=== PATIENT | male | born 1955 | race American Indian/Alaskan Native ===

== ENCOUNTER 2018-12-13 17:48 | Inpatient (IN) | payer MEDICARE, OTHER ==
[2018-12-13 17:48] VITALS: BMI 19.5
--- NOTE | 2018-12-13 19:46 | C.PDOC ---
History Of Present Illness 63 year old male referred by Dr. Rasmussen for new onset two foot ulcers on the right foot and ankle. Symptoms began 2 weeks worsening now with black right toe. Denies trauma. Patient states he has historically high blood sugar but compliant with medications. Denies fever or chills. Time Seen by Provider: 12/13/18 19:32 Chief Complaint (Nursing): Abnormal Skin Integrity History Per: Patient History/Exam Limitations: no limitations Onset/Duration Of Symptoms: Days (3 weeks) Current Symptoms Are (Timing): Worse Recent travel outside of the [place]: No Past Medical History Reviewed: Historical Data, Nursing Documentation, Vital Signs Vital Signs: Last Vital Signs Temp 97.9 F 12/13/18 18:02 Pulse 100 H 12/13/18 18:02 Resp 18 12/13/18 18:02 BP 168/90 H 12/13/18 18:02 Pulse Ox 99 12/13/18 18:02 - Medical History PMH: Anemia, Diabetes, Gastritis, HTN, Hypercholesterolemia, Peripheral Edema (not at present), End Stage Renal Disease (on peritoneal diaysis), Chronic Kidney Disease Surgical History: Endoscopy (11/10/16) - [facility] Procedures DX ULTRASOUND-DIGESTIVE (11/21/14) EXCIS LESION OF MUSCLE (05/07/15) OTHER LOCAL DESTRUC SKIN (05/07/15) PERCUTAN NEEDLE BX OF LIVER (11/21/14) Family History: States: Unknown Family Hx - Social History Hx Alcohol Use: No Hx Substance Use: No - Immunization History Hx Influenza Vaccination: Yes Review Of Systems Except As Marked, All Systems Reviewed And Found Negative. Constitutional: Negative for: Fever, Chills Cardiovascular: Negative for: Chest Pain, Palpitations Respiratory: Negative for: Cough, Shortness of Breath Gastrointestinal: Negative for: Nausea, Vomiting Skin: Positive for: Other (Ulcers, black right toe) Neurological: Negative for: Weakness, Numbness Physical Exam - Physical Exam Appears: Non-toxic Skin: Warm Head: Atraumatic, Normacephalic Eye(s): bilateral: Normal Inspection Oral Mucosa: Moist Neck: Normal, Supple Chest: Symmetrical, No Tenderness Cardiovascular: Rhythm Regular Respiratory: Normal Breath Sounds, No Rales, No Rhonchi, No Wheezing Gastrointestinal/Abdominal: Soft, No Tenderness Extremity: Other (Dry gangrene to right 1st toe and right lateral malleolus, pt is s/p outpt vascular study per report patient with right leg occlusion but no palor or cyanosis.) Neurological/Psych: Oriented x3, Normal Speech ED Course And Treatment - Laboratory Results Result Diagrams: 12/13/18 19:59 12/13/18 21:59 ECG: Interpreted By Me ECG Rhythm: Sinus Rhythm ECG Interpretation: Normal Rate From EC O2 Sat by Pulse Oximetry: 99 Pulse Ox Interpretation: Normal - Radiology CXR: Interpreted by Me CXR Interpretation: Yes: No Acute Disease - Other Rad R FOOT X-Ray: Interpreted by Me (NEG) R ANKLE X-Ray: Interpreted by Me (NEG) - Physician Consult Information Time Consulting Physician Contacted: 22:28 Physician Contacted: Levi Matthews Outcome Of Conversation: c/f pmd Medical Decision Making Medical Decision Making: Plan: * EKG * Blood work * CXR * Right ankle/foot x-ray 1956: Discussed with podiatry resident. Disposition Counseled Patient/Family Regarding: Studies Performed, Diagnosis - Disposition Disposition: HOSPITALIZED Disposition Time: 22:28 Condition: STABLE Forms: [facility] (Hebrew) - POA Present On Arrival: None - Clinical Impression Clinical Impression: Gangrene, ESRD (end stage renal disease) - Scribe Statement The provider has reviewed the documentation as recorded by the Scribjonathan Gutierres All medical record entries made by the Scribe were at my direction and personally dictated by me. I have reviewed the chart and agree that the record accurately reflects my personal performance of the history, physical exam, medical decision making, and the department course for this patient. I have also personally directed, reviewed, and agree with the discharge instructions and disposition.
[2018-12-13 20:03] LABS: BASO # 0.1 K/uL (0.0-0.2); BASO % 0.9 % (0.0-2.0); EOS # 0.3 K/uL (0.0-0.7); EOS % 4.4 % (0.0-4.0); HEMOGLOBIN 10.6 g/dL (12.0-18.0); LYMPH # 0.6 K/uL (1.0-4.3); LYMPH % 9.5 % (20.0-40.0); MEAN CORPUSCULAR HEMOGLOBIN 25.4 pg (27.0-31.0); MEAN CORPUSCULAR HGB CONC 31.7 g/dL (33.0-37.0); MEAN PLATELET VOLUME 7.9 fL (7.2-11.7); MONO # 0.9 K/uL (0.0-0.8); MONO % 14.3 % (0.0-10.0); NEUT # 4.5 K/uL (1.8-7.0); NEUT % 70.9 % (50.0-75.0); NRBC % 0.1 % (0.0-2.0); PLATELET COUNT 298 K/uL (130-400); RBC 4.17 Mil/uL (4.40-5.90); RED CELL DISTRIBUTION WIDTH 16.5 % (11.5-14.5); WHITE BLOOD COUNT 6.3 K/uL (4.8-10.8)
[2018-12-13 20:08] LABS: MEAN CELL VOLUME 80.1 fL (80.0-94.0)
[2018-12-13 20:35] LABS: BASOPHIL 2 % (0-2); EOSINOPHIL 5 % (0-4); TOTAL CELLS COUNTED 100
[2018-12-13 20:36] LABS: ANISOCYTOSIS SLIGHT; HYPOCHROMIC SLIGHT; LYMPHOCYTE 10 % (20-40); MONOCYTE 13 % (0-10); NEUTROPHIL 70 % (50-75); PLATELET ESTIMATE NORMAL (NORMAL); POIKILOCYTOSIS SLIGHT
[2018-12-13 20:37] LABS: TARGET CELLS SLIGHT
[2018-12-13 22:24] LABS: ALB/GLOB RATIO 1.1 (1.0-2.1); ALBUMIN 3.2 g/dL (3.5-5.0); CALCIUM 8.3 mg/dl (8.6-10.4)
--- NOTE | 2018-12-14 01:11 | CP.PCM.HP ---
<GeechilogarlandZiaLevi P - Last Filed: 12/14/18 08:46> Meds Allergies/Adverse Reactions: Allergies Allergy/AdvReac Type Severity Reaction Status Date / Time No Known Allergies Allergy Verified 11/10/16 13:22 Results - Vital Signs Recent Vital Signs: Last Vital Signs Temp 98.4 F 12/14/18 07:33 Pulse 66 12/14/18 07:33 Resp 20 12/14/18 07:33 BP 173/85 H 12/14/18 07:33 Pulse Ox 99 12/14/18 07:33 - Labs Result Diagrams: 12/14/18 08:32 12/13/18 21:59 Labs: Laboratory Results - last 24 hr 12/13/18 12/13/18 12/14/18 19:59 21:59 02:20 WBC 6.3 RBC 4.17 L Hgb 10.6 L Hct 33.4 L MCV 80.1 D MCH 25.4 L MCHC 31.7 L RDW 16.5 H Plt Count 298 MPV 7.9 Neut % (Auto) 70.9 Lymph % (Auto) 9.[address] [place] % (Auto) 14.3 H Eos % (Auto) 4.4 H Baso % (Auto) 0.9 Neut # (Auto) 4.5 Lymph # (Auto) 0.[address] [place] # (Auto) 0.9 H Eos # (Auto) 0.3 Baso # (Auto) 0.1 Neutrophils % (Manual) 70 Lymphocytes % (Manual) 10 L Monocytes % (Manual) 13 H Eosinophils % (Manual) 5 H Basophils % (Manual) 2 Platelet Estimate Normal Hypochromasia (manual) Slight Poikilocytosis (manual Slight Anisocytosis (manual) Slight Target Cells Slight PT INR APTT Sodium 131 L Potassium 3.7 Chloride 95 L Carbon Dioxide 29 Anion Gap 11 BUN 46 H Creatinine 9.1 H* Est GFR ( Amer) 7 Est GFR (Non-Af Amer) 6 POC Glucose (mg/dL) 471 H* Random Glucose 260 H Calcium 8.3 L Total Bilirubin 0.5 AST 21 ALT 20 L D Alkaline Phosphatase 105 Total Protein 6.1 L Albumin 3.2 L Globulin 2.9 Albumin/Globulin Ratio 1.1 12/14/18 12/14/18 12/14/18 07:15 08:32 08:32 WBC 6.0 RBC 3.82 L Hgb 10.2 L Hct 30.8 L MCV 80.6 MCH 26.7 L MCHC 33.1 RDW 16.5 H Plt Count 289 MPV 7.8 Neut % (Auto) 68.9 Lymph % (Auto) 11.[address] [place] % (Auto) 12.9 H Eos % (Auto) 5.6 H Baso % (Auto) 0.9 Neut # (Auto) 4.1 Lymph # (Auto) 0.[address] [place] # (Auto) 0.8 Eos # (Auto) 0.3 Baso # (Auto) 0.1 Neutrophils % (Manual) Lymphocytes % (Manual) Monocytes % (Manual) Eosinophils % (Manual) Basophils % (Manual) Platelet Estimate Hypochromasia (manual) Poikilocytosis (manual Anisocytosis (manual) Target Cells PT 10.4 INR 1.0 APTT 32 Sodium Potassium Chloride Carbon Dioxide Anion Gap BUN Creatinine Est GFR ( Amer) Est GFR (Non-Af Amer) POC Glucose (mg/dL) 414 H* Random Glucose Calcium Total Bilirubin AST ALT Alkaline Phosphatase Total Protein Albumin Globulin Albumin/Globulin Ratio Attending/Attestation - Attestation I have personally seen and examined this patient.: Yes I have fully participated in the care of the patient.: Yes I have reviewed all pertinent clinical information: Yes Notes (Text): 12/14/18 08:46 b/l but right worse then 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 Plan Will need to prepared and started on HD, then pvd studes with CTA/angio, then determine extent of amputation and would care mean while adjusting insulin requirement as will change as the PD fluid contains glucose, reduced levimer form 30 to 20 and sliding scale coverage Vascular surg, podiatry, nephrology, wound care consults Echo, work up for wound as per podiatry, since clinically not infected will hold off on abx Gi dvt prophylaxis See plan for details 12/14/18 08:51 <Vidhya Cleary P - Last Filed: 12/14/18 14:37> History of Present Illness - History of Present Illness History of Present Illness: H&P for Dr. Matthews. CC: Worsening R foot wounds HPI: 63 year old male PMHx DM, ESRD on peritoneal dialysis and HTN presents to ED for wounds to R foot. Patient states he noticed a small wound to his R ankle area and discoloration of his R first toe 3 weeks ago, which have been pro gressively worsening. Patient reports burning pain to wounds since yesterday. Patient denies fever, chills, drainage, trauma nausea, vomiting, inability to bear weight. Patient undergoes peritoneal dialysis 4x per day, states he left the house with the dialysis solution in his abdomen and has not been able to remove it since he did not bring his supplies with him. PMHx: DM, ESRD on peritoneal dialysis and HTN PSHx: L AV graft, Peritoneal dialysis catheter Meds: See med list Allergies: NKDA FamHx: Mother-DM, Father-lung cancer SocHx: Former smoker 20 years ago, 3 cig/day, quit alcohol 20 years ago, no recent illicit drug use PMD: Reisner Review of Systems: -Gen: No fever, No chills, No headache, No lethargy, No weakness. -HEENT: No dizziness, No change in vision, No change in hearing, No sore throat, No dysphagia, No nasal congestion, No mucous. -Cardio: No chest pain, No palpitations, No lower extremity edema, No orthopnea. -Resp: No cough, No dyspnea, No hemoptysis, No wheezing, No pain on inspiration. -GI: No abdominal pain, No nausea/vomiting, No diarrhea/constipation, No hematochezia, No hematemesis. -: No dysuria, No urinary freq, No incontinence, No hematuria, No change in urinary stream. -MSK: +RLE pain -Skin: +RLE Wounds. -Neuro: No confusion, + numbness R first toe, No tingling, No focal weakness, No radicular pain, No syncope. Present on Admission - Present on Admission Any Indicators Present on Admission: Yes History of Uncontrolled Diabetes: Yes Past Patient History - Past Medical History & Family History Past Medical History?: Yes - Past Social History Smoking Status: Former Smoker - CARDIAC Hx Hypercholesterolemia: Yes Hx Hypertension: Yes Hx Peripheral Edema: Yes (not at present) - PULMONARY Hx Respiratory Disorders: No - NEUROLOGICAL Hx Neurological Disorder: No - HEENT Hx HEENT Problems: Yes - RENAL Hx Chronic Kidney Disease: Yes - ENDOCRINE/METABOLIC Hx Endocrine Disorders: Yes Hx Diabetes Mellitus Type 2: Yes - HEMATOLOGICAL/ONCOLOGICAL Hx Anemia: Yes - INTEGUMENTARY Hx Dermatological Problems: No - MUSCULOSKELETAL/RHEUMATOLOGICAL Hx Musculoskeletal Disorders: No - GASTROINTESTINAL Hx Gastritis: Yes - GENITOURINARY/GYNECOLOGICAL Hx Genitourinary Disorders: No - PSYCHIATRIC Hx Substance Use: No - SURGICAL HISTORY Other/Comment: FISTULA LEFT ARM, AUG 2018 - ANESTHESIA Hx Anesthesia: Yes Hx Anesthesia Reactions: No Hx Malignant Hyperthermia: No Physical Exam - Constitutional Appears: Non-toxic, No Acute Distress - Head Exam Head Exam: ATRAUMATIC, NORMOCEPHALIC - Eye Exam Eye Exam: EOMI, Normal appearance, PERRL - ENT Exam ENT Exam: Mucous Membranes Moist - Neck Exam Neck exam: Positive for: Full Rom, Normal Inspection Additional comments: Well healed L neck scar - Respiratory Exam Respiratory Exam: Clear to Auscultation Bilateral, NORMAL BREATHING PATTERN. absent: Rales, Rhonchi, Wheezes - Cardiovascular Exam Cardiovascular Exam: REGULAR RHYTHM, +S1, +S2, Systolic Murmur (3/6 heard best over) - GI/Abdominal Exam GI & Abdominal Exam: Normal Bowel Sounds, Soft. absent: Guarding, Rebound, Tenderness Additional comments: Peritoneal dialysis catheter L abdomen - Extremities Exam Extremities exam: Positive for: full ROM. Negative for: calf tenderness, normal capillary refill (L toes capillary refil normal. R toes capillary refill diminished.), tenderness Additional comments: DP pulses are weak bilaterally. R first toe is necrotic, no purulent drainage, no warmth or erythema, +loss of sensation. 4cm wound with overlying scab to lateral malleolus, no active drainage, warmth or erythema. - Neurological Exam Neurological exam: Alert, CN II-XII Intact, Oriented x3 - Psychiatric Exam Psychiatric exam: Normal Affect, Normal Mood - Skin Additional comments: other than described in extremity exam, normal Results - Vital Signs Recent Vital Signs: Last Vital Signs Temp 98.0 F 12/13/18 22:48 Pulse 97 H 12/13/18 22:48 Resp 16 12/13/18 22:48 BP 162/88 H 12/13/18 22:48 Pulse Ox 99 12/13/18 22:48 - Labs Result Diagrams: 12/14/18 08:32 12/14/18 08:32 Labs: Laboratory Results - last 24 hr 12/13/18 12/13/18 19:59 21:59 WBC 6.3 RBC 4.17 L Hgb 10.6 L Hct 33.4 L MCV 80.1 D MCH 25.4 L MCHC 31.7 L RDW 16.5 H Plt Count 298 MPV 7.9 Neut % (Auto) 70.9 Lymph % (Auto) 9.[address] [place] % (Auto) 14.3 H Eos % (Auto) 4.4 H Baso % (Auto) 0.9 Neut # (Auto) 4.5 Lymph # (Auto) 0.[address] [place] # (Auto) 0.9 H Eos # (Auto) 0.3 Baso # (Auto) 0.1 Neutrophils % (Manual) 70 Lymphocytes % (Manual) 10 L Monocytes % (Manual) 13 H Eosinophils % (Manual) 5 H Basophils % (Manual) 2 Platelet Estimate Normal Hypochromasia (manual) Slight Poikilocytosis (manual Slight Anisocytosis (manual) Slight Target Cells Slight Sodium 131 L Potassium 3.7 Chloride 95 L Carbon Dioxide 29 Anion Gap 11 BUN 46 H Creatinine 9.1 H* Est GFR ( Amer) 7 Est GFR (Non-Af Amer) 6 Random Glucose 260 H Calcium 8.3 L Total Bilirubin 0.5 AST 21 ALT 20 L D Alkaline Phosphatase 105 Total Protein 6.1 L Albumin 3.2 L Globulin 2.9 Albumin/Globulin Ratio 1.1 Assessment & Plan - Assessment and Plan (Free Text) Plan: R lateral ankle and R first toe wounds Arterial doppler study [facility] [place] 12/07/18: R popliteal artery 75-99% stenosis. R Posterior tibial artery is occluded. L posterior tibial and anterior tibial with 50-75% stenosis. Diffuse disease to peroneal artery. R MARIVEL: 1.12, L MARIVEL: 0.91 R Foot and ankle Xrays: No evidence of osteomyelitis (see full report) Vascular Surgery- unavailable at this time -should patient need vascular intervention he will require transfer to another facility Podiatry Consulted- f/u recs Tylenol 650 Q6H PRN pain Hx of HTN Losartan 50mg PO daily Metoprolol Tartrate 50mg PO BID Hx of DM Levemir 30 u HS Regular insulin SS Aspirin 81mg PO daily Crestor 20mg PO HS Accuchecks ACHS Hx ESRD on Peritoneal dialysis Nephro consulted, Dr. Vail Patient may need to start hemodialysis Nephro Barbara 1 tab PO daily Calcitriol 0.5mct PO daily f/u echo PPx Heparin 5000u SC Q8H Discussed with Dr. Cassie Cleary, PGY-1
[2018-12-14] MEDS ORDERED: Glucagon Recombinant 1 mg Inj IM PRN (01:18)
[2018-12-14] MEDS ORDERED: Dextrose 50% SYRINGE Inj (50 ml) IV PRN (01:18)
[2018-12-14] MEDS: Insulin Detemir 100 units/ml Vial (Levemir) SC SCH ×2 (02:16→21:45)
--- NOTE | 2018-12-14 07:40 | CP.PCM.CON ---
Past Patient History - Past Medical History & Family History Past Medical History?: Yes - Past Social History Smoking Status: Former Smoker - CARDIAC Hx Hypercholesterolemia: Yes Hx Hypertension: Yes Hx Peripheral Edema: Yes (not at present) - PULMONARY Hx Respiratory Disorders: No - NEUROLOGICAL Hx Neurological Disorder: No - HEENT Hx HEENT Problems: Yes - RENAL Hx Chronic Kidney Disease: Yes - ENDOCRINE/METABOLIC Hx Endocrine Disorders: Yes Hx Diabetes Mellitus Type 2: Yes - HEMATOLOGICAL/ONCOLOGICAL Hx Anemia: Yes - INTEGUMENTARY Hx Dermatological Problems: No - MUSCULOSKELETAL/RHEUMATOLOGICAL Hx Musculoskeletal Disorders: No - GASTROINTESTINAL Hx Gastritis: Yes - GENITOURINARY/GYNECOLOGICAL Hx Genitourinary Disorders: No - PSYCHIATRIC Hx Substance Use: No - SURGICAL HISTORY Other/Comment: FISTULA LEFT ARM, AUG 2018 - ANESTHESIA Hx Anesthesia: Yes Hx Anesthesia Reactions: No Hx Malignant Hyperthermia: No Meds Allergies/Adverse Reactions: Allergies Allergy/AdvReac Type Severity Reaction Status Date / Time No Known Allergies Allergy Verified 11/10/16 13:22 - Medications Medications: Current Medications Acetaminophen (Tylenol 325mg Tab) 650 mg PO Q6 PRN PRN Reason: Pain, moderate (4-7) Aspirin (Aspirin Chewable) 81 mg PO DAILY [facility] Calcitriol (Rocaltrol) 0.5 mcg PO DAILY [facility] Dextrose (Dextrose 50% Inj) 0 ml IV STAT PRN; Protocol PRN Reason: Hypoglycemia Protocol Dextrose (Glutose 15) 0 gm PO ONCE PRN; Protocol PRN Reason: Hypoglycemia Protocol Glucagon (Glucagen Diagnostic Kit) 0 mg IM STAT PRN; Protocol PRN Reason: Hypoglycemia Protocol Heparin Sodium (Porcine) (Heparin) 5,000 units SC Q8 [facility] Last Admin: 12/14/18 05:21 Dose: 5,000 units Dextrose (Dextrose 5% In Water 1000 Ml) 1,000 mls @ 0 mls/hr IV .Q0M PRN; Protocol PRN Reason: Hypoglycemia Protocol Insulin Detemir (Levemir) 30 unit SC HS [facility] Last Admin: 12/14/18 02:16 Dose: 30 units Insulin Human Regular (Novolin R) 0 unit SC ACHS [facility]; Protocol Losartan Potassium (Cozaar) 50 mg PO DAILY [facility] Metoprolol Tartrate (Lopressor) 50 mg PO BID [facility] Rosuvastatin Calcium (Crestor) 20 mg PO HS [facility] Vitamin B Complex/Vit C/Folic Acid (Nephro-Barbara) 1 tab PO 0800 PEE Results - Vital Signs Recent Vital Signs: Last Vital Signs Temp 98.4 F 12/14/18 07:33 Pulse 66 12/14/18 07:33 Resp 20 12/14/18 07:33 BP 173/85 H 12/14/18 07:33 Pulse Ox 99 12/14/18 07:33 - Labs Result Diagrams: 12/13/18 19:59 12/13/18 21:59 Labs: Laboratory Results - last 24 hr 12/13/18 12/13/18 12/14/18 19:59 21:59 02:20 WBC 6.3 RBC 4.17 L Hgb 10.6 L Hct 33.4 L MCV 80.1 D MCH 25.4 L MCHC 31.7 L RDW 16.5 H Plt Count 298 MPV 7.9 Neut % (Auto) 70.9 Lymph % (Auto) 9.5 L Cotton % (Auto) 14.3 H Eos % (Auto) 4.4 H Baso % (Auto) 0.9 Neut # (Auto) 4.5 Lymph # (Auto) 0.6 L Cotton # (Auto) 0.9 H Eos # (Auto) 0.3 Baso # (Auto) 0.1 Neutrophils % (Manual) 70 Lymphocytes % (Manual) 10 L Monocytes % (Manual) 13 H Eosinophils % (Manual) 5 H Basophils % (Manual) 2 Platelet Estimate Normal Hypochromasia (manual) Slight Poikilocytosis (manual Slight Anisocytosis (manual) Slight Target Cells Slight Sodium 131 L Potassium 3.7 Chloride 95 L Carbon Dioxide 29 Anion Gap 11 BUN 46 H Creatinine 9.1 H* Est GFR ( Amer) 7 Est GFR (Non-Af Amer) 6 POC Glucose (mg/dL) 471 H* Random Glucose 260 H Calcium 8.3 L Total Bilirubin 0.5 AST 21 ALT 20 L D Alkaline Phosphatase 105 Total Protein 6.1 L Albumin 3.2 L Globulin 2.9 Albumin/Globulin Ratio 1.1 12/14/18 07:15 WBC RBC Hgb Hct MCV MCH MCHC RDW Plt Count MPV Neut % (Auto) Lymph % (Auto) Cotton % (Auto) Eos % (Auto) Baso % (Auto) Neut # (Auto) Lymph # (Auto) Cotton # (Auto) Eos # (Auto) Baso # (Auto) Neutrophils % (Manual) Lymphocytes % (Manual) Monocytes % (Manual) Eosinophils % (Manual) Basophils % (Manual) Platelet Estimate Hypochromasia (manual) Poikilocytosis (manual Anisocytosis (manual) Target Cells Sodium Potassium Chloride Carbon Dioxide Anion Gap BUN Creatinine Est GFR ( Amer) Est GFR (Non-Af Amer) POC Glucose (mg/dL) 414 H* Random Glucose Calcium Total Bilirubin AST ALT Alkaline Phosphatase Total Protein Albumin Globulin Albumin/Globulin Ratio
[2018-12-14] MEDS: Multivitamin Vitamin B Complex (Nephro-Vite) Tab PO SCH (08:15)
[2018-12-14] MEDS: (Novolin R) Insulin Human Regular 100 units/ml vial SC SCH ×4 (08:15→21:45)
[2018-12-14 08:39] LABS: BASO # 0.1 K/uL (0.0-0.2); BASO % 0.9 % (0.0-2.0); EOS # 0.3 K/uL (0.0-0.7); EOS % 5.6 % (0.0-4.0); HEMOGLOBIN 10.2 g/dL (12.0-18.0); LYMPH # 0.7 K/uL (1.0-4.3); LYMPH % 11.7 % (20.0-40.0); MEAN CELL VOLUME 80.6 fL (80.0-94.0); MEAN CORPUSCULAR HEMOGLOBIN 26.7 pg (27.0-31.0); MEAN CORPUSCULAR HGB CONC 33.1 g/dL (33.0-37.0); MEAN PLATELET VOLUME 7.8 fL (7.2-11.7); MONO # 0.8 K/uL (0.0-0.8); MONO % 12.9 % (0.0-10.0); NEUT # 4.1 K/uL (1.8-7.0); NEUT % 68.9 % (50.0-75.0); NRBC % 0.1 % (0.0-2.0); RBC 3.82 Mil/uL (4.40-5.90); RED CELL DISTRIBUTION WIDTH 16.5 % (11.5-14.5)
[2018-12-14 08:45] LABS: PROTHROMBIN TIME 10.4 SECONDS (9.7-12.2)
--- NOTE | 2018-12-14 08:55 | RAD ---
Date of service: 12/13/2018 PROCEDURE: Right Ankle Radiographs. HISTORY: DFU COMPARISON: None available. TECHNIQUE: 3 views obtained. FINDINGS: BONES: No fracture lytic lesion or gross periosteal reaction noted. JOINTS: Mild midfoot osteoarthritis. Ankle mortise maintained. Talar dome intact SOFT TISSUES: Atherosclerotic vascular calcifications present. No gas-forming cellulitis seen. OTHER FINDINGS: None. IMPRESSION: No periosteal reaction to suggest osteomyelitis noted. No gross osseous destruction appreciated . Other findings as above.
--- NOTE | 2018-12-14 08:58 | RAD ---
Date of service: cordeliazz 12/13/2018 PROCEDURE: Right Foot Radiographs. HISTORY: DFU COMPARISON: None. TECHNIQUE: 3 views obtained. FINDINGS: BONES: No fracture or lytic lesion. JOINTS: Mild arthrosis midfoot. Trace 1st metatarsal-phalangeal joint arthrosis SOFT TISSUES: Atherosclerotic vascular calcifications present. No gas-forming cellulitis seen. OTHER FINDINGS: None. IMPRESSION: No periosteal reaction to suggest osteomyelitis noted. No gross osseous destruction appreciated . Other findings as above.
[2018-12-14 09:15] LABS: ALB/GLOB RATIO 1.1 (1.0-2.1); ALBUMIN 3.3 g/dL (3.5-5.0); CALCIUM 9.4 mg/dl (8.6-10.4)
--- NOTE | 2018-12-14 09:34 | RAD ---
Date of service: 12/13/2018 HISTORY: Medical clearance COMPARISON: None available. TECHNIQUE: 1 view obtained. FINDINGS: LUNGS: No gross focal infiltrate or effusion. Right paratracheal opacity likely represents prominent vasculature. Patchy increased markings at the left lung base may represent prominent epicardial fat pad. Clinical correlation. Small nodular density at the lateral aspect of the left mid lung zone likely represents vessel on end. PLEURA: No significant pleural effusion identified, no pneumothorax apparent. CARDIOVASCULAR: No aortic atherosclerotic calcification present. Mild cardiomegaly. No pulmonary vascular congestion. OSSEOUS STRUCTURES: No significant abnormalities. VISUALIZED UPPER ABDOMEN: Normal. OTHER FINDINGS: None. IMPRESSION: No active disease.
--- NOTE | 2018-12-14 11:14 | CP.PCM.CON ---
History of Present Illness - History of Present Illness History of Present Illness: Podiatry Consult Note for Dr. Rasmussen 63M with PMH DM, ESRD on peritoneal dialysis and HTN seen and evaluated at bedside for right foot pain. Patient states that pain has been worsening over the last several weeks and is worst a the tip of his right big toe and at his right ankle. He states that he tries to keep both sites covered at home but has recently noticed a small hole forming at the tip of his big toe. 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 Ruffin. He denies any drainage, pus, malodor, or redness coming from the site. He is AAO x 3 and NAD at time of visit. Denies any further pedal complaints at this time. Denies any recent N/V/F/C/CP/SOB/D Review of Systems - Review of Systems All systems: reviewed and no additional remarkable complaints except Review of Systems: as per HPI Past Patient History - Past Medical History & Family History Past Medical History?: Yes - Past Social History Smoking Status: Former Smoker - CARDIAC Hx Hypercholesterolemia: Yes Hx Hypertension: Yes Hx Peripheral Edema: Yes (not at present) - PULMONARY Hx Respiratory Disorders: No - NEUROLOGICAL Hx Neurological Disorder: No - HEENT Hx HEENT Problems: Yes - RENAL Hx Chronic Kidney Disease: Yes - ENDOCRINE/METABOLIC Hx Endocrine Disorders: Yes Hx Diabetes Mellitus Type 2: Yes - HEMATOLOGICAL/ONCOLOGICAL Hx Anemia: Yes - INTEGUMENTARY Hx Dermatological Problems: No - MUSCULOSKELETAL/RHEUMATOLOGICAL Hx Musculoskeletal Disorders: No - GASTROINTESTINAL Hx Gastritis: Yes - GENITOURINARY/GYNECOLOGICAL Hx Genitourinary Disorders: No - PSYCHIATRIC Hx Substance Use: No - SURGICAL HISTORY Other/Comment: FISTULA LEFT ARM, AUG 2018 - ANESTHESIA Hx Anesthesia: Yes Hx Anesthesia Reactions: No Hx Malignant Hyperthermia: No Meds Allergies/Adverse Reactions: Allergies Allergy/AdvReac Type Severity Reaction Status Date / Time No Known Allergies Allergy Verified 11/10/16 13:22 - Medications Medications: Current Medications Acetaminophen (Tylenol 325mg Tab) 650 mg PO Q6 PRN PRN Reason: Pain, moderate (4-7) Aspirin (Aspirin Chewable) 81 mg PO DAILY [facility] Last Admin: 12/14/18 10:12 Dose: 81 mg Calcitriol (Rocaltrol) 0.5 mcg PO DAILY [facility] Last Admin: 04/02/19 10:12 Dose: 0.5 mcg Dextrose (Dextrose 50% Inj) 0 ml IV STAT PRN; Protocol PRN Reason: Hypoglycemia Protocol Dextrose (Glutose 15) 0 gm PO ONCE PRN; Protocol PRN Reason: Hypoglycemia Protocol Glucagon (Glucagen Diagnostic Kit) 0 mg IM STAT PRN; Protocol PRN Reason: Hypoglycemia Protocol Heparin Sodium (Porcine) (Heparin) 5,000 units SC Q8 [facility] Last Admin: 12/14/18 05:21 Dose: 5,000 units Dextrose (Dextrose 5% In Water 1000 Ml) 1,000 mls @ 0 mls/hr IV .Q0M PRN; Protocol PRN Reason: Hypoglycemia Protocol Insulin Detemir (Levemir) 30 unit SC HS [facility] Last Admin: 12/14/18 02:16 Dose: 30 units Insulin Human Regular (Novolin R) 0 unit SC ACHS [facility]; Protocol Last Admin: 12/14/18 08:15 Dose: 10 units Losartan Potassium (Cozaar) 50 mg PO DAILY [facility] Last Admin: 12/14/18 10:12 Dose: 50 mg Metoprolol Tartrate (Lopressor) 50 mg PO BID [facility] Last Admin: 12/14/18 10:13 Dose: 50 mg Rosuvastatin Calcium (Crestor) 20 mg PO [facility] Vitamin B Complex/Vit C/Folic Acid (Nephro-Barbara) 1 tab PO 0800 [facility] Last Admin: 12/14/18 08:15 Dose: 1 tab Physical Exam - Constitutional Appears: Well, Non-toxic, No Acute Distress - Extremities Exam Additional comments: LE focused exam: Vasc: DP/PT pulses non-palpable b/l. Skin temperature warm to warm from proximal to distal WNL. CFT > 3 seconds to all digits b/l. No edema noted b/l Neuro: Epicritic and protective sensation grossly diminished b/l Derm: Callosity noted to distal aspect of right hallux with ulceration measuring approximately 0.1 cm x 0.1 cm x 0.1 cm noted in center of callosity. No tracking, tunneling, undermining, probe to bone, drainage, malodor or other clinical signs of infection noted. Hypertrophic patch of skin measuring roughly 4 cm x 3 cm noted to anterolateral ankle of right foot. No evidence of erythema or cellulitic changes. No breaks in the skin appreciated MSK: Pain on palpation of hypertrophic skin at anterior ankle. No pain on palpation of distal hallucal ulceration. No evidence of gross deformities appreciated - Neurological Exam Neurological exam: Alert, Oriented x3 - Psychiatric Exam Psychiatric exam: Normal Affect, Normal Mood Results - Vital Signs Recent Vital Signs: Last Vital Signs Temp 98.4 F 12/14/18 07:33 Pulse 66 12/14/18 07:33 Resp 20 12/14/18 07:33 BP 173/85 H 12/14/18 07:33 Pulse Ox 99 12/14/18 07:33 - Labs Result Diagrams: 12/14/18 08:32 12/14/18 08:32 Labs: Laboratory Results - last 24 hr 12/13/18 12/13/18 12/14/18 19:59 21:59 02:20 WBC 6.3 RBC 4.17 L Hgb 10.6 L Hct 33.4 L MCV 80.1 D MCH 25.4 L MCHC 31.7 L RDW 16.5 H Plt Count 298 MPV 7.9 Neut % (Auto) 70.9 Lymph % (Auto) 9.5 L Mchenry % (Auto) 14.3 H Eos % (Auto) 4.4 H Baso % (Auto) 0.9 Neut # (Auto) 4.5 Lymph # (Auto) 0.6 L Mchenry # (Auto) 0.9 H Eos # (Auto) 0.3 Baso # (Auto) 0.1 Neutrophils % (Manual) 70 Lymphocytes % (Manual) 10 L Monocytes % (Manual) 13 H Eosinophils % (Manual) 5 H Basophils % (Manual) 2 Platelet Estimate Normal Hypochromasia (manual) Slight Poikilocytosis (manual Slight Anisocytosis (manual) Slight Target Cells Slight PT INR APTT Sodium 131 L Potassium 3.7 Chloride 95 L Carbon Dioxide 29 Anion Gap 11 BUN 46 H Creatinine 9.1 H* Est GFR ( Amer) 7 Est GFR (Non-Af Amer) 6 POC Glucose (mg/dL) 471 H* Random Glucose 260 H Calcium 8.3 L Total Bilirubin 0.5 AST 21 ALT 20 L D Alkaline Phosphatase 105 Total Protein 6.1 L Albumin 3.2 L Globulin 2.9 Albumin/Globulin Ratio 1.1 12/14/18 12/14/18 12/14/18 07:15 08:32 08:32 WBC 6.0 RBC 3.82 L Hgb 10.2 L Hct 30.8 L MCV 80.6 MCH 26.7 L MCHC 33.1 RDW 16.5 H Plt Count 289 MPV 7.8 Neut % (Auto) 68.9 Lymph % (Auto) 11.7 L Mchenry % (Auto) 12.9 H Eos % (Auto) 5.6 H Baso % (Auto) 0.9 Neut # (Auto) 4.1 Lymph # (Auto) 0.7 L Mchenry # (Auto) 0.8 Eos # (Auto) 0.3 Baso # (Auto) 0.1 Neutrophils % (Manual) Lymphocytes % (Manual) Monocytes % (Manual) Eosinophils % (Manual) Basophils % (Manual) Platelet Estimate Hypochromasia (manual) Poikilocytosis (manual Anisocytosis (manual) Target Cells PT 10.4 INR 1.0 APTT 32 Sodium Potassium Chloride Carbon Dioxide Anion Gap BUN Creatinine Est GFR ( Amer) Est GFR (Non-Af Amer) POC Glucose (mg/dL) 414 H* Random Glucose Calcium Total Bilirubin AST ALT Alkaline Phosphatase Total Protein Albumin Globulin Albumin/Globulin Ratio 12/14/18 08:32 WBC RBC Hgb Hct MCV MCH MCHC RDW Plt Count MPV Neut % (Auto) Lymph % (Auto) Mchenry % (Auto) Eos % (Auto) Baso % (Auto) Neut # (Auto) Lymph # (Auto) Mchenry # (Auto) Eos # (Auto) Baso # (Auto) Neutrophils % (Manual) Lymphocytes % (Manual) Monocytes % (Manual) Eosinophils % (Manual) Basophils % (Manual) Platelet Estimate Hypochromasia (manual) Poikilocytosis (manual Anisocytosis (manual) Target Cells PT INR APTT Sodium 133 Potassium 4.3 Chloride 95 L Carbon Dioxide 28 Anion Gap 14 BUN 53 H Creatinine 9.7 H* Est GFR ( Amer) 7 Est GFR (Non-Af Amer) 5 POC Glucose (mg/dL) Random Glucose 360 H D Calcium 9.4 Total Bilirubin 0.5 AST 28 ALT 19 L Alkaline Phosphatase 116 Total Protein 6.3 Albumin 3.3 L Globulin 3.0 Albumin/Globulin Ratio 1.1 Assessment & Plan - Assessment and Plan (Free Text) Assessment: 63M seen for distal right hallux ulceration and painful hypertrophic skin on anterior right ankle Plan: Patient seen and evaluated Plan discussed with Dr. Rasmussen Afebrile, absent leukocytosis Foot xray: No evidence of osteomyelitis F/u vascular recommendations No plan for surgical intervention at this time Wound dressed with betadine, DSD Podiatry will continue to follow while patient in house - Date & Time Date: 12/14/18 Time: 11:41
--- NOTE | 2018-12-14 12:54 | CP.PCM.PN ---
<Brent Delvalle - Last Filed: 12/14/18 16:48> Subjective - Date & Time of Evaluation Date of Evaluation: 12/14/18 Time of Evaluation: 07:45 - Subjective Subjective: Medicine progress note for Dr. Neville Fraser Pt seen and examined at bedside. Pt is resting comfortably and has no complaints at this time. Pt denies fever, chills, chest pain, sob, abdominal pain, n/v/d, headache, dizziness, visual changes, numbness or tingling. Objective - Vital Signs/Intake and Output Vital Signs (last 24 hours): Temp Pulse Resp BP Pulse Ox 98.4 F 66 20 173/85 H 99 12/14/18 07:33 12/14/18 07:33 12/14/18 07:33 12/14/18 07:33 12/14/18 07:33 Intake and Output: 12/14/18 12/14/18 06:59 18:59 Intake Total 240 Balance 240 - Medications Medications: Current Medications Acetaminophen (Tylenol 325mg Tab) 650 mg PO Q6 PRN PRN Reason: Pain, moderate (4-7) Aspirin (Aspirin Chewable) 81 mg PO DAILY [facility] Last Admin: 12/14/18 10:12 Dose: 81 mg Calcitriol (Rocaltrol) 0.5 mcg PO DAILY [facility] Last Admin: 12/14/18 10:12 Dose: 0.5 mcg Dextrose (Dextrose 50% Inj) 0 ml IV STAT PRN; Protocol PRN Reason: Hypoglycemia Protocol Dextrose (Glutose 15) 0 gm PO ONCE PRN; Protocol PRN Reason: Hypoglycemia Protocol Glucagon (Glucagen Diagnostic Kit) 0 mg IM STAT PRN; Protocol PRN Reason: Hypoglycemia Protocol Heparin Sodium (Porcine) (Heparin) 5,000 units SC Q8 [facility] Last Admin: 12/14/18 05:21 Dose: 5,000 units Dextrose (Dextrose 5% In Water 1000 Ml) 1,000 mls @ 0 mls/hr IV .Q0M PRN; Protocol PRN Reason: Hypoglycemia Protocol Insulin Detemir (Levemir) 30 unit SC HS [facility] Last Admin: 12/14/18 02:16 Dose: 30 units Insulin Human Regular (Novolin R) 0 unit SC ACHS [facility]; Protocol Last Admin: 12/14/18 11:34 Dose: 6 units Losartan Potassium (Cozaar) 100 mg PO DAILY [facility] Metoprolol Tartrate (Lopressor) 50 mg PO BID [facility] Last Admin: 12/14/18 10:13 Dose: 50 mg Rosuvastatin Calcium (Crestor) 20 mg PO HS [facility] Vitamin B Complex/Vit C/Folic Acid (Nephro-Barbara) 1 tab PO 0800 [facility] Last Admin: 12/14/18 08:15 Dose: 1 tab - Labs Labs: 12/14/18 08:32 12/14/18 08:32 PT 10.4 SECONDS (9.7-12.2) 12/14/18 08:32 INR 1.0 12/14/18 08:32 APTT 32 SECONDS (21-34) 12/14/18 08:32 Assessment and Plan - Assessment and Plan (Free Text) Assessment: This is a 63 year old male with PMhx of IDDM2, ESRD on peritoneal dialysis, HTN who presents to the ED for pain to the wounds to his right foot, ankle area and right first toe. Plan: R lateral ankle and R first toe wounds Hx PVD Arterial doppler study [facility] 12/07/18: R popliteal artery 75-99% stenosis. R Posterior tibial artery is occluded. L posterior tibial and anterior tibial with 50-75% stenosis. Diffuse disease to peroneal artery. R MARIVEL: 1.12, L MARIVEL: 0.91 Right Foot x-ray shows no periosteal reaction to suggest osetomyelitis. No gross osseous destruction appreciated. Right ankle x-ray shows no periosteal reaction to suggest osetomyelitis. No gross osseous destruction appreciated. CXR shows no active disease. Vascular Surgery, Dr. Rosales, consulted. * Abdominal CTA with iliofemoral run off Podiatry, Dr. Rasmussen, consulted * No plan for surgical intervention at this time * Wound dressed with betadine, DSD Tylenol 650 Q6H PRN pain ASA 81 mg PO daily, Crestor 20 mg PO QHS Will start low dose Gabapentin 100 mg PO TID due to burning pain in diabetes Hx of HTN HCTZ 25 mg PO daily Losartan 50mg PO daily Metoprolol Tartrate 50mg PO BID TG/CHL/LDL/HDL is 117/166/95/42 F/u echocardiogram Hx ESRD on Peritoneal dialysis Nephrology, Dr. Vail, consulted. Creatinine stable, but elevated at 9.7. NO hyperkalemia, but with hyperphosphatemia at 4.9. Pt to have peritoneal dialysis today, as he refuses hemodialysis at this time Nephro Barbara 1 tab PO daily Calcitriol 0.5mct PO daily Phoslo 667 mg PO BIDCC with food started today Hx of IDDM HgbA1c is 8.4 Levemir 30 u HS Regular insulin SS Aspirin 81mg PO daily Crestor 20mg PO HS Accuchecks ACHS PPx Heparin 5000u SC q8 No indication for GI ppx at this time HHD, CCD Dispo: Midline to be placed due to poor IV access. CTA with iliofemoral runoff to evaluate vasculature, continue wound care as per podiatry, continue PD as per Nephrology, f/u ESR, no other imaging at this time. <Hipolito Fraser - Last Filed: 12/17/18 18:52> Objective - Vital Signs/Intake and Output Vital Signs (last 24 hours): Temp Pulse Resp BP Pulse Ox 97.5 F L 86 20 152/78 H 97 12/17/18 16:00 12/17/18 16:00 12/17/18 16:00 12/17/18 16:00 12/17/18 16:00 Intake and Output: 12/17/18 12/17/18 06:59 18:59 Intake Total 800 Balance 800 - Medications Medications: Current Medications Acetaminophen (Tylenol 325mg Tab) 650 mg PO Q6 PRN PRN Reason: Pain, moderate (4-7) Last Admin: 12/17/18 14:03 Dose: 650 mg Amlodipine Besylate (Norvasc) 10 mg PO Q24H [facility] Last Admin: 12/16/18 21:40 Dose: 10 mg Aspirin (Aspirin Chewable) 81 mg PO DAILY [facility] Last Admin: 12/17/18 10:00 Dose: Not Given Calcitriol (Rocaltrol) 0.5 mcg PO DAILY [facility] Last Admin: 12/17/18 10:00 Dose: Not Given Calcium Acetate (Phoslo) 667 mg PO BIDCC [facility] Last Admin: 12/17/18 17:30 Dose: 667 mg Dextrose (Dextrose 50% Inj) 0 ml IV STAT PRN; Protocol PRN Reason: Hypoglycemia Protocol Last Admin: 12/16/18 06:35 Dose: 50 ml Dextrose (Glutose 15) 0 gm PO ONCE PRN; Protocol PRN Reason: Hypoglycemia Protocol Diltiazem HCl (Cardizem Cd) 120 mg PO DAILY [facility] Docusate Sodium (Colace) 100 mg PO BID [facility] Last Admin: 12/17/18 17:41 Dose: 100 mg Furosemide (Lasix) 80 mg PO DAILY [facility] Last Admin: 12/17/18 10:00 Dose: Not Given Gabapentin (Neurontin) 100 mg PO TID [facility] Last Admin: 12/17/18 17:30 Dose: 100 mg Glucagon (Glucagen Diagnostic Kit) 0 mg IM STAT PRN; Protocol PRN Reason: Hypoglycemia Protocol Heparin Sodium (Porcine) (Heparin) 5,000 units SC Q8 [facility] Last Admin: 12/16/18 21:40 Dose: 5,000 units Hydralazine HCl (Apresoline) 25 mg PO Q4 PRN PRN Reason: Other Last Admin: 12/15/18 18:40 Dose: 25 mg Dextrose (Dextrose 5% In Water 1000 Ml) 1,000 mls @ 0 mls/hr IV .Q0M PRN; Protocol PRN Reason: Hypoglycemia Protocol Piperacillin Sod/Tazobactam Sod (Zosyn 2.25 Gm Iv Premix) 2.25 gm in 50 mls @ 100 mls/hr IVPB Q12H [facility]; Protocol Last Admin: 12/17/18 16:00 Dose: 100 mls/hr Vancomycin HCl 1 gm/ Sodium (Chloride) 250 mls @ 166.7 mls/hr IVPB Q4D [facility]; Protocol Last Admin: 12/15/18 18:18 Dose: 166.7 mls/hr Insulin Detemir (Levemir) 22 unit SC ACB [facility] Insulin Detemir (Levemir) 22 unit SC HS [facility] Insulin Human Regular (Novolin R) 5 unit SC AC [facility] Last Admin: 12/17/18 17:29 Dose: 5 unit Lactobacillus Acidophilus (Lactobacillus) 1 cap PO BID [facility] Last Admin: 12/17/18 17:30 Dose: 1 cap Losartan Potassium (Cozaar) 100 mg PO Q24H [facility] Last Admin: 12/17/18 14:00 Dose: Not Given Metoprolol Tartrate (Lopressor) 100 mg PO BID [facility] Last Admin: 12/17/18 17:30 Dose: 100 mg Oxycodone/Acetaminophen (Percocet 5/325 Mg Tab) 1 tab PO Q12H PRN PRN Reason: Pain, severe (8-10) Stop: 12/20/18 14:42 Last Admin: 12/17/18 14:57 Dose: 1 tab Rosuvastatin Calcium (Crestor) 10 mg PO HS [facility] Vitamin B Complex/Vit C/Folic Acid (Nephro-Barbara) 1 tab PO 0800 [facility] Last Admin: 12/17/18 08:00 Dose: Not Given - Labs Labs: 12/17/18 09:08 12/17/18 09:08 PT 10.4 SECONDS (9.7-12.2) 12/14/18 08:32 INR 1.0 12/14/18 08:32 APTT 32 SECONDS (21-34) 12/14/18 08:32 Attending/Attestation - Attestation I have personally seen and examined this patient.: Yes I have fully participated in the care of the patient.: Yes I have reviewed all pertinent clinical information, including history, physical exam and plan: Yes Notes (Text): 12/17/18 18:52 This is a late entry. Care of this patient was gone over in detail with resident Dr. Delvalle. Hipolito Fraser D.O.
--- NOTE | 2018-12-14 13:36 | CP.PCM.CON ---
<Lucian Yang - Last Filed: 12/14/18 15:56> History of Present Illness - History of Present Illness History of Present Illness: Lucian Yang, PGY-1, Cardiology Consult Note for Dr. Rosales 63 year old male with past medical history of hypertension, DM II, hyperlipidemia, PVD, ESRD on peritoneal dialysis presents with ulcer on sole of right foot and new worsening darkened right hallux. Patient reports that ulcers started 2-3 months ago and he has been seeing Dr. Ruffin for the ulcers. In addition, ulcer location has severe burning pain. Patient's darkened right hallux was noticed 3 weeks ago. Patient denies trauma to the area. Patient reports numbness in the right hallux but reports intact sensation in the rest of the toes and right lower extremity. Patient denies any other symptoms at this time including chest pain, shortness of breath, nausea, diaphoresis, left arm pain, jaw pain. PMH: as mentioned above FMHx: mother at 69 from DM, father at 60 from lung cancer SHx: smoked 3-4 cigarettes a day for 30 years and stopped 20 years ago, stopped drinking alcohol 20 years ago, stopped heroin and cocaine use 20 years ago Allergies: NKDA Review of Systems - Review of Systems Review of Systems: except as mentioned in HPI Past Patient History - Past Medical History & Family History Past Medical History?: Yes - Past Social History Smoking Status: Former Smoker - CARDIAC Hx Hypercholesterolemia: Yes Hx Hypertension: Yes Hx Peripheral Edema: Yes (not at present) - PULMONARY Hx Respiratory Disorders: No - NEUROLOGICAL Hx Neurological Disorder: No - HEENT Hx HEENT Problems: Yes - RENAL Hx Chronic Kidney Disease: Yes - ENDOCRINE/METABOLIC Hx Endocrine Disorders: Yes Hx Diabetes Mellitus Type 2: Yes - HEMATOLOGICAL/ONCOLOGICAL Hx Anemia: Yes - INTEGUMENTARY Hx Dermatological Problems: No - MUSCULOSKELETAL/RHEUMATOLOGICAL Hx Musculoskeletal Disorders: No - GASTROINTESTINAL Hx Gastritis: Yes - GENITOURINARY/GYNECOLOGICAL Hx Genitourinary Disorders: No - PSYCHIATRIC Hx Substance Use: No - SURGICAL HISTORY Other/Comment: FISTULA LEFT ARM, AUG 2018 - ANESTHESIA Hx Anesthesia: Yes Hx Anesthesia Reactions: No Hx Malignant Hyperthermia: No Meds Allergies/Adverse Reactions: Allergies Allergy/AdvReac Type Severity Reaction Status Date / Time No Known Allergies Allergy Verified 11/10/16 13:22 - Medications Medications: Current Medications Acetaminophen (Tylenol 325mg Tab) 650 mg PO Q6 PRN PRN Reason: Pain, moderate (4-7) Aspirin (Aspirin Chewable) 81 mg PO DAILY [facility] Last Admin: 12/14/18 10:12 Dose: 81 mg Calcitriol (Rocaltrol) 0.5 mcg PO DAILY [facility] Last Admin: 12/14/18 10:12 Dose: 0.5 mcg Dextrose (Dextrose 50% Inj) 0 ml IV STAT PRN; Protocol PRN Reason: Hypoglycemia Protocol Dextrose (Glutose 15) 0 gm PO ONCE PRN; Protocol PRN Reason: Hypoglycemia Protocol Glucagon (Glucagen Diagnostic Kit) 0 mg IM STAT PRN; Protocol PRN Reason: Hypoglycemia Protocol Heparin Sodium (Porcine) (Heparin) 5,000 units SC Q8 [facility] Last Admin: 12/14/18 05:21 Dose: 5,000 units Dextrose (Dextrose 5% In Water 1000 Ml) 1,000 mls @ 0 mls/hr IV .Q0M PRN; Protocol PRN Reason: Hypoglycemia Protocol Insulin Detemir (Levemir) 30 unit SC [facility] Last Admin: 12/14/18 02:16 Dose: 30 units Insulin Human Regular (Novolin R) 0 unit SC ACHS [facility]; Protocol Last Admin: 12/14/18 11:34 Dose: 6 units Losartan Potassium (Cozaar) 100 mg PO DAILY [facility] Metoprolol Tartrate (Lopressor) 50 mg PO BID [facility] Last Admin: 12/14/18 10:13 Dose: 50 mg Rosuvastatin Calcium (Crestor) 20 mg PO [facility] Vitamin B Complex/Vit C/Folic Acid (Nephro-Barbara) 1 tab PO 0800 [facility] Last Admin: 12/14/18 08:15 Dose: 1 tab Physical Exam - Constitutional Appears: Well, Non-toxic, No Acute Distress - Head Exam Head Exam: ATRAUMATIC, NORMAL INSPECTION, NORMOCEPHALIC - Eye Exam Eye Exam: EOMI, PERRL - ENT Exam ENT Exam: Mucous Membranes Moist - Respiratory Exam Respiratory Exam: Clear to Auscultation Bilateral, NORMAL BREATHING PATTERN - Cardiovascular Exam Cardiovascular Exam: REGULAR RHYTHM, RRR, +S1, +S2 - GI/Abdominal Exam GI & Abdominal Exam: Normal Bowel Sounds, Soft. absent: Tenderness - Extremities Exam Extremities exam: Positive for: full ROM (t), pedal edema (trace), tenderness (right lower extremity at ulcer site on sole) Additional comments: darkened right first hallux - Neurological Exam Neurological exam: Alert, CN II-XII Intact, Motor Sensory Deficit (sensory deficit of right hallux), Oriented x3 - Skin Skin Exam: Dry, Intact Additional comments: darkened skin of right hallux Results - Vital Signs Recent Vital Signs: Last Vital Signs Temp 98.4 F 12/14/18 07:33 Pulse 66 12/14/18 07:33 Resp 20 12/14/18 07:33 BP 173/85 H 12/14/18 07:33 Pulse Ox 99 12/14/18 07:33 - Labs Result Diagrams: 12/14/18 08:32 12/14/18 08:32 Labs: Laboratory Results - last 24 hr 12/13/18 12/13/18 12/14/18 19:59 21:59 02:20 WBC 6.3 RBC 4.17 L Hgb 10.6 L Hct 33.4 L MCV 80.1 D MCH 25.4 L MCHC 31.7 L RDW 16.5 H Plt Count 298 MPV 7.9 Neut % (Auto) 70.9 Lymph % (Auto) 9.5 L [place] % (Auto) 14.3 H Eos % (Auto) 4.4 H Baso % (Auto) 0.9 Neut # (Auto) 4.5 Lymph # (Auto) 0.6 L [place] # (Auto) 0.9 H Eos # (Auto) 0.3 Baso # (Auto) 0.1 Neutrophils % (Manual) 70 Lymphocytes % (Manual) 10 L Monocytes % (Manual) 13 H Eosinophils % (Manual) 5 H Basophils % (Manual) 2 Platelet Estimate Normal Hypochromasia (manual) Slight Poikilocytosis (manual Slight Anisocytosis (manual) Slight Target Cells Slight PT INR APTT Sodium 131 L Potassium 3.7 Chloride 95 L Carbon Dioxide 29 Anion Gap 11 BUN 46 H Creatinine 9.1 H* Est GFR ( Amer) 7 Est GFR (Non-Af Amer) 6 POC Glucose (mg/dL) 471 H* Random Glucose 260 H Calcium 8.3 L Total Bilirubin 0.5 AST 21 ALT 20 L D Alkaline Phosphatase 105 Total Protein 6.1 L Albumin 3.2 L Globulin 2.9 Albumin/Globulin Ratio 1.1 12/14/18 12/14/18 12/14/18 07:15 08:32 08:32 WBC 6.0 RBC 3.82 L Hgb 10.2 L Hct 30.8 L MCV 80.6 MCH 26.7 L MCHC 33.1 RDW 16.5 H Plt Count 289 MPV 7.8 Neut % (Auto) 68.9 Lymph % (Auto) 11.7 L [place] % (Auto) 12.9 H Eos % (Auto) 5.6 H Baso % (Auto) 0.9 Neut # (Auto) 4.1 Lymph # (Auto) 0.7 L [place] # (Auto) 0.8 Eos # (Auto) 0.3 Baso # (Auto) 0.1 Neutrophils % (Manual) Lymphocytes % (Manual) Monocytes % (Manual) Eosinophils % (Manual) Basophils % (Manual) Platelet Estimate Hypochromasia (manual) Poikilocytosis (manual Anisocytosis (manual) Target Cells PT 10.4 INR 1.0 APTT 32 Sodium Potassium Chloride Carbon Dioxide Anion Gap BUN Creatinine Est GFR ( Amer) Est GFR (Non-Af Amer) POC Glucose (mg/dL) 414 H* Random Glucose Calcium Total Bilirubin AST ALT Alkaline Phosphatase Total Protein Albumin Globulin Albumin/Globulin Ratio 12/14/18 12/14/18 08:32 11:14 WBC RBC Hgb Hct MCV MCH MCHC RDW Plt Count MPV Neut % (Auto) Lymph % (Auto) [place] % (Auto) Eos % (Auto) Baso % (Auto) Neut # (Auto) Lymph # (Auto) [place] # (Auto) Eos # (Auto) Baso # (Auto) Neutrophils % (Manual) Lymphocytes % (Manual) Monocytes % (Manual) Eosinophils % (Manual) Basophils % (Manual) Platelet Estimate Hypochromasia (manual) Poikilocytosis (manual Anisocytosis (manual) Target Cells PT INR APTT Sodium 133 Potassium 4.3 Chloride 95 L Carbon Dioxide 28 Anion Gap 14 BUN 53 H Creatinine 9.7 H* Est GFR ( Amer) 7 Est GFR (Non-Af Amer) 5 POC Glucose (mg/dL) 315 H Random Glucose 360 H D Calcium 9.4 Total Bilirubin 0.5 AST 28 ALT 19 L Alkaline Phosphatase 116 Total Protein 6.3 Albumin 3.3 L Globulin 3.0 Albumin/Globulin Ratio 1.1 Assessment & Plan (1) Gangrene Assessment and Plan: Will obtain CTA with runoff of bilateral extremities to evaluate for severity of PVD Continue aspirin 81 mg daily, rosuvastatin 20 mg daily No plans for surgery as per podiatry. Status: Acute (2) Diabetes mellitus Assessment and Plan: Will obtain HgbA1c Continue levemir, sliding scale insulin Status: Acute (3) ESRD (end stage renal disease) Assessment and Plan: Continue with peritoneal dialysis. Continue with calcitriol Status: Acute (4) Hypertension Assessment and Plan: Systolic blood pressure elevated in 160s to 170s Continue with losartan, lopressor Started HCTZ Status: Acute (5) CAD (coronary artery disease) Assessment and Plan: Lipid panel ordered Continue aspirin, rosuvastatin, cozaar, lopressor Status: Acute - Date & Time Date: 12/14/18 Time: 13:42 <Tyson Rosales - Last Filed: 12/22/18 21:18> Meds - Medications Medications: Current Medications Acetaminophen (Tylenol 325mg Tab) 650 mg PO Q6 PRN PRN Reason: Pain, Mild (1-3) Aspirin (Aspirin Chewable) 81 mg PO DAILY [facility] Last Admin: 12/22/18 11:00 Dose: 81 mg Calcitriol (Rocaltrol) 0.5 mcg PO DAILY [facility] Last Admin: 12/22/18 11:00 Dose: 0.5 mcg Calcium Acetate (Phoslo) 667 mg PO BIDCC [facility] Last Admin: 12/22/18 17:47 Dose: 667 mg Dextrose (Dextrose 50% Inj) 0 ml IV STAT PRN; Protocol PRN Reason: Hypoglycemia Protocol Last Admin: 12/16/18 06:35 Dose: 50 ml Dextrose (Glutose 15) 0 gm PO ONCE PRN; Protocol PRN Reason: Hypoglycemia Protocol Diltiazem HCl (Cardizem Cd) 120 mg PO Q24H [facility] Last Admin: 12/21/18 22:47 Dose: 120 mg Docusate Sodium (Colace) 100 mg PO BID [facility] Last Admin: 12/22/18 17:48 Dose: 100 mg Epoetin Sanchez (Procrit) 8,000 unit SC MWF [facility] Gabapentin (Neurontin) 100 mg PO TID [facility] Last Admin: 12/22/18 17:47 Dose: 100 mg Glucagon (Glucagen Diagnostic Kit) 0 mg IM STAT PRN; Protocol PRN Reason: Hypoglycemia Protocol Heparin Sodium (Porcine) (Heparin) 5,000 units SC Q8 [facility] Last Admin: 12/22/18 06:48 Dose: 5,000 units Hydralazine HCl (Apresoline) 25 mg PO Q4 PRN PRN Reason: Other Last Admin: 12/18/18 09:51 Dose: 25 mg Dextrose (Dextrose 5% In Water 1000 Ml) 1,000 mls @ 0 mls/hr IV .Q0M PRN; Protocol PRN Reason: Hypoglycemia Protocol Piperacillin Sod/Tazobactam Sod (Zosyn 2.25 Gm Iv Premix) 2.25 gm in 50 mls @ 100 mls/hr IVPB Q12H [facility]; Protocol Last Admin: 12/22/18 17:30 Dose: 100 mls/hr Vancomycin HCl 1 gm/ Sodium (Chloride) 250 mls @ 166.7 mls/hr IVPB Q4D [facility]; Protocol Last Admin: 12/19/18 17:00 Dose: 166.7 mls/hr Insulin Detemir (Levemir) 22 unit SC [facility] Last Admin: 12/21/18 22:48 Dose: 22 units Insulin Detemir (Levemir) 22 unit SC ACB [facility] Insulin Human Regular (Novolin R) 5 unit SC AC [facility] Last Admin: 12/22/18 17:23 Dose: Not Given Lactobacillus Acidophilus (Lactobacillus) 1 cap PO BID [facility] Last Admin: 12/22/18 17:48 Dose: 1 cap Losartan Potassium (Cozaar) 25 mg PO QPM [facility] Last Admin: 12/22/18 17:54 Dose: Not Given Metoprolol Tartrate (Lopressor) 100 mg PO BID [facility] Last Admin: 12/21/18 10:21 Dose: 100 mg Minoxidil (Minoxidil) 2.5 mg PO QPM [facility] Last Admin: 12/22/18 17:55 Dose: Not Given Oxycodone/Acetaminophen (Percocet 5/325 Mg Tab) 1 tab PO Q4H PRN PRN Reason: Pain, moderate (4-7) Stop: 12/25/18 14:47 Oxycodone/Acetaminophen (Percocet 5/325 Mg Tab) 2 tab PO Q4H PRN PRN Reason: Pain, severe (8-10) Stop: 12/25/18 15:50 Rosuvastatin Calcium (Crestor) 10 mg PO [facility] Last Admin: 12/21/18 22:47 Dose: 10 mg Vitamin B Complex/Vit C/Folic Acid (Nephro-Barbara) 1 tab PO 0800 [facility] Last Admin: 12/22/18 08:30 Dose: Not Given Results - Vital Signs Recent Vital Signs: Last Vital Signs Temp 97.6 F 12/22/18 19:23 Pulse 98 H 12/22/18 19:23 Resp 20 12/22/18 19:23 BP 111/61 12/22/18 19:23 Pulse Ox 100 12/22/18 19:01 - Labs Result Diagrams: 12/22/18 07:25 12/22/18 07:25 Labs: Laboratory Results - last 24 hr 12/21/18 12/22/18 12/22/18 21:35 07:25 07:25 WBC 6.3 RBC 3.42 L Hgb 9.0 L Hct 27.4 L MCV 80.0 MCH 26.4 L MCHC 33.1 RDW 15.6 H Plt Count 320 MPV 7.8 Neut % (Auto) 69.4 Lymph % (Auto) 10.5 L [place] % (Auto) 14.4 H Eos % (Auto) 4.7 H Baso % (Auto) 1.0 Neut # (Auto) 4.3 Lymph # (Auto) 0.7 L [place] # (Auto) 0.9 H Eos # (Auto) 0.3 Baso # (Auto) 0.1 Sodium 131 L Potassium 4.2 Chloride 93 L Carbon Dioxide 29 Anion Gap 14 BUN 53 H Creatinine 11.3 H* Est GFR ( Amer) 6 Est GFR (Non-Af Amer) 5 POC Glucose (mg/dL) 404 H* Random Glucose 298 H D Calcium 9.4 Phosphorus 5.1 H Magnesium 2.2 Total Bilirubin 0.3 AST 22 ALT 12 L Alkaline Phosphatase 82 Total Protein 5.9 L Albumin 3.1 L Globulin 2.8 Albumin/Globulin Ratio 1.1 12/22/18 12/22/18 08:25 12:02 WBC RBC Hgb Hct MCV MCH MCHC RDW Plt Count MPV Neut % (Auto) Lymph % (Auto) [place] % (Auto) Eos % (Auto) Baso % (Auto) Neut # (Auto) Lymph # (Auto) [place] # (Auto) Eos # (Auto) Baso # (Auto) Sodium Potassium Chloride Carbon Dioxide Anion Gap BUN Creatinine Est GFR ( Amer) Est GFR (Non-Af Amer) POC Glucose (mg/dL) 249 H 194 H Random Glucose Calcium Phosphorus Magnesium Total Bilirubin AST ALT Alkaline Phosphatase Total Protein Albumin Globulin Albumin/Globulin Ratio Assessment & Plan (1) Preop cardiovascular exam Status: Acute (2) PVD (peripheral vascular disease) Status: Acute (3) CAD (coronary artery disease) Status: Acute (4) Diabetes mellitus Status: Acute (5) ESRD (end stage renal disease) Status: Acute (6) Gangrene Status: Acute (7) Peritoneal dialysis catheter in place Status: Acute (8) Hypertension Status: Acute Attending/Attestation - Attestation I have personally seen and examined this patient.: Yes I have fully participated in the care of the patient.: Yes I have reviewed all pertinent clinical information: Yes Notes (Text): 12/22/18 21:17 cta of LE gdmt for pvd
--- NOTE | 2018-12-14 14:59 | CP.PCM.CON ---
History of Present Illness - History of Present Illness History of Present Illness: Nephrology Consultation Note: Assessment: Stable Rt foot found/ulcer with ? PVD Diabetic chronic Kidney Disease (E11.22) Hypertensive Chronic Kidney Disease (I12.0) End stage renal disease (N18.6) dependence on dialysis (Z99.2) as PD Anemia (D64.9), Hyperphosphatemia (E83.39), Secondary Hyperparathyroidism (E2 1.1), HTN (I12.0) Plan: Will plan for PD as ordered. Continue with Nephrovite 1 tab/day. PD d/w staff therapist as well. PRBC as needed for anemia. Not on JESSIE with dialysis as last Hb >10 Continue with phos binders, last phos level: check Continue with calcitriol. BP control with meds as ordered. Patient on RAAS rachna as losartan 50 mg/d, will increase to 100 mg/d. Glycemic control, Dialysis consistent diet Further work up/management as per primary team Dose meds/antibiotics (if needed) for ESRD status. Avoid fleets enema/magnesium based laxatives. podiatry and interventional cardiology following Thanks for allowing me to participate in care of your patient. Will follow shanice connolly with you. Please call if any Qs Dr Brad Lucero Office: [phone] Chief Complaint; Rt foot wound HPI: Pt is a 63 M with hx of ESRD on PD since 2014, chronic anemia, hyperphosphatemia, secondary hyperparathyroidism, Diabetes Mellitus, hyper tension presented with complaints of rt foot wound Renal consult requested for ESRD management. PD: manual exchanges 1.5% alternating with 2.5% (2000 mL) with 4 hr dwell time, net UF 0-300 mL with each exchange. he is looking forward to switch to HD in near future ROS: Cardiovascular: No chest pain. Pulmonary: No shortness of breath Gastrointestinal: denies abdominal pain No nausea. No vomiting. Genitourinary: No pain while urinating. Denies blood in urine. makes urine 1-2 times per day and not as much as used to in past All other negative except as mentioned in HPI Physical Examination: General Appearance: Comfortable, in no acute respiratory distress, co-operative . Vitals reviewed and noted as below Head; Atraumatic, normocephalic ENT: no ulcers no thrush. Tongue is midline. Oropharynx: no rash or ulcers. EYES: Pupils are equal, round and reactive to light accommodation. Eye muscles and extraocular movement intact. Sclera is anicteric. Neck; supple no lymphadenopathy, no thyromegaly or bruit Lungs: Normal respiratory rate/effort. Breath sounds bilateral reduced at bases Heart: Normal rate. s1s2 normal. No rub or gallop. Extremities: no edema. No varicose veins. Rt foot in dressing Neurological: Patient is alert, awake and oriented to person, place and time. No focal deficit. Strength bilateral appropriate and equal Skin: Warm and dry. Normal turgor. No rash. Palpitation: Normal elasticity for age Abdomen: Abdomen is soft. Bowel sounds +. There is no abdominal tenderness, no guarding/rigidity or organomegaly Psych: normal insight and normal affect/mood MSK: no joint tenderness or swelling. Digits and nails normal, no deformity : kidney or bladder not palpable Access: PD catheter. left AV access matured. Labs/imaging reviewed. Past medical history, past surgical history, family history, social history, allergy reviewed and noted as below Family Hx: no hx of CKD. Non contributory Past Patient History - Past Medical History & Family History Past Medical History?: Yes - Past Social History Smoking Status: Former Smoker - CARDIAC Hx Hypercholesterolemia: Yes Hx Hypertension: Yes Hx Peripheral Edema: Yes (not at present) - PULMONARY Hx Respiratory Disorders: No - NEUROLOGICAL Hx Neurological Disorder: No - HEENT Hx HEENT Problems: Yes - RENAL Hx Chronic Kidney Disease: Yes - ENDOCRINE/METABOLIC Hx Endocrine Disorders: Yes Hx Diabetes Mellitus Type 2: Yes - HEMATOLOGICAL/ONCOLOGICAL Hx Anemia: Yes - INTEGUMENTARY Hx Dermatological Problems: No - MUSCULOSKELETAL/RHEUMATOLOGICAL Hx Musculoskeletal Disorders: No - GASTROINTESTINAL Hx Gastritis: Yes - GENITOURINARY/GYNECOLOGICAL Hx Genitourinary Disorders: No - PSYCHIATRIC Hx Substance Use: No - SURGICAL HISTORY Other/Comment: FISTULA LEFT ARM, AUG 2018 - ANESTHESIA Hx Anesthesia: Yes Hx Anesthesia Reactions: No Hx Malignant Hyperthermia: No Meds Allergies/Adverse Reactions: Allergies Allergy/AdvReac Type Severity Reaction Status Date / Time No Known Allergies Allergy Verified 11/10/16 13:22 - Medications Medications: Current Medications Acetaminophen (Tylenol 325mg Tab) 650 mg PO Q6 PRN PRN Reason: Pain, moderate (4-7) Aspirin (Aspirin Chewable) 81 mg PO DAILY [facility] Last Admin: 12/14/18 10:12 Dose: 81 mg Calcitriol (Rocaltrol) 0.5 mcg PO DAILY [facility] Last Admin: 12/14/18 10:12 Dose: 0.5 mcg Dextrose (Dextrose 50% Inj) 0 ml IV STAT PRN; Protocol PRN Reason: Hypoglycemia Protocol Dextrose (Glutose 15) 0 gm PO ONCE PRN; Protocol PRN Reason: Hypoglycemia Protocol Glucagon (Glucagen Diagnostic Kit) 0 mg IM STAT PRN; Protocol PRN Reason: Hypoglycemia Protocol Heparin Sodium (Porcine) (Heparin) 5,000 units SC Q8 [facility] Last Admin: 12/14/18 14:30 Dose: 5,000 units Hydrochlorothiazide (Hydrodiuril) 25 mg PO DAILY [facility] Last Admin: 12/14/18 14:30 Dose: 25 mg Dextrose (Dextrose 5% In Water 1000 Ml) 1,000 mls @ 0 mls/hr IV .Q0M PRN; Protocol PRN Reason: Hypoglycemia Protocol Insulin Detemir (Levemir) 30 unit SC HS [facility] Last Admin: 12/14/18 02:16 Dose: 30 units Insulin Human Regular (Novolin R) 0 unit SC ACHS [facility]; Protocol Last Admin: 12/14/18 11:34 Dose: 6 units Losartan Potassium (Cozaar) 100 mg PO DAILY [facility] Metoprolol Tartrate (Lopressor) 50 mg PO BID [facility] Last Admin: 12/14/18 10:13 Dose: 50 mg Rosuvastatin Calcium (Crestor) 20 mg PO [facility] Vitamin B Complex/Vit C/Folic Acid (Nephro-Barbara) 1 tab PO 0800 [facility] Last Admin: 12/14/18 08:15 Dose: 1 tab Results - Vital Signs Recent Vital Signs: Last Vital Signs Temp 98.4 F 12/14/18 07:33 Pulse 66 12/14/18 07:33 Resp 20 12/14/18 07:33 BP 173/85 H 12/14/18 07:33 Pulse Ox 99 12/14/18 07:33 - Labs Result Diagrams: 12/14/18 08:32 12/14/18 08:32 Labs: Laboratory Results - last 24 hr 12/13/18 12/13/18 12/14/18 19:59 21:59 02:20 WBC 6.3 RBC 4.17 L Hgb 10.6 L Hct 33.4 L MCV 80.1 D MCH 25.4 L MCHC 31.7 L RDW 16.5 H Plt Count 298 MPV 7.9 Neut % (Auto) 70.9 Lymph % (Auto) 9.5 L [place] % (Auto) 14.3 H Eos % (Auto) 4.4 H Baso % (Auto) 0.9 Neut # (Auto) 4.5 Lymph # (Auto) 0.6 L [place] # (Auto) 0.9 H Eos # (Auto) 0.3 Baso # (Auto) 0.1 Neutrophils % (Manual) 70 Lymphocytes % (Manual) 10 L Monocytes % (Manual) 13 H Eosinophils % (Manual) 5 H Basophils % (Manual) 2 Platelet Estimate Normal Hypochromasia (manual) Slight Poikilocytosis (manual Slight Anisocytosis (manual) Slight Target Cells Slight PT INR APTT Sodium 131 L Potassium 3.7 Chloride 95 L Carbon Dioxide 29 Anion Gap 11 BUN 46 H Creatinine 9.1 H* Est GFR ( Amer) 7 Est GFR (Non-Af Amer) 6 POC Glucose (mg/dL) 471 H* Random Glucose 260 H Calcium 8.3 L Total Bilirubin 0.5 AST 21 ALT 20 L D Alkaline Phosphatase 105 Total Protein 6.1 L Albumin 3.2 L Globulin 2.9 Albumin/Globulin Ratio 1.1 12/14/18 12/14/18 12/14/18 07:15 08:32 08:32 WBC 6.0 RBC 3.82 L Hgb 10.2 L Hct 30.8 L MCV 80.6 MCH 26.7 L MCHC 33.1 RDW 16.5 H Plt Count 289 MPV 7.8 Neut % (Auto) 68.9 Lymph % (Auto) 11.7 L [place] % (Auto) 12.9 H Eos % (Auto) 5.6 H Baso % (Auto) 0.9 Neut # (Auto) 4.1 Lymph # (Auto) 0.7 L [place] # (Auto) 0.8 Eos # (Auto) 0.3 Baso # (Auto) 0.1 Neutrophils % (Manual) Lymphocytes % (Manual) Monocytes % (Manual) Eosinophils % (Manual) Basophils % (Manual) Platelet Estimate Hypochromasia (manual) Poikilocytosis (manual Anisocytosis (manual) Target Cells PT 10.4 INR 1.0 APTT 32 Sodium Potassium Chloride Carbon Dioxide Anion Gap BUN Creatinine Est GFR ( Amer) Est GFR (Non-Af Amer) POC Glucose (mg/dL) 414 H* Random Glucose Calcium Total Bilirubin AST ALT Alkaline Phosphatase Total Protein Albumin Globulin Albumin/Globulin Ratio 12/14/18 12/14/18 08:32 11:14 WBC RBC Hgb Hct MCV MCH MCHC RDW Plt Count MPV Neut % (Auto) Lymph % (Auto) [place] % (Auto) Eos % (Auto) Baso % (Auto) Neut # (Auto) Lymph # (Auto) [place] # (Auto) Eos # (Auto) Baso # (Auto) Neutrophils % (Manual) Lymphocytes % (Manual) Monocytes % (Manual) Eosinophils % (Manual) Basophils % (Manual) Platelet Estimate Hypochromasia (manual) Poikilocytosis (manual Anisocytosis (manual) Target Cells PT INR APTT Sodium 133 Potassium 4.3 Chloride 95 L Carbon Dioxide 28 Anion Gap 14 BUN 53 H Creatinine 9.7 H* Est GFR ( Amer) 7 Est GFR (Non-Af Amer) 5 POC Glucose (mg/dL) 315 H Random Glucose 360 H D Calcium 9.4 Total Bilirubin 0.5 AST 28 ALT 19 L Alkaline Phosphatase 116 Total Protein 6.3 Albumin 3.3 L Globulin 3.0 Albumin/Globulin Ratio 1.1
[2018-12-14] MEDS ORDERED: Iodixanol 320 mg/ml 150 ml Bottle IV ONE (17:15)
--- NOTE | 2018-12-14 18:42 | CARD ---
APPROVED REPORT Date of service: 12/14/2018 EXAM: Two-dimensional and M-mode echocardiogram with Doppler and color Doppler. RISK FACTORS Hypertension Diabetes 2D DIMENSIONS IVSd1.0 (0.7-1.1cm)LVDd4.5 (3.9-5.9cm) PWd1.2 (0.7-1.1cm)LA Nochji92 (18-58mL) LVDs2.2 (2.5-4.0cm)FS (%) 51.2 % LVEF (%)70.0 (>50%)LVEF (Betancur's)71.17 % M-Mode DIMENSIONS Left Atrium (MM)3.85 (2.5-4.0cm)IVSd0.90 (0.7-1.1cm) Aortic Root3.81 (2.2-3.7cm)LVDd5.32 (4.0-5.6cm) Aortic Cusp Exc.2.63 (1.5-2.0cm)PWd1.12 (0.7-1.1cm) FS (%) 54 %LVDs2.47 (2.0-3.8cm) LVEF (%)70 (>50%) Mitral Valve MV E Ycwxducm03.7cm/sMV A Ccmjsilg67.5cm/sE/A ratio0.7 TDI Lateral E' Peak V6.29cm/sMedial E' Peak V4.42cm/sE/Lateral E'10.1 E/Medial E'14.4 Tricuspid Valve TR Peak Pyvpdnap205ym/sTR Peak Gr.[id number] LEFT VENTRICLE The left ventricle is normal size. There is mild concentric left ventricular hypertrophy. The left ventricular function is normal. The left ventricular ejection fraction is within the normal range. 71% No regional wall motion abnormalities noted. Transmitral Doppler flow pattern is Grade I-abnormal relaxation pattern. No left ventricle thrombus noted on this study. There is no ventricular septal defect visualized. There is no left ventricular aneurysm. There is no mass noted in the left ventricle. RIGHT VENTRICLE The right ventricle is normal size. There is normal right ventricular wall thickness. The right ventricular systolic function is normal. ATRIA The left atrium size is normal. The right atrium size is normal. The interatrial septum is intact with no evidence for an atrial septal defect. AORTIC VALVE The aortic valve is normal in structure and function. No aortic regurgitation is present. There is no aortic valvular stenosis. There is no aortic valvular vegetation. MITRAL VALVE The mitral valve is normal in structure and function. There is no evidence of mitral valve prolapse. There is no mitral valve stenosis. There is no mitral valve regurgitation noted. TRICUSPID VALVE The tricuspid valve is normal in structure and function. There is no tricuspid valve regurgitation noted. There is no tricuspid valve prolapse or vegetation. There is no tricuspid valve stenosis. PULMONIC VALVE The pulmonary valve is normal in structure and function. There is no pulmonic valvular regurgitation. There is no pulmonic valvular stenosis. GREAT VESSELS The aortic root is normal in size. The ascending aorta is normal in size. The pulmonary artery is normal. The IVC is normal in size and collapses >50% with inspiration. PERICARDIAL EFFUSION The pericardium appears normal. There is no pleural effusion. <Conclusion> The left ventricular function is normal. No regional wall motion abnormalities noted. There is mild concentric left ventricular hypertrophy. Transmitral Doppler flow pattern is Grade I-abnormal relaxation pattern. Normal Doppler.
[2018-12-15 06:36] LABS: BASO % 0.8 % (0.0-2.0); EOS # 0.4 K/uL (0.0-0.7); EOS % 6.2 % (0.0-4.0); HEMOGLOBIN 10.2 g/dL (12.0-18.0); LYMPH # 0.7 K/uL (1.0-4.3); MEAN CELL VOLUME 80.9 fL (80.0-94.0); MEAN CORPUSCULAR HEMOGLOBIN 25.9 pg (27.0-31.0); MEAN PLATELET VOLUME 7.7 fL (7.2-11.7); MONO # 0.8 K/uL (0.0-0.8); MONO % 12.7 % (0.0-10.0); NEUT # 4.2 K/uL (1.8-7.0); NEUT % 69.3 % (50.0-75.0); RBC 3.93 Mil/uL (4.40-5.90); RED CELL DISTRIBUTION WIDTH 16.3 % (11.5-14.5)
[2018-12-15 08:09] LABS: ALB/GLOB RATIO 1.2 (1.0-2.1); ALBUMIN 3.7 g/dL (3.5-5.0); CALCIUM 9.8 mg/dl (8.6-10.4)
[2018-12-15] MEDS: (Novolin R) Insulin Human Regular 100 units/ml vial SC SCH ×3 (08:12→17:10)
[2018-12-15] MEDS: Multivitamin Vitamin B Complex (Nephro-Vite) Tab PO SCH (08:13)
--- NOTE | 2018-12-15 10:13 | CT ---
Date of service: 12/14/2018 PROCEDURE: CT Angiography Abdomen, Pelvis and Lower Extremity with Contrast HISTORY: evaluate for peripheral vascular disease COMPARISON: None available. TECHNIQUE: Technique: CT angiography of the abdomen, pelvis and bilateral lower extremities performed in the arterial phase of enhancement. Coronal and sagittal reformats, and well as rotating MIP images of the vessels generated at the workstation. Intravenous contrast dose: 150 cubic centimeters Visipaque 320 Radiation dose: Total exam DLP = 1152.02 mGy-cm. This CT exam was performed using one or more of the following dose reduction techniques: Automated exposure control, adjustment of the mA and/or kV according to patient size, and/or use of iterative reconstruction technique. FINDINGS: CT ANGIOGRAPHY: ABDOMINAL AORTA:: Abdominal aorta is unremarkable. MAJOR AORTIC BRANCHES: Celiac [place]: Unremarkable. Superior mesenteric artery: Unremarkable. Inferior mesenteric artery: Unremarkable. Renal arteries: Unremarkable. PELVIC ARTERIES: Right Common Iliac: Mild plaque otherwise unremarkable. Right External Iliac: Unremarkable. Right Internal Iliac: Unremarkable. Left Common Iliac: Unremarkable. Left External Iliac: Unremarkable. Left Internal Iliac: Unremarkable. RIGHT LOWER EXTREMITY ARTERIES: Right Common Femoral: Mild plaque. No stenosis. Right Superficial Femoral: Plaque, no stenosis. Right Profunda Femoris: Unremarkable. Right Popliteal:Unremarkable. Right Anterior Tibial: Moderate plaque throughout the anterior tibial artery. Short segment severe stenosis or occlusion of the mid and distal anterior tibial artery. Right Tibioperoneal Trunk: Unremarkable. Right Posterior Tibial: Unremarkable. Right Peroneal: Occlusion of the proximal peroneal artery. Mild stenosis in the distal peroneal artery. Right dorsalis pedis : Unremarkable. LEFT LOWER EXTREMITY ARTERIES: Left Common Femoral: Unremarkable. Left Superficial Femoral: Stenosis of the proximal SFA.. Left Profunda Femoris: Unremarkable. Left Popliteal: Unremarkable. Left Anterior Tibial: Short segment areas of stenosis or occlusion of the mid and distal anterior tibial artery. Left Tibioperoneal Trunk: Unremarkable. Left Posterior Tibial: Unremarkable. Left Peroneal: Multiple areas moderate to severe stenosis of the mid and distal peroneal artery. Left Dorsalis pedis: Unremarkable. NON-ANGIOGRAPHIC ASPECT OF THE EXAM: LOWER THORAX: Visualized portion of the lower thorax is unremarkable. LIVER: Included in the study and is unremarkable. GALLBLADDER AND BILE DUCTS: Unremarkable. PANCREAS: Unremarkable. No gross lesion or ductal dilatation. SPLEEN: Unremarkable. ADRENALS: Unremarkable. No mass. KIDNEYS AND URETERS: Unremarkable. No hydronephrosis. No solid mass. STOMACH AND BOWEL: Unremarkable. No obstruction. No gross mural thickening. APPENDIX: Normal appendix. PERITONEUM: Unremarkable. No free fluid. No free air. LYMPH NODES: Unremarkable. No enlarged lymph nodes. BLADDER: Unremarkable. REPRODUCTIVE: Unremarkable. BONES: No acute fracture. OTHER FINDINGS: None. IMPRESSION: CT ANGIOGRAM ABDOMEN/PELVIS: 1. Essentially unremarkable CT angiogram of the abdomen pelvis. RIGHT LOWER EXTREMITY CT ANGIOGRAM: 1. The common femoral artery, profunda femoral artery, superficial femoral artery and popliteal artery normal. 2. Runoff shows a patent posterior tibial artery. The anterior tibial artery has short segment areas of mild to severe stenosis of the mid and distal segments. Peroneal artery has an occlusion in the proximal segment and areas of moderate stenosis in distal segment. LEFT LOWER EXTREMITY CT ANGIOGRAM: 1. The common femoral artery, profunda femoral artery, superficial femoral artery and popliteal artery normal. 2. Runoff shows a patent posterior tibial artery. The anterior tibial artery has short segment areas of severe stenosis of the mid and distal segments. Peroneal artery has an multiple areas of moderate stenosis in the mid and distal segments.
--- NOTE | 2018-12-15 10:41 | CP.PCM.PN ---
<Lucian Yang - Last Filed: 12/15/18 14:31> Subjective - Date & Time of Evaluation Date of Evaluation: 12/15/18 Time of Evaluation: 10:35 - Subjective Subjective: Lucian Yang, PGY-1, Cardiology Progress Note for Dr. Rosales Patient seen and evaluated at bedside. Patient had no acute overnight events. Patient reports improvement in pain from ulcer and numbness of right first hallux Objective - Vital Signs/Intake and Output Vital Signs (last 24 hours): Temp Pulse Resp BP Pulse Ox 98.7 F 87 20 180/90 H 100 12/15/18 08:16 12/15/18 08:16 12/15/18 08:16 12/15/18 08:16 12/15/18 08:16 Intake and Output: 12/15/18 12/15/18 06:59 18:59 Intake Total 250 Balance 250 - Medications Medications: Current Medications Acetaminophen (Tylenol 325mg Tab) 650 mg PO Q6 PRN PRN Reason: Pain, moderate (4-7) Aspirin (Aspirin Chewable) 81 mg PO DAILY [facility] Last Admin: 12/15/18 09:13 Dose: 81 mg Calcitriol (Rocaltrol) 0.5 mcg PO DAILY [facility] Last Admin: 12/15/18 09:16 Dose: 0.5 mcg Calcium Acetate (Phoslo) 667 mg PO BIDCC [facility] Last Admin: 12/15/18 08:13 Dose: 667 mg Dextrose (Dextrose 50% Inj) 0 ml IV STAT PRN; Protocol PRN Reason: Hypoglycemia Protocol Dextrose (Glutose 15) 0 gm PO ONCE PRN; Protocol PRN Reason: Hypoglycemia Protocol Gabapentin (Neurontin) 100 mg PO TID [facility] Last Admin: 12/15/18 09:13 Dose: 100 mg Glucagon (Glucagen Diagnostic Kit) 0 mg IM STAT PRN; Protocol PRN Reason: Hypoglycemia Protocol Heparin Sodium (Porcine) (Heparin) 5,000 units SC Q8 [facility] Last Admin: 12/15/18 05:19 Dose: 5,000 units Hydralazine HCl (Apresoline) 25 mg PO Q4 PRN PRN Reason: Other Hydrochlorothiazide (Hydrodiuril) 25 mg PO DAILY [facility] Last Admin: 12/15/18 09:13 Dose: 25 mg Dextrose (Dextrose 5% In Water 1000 Ml) 1,000 mls @ 0 mls/hr IV .Q0M PRN; Protocol PRN Reason: Hypoglycemia Protocol Insulin Detemir (Levemir) 30 unit SC HS [facility] Last Admin: 12/14/18 21:45 Dose: 30 units Insulin Human Regular (Novolin R) 0 unit SC ACHS [facility]; Protocol Last Admin: 12/15/18 08:12 Dose: 3 units Losartan Potassium (Cozaar) 100 mg PO DAILY [facility] Last Admin: 12/15/18 09:13 Dose: 100 mg Metoprolol Tartrate (Lopressor) 100 mg PO BID [facility] Rosuvastatin Calcium (Crestor) 20 mg PO HS [facility] Last Admin: 12/14/18 21:43 Dose: 20 mg Vitamin B Complex/Vit C/Folic Acid (Nephro-Barbara) 1 tab PO 0800 [facility] Last Admin: 12/15/18 08:13 Dose: 1 tab - Labs Labs: 12/15/18 06:27 12/15/18 06:57 PT 10.4 SECONDS (9.7-12.2) 12/14/18 08:32 INR 1.0 12/14/18 08:32 APTT 32 SECONDS (21-34) 12/14/18 08:32 - Constitutional Appears: Well, Non-toxic, No Acute Distress - Head Exam Head Exam: ATRAUMATIC, NORMAL INSPECTION, NORMOCEPHALIC - Eye Exam Eye Exam: EOMI, PERRL - ENT Exam ENT Exam: Mucous Membranes Moist - Respiratory Exam Respiratory Exam: Clear to Auscultation Bilateral, NORMAL BREATHING PATTERN - Cardiovascular Exam Cardiovascular Exam: REGULAR RHYTHM, RRR, +S1, +S2 - GI/Abdominal Exam GI & Abdominal Exam: Normal Bowel Sounds, Soft. absent: Tenderness - Extremities Exam Extremities exam: Positive for: full ROM (t), pedal edema (trace), tenderness (right lower extremity at ulcer site on sole) Additional comments: darkened right first hallux - Neurological Exam Neurological exam: Alert, CN II-XII Intact, Motor Sensory Deficit (sensory deficit of right hallux), Oriented x3 - Skin Skin Exam: Dry, Intact Additional comments: darkened skin of right hallux Assessment and Plan (1) Gangrene Assessment & Plan: CTA of bilateral lower extremities: Right lower extremity: AT has short segment areas of mild to severe stenosis of mid and distal segments. Peroneal artery has occlusion in the proximal segment and areas of moderate stenosis in distal segment. Left lower extremity: AT has short segment areas of severe stenosis of mid and distal segments. Peroneal artery has multiple areas of moderate stenosis in the mid and distal segments. Patient will be scheduled for peripheral angiogram on Thursday. Continue aspirin 81 mg daily, rosuvastatin 20 mg daily No plans for surgery as per podiatry. Status: Acute (2) Diabetes mellitus Assessment & Plan: HgbA1c: 8.4 Continue levemir, sliding scale insulin Status: Acute (3) ESRD (end stage renal disease) Assessment & Plan: Continue with peritoneal dialysis. Continue with calcitriol Status: Acute (4) Hypertension Assessment & Plan: Systolic blood pressure elevated in 180s Continue with losartan, lopressor, HCTZ Started norvasc Status: Acute (5) CAD (coronary artery disease) Assessment & Plan: Lipid panel unremarkable Continue aspirin, rosuvastatin, cozaar, lopressor Status: Acute <Tyson Rosales - Last Filed: 12/22/18 21:19> Objective - Vital Signs/Intake and Output Vital Signs (last 24 hours): Temp Pulse Resp BP Pulse Ox 97.6 F 98 H 20 111/61 100 12/22/18 19:23 12/22/18 19:23 12/22/18 19:23 12/22/18 19:23 12/22/18 19:01 Intake and Output: 12/22/18 12/23/18 18:59 06:59 Intake Total 460 Balance 460 - Medications Medications: Current Medications Acetaminophen (Tylenol 325mg Tab) 650 mg PO Q6 PRN PRN Reason: Pain, Mild (1-3) Aspirin (Aspirin Chewable) 81 mg PO DAILY [facility] Last Admin: 12/22/18 11:00 Dose: 81 mg Calcitriol (Rocaltrol) 0.5 mcg PO DAILY [facility] Last Admin: 12/22/18 11:00 Dose: 0.5 mcg [facility] Last Admin: 12/22/18 17:47 Dose: 667 mg Dextrose (Dextrose 50% Inj) 0 ml IV STAT PRN; Protocol PRN Reason: Hypoglycemia Protocol Last Admin: 12/16/18 06:35 Dose: 50 ml Dextrose (Glutose 15) 0 gm PO ONCE PRN; Protocol PRN Reason: Hypoglycemia Protocol Diltiazem HCl (Cardizem Cd) 120 mg PO Q24H [facility] Last Admin: 12/21/18 22:47 Dose: 120 mg Docusate Sodium (Colace) 100 mg PO BID [facility] Last Admin: 12/22/18 17:48 Dose: 100 mg Epoetin Sanchez (Procrit) 8,000 unit SC MWF [facility] Gabapentin (Neurontin) 100 mg PO TID [facility] Last Admin: 12/22/18 17:47 Dose: 100 mg Glucagon (Glucagen Diagnostic Kit) 0 mg IM STAT PRN; Protocol PRN Reason: Hypoglycemia Protocol Heparin Sodium (Porcine) (Heparin) 5,000 units SC Q8 [facility] Last Admin: 12/22/18 06:48 Dose: 5,000 units Hydralazine HCl (Apresoline) 25 mg PO Q4 PRN PRN Reason: Other Last Admin: 12/18/18 09:51 Dose: 25 mg Dextrose (Dextrose 5% In Water 1000 Ml) 1,000 mls @ 0 mls/hr IV .Q0M PRN; Protocol PRN Reason: Hypoglycemia Protocol Piperacillin Sod/Tazobactam Sod (Zosyn 2.25 Gm Iv Premix) 2.25 gm in 50 mls @ 100 mls/hr IVPB Q12H [facility]; Protocol Last Admin: 12/22/18 17:30 Dose: 100 mls/hr Vancomycin HCl 1 gm/ Sodium (Chloride) 250 mls @ 166.7 mls/hr IVPB Q4D [facility]; Protocol Last Admin: 12/19/18 17:00 Dose: 166.7 mls/hr Insulin Detemir (Levemir) 22 unit SC HS [facility] Last Admin: 12/21/18 22:48 Dose: 22 units Insulin Detemir (Levemir) 22 unit SC ACB [facility] Insulin Human Regular (Novolin R) 5 unit SC AC [facility] Last Admin: 12/22/18 17:23 Dose: Not Given Lactobacillus Acidophilus (Lactobacillus) 1 cap PO BID [facility] Last Admin: 12/22/18 17:48 Dose: 1 cap Losartan Potassium (Cozaar) 25 mg PO QPM [facility] Last Admin: 12/22/18 17:54 Dose: Not Given Metoprolol Tartrate (Lopressor) 100 mg PO BID [facility] Last Admin: 12/21/18 10:21 Dose: 100 mg Minoxidil (Minoxidil) 2.5 mg PO QPM [facility] Last Admin: 12/22/18 17:55 Dose: Not Given Oxycodone/Acetaminophen (Percocet 5/325 Mg Tab) 1 tab PO Q4H PRN PRN Reason: Pain, moderate (4-7) Stop: 12/25/18 14:47 Oxycodone/Acetaminophen (Percocet 5/325 Mg Tab) 2 tab PO Q4H PRN PRN Reason: Pain, severe (8-10) Stop: 12/25/18 15:50 Rosuvastatin Calcium (Crestor) 10 mg PO HS [facility] Last Admin: 12/21/18 22:47 Dose: 10 mg Vitamin B Complex/Vit C/Folic Acid (Nephro-Barbara) 1 tab PO 0800 [facility] Last Admin: 12/22/18 08:30 Dose: Not Given - Labs Labs: 12/22/18 07:25 12/22/18 07:25 PT 11.0 SECONDS (9.7-12.2) 12/21/18 14:13 INR 1.0 12/21/18 14:13 APTT 34 SECONDS (21-34) 12/21/18 14:13 Assessment and Plan (1) Preop cardiovascular exam Status: Acute (2) PVD (peripheral vascular disease) Status: Acute (3) CAD (coronary artery disease) Status: Acute (4) Diabetes mellitus Status: Acute (5) ESRD (end stage renal disease) Status: Acute (6) Gangrene Status: Acute (7) Peritoneal dialysis catheter in place Status: Acute (8) Hypertension Status: Acute Attending/Attestation - Attestation I have personally seen and examined this patient.: Yes I have fully participated in the care of the patient.: Yes I have reviewed all pertinent clinical information, including history, physical exam and plan: Yes
--- NOTE | 2018-12-15 11:36 | CP.PCM.PN ---
<Brent Delvalle - Last Filed: 12/15/18 14:25> Subjective - Date & Time of Evaluation Date of Evaluation: 12/15/18 Time of Evaluation: 11:31 - Subjective Subjective: Medicine progress note for Dr. Neville Fraser Pt seen and examined at bedside. Pt is resting comfortably. He complains of mild pain to the right foot. Pt denies fever, chills, chest pain, sob, abdominal pain, n/v/d, headache, dizziness, visual changes, numbness or tingling. I explained pt's condition, prognosis and assisted effects of medical problems. Pt understands. Right upper arm midline IV placement was well tolerated last night. Objective - Vital Signs/Intake and Output Vital Signs (last 24 hours): Temp Pulse Resp BP Pulse Ox 98.7 F 87 20 180/90 H 100 12/15/18 08:16 12/15/18 08:16 12/15/18 08:16 12/15/18 08:16 12/15/18 08:16 Intake and Output: 12/15/18 12/15/18 06:59 18:59 Intake Total 250 Balance 250 - Medications Medications: Current Medications Acetaminophen (Tylenol 325mg Tab) 650 mg PO Q6 PRN PRN Reason: Pain, moderate (4-7) Amlodipine Besylate (Norvasc) 10 mg PO DAILY [facility] Aspirin (Aspirin Chewable) 81 mg PO DAILY [facility] Last Admin: 12/15/18 09:13 Dose: 81 mg Calcitriol (Rocaltrol) 0.5 mcg PO DAILY [facility] Last Admin: 12/15/18 09:16 Dose: 0.5 mcg Calcium Acetate (Phoslo) 667 mg PO BIDCC [facility] Last Admin: 12/15/18 08:13 Dose: 667 mg Dextrose (Dextrose 50% Inj) 0 ml IV STAT PRN; Protocol PRN Reason: Hypoglycemia Protocol Dextrose (Glutose 15) 0 gm PO ONCE PRN; Protocol PRN Reason: Hypoglycemia Protocol Gabapentin (Neurontin) 100 mg PO TID [facility] Last Admin: 12/15/18 09:13 Dose: 100 mg Glucagon (Glucagen Diagnostic Kit) 0 mg IM STAT PRN; Protocol PRN Reason: Hypoglycemia Protocol Heparin Sodium (Porcine) (Heparin) 5,000 units SC Q8 [facility] Last Admin: 12/15/18 05:19 Dose: 5,000 units Hydralazine HCl (Apresoline) 25 mg PO Q4 PRN PRN Reason: Other Hydrochlorothiazide (Hydrodiuril) 25 mg PO DAILY [facility] Last Admin: 12/15/18 09:13 Dose: 25 mg Dextrose (Dextrose 5% In Water 1000 Ml) 1,000 mls @ 0 mls/hr IV .Q0M PRN; Protocol PRN Reason: Hypoglycemia Protocol Insulin Detemir (Levemir) 30 unit SC [facility] Last Admin: 12/14/18 21:45 Dose: 30 units Insulin Human Regular (Novolin R) 0 unit SC [facility]; Protocol Last Admin: 12/15/18 08:12 Dose: 3 units Losartan Potassium (Cozaar) 100 mg PO DAILY [facility] Last Admin: 12/15/18 09:13 Dose: 100 mg Metoprolol Tartrate (Lopressor) 100 mg PO BID [facility] Last Admin: 12/15/18 10:50 Dose: Not Given Rosuvastatin Calcium (Crestor) 20 mg PO [facility] Last Admin: 12/14/18 21:43 Dose: 20 mg Vitamin B Complex/Vit C/Folic Acid (Nephro-Barbara) 1 tab PO 0800 [facility] Last Admin: 12/15/18 08:13 Dose: 1 tab - Labs Labs: 12/15/18 06:27 12/15/18 06:57 PT 10.4 SECONDS (9.7-12.2) 12/14/18 08:32 INR 1.0 12/14/18 08:32 APTT 32 SECONDS (21-34) 12/14/18 08:32 - Additional Findings Additional findings: - Constitutional Appears: Non-toxic, No Acute Distress - Head Exam Head Exam: ATRAUMATIC, NORMOCEPHALIC - Eye Exam Eye Exam: EOMI, Normal appearance, PERRL - ENT Exam ENT Exam: Mucous Membranes Moist - Neck Exam Neck exam: Positive for: Full Rom, Normal Inspection - Respiratory Exam Respiratory Exam: Clear to Auscultation Bilateral, NORMAL BREATHING PATTERN. absent: Rales, Rhonchi, Wheezes - Cardiovascular Exam Cardiovascular Exam: REGULAR RHYTHM, +S1, +S2 Absent: tachycardia - GI/Abdominal Exam GI & Abdominal Exam: Normal Bowel Sounds, Soft. absent: Guarding, Rebound, Tenderness Additional comments: Peritoneal dialysis catheter L abdomen; no signs of infection - Extremities Exam Extremities exam: (+) right upper extremity midline with no signs of infection or tenderness. Positive for: full ROM, Left upper forearm AV fistula with palpable thrill, no signs of infection. (+) Abnormal capillary refill. Additional comments: Pulses nonpalpable, but lower extremities are warm, without swelling, >3s capillary refill (+) 4cm circular unstageable ulcer to lateral malleolus with mild surrounding tenderness to palpation; no active drainage, warmth or erythema. NO swelling. (+) Callous to the distal aspect of right hallux with small ulceration; minimal tenderness, no drainage, no erythema or swelling appreciated. (+) no hair to bilateral lower extremities; skin is shiny as well - Neurological Exam Neurological exam: Alert, Oriented x3 - Psychiatric Exam Psychiatric exam: Normal Affect, Normal Mood - Skin Skin exam: Warm, dry. Assessment and Plan - Assessment and Plan (Free Text) Assessment: This is a 63 year old male with PMhx of IDDM2, ESRD on peritoneal dialysis, HTN, PVD who presents to the ED for pain to the wounds to his right foot, ankle area and right first toe. Plan: R lateral ankle and R first toe wounds, burning pain Hx PVD Arterial doppler study [facility] 12/07/18: R popliteal artery 75-99% stenosis. R Posterior tibial artery is occluded. L posterior tibial and anterior tibial with 50-75% stenosis. Diffuse disease to peroneal artery. R MARIVEL: 1.12, L MARIVEL: 0.91 Right Foot x-ray shows no periosteal reaction to suggest osetomyelitis. No gross osseous destruction appreciated. Right ankle x-ray shows no periosteal reaction to suggest osetomyelitis. No gross osseous destruction appreciated. CXR shows no active disease. Vascular Surgery, Dr. Rosales, consulted. * CTA of bilateral lower extremities: Right lower extremity: AT has short segment areas of mild to severe stenosis of mid and distal segments. Peroneal artery has occlusion in the proximal segment and areas of moderate stenosis in distal segment. * Left lower extremity: AT has short segment areas of severe stenosis of mid and distal segments. Peroneal artery has multiple areas of moderate stenosis in the mid and distal segments. * possible peripheral Angiogram 12/17/18 Podiatry, Dr. Rasmussen, consulted * No plan for surgical intervention at this time * Wound dressed with betadine, DSD Tylenol 650 Q6H PRN pain ASA 81 mg PO daily, Crestor 20 mg PO QHS ESR elevated at 60 F/u MRI of right lower extremity without contrast HTN HCTZ 25 mg PO daily at 10 am Losartan 50mg PO daily increased to 100 mg PO daily as per nephrology; at 2 pm Metoprolol Tartrate 50mg PO BID increased to 100 mg PO BID as per nephrology; 10 am and 6 pm Hydralazine 25 mg PO Q4H PRN SBP>170, DBP>110 Amlodipine 10 mg PO daily at 10 pm starting tomorrow TG/CHL/LDL/HDL is 117/166/95/42 Echocardiogram shows LVEF approximately 70%, Mild concentric LVH. Grade I abnormal relaxation pattern. Hx ESRD on Peritoneal dialysis Self dialyzes 4 times per day Nephrology, Dr. Vail, consulted. Creatinine stable, but elevated at 10.1. NO hyperkalemia, but with hyperphosphatemia at 4.7. Pt to continue with peritoneal dialysis as pervious managed as outpatient Nephro Barbara 1 tab PO daily Calcitriol 0.5mct PO daily Continue Phoslo 667 mg PO BIDCC with food Hx of IDDM2 Hx diabetic neuropathy HgbA1c is 8.4 Sugars remain elevated despite home regimen Levemir 30 u HS increased to 44 u QHS tonight Regular insulin SS discontinued. Started on Insulin aspart 5 u SC before meals Aspirin 81mg PO daily Crestor 20mg PO HS Gabapentin 100 mg PO TID for neuropathy Pt is on ARB as above Accuchecks ACHS PPx Heparin 5000u SC q8 No indication for GI ppx at this time HHD, CCD Dispo: F/u MRI without contrast of right lower extremity as ESR was high at 60. Possible peripheral angiogram on Thursday. Continue peritoneal dialysis. Control BP through newly adjusted medications as above. <Hipolito Fraser - Last Filed: 12/17/18 18:52> Objective - Vital Signs/Intake and Output Vital Signs (last 24 hours): Temp Pulse Resp BP Pulse Ox 97.5 F L 86 20 152/78 H 97 12/17/18 16:00 12/17/18 16:00 12/17/18 16:00 12/17/18 16:00 12/17/18 16:00 Intake and Output: 12/17/18 12/17/18 06:59 18:59 Intake Total 800 Balance 800 - Medications Medications: Current Medications Acetaminophen (Tylenol 325mg Tab) 650 mg PO Q6 PRN PRN Reason: Pain, moderate (4-7) Last Admin: 12/17/18 14:03 Dose: 650 mg Amlodipine Besylate (Norvasc) 10 mg PO Q24H [facility] Last Admin: 12/16/18 21:40 Dose: 10 mg Aspirin (Aspirin Chewable) 81 mg PO DAILY [facility] Last Admin: 12/17/18 10:00 Dose: Not Given Calcitriol (Rocaltrol) 0.5 mcg PO DAILY [facility] Last Admin: 12/17/18 10:00 Dose: Not Given Calcium Acetate (Phoslo) 667 mg PO BIDCC [facility] Last Admin: 12/17/18 17:30 Dose: 667 mg Dextrose (Dextrose 50% Inj) 0 ml IV STAT PRN; Protocol PRN Reason: Hypoglycemia Protocol Last Admin: 12/16/18 06:35 Dose: 50 ml Dextrose (Glutose 15) 0 gm PO ONCE PRN; Protocol PRN Reason: Hypoglycemia Protocol Diltiazem HCl (Cardizem Cd) 120 mg PO DAILY [facility] Docusate Sodium (Colace) 100 mg PO BID [facility] Last Admin: 12/17/18 17:41 Dose: 100 mg Furosemide (Lasix) 80 mg PO DAILY [facility] Last Admin: 12/17/18 10:00 Dose: Not Given Gabapentin (Neurontin) 100 mg PO TID [facility] Last Admin: 12/17/18 17:30 Dose: 100 mg Glucagon (Glucagen Diagnostic Kit) 0 mg IM STAT PRN; Protocol PRN Reason: Hypoglycemia Protocol Heparin Sodium (Porcine) (Heparin) 5,000 units SC Q8 [facility] Last Admin: 12/16/18 21:40 Dose: 5,000 units Hydralazine HCl (Apresoline) 25 mg PO Q4 PRN PRN Reason: Other Last Admin: 12/15/18 18:40 Dose: 25 mg Dextrose (Dextrose 5% In Water 1000 Ml) 1,000 mls @ 0 mls/hr IV .Q0M PRN; Protocol PRN Reason: Hypoglycemia Protocol Piperacillin Sod/Tazobactam Sod (Zosyn 2.25 Gm Iv Premix) 2.25 gm in 50 mls @ 100 mls/hr IVPB Q12H [facility]; Protocol Last Admin: 12/17/18 16:00 Dose: 100 mls/hr Vancomycin HCl 1 gm/ Sodium (Chloride) 250 mls @ 166.7 mls/hr IVPB Q4D [facility]; Protocol Last Admin: 12/15/18 18:18 Dose: 166.7 mls/hr Insulin Detemir (Levemir) 22 unit SC [facility] Insulin Detemir (Levemir) 22 unit SC HS [facility] Insulin Human Regular (Novolin R) 5 unit SC AC [facility] Last Admin: 12/17/18 17:29 Dose: 5 unit Lactobacillus Acidophilus (Lactobacillus) 1 cap PO BID [facility] Last Admin: 12/17/18 17:30 Dose: 1 cap Losartan Potassium (Cozaar) 100 mg PO Q24H [facility] Last Admin: 12/17/18 14:00 Dose: Not Given Metoprolol Tartrate (Lopressor) 100 mg PO BID [facility] Last Admin: 12/17/18 17:30 Dose: 100 mg Oxycodone/Acetaminophen (Percocet 5/325 Mg Tab) 1 tab PO Q12H PRN PRN Reason: Pain, severe (8-10) Stop: 12/20/18 14:42 Last Admin: 12/17/18 14:57 Dose: 1 tab Rosuvastatin Calcium (Crestor) 10 mg PO HS [facility] Vitamin B Complex/Vit C/Folic Acid (Nephro-Barbara) 1 tab PO 0800 [facility] Last Admin: 12/17/18 08:00 Dose: Not Given - Labs Labs: 12/17/18 09:08 12/17/18 09:08 PT 10.4 SECONDS (9.7-12.2) 12/14/18 08:32 INR 1.0 12/14/18 08:32 APTT 32 SECONDS (21-34) 12/14/18 08:32 Attending/Attestation - Attestation I have personally seen and examined this patient.: Yes I have fully participated in the care of the patient.: Yes I have reviewed all pertinent clinical information, including history, physical exam and plan: Yes Notes (Text): 12/17/18 18:52 This is a late entry. Care of this patient was gone over in detail with resident Dr. Delvalle. Hipolito Fraser D.O.
--- NOTE | 2018-12-15 15:05 | CP.PCM.PN ---
Subjective - Date & Time of Evaluation Date of Evaluation: 12/15/18 Time of Evaluation: 15:04 - Subjective Subjective: Nephrology Consultation Note: Assessment: Stable Rt foot found/ulcer with ? PVD Diabetic chronic Kidney Disease (E11.22) Hypertensive Chronic Kidney Disease (I12.0) End stage renal disease (N18.6) dependence on dialysis (Z99.2) as PD Anemia (D64.9), Hyperphosphatemia (E83.39), Secondary Hyperparathyroidism (E21 .1), HTN (I12.0) uncontrolled severe HTNwith urgency Plan: Will plan for PD as ordered. Continue with Nephrovite 1 tab/day. 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 PRBC as needed for anemia. Not on JESSIE with dialysis as last Hb >10 Continue with phos binders, last phos level: 4.7 Continue with calcitriol. BP control with meds as ordered. Patient on RAAS rachna as losartan 100 mg/d, will increase metoprolol. add lasix 80 mg/d. can d/c hctz as ineffective in esrd. Glycemic control, Dialysis consistent diet Further work up/management as per primary team Dose meds/antibiotics (if needed) for ESRD status. Avoid fleets enema/magnesium based laxatives. podiatry and interventional cardiology following Thanks for allowing me to participate in care of your patient. Will follow patient with you. Please call if any Qs Dr Brad Lucero Office: [phone] Chief Complaint; Rt foot wound HPI: Pt is a 63 M with hx of ESRD on PD since 2014, chronic anemia, hyperphosphatemia, secondary hyperparathyroidism, Diabetes Mellitus, hypertension presented with complaints of rt foot wound Renal consult requested for ESRD management. PD: manual exchanges 1.5% alternating with 2.5% (2000 mL) with 4 hr dwell time, net UF 0-300 mL with each exchange. he is looking forward to switch to HD in near future ROS: Cardiovascular: No chest pain. Pulmonary: No shortness of breath Gastrointestinal: denies abdominal pain No nausea. No vomiting. Genitourinary: No pain while urinating. Denies blood in urine. makes urine 1-2 times per day and not as much as used to in past All other negative except as mentioned in HPI Physical Examination: General Appearance: Comfortable, in no acute respiratory distress, co-operative . Vitals reviewed and noted as below Head; Atraumatic, normocephalic ENT: no ulcers no thrush. Tongue is midline. Oropharynx: no rash or ulcers. EYES: Pupils are equal, round and reactive to light accommodation. Eye muscles and extraocular movement intact. Sclera is anicteric. Neck; supple no lymphadenopathy, no thyromegaly or bruit Lungs: Normal respiratory rate/effort. Breath sounds bilateral reduced at bases Heart: Normal rate. s1s2 normal. No rub or gallop. Extremities: no edema. No varicose veins. Rt foot in dressing Neurological: Patient is alert, awake and oriented to person, place and time. No focal deficit. Strength bilateral appropriate and equal Skin: Warm and dry. Normal turgor. No rash. Palpitation: Normal elasticity for age Abdomen: Abdomen is soft. Bowel sounds +. There is no abdominal tenderness, no guarding/rigidity or organomegaly Psych: normal insight and normal affect/mood MSK: no joint tenderness or swelling. Digits and nails normal, no deformity : kidney or bladder not palpable Access: PD catheter. left AV access matured. Labs/imaging reviewed. Past medical history, past surgical history, family history, social history, allergy reviewed and noted as below Family Hx: no hx of CKD. Non contributory Objective - Vital Signs/Intake and Output Vital Signs (last 24 hours): Temp Pulse Resp BP Pulse Ox 98.7 F 82 17 212/107 H 99 12/15/18 08:16 12/15/18 14:42 12/15/18 14:42 12/15/18 14:42 12/15/18 14:42 Intake and Output: 12/15/18 12/15/18 06:59 18:59 Intake Total 250 Balance 250 - Medications Medications: Current Medications Acetaminophen (Tylenol 325mg Tab) 650 mg PO Q6 PRN PRN Reason: Pain, moderate (4-7) Amlodipine Besylate (Norvasc) 10 mg PO Q24H [facility] Aspirin (Aspirin Chewable) 81 mg PO DAILY [facility] Last Admin: 12/15/18 09:13 Dose: 81 mg Calcitriol (Rocaltrol) 0.5 mcg PO DAILY [facility] Last Admin: 12/15/18 09:16 Dose: 0.5 mcg [facility] ([facility]lo) [facility] Last Admin: 12/15/18 08:13 Dose: 667 mg Dextrose (Dextrose 50% Inj) 0 ml IV STAT PRN; Protocol PRN Reason: Hypoglycemia Protocol Dextrose (Glutose 15) 0 gm PO ONCE PRN; Protocol PRN Reason: Hypoglycemia Protocol Gabapentin (Neurontin) 100 mg PO TID [facility] Last Admin: 12/15/18 14:50 Dose: 100 mg Glucagon (Glucagen Diagnostic Kit) 0 mg IM STAT PRN; Protocol PRN Reason: Hypoglycemia Protocol Heparin Sodium (Porcine) (Heparin) 5,000 units SC Q8 [facility] Last Admin: 12/15/18 14:51 Dose: 5,000 units Hydralazine HCl (Apresoline) 25 mg PO Q4 PRN PRN Reason: Other Last Admin: 12/15/18 12:05 Dose: 25 mg Hydrochlorothiazide (Hydrodiuril) 25 mg PO Q24H [facility] Dextrose (Dextrose 5% In Water 1000 Ml) 1,000 mls @ 0 mls/hr IV .Q0M PRN; Protocol PRN Reason: Hypoglycemia Protocol Insulin Detemir (Levemir) 44 unit SC HS [facility] Insulin Human Regular (Novolin R) 5 unit SC AC [facility] Losartan Potassium (Cozaar) 100 mg PO Q24H [facility] Metoprolol Tartrate (Lopressor) 100 mg PO BID [facility] Rosuvastatin Calcium (Crestor) 20 mg PO HS [facility] Last Admin: 12/14/18 21:43 Dose: 20 mg Vitamin B Complex/Vit C/Folic Acid (Nephro-Barbara) 1 tab PO 0800 [facility] Last Admin: 12/15/18 08:13 Dose: 1 tab - Labs Labs: 12/15/18 06:27 12/15/18 06:57 PT 10.4 SECONDS (9.7-12.2) 12/14/18 08:32 INR 1.0 12/14/18 08:32 APTT 32 SECONDS (21-34) 12/14/18 08:32
--- NOTE | 2018-12-15 15:58 | MRI ---
Date of service: 12/15/2018 PROCEDURE: MRI Right Ankle HISTORY: Pain. COMPARISON: Right ankle radiographs 12/13/2018. TECHNIQUE: Multiecho multiplanar sequences were performed through the right ankle without the use of intravenous contrast. FINDINGS: No marrow signal changes appreciated that would suggest osteomyelitis throughout the visualize ankle, midfoot and hindfoot bony anatomy. ANTERIOR EXTENSOR TENDONS: Normal. MEDIAL FLEXOR TENDONS: Normal. PERONEAL TENDONS: Normal. ANTERIOR INFERIOR TIBIOFIBULAR (SYNDESMOSIS): Normal. POSTERIOR INFERIOR TIBIOFIBULAR (SYNDESMOSIS): Normal. ANTERIOR TALOFIBULAR LIGAMENT: Normal. POSTERIOR TALOFIBULAR LIGAMENT: Normal. PLANTAR FASCIA: Normal. SINUS TARSI: Normal. ACHILLES TENDON: Normal. DELTOID LIGAMENT COMPLEX - DEEP: Normal. CALCANEOFIBULAR LIGAMENT: Normal. SPRING (PLANTAR CALCANEO-NAVICULAR) LIGAMENT: Normal. BONES: Normal marrow signal. CARTILAGE: Preserved. JOINT FLUID: Normal. MUSCLES: Normal. OTHER FINDINGS: Mild edema is appreciated in lateral dorsal foot and ankle subcutaneous fat suggestive of cellulitis, same side as the patient's ulcers. No definitive abscess. IMPRESSION: No MR evidence to suggest osteomyelitis at the midfoot and hindfoot bony anatomy with lateral foot cellulitis identified on a [id number]-[id number] basis without abscess.
--- NOTE | 2018-12-15 16:03 | MRI ---
Date of service: 12/15/2018 PROCEDURE: MRI RIGHT FOREFOOT HISTORY: without contrast COMPARISON: right foot radiographs 12/13/2018. TECHNIQUE: Multiplanar multisequential MR imaging of the right forefoot has been obtained without intravenous gadolinium as requested. FINDINGS: Marked edema is seen throughout the entire distal phalanx right great toe compatible with osteomyelitis though other causes of prominent edema are possible including contusion. Clinically correlate further. No local abscess appreciable. No fracture appreciated throughout the forefoot bony infrastructure. Mild edema is appreciated in the very foot to distal midfoot plantar soft tissues without abscess. Digitorum tendons appear intact in both extensor and flexor compartments as well as the hallucis tendons. IMPRESSION: Marked edema is seen throughout the distal phalanx great toe suggestive of possible osteomyelitis or prominent contusion. No fracture identified. Clinically correlate further.
--- NOTE | 2018-12-15 16:12 | CT ---
Date of service: 12/15/2018 PROCEDURE: CT HEAD WITHOUT CONTRAST. HISTORY: elevated BP, lethargy COMPARISON: None available. TECHNIQUE: Axial computed tomography images were obtained through the head/brain without intravenous contrast. Radiation dose: Total exam DLP = 1134.08 mGy-cm. This CT exam was performed using one or more of the following dose reduction techniques: Automated exposure control, adjustment of the mA and/or kV according to patient size, and/or use of iterative reconstruction technique. FINDINGS: HEMORRHAGE: No intracranial hemorrhage. BRAIN: Good corticomedullary differentiation is seen. Proportional, diffuse expansion of the ventriculosulcal and cisternal spaces is appreciated with white matter lucency compatible with diffuse cerebral atrophy and chronic microangiopathy. No suspicious extra-axial fluid collection is identified and the midline brain anatomy appears grossly nonfocal as imaged. There is no mass effect throughout. Note, the arteries in venous system appear dense in this patient which would be classic for thrombosis typically. However it likely median compatible with consciousness or worse. Clinically correlate for potential renal dysfunction as this may be a function of persistent residual widening the contrast material from prior CT with contrast 12/14/2018. Consider follow-up CT angiogram of the brain with contrast, brain MRI and intracranial MR angiogram. MR venography may also be considered. VENTRICLES: Unremarkable. No hydrocephalus. CALVARIUM: Unremarkable. PARANASAL SINUSES: Unremarkable as visualized. No significant inflammatory changes. MASTOID AIR CELLS: Unremarkable as visualized. No inflammatory changes. OTHER FINDINGS: None. IMPRESSION: Age-related neuro degenerative changes are appreciated in the brain and appear age-appropriate without definite acute intracranial findings. However, density in the arterial and venous system of the brain is appreciated and further evaluation by CT angiography (if there is no contraindication to patient receiving iodinated contrast material intravenously), brain MRI, MR brain angiogram and MR venography for follow-up. Findings reviewed and discussed with Dr. Delvalle with written down read back verification 12/15/2018 4:04 p.m..
--- NOTE | 2018-12-15 17:20 | CP.PCM.CON ---
History of Present Illness - History of Present Illness History of Present Illness: 63M with PMH DM, ESRD on peritoneal dialysis and HTN referred for ID eval of OM right great toe 63 year old male PMHx DM, ESRD on peritoneal dialysis and HTN presents to ED for wounds to R foot. Patient states he noticed a small wound to his R ankle area and discoloration of his R first toe 3 weeks ago, which have been progressively worsening. Patient reports burning pain to wounds since yesterday. Patient denies fever, chills, drainage, trauma nausea, vomiting, inability to bear weight. Patient undergoes peritoneal dialysis 4x per day, PMHx: DM, ESRD on peritoneal dialysis and HTN PSHx: L AV graft, Peritoneal dialysis catheter Meds: See med list Allergies: NKDA FamHx: Mother-DM, Father-lung cancer SocHx: Former smoker 20 years ago, 3 cig/day, quit alcohol 20 years ago, no recent illicit drug use PMD: Reisner Review of Systems - Review of Systems All systems: reviewed and no additional remarkable complaints except - Constitutional Constitutional: Lethargy - EENT Eyes: absent: As Per HPI, Blind Spots, Blurred Vision, Change in Vision, Decreased Night Vision, Diplopia, Discharge, Dry Eye, Exophthalmos, Floaters, Irritation, Itchy Eyes, Loss of Peripheral Vision, Pain, Photophobia, Requires Corrective Lenses, Sees Flashes, Spots in Vision, Tunnel Vision, Other Visual Disturbances, Loss of Vision, Other Ears: absent: As Per HPI, Decreased Hearing, Ear Discharge, Ear Pain, Tinnitus, Abnormal Hearing, Disequilibrium, Dizziness, Other Nose/Mouth/Throat: absent: As Per HPI, Epistaxis, Nasal Congestion, Nasal Discharge, Nasal Obstruction, Nasal Trauma, Nose Pain, Post Nasal Drip, Sinus Pain, Sinus Pressure, Bleeding Gums, Change in Voice, Dental Pain, Dry Mouth, Dysphagia, Halitosis, Hoarsness, Lip Swelling, Mouth Lesions, Mouth Pain, Odynophagia, Sore Throat, Throat Swelling, Tongue Swelling, Facial Pain, Neck Pain, Neck Mass, Other - Cardiovascular Cardiovascular: As Per HPI - Respiratory Respiratory: absent: As Per HPI, Cough, Dyspnea, Hemoptysis, Dyspnea on Exertion, Wheezing, Snoring, Stridor, Pain on Inspiration, Chest Congestion, Excessive Mucous Production, Change in Mucous Color, Pain with Coughing, Other - Gastrointestinal Gastrointestinal: absent: As Per HPI, Abdominal Pain, Belching, Bloating, Change in Bowel Habits, Change in Stool Character, Coffee Ground Emesis, Constipation, Cramping, Diarrhea, Dyspepsia, Dysphagia, Early Satiety, Excessive Flatus, Fecal Incontinence, Heartburn, Hematemesis, Hematochezia, Loose Stools, Melena, Nausea, Odynophagia, Temesmus, Vomiting, Other - Genitourinary Genitourinary: absent: As Per HPI, Change in Urinary Stream, Difficulty Urinating, Dysuria, Flank Pain, Hematuria, Pyuria, Nocturia, Urinary Incontinence, Urinary Frequency, Urinary Hesitance, Urinary Urgency, Voiding Freq/Small Amts, Freq UTI, Hx Renal/Bladder Calculi, Hx /Renal Surgery, Bladder Distension, Other - Musculoskeletal Musculoskeletal: As Per HPI - Integumentary Integumentary: As Per HPI, Dry Skin, Skin Pain, Wounds - Neurological Neurological: As Per HPI - Psychiatric Psychiatric: absent: As Per HPI, Abnormal Sleep Pattern, Anhedonia, Anxiety, Auditory Hallucinations, Behavioral Changes, Change in Appetite, Change in Libido, Confusion, Depression, Difficulty Concentrating, Hallucinations, Homicidal Ideation, Hopelessness, Irritability, Memory Loss, Mood Swings, Panic Attacks, Paranoia, Suicidal Ideation, Visual Hallucinations, Tactile Hallucinations, Other - Endocrine Endocrine: absent: As Per HPI, Change in Body Appearance, Change in Libido, Cold Intolorance, Deepening of Voice, Excessive Sweating, Fatigue, Flushing, Heat Intolorance, Increase in Ring/Shoe/Hat Size, Palpitations, Polydipsia, Polyphagia, Polyuria, Other - Hematologic/Lymphatic Hematologic: absent: As Per HPI, Easy Bleeding, Easy Bruising, Lymphadenopathy, Other Past Patient History - Past Medical History & Family History Past Medical History?: Yes - Past Social History Smoking Status: Former Smoker - CARDIAC Hx Hypercholesterolemia: Yes Hx Hypertension: Yes - PULMONARY Hx Respiratory Disorders: No - NEUROLOGICAL Hx Neurological Disorder: No - HEENT Hx HEENT Problems: Yes - RENAL Type of Dialysis Access: tenckoff - ENDOCRINE/METABOLIC Hx Diabetes Mellitus Type 2: Yes - HEMATOLOGICAL/ONCOLOGICAL Hx Anemia: Yes - INTEGUMENTARY Hx Dermatological Problems: No - MUSCULOSKELETAL/RHEUMATOLOGICAL Hx Musculoskeletal Disorders: No - GASTROINTESTINAL Hx Gastritis: Yes - GENITOURINARY/GYNECOLOGICAL Hx Genitourinary Disorders: No - PSYCHIATRIC Hx Substance Use: No - SURGICAL HISTORY Other/Comment: FISTULA LEFT ARM, AUG 2018 - ANESTHESIA Hx Anesthesia: Yes Hx Anesthesia Reactions: No Hx Malignant Hyperthermia: No Meds Allergies/Adverse Reactions: Allergies Allergy/AdvReac Type Severity Reaction Status Date / Time No Known Allergies Allergy Verified 11/10/16 13:22 - Medications Medications: Current Medications Acetaminophen (Tylenol 325mg Tab) 650 mg PO Q6 PRN PRN Reason: Pain, moderate (4-7) Amlodipine Besylate (Norvasc) 10 mg PO Q24H [facility] Aspirin (Aspirin Chewable) 81 mg PO DAILY [facility] Last Admin: 12/15/18 09:13 Dose: 81 mg Calcitriol (Rocaltrol) 0.5 mcg PO DAILY [facility] Last Admin: 12/15/18 09:16 Dose: 0.5 mcg Calcium Acetate (Phoslo) 667 mg PO BIDCC [facility] Last Admin: 12/15/18 08:13 Dose: 667 mg Dextrose (Dextrose 50% Inj) 0 ml IV STAT PRN; Protocol PRN Reason: Hypoglycemia Protocol Dextrose (Glutose 15) 0 gm PO ONCE PRN; Protocol PRN Reason: Hypoglycemia Protocol Furosemide (Lasix) 80 mg PO DAILY [facility] Last Admin: 12/15/18 16:55 Dose: 80 mg Gabapentin (Neurontin) 100 mg PO TID [facility] Last Admin: 12/15/18 14:50 Dose: 100 mg Glucagon (Glucagen Diagnostic Kit) 0 mg IM STAT PRN; Protocol PRN Reason: Hypoglycemia Protocol Heparin Sodium (Porcine) (Heparin) 5,000 units SC Q8 [facility] Last Admin: 12/15/18 14:51 Dose: 5,000 units Hydralazine HCl (Apresoline) 25 mg PO Q4 PRN PRN Reason: Other Last Admin: 12/15/18 12:05 Dose: 25 mg Dextrose (Dextrose 5% In Water 1000 Ml) 1,000 mls @ 0 mls/hr IV .Q0M PRN; Protocol PRN Reason: Hypoglycemia Protocol Piperacillin Sod/Tazobactam Sod (Zosyn 2.25 Gm Iv Premix) 2.25 gm in 50 mls @ 100 mls/hr IVPB Q12H [facility]; Protocol Vancomycin HCl 1 gm/ Sodium (Chloride) 250 mls @ 166.7 mls/hr IVPB Q4D [facility]; Protocol Insulin Detemir (Levemir) 44 unit SC HS [facility] Insulin Human Regular (Novolin R) 5 unit SC AC [facility] Losartan Potassium (Cozaar) 100 mg PO Q24H [facility] Metoprolol Tartrate (Lopressor) 100 mg PO BID [facility] Last Admin: 12/15/18 16:09 Dose: Not Given Rosuvastatin Calcium (Crestor) 20 mg PO HS [facility] Last Admin: 12/14/18 21:43 Dose: 20 mg Vitamin B Complex/Vit C/Folic Acid (Nephro-Barbara) 1 tab PO 0800 [facility] Last Admin: 12/15/18 08:13 Dose: 1 tab Physical Exam - Constitutional Appears: Well, No Acute Distress, Chronically Ill - Head Exam Head Exam: ATRAUMATIC, NORMOCEPHALIC - Eye Exam Eye Exam: EOMI, Normal appearance, PERRL Pupil Exam: NORMAL ACCOMODATION, PERRL - ENT Exam ENT Exam: Mucous Membranes Dry, Normal Oropharynx - Neck Exam Neck exam: Negative for: Lymphadenopathy - Respiratory Exam Respiratory Exam: Decreased Breath Sounds, Prolonged Expiratory Phase, Rhonchi - Cardiovascular Exam Cardiovascular Exam: REGULAR RHYTHM, +S1, +S2 - GI/Abdominal Exam GI & Abdominal Exam: Diminished Bowel Sounds, Distended, Soft - Rectal Exam Rectal Exam: Deferred - Exam Exam: NORMAL INSPECTION - Extremities Exam Extremities exam: Positive for: pedal edema. Negative for: calf tenderness, tenderness, pedal pulses present Additional comments: Vasc: DP/PT pulses non-palpable b/l. Neuro: Epicritic and protective sensation grossly diminished b/l Derm: Callosity noted to distal aspect of right hallux with ulceration measuring approximately 0.1 cm x 0.1 cm x 0.1 cm noted in center of callosity. No tracking, tunneling, undermining, probe to bone, drainage, malodor or other clinical signs of infection noted. Hypertrophic patch of skin measuring roughly 4 cm x 3 cm noted to anterolateral ankle of right foot. No evidence of erythema or cellulitic changes. No breaks in the skin appreciated - Back Exam Back exam: absent: CVA tenderness (L), CVA tenderness (R) - Neurological Exam Neurological exam: Alert, CN II-XII Intact, Oriented x3, Reflexes Normal - Psychiatric Exam Psychiatric exam: Depressed - Skin Skin Exam: Dry Results - Vital Signs Recent Vital Signs: Last Vital Signs Temp 98.7 F 04/03/19 08:16 Pulse 82 12/15/18 14:42 Resp 17 12/15/18 14:42 BP 180/96 H 12/15/18 16:55 Pulse Ox 99 12/15/18 14:42 - Labs Result Diagrams: 12/15/18 06:27 12/15/18 06:57 Labs: Laboratory Results - last 24 hr 12/14/18 12/14/18 12/14/18 18:43 19:14 21:06 WBC RBC Hgb Hct MCV MCH MCHC RDW Plt Count MPV Neut % (Auto) Lymph % (Auto) [place] % (Auto) Eos % (Auto) Baso % (Auto) Neut # (Auto) Lymph # (Auto) [place] # (Auto) Eos # (Auto) Baso # (Auto) ESR Sodium Potassium Chloride Carbon Dioxide Anion Gap BUN Creatinine Est GFR ( Amer) Est GFR (Non-Af Amer) POC Glucose (mg/dL) 70 129 H 223 H Random Glucose Calcium Phosphorus Magnesium Total Bilirubin AST ALT Alkaline Phosphatase Total Protein Albumin Globulin Albumin/Globulin Ratio 12/15/18 12/15/18 12/15/18 02:36 06:27 06:57 WBC 6.0 RBC 3.93 L Hgb 10.2 L Hct 31.8 L MCV 80.9 MCH 25.9 L MCHC 32.0 L RDW 16.3 H Plt Count 284 MPV 7.7 Neut % (Auto) 69.3 Lymph % (Auto) 11.0 L [place] % (Auto) 12.7 H Eos % (Auto) 6.2 H Baso % (Auto) 0.8 Neut # (Auto) 4.2 Lymph # (Auto) 0.7 L [place] # (Auto) 0.8 Eos # (Auto) 0.4 Baso # (Auto) 0.0 ESR 60 H Sodium 133 Potassium 3.7 Chloride 96 L Carbon Dioxide 28 Anion Gap 13 BUN 47 H Creatinine 10.1 H* Est GFR ( Amer) 6 Est GFR (Non-Af Amer) 5 POC Glucose (mg/dL) 261 H Random Glucose 184 H D Calcium 9.8 Phosphorus 4.7 H Magnesium 2.2 Total Bilirubin 0.6 AST 40 ALT 12 L D Alkaline Phosphatase 141 H D Total Protein 6.8 Albumin 3.7 Globulin 3.1 Albumin/Globulin Ratio 1.2 12/15/18 12/15/18 12/15/18 07:13 11:14 16:19 WBC RBC Hgb Hct MCV MCH MCHC RDW Plt Count MPV Neut % (Auto) Lymph % (Auto) [place] % (Auto) Eos % (Auto) Baso % (Auto) Neut # (Auto) Lymph # (Auto) [place] # (Auto) Eos # (Auto) Baso # (Auto) ESR Sodium Potassium Chloride Carbon Dioxide Anion Gap BUN Creatinine Est GFR ( Amer) Est GFR (Non-Af Amer) POC Glucose (mg/dL) 229 H 327 H 413 H* Random Glucose Calcium Phosphorus Magnesium Total Bilirubin AST ALT Alkaline Phosphatase Total Protein Albumin Globulin Albumin/Globulin Ratio Assessment & Plan (1) Peritoneal dialysis catheter in place Status: Acute (2) CAD (coronary artery disease) Status: Acute (3) Diabetes mellitus Status: Acute (4) ESRD (end stage renal disease) Status: Acute (5) Gangrene Status: Acute (6) Hypertension Status: Acute - Assessment and Plan (Free Text) Assessment: empiric broad spectrum IV antibiiotics started for possible OM right foot vascular / cardiac and neuro evaluations are on goind cultures are pending'prognosos for limb salvage guarded
--- NOTE | 2018-12-15 17:50 | MRI ---
Date of service: 12/15/2018 PROCEDURE: MRI BRAIN WITHOUT CONTRAST HISTORY: head ct inconclusive, pt lethargyic, hypertnesive COMPARISON: None available. TECHNIQUE: Multiplanar, multisequence MR images of the brain were obtained without intravenous contrast enhancement. FINDINGS: Motion artifacts degrade the quality of this examination no particularly FLAIR and T2 weighted sequences. HEMORRHAGE: None DWI: No evidence of an acute or early subacute infarction. BRAIN PARENCHYMA: Diffuse cerebral atrophy is appreciated as well as chronic microangiopathy once again. There is no mass effect appreciated or suspicious extra-axial collection. Posterior fossa contents are unremarkable swells midline brain anatomy. VENTRICLES: Unremarkable. No hydrocephalus. CRANIUM: Unremarkable. ORBITS: Grossly unremarkable. PARANASAL SINUSES/MASTOIDS: Clear VASCULAR SYSTEM: Flow voids identified at the cavernous internal carotid artery segments well as the basilar artery and occlusion is unlikely. Hyperdense appearance on CT may be a function of residual contrast material within the patient's vascular system or normal variation. No suspicious signal changes are appreciated at the major venous sinuses either with venous sinus thrombosis on likely. OTHER FINDINGS: None. IMPRESSION: Artifact but nonacute brain MRI as imaged. Vascular changes seen in the CT of the head 12/15/2018 may reflect normal variation or less likely, residual iodinated contrast material within patient's vascular system. Age-appropriate age related neuro degenerative changes are identified. Consider follow-up CT angiogram with contrast if there is no contraindication as well as brain MRA and MR venogram.
--- NOTE | 2018-12-15 17:53 | CP.PCM.PN ---
Subjective - Date & Time of Evaluation Date of Evaluation: 12/15/18 Time of Evaluation: 17:50 - Subjective Subjective: Podiatry Progress Note for Dr. Rasmussen 63M seen at bedside with Dr. Rasmussen for distal right hallux ulceration and painful hypertrophic skin on anterior right ankle. Patient is AAO x 3 in bed and is accompanied by his . Patient is seen to be resting at time of visit. Per , there are no new pedal complaints at this time and pain is well controlled Objective - Vital Signs/Intake and Output Vital Signs (last 24 hours): Temp Pulse Resp BP Pulse Ox 98.7 F 82 17 180/96 H 99 12/15/18 08:16 12/15/18 14:42 12/15/18 14:42 12/15/18 16:55 12/15/18 14:42 Intake and Output: 12/15/18 12/15/18 06:59 18:59 Intake Total 250 Balance 250 - Medications Medications: Current Medications Acetaminophen (Tylenol 325mg Tab) 650 mg PO Q6 PRN PRN Reason: Pain, moderate (4-7) Amlodipine Besylate (Norvasc) 10 mg PO Q24H [facility] Aspirin (Aspirin Chewable) 81 mg PO DAILY [facility] Last Admin: 12/15/18 09:13 Dose: 81 mg Calcitriol (Rocaltrol) 0.5 mcg PO DAILY [facility] Last Admin: 12/15/18 09:16 Dose: 0.5 mcg Calcium Acetate (Phoslo) 667 mg PO BIDCC [facility] Last Admin: 12/15/18 17:24 Dose: 667 mg Dextrose (Dextrose 50% Inj) 0 ml IV STAT PRN; Protocol PRN Reason: Hypoglycemia Protocol Dextrose (Glutose 15) 0 gm PO ONCE PRN; Protocol PRN Reason: Hypoglycemia Protocol Furosemide (Lasix) 80 mg PO DAILY [facility] Last Admin: 12/15/18 16:55 Dose: 80 mg Gabapentin (Neurontin) 100 mg PO TID [facility] Last Admin: 12/15/18 17:21 Dose: 100 mg Glucagon (Glucagen Diagnostic Kit) 0 mg IM STAT PRN; Protocol PRN Reason: Hypoglycemia Protocol Heparin Sodium (Porcine) (Heparin) 5,000 units SC Q8 [facility] Last Admin: 12/15/18 14:51 Dose: 5,000 units Hydralazine HCl (Apresoline) 25 mg PO Q4 PRN PRN Reason: Other Last Admin: 12/15/18 12:05 Dose: 25 mg Dextrose (Dextrose 5% In Water 1000 Ml) 1,000 mls @ 0 mls/hr IV .Q0M PRN; Protocol PRN Reason: Hypoglycemia Protocol Piperacillin Sod/Tazobactam Sod (Zosyn 2.25 Gm Iv Premix) 2.25 gm in 50 mls @ 100 mls/hr IVPB Q12H [facility]; Protocol Vancomycin HCl 1 gm/ Sodium (Chloride) 250 mls @ 166.7 mls/hr IVPB Q4D [facility]; Protocol Insulin Detemir (Levemir) 44 unit SC HS [facility] Insulin Human Regular (Novolin R) 5 unit SC AC [facility] Last Admin: 12/15/18 17:10 Dose: 5 unit Losartan Potassium (Cozaar) 100 mg PO Q24H [facility] Metoprolol Tartrate (Lopressor) 100 mg PO BID [facility] Last Admin: 12/15/18 17:20 Dose: 100 mg Rosuvastatin Calcium (Crestor) 20 mg PO HS [facility] Last Admin: 12/14/18 21:43 Dose: 20 mg Vitamin B Complex/Vit C/Folic Acid (Nephro-Barbara) 1 tab PO 0800 [facility] Last Admin: 12/15/18 08:13 Dose: 1 tab - Labs Labs: 12/15/18 06:27 12/15/18 06:57 PT 10.4 SECONDS (9.7-12.2) 12/14/18 08:32 INR 1.0 12/14/18 08:32 APTT 32 SECONDS (21-34) 12/14/18 08:32 - Constitutional Appears: Well, Non-toxic, No Acute Distress - Extremities Exam Additional comments: LE focused exam: Vasc: DP/PT pulses non-palpable b/l. Skin temperature warm to warm from proximal to distal WNL. CFT > 3 seconds to all digits b/l. No edema noted b/l Neuro: Epicritic and protective sensation grossly diminished b/l Derm: Callosity noted to distal aspect of right hallux with ulceration measuring approximately 0.1 cm x 0.1 cm x 0.1 cm noted in center of callosity. No tracking, tunneling, undermining, probe to bone, drainage, malodor or other cli nical signs of infection noted. Hypertrophic patch of skin measuring roughly 4 cm x 3 cm noted to anterolateral ankle of right foot. No evidence of erythema or cellulitic changes. No breaks in the skin appreciated MSK: Pain on palpation of hypertrophic skin at anterior ankle. No pain on palpation of distal hallucal ulceration. No evidence of gross deformities appreciated - Neurological Exam Neurological Exam: Alert, Awake, Oriented x3 - Psychiatric Exam Psychiatric exam: Normal Affect, Normal Mood Assessment and Plan - Assessment and Plan (Free Text) Assessment: 63M seen at bedside with Dr. Rasmussen for distal right hallux ulceration and painful hypertrophic skin on anterior right ankle. Plan: Patient seen and evaluated with Dr. Rasmussen Afebrile, absent leukocytosis Continue abx per ID ESR 60 Foot xray: No evidence of osteomyelitis R foot MRI: Marked edema is seen throughout the distal phalanx great toe suggestive of possible osteomyelitis or prominent contusion. No fracture identified Probable surgical intervention planned pending vascular intervention/recommendations Wound dressed with ABD, DSD Podiatry will continue to follow while patient in house
[2018-12-15] MEDS: Piperacill/Tazo 2.25gm in Dex 2.25 GM/50 ML BAG IVPB SCH (18:17)
[2018-12-15] MEDS ORDERED: Insulin Detemir 100 units/ml Vial (Levemir) SC SCH (22:00)
[2018-12-15] MEDS ORDERED: (Novolin R) Insulin Human Regular 100 units/ml vial SC ONE ×2 (22:45→23:32)
[2018-12-16] MEDS: Piperacill/Tazo 2.25gm in Dex 2.25 GM/50 ML BAG IVPB SCH ×2 (04:38→16:33)
--- NOTE | 2018-12-16 06:48 | CARD ---
APPROVED REPORT Date of service: 12/13/2018 EKG Measurement Heart [id number] <Conclusion> Normal sinus rhythm Possible Left atrial enlargement Anteroseptal infarct, age undetermined Abnormal ECG
--- NOTE | 2018-12-16 07:24 | CP.PCM.PN ---
<Brent Delvalle - Last Filed: 12/16/18 15:27> Subjective - Date & Time of Evaluation Date of Evaluation: 12/16/18 Time of Evaluation: 07:24 - Subjective Subjective: Medicine progress note for Dr. Neville Fraser Pt seen and examined at bedside. Pt is resting comfortably. He has no acute complaints, but states that he did not sleep well last night either and has some tiredness because of this. Pt denies fever, chills, chest pain, sob, abdominal pain, n/v/d, headache, dizziness, visual changes, numbness or tingling. Pt with FSBS of 490 overnight, given 4 units of regular insulin SC. Repeat FSBS was 40s, treated with juice and 1 amp of D50. Repeat sugar is 218. Objective - Vital Signs/Intake and Output Vital Signs (last 24 hours): Temp Pulse Resp BP Pulse Ox 97.9 F 82 17 119/55 L 98 12/16/18 05:49 12/16/18 05:49 12/16/18 05:49 12/16/18 05:49 12/16/18 04:30 Intake and Output: 12/16/18 12/16/18 06:59 18:59 Intake Total 290 Balance 290 - Medications Medications: Current Medications Acetaminophen (Tylenol 325mg Tab) 650 mg PO Q6 PRN PRN Reason: Pain, moderate (4-7) Amlodipine Besylate (Norvasc) 10 mg PO Q24H [facility] Aspirin (Aspirin Chewable) 81 mg PO DAILY [facility] Last Admin: 12/15/18 09:13 Dose: 81 mg Calcitriol (Rocaltrol) 0.5 mcg PO DAILY [facility] Last Admin: 12/15/18 09:16 Dose: 0.5 mcg Calcium Acetate (Phoslo) 667 mg PO BIDCC [facility] Last Admin: 12/15/18 17:24 Dose: 667 mg Dextrose (Dextrose 50% Inj) 0 ml IV STAT PRN; Protocol PRN Reason: Hypoglycemia Protocol Last Admin: 12/16/18 06:35 Dose: 50 ml Dextrose (Glutose 15) 0 gm PO ONCE PRN; Protocol PRN Reason: Hypoglycemia Protocol Furosemide (Lasix) 80 mg PO DAILY [facility] Last Admin: 12/15/18 16:55 Dose: 80 mg Gabapentin (Neurontin) 100 mg PO TID PEE Last Admin: 12/15/18 17:21 Dose: 100 mg Glucagon (Glucagen Diagnostic Kit) 0 mg IM STAT PRN; Protocol PRN Reason: Hypoglycemia Protocol Heparin Sodium (Porcine) (Heparin) 5,000 units SC Q8 [facility] Last Admin: 12/16/18 05:09 Dose: 5,000 units Hydralazine HCl (Apresoline) 25 mg PO Q4 PRN PRN Reason: Other Last Admin: 12/15/18 18:40 Dose: 25 mg Dextrose (Dextrose 5% In Water 1000 Ml) 1,000 mls @ 0 mls/hr IV .Q0M PRN; P rotocol PRN Reason: Hypoglycemia Protocol Piperacillin Sod/Tazobactam Sod (Zosyn 2.25 Gm Iv Premix) 2.25 gm in 50 mls @ 100 mls/hr IVPB Q12H [facility]; Protocol Last Admin: 12/16/18 04:38 Dose: 100 mls/hr Vancomycin HCl 1 gm/ Sodium (Chloride) 250 mls @ 166.7 mls/hr IVPB Q4D [facility]; Protocol Last Admin: 12/15/18 18:18 Dose: 166.7 mls/hr Insulin Detemir (Levemir) 44 unit SC HS [facility] Last Admin: 12/15/18 22:34 Dose: 44 u Insulin Human Regular (Novolin R) 5 unit SC AC [facility] Last Admin: 12/15/18 17:10 Dose: 5 unit Losartan Potassium (Cozaar) 100 mg PO Q24H [facility] Metoprolol Tartrate (Lopressor) 100 mg PO BID [facility] Last Admin: 12/15/18 17:20 Dose: 100 mg Rosuvastatin Calcium (Crestor) 20 mg PO HS [facility] Last Admin: 12/15/18 22:33 Dose: 20 mg Vitamin B Complex/Vit C/Folic Acid (Nephro-Barbara) 1 tab PO 0800 [facility] Last Admin: 12/15/18 08:13 Dose: 1 tab - Labs Labs: 12/15/18 06:27 12/15/18 06:57 PT 10.4 SECONDS (9.7-12.2) 12/14/18 08:32 INR 1.0 12/14/18 08:32 APTT 32 SECONDS (21-34) 12/14/18 08:32 - Additional Findings Additional findings: - Constitutional Appears: Non-toxic, No Acute Distress - Head Exam Head Exam: ATRAUMATIC, NORMOCEPHALIC - Eye Exam Eye Exam: EOMI, Normal appearance, PERRL - ENT Exam ENT Exam: Mucous Membranes Moist - Neck Exam Neck exam: Positive for: Full Rom, Normal Inspection - Respiratory Exam Respiratory Exam: Clear to Auscultation Bilateral, NORMAL BREATHING PATTERN. absent: Rales, Rhonchi, Wheezes - Cardiovascular Exam Cardiovascular Exam: REGULAR RHYTHM, +S1, +S2 Absent: tachycardia - GI/Abdominal Exam GI & Abdominal Exam: Normal Bowel Sounds, Soft. absent: Guarding, Rebound, Tenderness Additional comments: Peritoneal dialysis catheter L abdomen; no signs of infection - Extremities Exam Extremities exam: (+) right upper extremity midline with no signs of infection or tenderness. Positive for: full ROM, Left upper forearm AV fistula with palpable thrill, no signs of infection. (+) Abnormal capillary refill. Additional comments: Pulses nonpalpable, but lower extremities are warm, without swelling, >3s capillary refill (+) 4cm circular unstageable ulcer to lateral malleolus with mild surrounding tenderness to palpation; no active drainage, warmth or erythema. NO swelling. (+) Callous to the distal aspect of right hallux with small ulceration; minimal tenderness, no drainage, no erythema or swelling appreciated. (+) no hair to bilateral lower extremities; skin is shiny as well - Neurological Exam Neurological exam: Alert, Oriented x3 CNs2-12 grossly intact. 5/5 strength in right upper and lower extremities. 4/5 strength in upper and lower extremities. AAOx3. No pronator drift, normal babinski. Following commands appropriately. - Psychiatric Exam Psychiatric exam: Normal Affect, Normal Mood - Skin Skin exam: Warm, dry. Assessment and Plan - Assessment and Plan (Free Text) Assessment: This is a 63 year old male with PMhx of IDDM2, ESRD on peritoneal dialysis, HTN, PVD who presents to the ED for pain to the wounds to his right foot, ankle area and right first toe. Found to to have ESR elevated, right hallux osteomyelitis on MRI started on IV abx (PD dosed). Plan: R lateral ankle and R first toe wounds, burning pain Osteomyelitis, Cellulitis Hx PVD [place] [facility] [place] R popliteal artery 75-99% stenosis. R Pos terior tibial artery is occluded. L posterior tibial and anterior tibial with 50-75% stenosis. Diffuse disease to peroneal artery. R MARIVEL: 1.12, L MARIVEL: 0.91 Right Foot x-ray shows no periosteal reaction to suggest osetomyelitis. No gross osseous destruction appreciated. Right ankle x-ray shows no periosteal reaction to suggest osetomyelitis. No gross osseous destruction appreciated. CXR shows no active disease. Vascular Surgery, Dr. Rosales, consulted. * CTA of bilateral lower extremities: Right lower extremity: AT has short segment areas of mild to severe stenosis of mid and distal segments. Peroneal artery has occlusion in the proximal segment and areas of moderate stenosis in distal segment. * Left lower extremity: AT has short segment areas of severe stenosis of mid and distal segments. Peroneal artery has multiple areas of moderate stenosis in the mid and distal segments. * possible peripheral Angiogram 12/17/18 Podiatry, Dr. Rasmussen, consulted * Probable surgical intervention planned pending vascular intervention/recommendations * Wound dressed with betadine, DSD Tylenol 650 Q6H PRN pain ASA 81 mg PO daily, Crestor 20 mg PO QHS ESR elevated at 60 Lower extremity MRI without contrast right fore foot: marked edema is seen throughout the distal phalanx great toe suggestive of possible osteomyelitis or prominent contusion. No fracture identified. Lower extremity MRI without contrast right hind foot and midfoot: no MR evidence to suggest osteomyelitis at the midfoot and hindfoot bony anatomy with lateral foot cellulitis identified on a mild-moderate basis without abscess. Broad spectrum antibiotics, doses for peritoneal dialysis confirmed with pharmacy: Zosyn 2.25 gm IVPB Q12h (12/15), Vancomycin 1g IVPB every 4 days (12/15). Dr. Pimentel, infectious disease consulted. BCx2 negative for growth x 48 hours Lethargy Possibly due to antihypertensive medications, no neuro deficits at this time Noted by RN after returning from MRI 12/15 12/[address] shows Age elated neuro degenerative changes are appreciated in the brain and appear age-appropriate without definite acute intracranial findings. However, density in the arterial and venous system of the brain is appreciated and further evaluation by CT angiography (if no contraindication), brain MRI, MR brain angiogram and MR venography for follow up. 12/15 Brain MRI without contrast shows artifact but nonacute brain MRI. Vascular changes seen in the CT of head may reflect normal variation or less likely, residual iodinated contrast material within patient's vascular system. Continue to monitor Poorly controlled HTN Telemetry floor Lasix 80 mg PO once daily at 10 am Losartan 100 mg PO daily at 2 pm Metoprolol Tartrate 100 mg PO BID at 10 am and 6 pm Hydralazine 25 mg PO Q4H PRN SBP>170, DBP>110 Amlodipine 10 mg PO daily at 10 pm TG/CHL/LDL/HDL is 117/166/95/42 Echocardiogram shows LVEF approximately 70%, Mild concentric LVH. Grade I abnormal relaxation pattern. Hx ESRD on Peritoneal dialysis Self dialyzes 4 times per day Nephrology, Dr. Vail, consulted. Creatinine stable, but elevated at 10.1. Phosphorous is downtrending Pt to continue with peritoneal dialysis as pervious managed as outpatient Nephro Barbara 1 tab PO daily Calcitriol 0.5mct PO daily Continue Phoslo 667 mg PO BIDCC with food Continue to monitor and replete electrolytes as needed Hx of IDDM2 Hx diabetic neuropathy HgbA1c is 8.4 Sugars remain elevated despite home regimen Levemir 44 u QHS, will be halfed tonight due to angiogram tomorrow Insulin aspart 5 u SC before meals Aspirin 81mg PO daily on hold tomorrow morning due to angiogram tomorrow morning Crestor 20mg PO HS Gabapentin 100 mg PO TID for neuropathy Pt is on ARB as above Accuchecks ACHS PPx Heparin 5000u SC q8 No indication for GI ppx at this time HHD, CCD Lactobacillus 1 tab PO BID Dispo: Continue IV abx. Continue PD. Treat HTN with new regimen. Pt to undergo peripheral angiogram tomorrow 4/[address] Rosales. NPO past midnight except m edications. <Hipolito Fraser - Last Filed: 12/17/18 18:52> Objective - Vital Signs/Intake and Output Vital Signs (last 24 hours): Temp Pulse Resp BP Pulse Ox 97.5 F L 86 20 152/78 H 97 12/17/18 16:00 12/17/18 16:00 12/17/18 16:00 12/17/18 16:00 12/17/18 16:00 Intake and Output: 12/17/18 12/17/18 06:59 18:59 Intake Total 800 Balance 800 - Medications Medications: Current Medications Acetaminophen (Tylenol 325mg Tab) 650 mg PO Q6 PRN PRN Reason: Pain, moderate (4-7) Last Admin: 12/17/18 14:03 Dose: 650 mg Amlodipine Besylate (Norvasc) 10 mg PO Q24H [facility] Last Admin: 12/16/18 21:40 Dose: 10 mg Aspirin (Aspirin Chewable) 81 mg PO DAILY [facility] Last Admin: 12/17/18 10:00 Dose: Not Given Calcitriol (Rocaltrol) 0.5 mcg PO DAILY [facility] Last Admin: 12/17/18 10:00 Dose: Not Given Calcium Acetate (Phoslo) 667 mg PO BIDCC [facility] Last Admin: 12/17/18 17:30 Dose: 667 mg Dextrose (Dextrose 50% Inj) 0 ml IV STAT PRN; Protocol PRN Reason: Hypoglycemia Protocol Last Admin: 12/16/18 06:35 Dose: 50 ml Dextrose (Glutose 15) 0 gm PO ONCE PRN; Protocol PRN Reason: Hypoglycemia Protocol Diltiazem HCl (Cardizem Cd) 120 mg PO DAILY [facility] Docusate Sodium (Colace) 100 mg PO BID [facility] Last Admin: 12/17/18 17:41 Dose: 100 mg Furosemide (Lasix) 80 mg PO DAILY [facility] Last Admin: 12/17/18 10:00 Dose: Not Given Gabapentin (Neurontin) 100 mg PO TID [facility] Last Admin: 12/17/18 17:30 Dose: 100 mg Glucagon (Glucagen Diagnostic Kit) 0 mg IM STAT PRN; Protocol PRN Reason: Hypoglycemia Protocol Heparin Sodium (Porcine) (Heparin) 5,000 units SC Q8 [facility] Last Admin: 12/16/18 21:40 Dose: 5,000 units Hydralazine HCl (Apresoline) 25 mg PO Q4 PRN PRN Reason: Other Last Admin: 12/15/18 18:40 Dose: 25 mg Dextrose (Dextrose 5% In Water 1000 Ml) 1,000 mls @ 0 mls/hr IV .Q0M PRN; Protocol PRN Reason: Hypoglycemia Protocol Piperacillin Sod/Tazobactam Sod (Zosyn 2.25 Gm Iv Premix) 2.25 gm in 50 mls @ 100 mls/hr IVPB Q12H [facility]; Protocol Last Admin: 12/17/18 16:00 Dose: 100 mls/hr Vancomycin HCl 1 gm/ Sodium (Chloride) 250 mls @ 166.7 mls/hr IVPB Q4D [facility]; Protocol Last Admin: 12/15/18 18:18 Dose: 166.7 mls/hr Insulin Detemir (Levemir) 22 unit SC ACB PEE Insulin Detemir (Levemir) 22 unit SC HS [facility]EE Insulin Human Regular (Novolin R) 5 unit SC AC [facility] Last Admin: 12/17/18 17:29 Dose: 5 unit Lactobacillus Acidophilus (Lactobacillus) 1 cap PO BID [facility] Last Admin: 12/17/18 17:30 Dose: 1 cap Losartan Potassium (Cozaar) 100 mg PO Q24H [facility] Last Admin: 12/17/18 14:00 Dose: Not Given Metoprolol Tartrate (Lopressor) 100 mg PO BID [facility] Last Admin: 12/17/18 17:30 Dose: 100 mg Oxycodone/Acetaminophen (Percocet 5/325 Mg Tab) 1 tab PO Q12H PRN PRN Reason: Pain, severe (8-10) Stop: 12/20/18 14:42 Last Admin: 12/17/18 14:57 Dose: 1 tab Rosuvastatin Calcium (Crestor) 10 mg PO HS [facility] Vitamin B Complex/Vit C/Folic Acid (Nephro-Barbara) 1 tab PO 0800 [facility] Last Admin: 12/17/18 08:00 Dose: Not Given - Labs Labs: 12/17/18 09:08 12/17/18 09:08 PT 10.4 SECONDS (9.7-12.2) 12/14/18 08:32 INR 1.0 12/14/18 08:32 APTT 32 SECONDS (21-34) 12/14/18 08:32 Attending/Attestation - Attestation I have personally seen and examined this patient.: Yes I have fully participated in the care of the patient.: Yes I have reviewed all pertinent clinical information, including history, physical exam and plan: Yes Notes (Text): 12/17/18 18:51 This is a late entry. Care of this patient was gone over in detail with resident Dr. Delvalle. Hipolito Fraser D.O.
[2018-12-16 07:54] LABS: BASO % 0.8 % (0.0-2.0); EOS # 0.3 K/uL (0.0-0.7); LYMPH # 0.4 K/uL (1.0-4.3); LYMPH % 6.9 % (20.0-40.0); MEAN CORPUSCULAR HEMOGLOBIN 25.9 pg (27.0-31.0); MEAN CORPUSCULAR HGB CONC 32.3 g/dL (33.0-37.0); MEAN PLATELET VOLUME 7.7 fL (7.2-11.7); MONO # 0.6 K/uL (0.0-0.8); MONO % 11.2 % (0.0-10.0); NEUT # 4.4 K/uL (1.8-7.0); NEUT % 76.1 % (50.0-75.0); NRBC % 0.1 % (0.0-2.0); PLATELET COUNT 282 K/uL (130-400); RBC 3.88 Mil/uL (4.40-5.90); RED CELL DISTRIBUTION WIDTH 16.4 % (11.5-14.5); WHITE BLOOD COUNT 5.8 K/uL (4.8-10.8)
[2018-12-16] MEDS: Multivitamin Vitamin B Complex (Nephro-Vite) Tab PO SCH (08:20)
[2018-12-16] MEDS: (Novolin R) Insulin Human Regular 100 units/ml vial SC SCH ×3 (08:24→17:25)
[2018-12-16 08:29] LABS: ALB/GLOB RATIO 1.1 (1.0-2.1); ALBUMIN 3.1 g/dL (3.5-5.0); CALCIUM 9.3 mg/dl (8.6-10.4)
[2018-12-16 09:20] LABS: BANDS 1 % (0-2); EOSINOPHIL 4 % (0-4); LYMPHOCYTE 5 % (20-40); MONOCYTE 11 % (0-10); NEUTROPHIL 79 % (50-75); TOTAL CELLS COUNTED 100
[2018-12-16 09:21] LABS: ANISOCYTOSIS SLIGHT; PLATELET ESTIMATE NORMAL (NORMAL)
[2018-12-16 09:22] LABS: HYPOCHROMIC SLIGHT
[2018-12-16 09:23] LABS: POLYCHROMIC SLIGHT
--- NOTE | 2018-12-16 10:03 | CP.PCM.PN ---
<Lucian Yang - Last Filed: 12/16/18 10:02> Subjective - Date & Time of Evaluation Date of Evaluation: 12/16/18 Time of Evaluation: 10:02 - Subjective Subjective: Lucian Yang, PGY-1, Cardiology Progress Note for Dr. Rosales Patient seen and evaluated at bedside. Patient had no acute overnight events. Patient reports improvement in pain from ulcer and numbness of right first hallux Objective - Vital Signs/Intake and Output Vital Signs (last 24 hours): Temp Pulse Resp BP Pulse Ox 97.7 F 83 18 168/82 H 99 12/16/18 08:01 12/16/18 09:17 12/16/18 09:17 12/16/18 09:17 12/16/18 09:17 Intake and Output: 12/16/18 12/16/18 06:59 18:59 Intake Total 290 Balance 290 - Medications Medications: Current Medications Acetaminophen (Tylenol 325mg Tab) 650 mg PO Q6 PRN PRN Reason: Pain, moderate (4-7) Amlodipine Besylate (Norvasc) 10 mg PO Q24H [facility] Aspirin (Aspirin Chewable) 81 mg PO DAILY [facility] Last Admin: 12/16/18 09:15 Dose: 81 mg Calcitriol (Rocaltrol) 0.5 mcg PO DAILY [facility] Last Admin: 12/16/18 09:10 Dose: 0.5 mcg Calcium Acetate (Phoslo) 667 mg PO BIDCC [facility] Last Admin: 12/16/18 08:20 Dose: 667 mg Dextrose (Dextrose 50% Inj) 0 ml IV STAT PRN; Protocol PRN Reason: Hypoglycemia Protocol Last Admin: 12/16/18 06:35 Dose: 50 ml Dextrose (Glutose 15) 0 gm PO ONCE PRN; Protocol PRN Reason: Hypoglycemia Protocol Furosemide (Lasix) 80 mg PO DAILY [facility] Last Admin: 12/16/18 09:11 Dose: 80 mg Gabapentin (Neurontin) 100 mg PO TID [facility] Last Admin: 12/16/18 09:11 Dose: 100 mg Glucagon (Glucagen Diagnostic Kit) 0 mg IM STAT PRN; Protocol PRN Reason: Hypoglycemia Protocol Heparin Sodium (Porcine) (Heparin) 5,000 units SC Q8 [facility] Last Admin: 12/16/18 05:09 Dose: 5,000 units Hydralazine HCl (Apresoline) 25 mg PO Q4 PRN PRN Reason: Other Last Admin: 12/15/18 18:40 Dose: 25 mg Dextrose (Dextrose 5% In Water 1000 Ml) 1,000 mls @ 0 mls/hr IV .Q0M PRN; Protocol PRN Reason: Hypoglycemia Protocol Piperacillin Sod/Tazobactam Sod (Zosyn 2.25 Gm Iv Premix) 2.25 gm in 50 mls @ 100 mls/hr IVPB Q12H [facility]; Protocol Last Admin: 12/16/18 04:38 Dose: 100 mls/hr Vancomycin HCl 1 gm/ Sodium (Chloride) 250 mls @ 166.7 mls/hr IVPB Q4D [facility]; Protocol Last Admin: 12/15/18 18:18 Dose: 166.7 mls/hr Insulin Detemir (Levemir) 44 unit SC [facility] Last Admin: 12/15/18 22:34 Dose: 44 u Insulin Human Regular (Novolin R) 5 unit SC [facility] Last Admin: 12/16/18 08:24 Dose: Not Given Losartan Potassium (Cozaar) 100 mg PO Q24H [facility] Metoprolol Tartrate (Lopressor) 100 mg PO BID [facility] Last Admin: 12/16/18 09:10 Dose: 100 mg Rosuvastatin Calcium (Crestor) 20 mg PO [facility] Last Admin: 12/15/18 22:33 Dose: 20 mg Vitamin B Complex/Vit C/Folic Acid (Nephro-Barbara) 1 tab PO 0800 [facility] Last Admin: 12/16/18 08:20 Dose: 1 tab - Labs Labs: 12/16/18 07:40 12/16/18 07:40 PT 10.4 SECONDS (9.7-12.2) 12/14/18 08:32 INR 1.0 12/14/18 08:32 APTT 32 SECONDS (21-34) 12/14/18 08:32 - Constitutional Appears: Well, Non-toxic, No Acute Distress - Head Exam Head Exam: ATRAUMATIC, NORMAL INSPECTION, NORMOCEPHALIC - Eye Exam Eye Exam: EOMI, PERRL - ENT Exam ENT Exam: Mucous Membranes Moist - Respiratory Exam Respiratory Exam: Clear to Auscultation Bilateral, NORMAL BREATHING PATTERN - Cardiovascular Exam Cardiovascular Exam: REGULAR RHYTHM, RRR, +S1, +S2 - GI/Abdominal Exam GI & Abdominal Exam: Normal Bowel Sounds, Soft. absent: Tenderness - Extremities Exam Extremities exam: Positive for: full ROM (t), pedal edema (trace), tenderness (right lower extremity at ulcer site on sole) Additional comments: darkened right first hallux - Neurological Exam Neurological exam: Alert, CN II-XII Intact, Motor Sensory Deficit (sensory deficit of right hallux), Oriented x3 - Skin Skin Exam: Dry, Intact Additional comments: darkened skin of right hallux Assessment and Plan (1) Gangrene Assessment & Plan: CTA of bilateral lower extremities: Right lower extremity: AT has short segment areas of mild to severe stenosis of mid and distal segments. Peroneal artery has occlusion in the proximal segment and areas of moderate stenosis in distal segment. Left lower extremity: AT has short segment areas of severe stenosis of mid and distal segments. Peroneal artery has multiple areas of moderate stenosis in the mid and distal segments. Patient will be scheduled for peripheral angiogram on Thursday. Continue aspirin 81 mg daily, rosuvastatin 20 mg daily No plans for surgery as per podiatry. Status: Acute (2) Diabetes mellitus Assessment & Plan: HgbA1c: 8.4 Continue levemir, sliding scale insulin Status: Acute (3) ESRD (end stage renal disease) Assessment & Plan: Continue with peritoneal dialysis. Continue with calcitriol Status: Acute (4) Hypertension Assessment & Plan: Systolic blood pressure elevated in 180s Continue with losartan, lopressor, HCTZ Status: Acute (5) CAD (coronary artery disease) Assessment & Plan: Lipid panel unremarkable Continue aspirin, rosuvastatin, cozaar, lopressor Status: Acute <Tyson Rosales - Last Filed: 12/22/18 21:20> Objective - Vital Signs/Intake and Output Vital Signs (last 24 hours): Temp Pulse Resp BP Pulse Ox 97.6 F 98 H 20 111/61 100 12/22/18 19:23 12/22/18 19:23 12/22/18 19:23 12/22/18 19:23 12/22/18 19:01 Intake and Output: 12/22/18 12/23/18 18:59 06:59 Intake Total 460 Balance 460 - Medications Medications: Current Medications Acetaminophen (Tylenol 325mg Tab) 650 mg PO Q6 PRN PRN Reason: Pain, Mild (1-3) Aspirin (Aspirin Chewable) 81 mg PO DAILY [facility] Last Admin: 12/22/18 11:00 Dose: 81 mg Calcitriol (Rocaltrol) 0.5 mcg PO DAILY [facility] Last Admin: 12/22/18 11:00 Dose: 0.5 mcg Calcium Acetate (Phoslo) 667 mg PO BIDCC [facility] Last Admin: 12/22/18 17:47 Dose: 667 mg Dextrose (Dextrose 50% Inj) 0 ml IV STAT PRN; Protocol PRN Reason: Hypoglycemia Protocol Last Admin: 12/16/18 06:35 Dose: 50 ml Dextrose (Glutose 15) 0 gm PO ONCE PRN; Protocol PRN Reason: Hypoglycemia Protocol Diltiazem HCl (Cardizem Cd) 120 mg PO Q24H [facility] Last Admin: 12/21/18 22:47 Dose: 120 mg Docusate Sodium (Colace) 100 mg PO BID [facility] Last Admin: 12/22/18 17:48 Dose: 100 mg Epoetin Sanchez (Procrit) 8,000 unit SC MWF [facility] Gabapentin (Neurontin) 100 mg PO TID [facility] Last Admin: 12/22/18 17:47 Dose: 100 mg Glucagon (Glucagen Diagnostic Kit) 0 mg IM STAT PRN; Protocol PRN Reason: Hypoglycemia Protocol Heparin Sodium (Porcine) (Heparin) 5,000 units SC Q8 [facility] Last Admin: 12/22/18 06:48 Dose: 5,000 units Hydralazine HCl (Apresoline) 25 mg PO Q4 PRN PRN Reason: Other Last Admin: 12/18/18 09:51 Dose: 25 mg Dextrose (Dextrose 5% In Water 1000 Ml) 1,000 mls @ 0 mls/hr IV .Q0M PRN; Protocol PRN Reason: Hypoglycemia Protocol Piperacillin Sod/Tazobactam Sod (Zosyn 2.25 Gm Iv Premix) 2.25 gm in 50 mls @ 100 mls/hr IVPB Q12H [facility]; Protocol Last Admin: 12/22/18 17:30 Dose: 100 mls/hr Vancomycin HCl 1 gm/ Sodium (Chloride) 250 mls @ 166.7 mls/hr IVPB Q4D [facility]; Protocol Last Admin: 12/19/18 17:00 Dose: 166.7 mls/hr Insulin Detemir (Levemir) 22 unit SC [facility] Last Admin: 12/21/18 22:48 Dose: 22 units Insulin Detemir (Levemir) 22 unit SC ACB [facility] Insulin Human Regular (Novolin R) 5 unit SC AC [facility] Last Admin: 12/22/18 17:23 Dose: Not Given Lactobacillus Acidophilus (Lactobacillus) 1 cap PO BID [facility] Last Admin: 12/22/18 17:48 Dose: 1 cap Losartan Potassium (Cozaar) 25 mg PO QPM [facility] Last Admin: 12/22/18 17:54 Dose: Not Given Metoprolol Tartrate (Lopressor) 100 mg PO BID [facility] Last Admin: 12/21/18 10:21 Dose: 100 mg Minoxidil (Minoxidil) 2.5 mg PO QPM [facility] Last Admin: 12/22/18 17:55 Dose: Not Given Oxycodone/Acetaminophen (Percocet 5/325 Mg Tab) 1 tab PO Q4H PRN PRN Reason: Pain, moderate (4-7) Stop: 12/25/18 14:47 Oxycodone/Acetaminophen (Percocet 5/325 Mg Tab) 2 tab PO Q4H PRN PRN Reason: Pain, severe (8-10) Stop: 12/25/18 15:50 Rosuvastatin Calcium (Crestor) 10 mg PO HS [facility] Last Admin: 12/21/18 22:47 Dose: 10 mg Vitamin B Complex/Vit C/Folic Acid (Nephro-Barbara) 1 tab PO 0800 [facility] Last Admin: 12/22/18 08:30 Dose: Not Given - Labs Labs: 12/22/18 07:25 12/22/18 07:25 PT 11.0 SECONDS (9.7-12.2) 12/21/18 14:13 INR 1.0 12/21/18 14:13 APTT 34 SECONDS (21-34) 12/21/18 14:13 Assessment and Plan (1) Preop cardiovascular exam Status: Acute (2) PVD (peripheral vascular disease) Status: Acute (3) CAD (coronary artery disease) Status: Acute (4) Diabetes mellitus Status: Acute (5) ESRD (end stage renal disease) Status: Acute (6) Gangrene Status: Acute (7) Peritoneal dialysis catheter in place Status: Acute (8) Hypertension Status: Acute Attending/Attestation - Attestation I have personally seen and examined this patient.: Yes I have fully participated in the care of the patient.: Yes I have reviewed all pertinent clinical information, including history, physical exam and plan: Yes
[2018-12-16] MEDS ORDERED: Potassium Chloride 20 mEq ER Tab PO ONE (11:37)
--- NOTE | 2018-12-16 13:28 | CP.PCM.PN ---
<Romeo Ramsey - Last Filed: 12/16/18 13:24> Subjective - Date & Time of Evaluation Date of Evaluation: 12/16/18 Time of Evaluation: 13:25 - Subjective Subjective: Podiatry Progress Note for Dr. Rasmussen 63M seen at bedside for distal right hallux ulceration and painful hypertrophic skin on anterior right ankle. Patient is seen sleeping in bed at time of visit but is easily arousable. Patient is seen to be resting at time of visit. States that there are no new pedal complaints at this time and pain is well controlled Objective - Vital Signs/Intake and Output Vital Signs (last 24 hours): Temp Pulse Resp BP Pulse Ox 97.2 F L 80 18 174/84 H 99 12/16/18 11:07 12/16/18 11:07 12/16/18 11:07 12/16/18 11:07 12/16/18 11:07 Intake and Output: 12/16/18 12/16/18 06:59 18:59 Intake Total 290 Balance 290 - Medications Medications: Current Medications Acetaminophen (Tylenol 325mg Tab) 650 mg PO Q6 PRN PRN Reason: Pain, moderate (4-7) Amlodipine Besylate (Norvasc) 10 mg PO Q24H [facility] Aspirin (Aspirin Chewable) 81 mg PO DAILY [facility] Last Admin: 12/16/18 09:15 Dose: 81 mg Calcitriol (Rocaltrol) 0.5 mcg PO DAILY [facility] Last Admin: 12/16/18 09:10 Dose: 0.5 mcg Calcium Acetate (Phoslo) 667 mg PO BIDCC [facility] Last Admin: 12/16/18 08:20 Dose: 667 mg Dextrose (Dextrose 50% Inj) 0 ml IV STAT PRN; Protocol PRN Reason: Hypoglycemia Protocol Last Admin: 12/16/18 06:35 Dose: 50 ml Dextrose (Glutose 15) 0 gm PO ONCE PRN; Protocol PRN Reason: Hypoglycemia Protocol Furosemide (Lasix) 80 mg PO DAILY [facility] Last Admin: 12/16/18 09:11 Dose: 80 mg Gabapentin (Neurontin) 100 mg PO TID [facility] Last Admin: 12/16/18 13:10 Dose: 100 mg Glucagon (Glucagen Diagnostic Kit) 0 mg IM STAT PRN; Protocol PRN Reason: Hypoglycemia Protocol Heparin Sodium (Porcine) (Heparin) 5,000 units SC Q8 [facility] Last Admin: 12/16/18 05:09 Dose: 5,000 units Hydralazine HCl (Apresoline) 25 mg PO Q4 PRN PRN Reason: Other Last Admin: 12/15/18 18:40 Dose: 25 mg Dextrose (Dextrose 5% In Water 1000 Ml) 1,000 mls @ 0 mls/hr IV .Q0M PRN; Protocol PRN Reason: Hypoglycemia Protocol Piperacillin Sod/Tazobactam Sod (Zosyn 2.25 Gm Iv Premix) 2.25 gm in 50 mls @ 100 mls/hr IVPB Q12H [facility]; Protocol Last Admin: 12/16/18 04:38 Dose: 100 mls/hr Vancomycin HCl 1 gm/ Sodium (Chloride) 250 mls @ 166.7 mls/hr IVPB Q4D [facility]; Protocol Last Admin: 12/15/18 18:18 Dose: 166.7 mls/hr Potassium Chloride (Potassium Chloride 20 Meq/100 Ml) 20 meq in 100 mls @ 50 mls/hr IVPB ONCE ONE Stop: 12/16/18 13:37 Insulin Detemir (Levemir) 44 unit SC HS [facility] Last Admin: 12/15/18 22:34 Dose: 44 u Insulin Detemir (Levemir) 22 unit SC HS ONE Stop: 12/16/18 22:01 Insulin Human Regular (Novolin R) 5 unit SC AC [facility] Last Admin: 12/16/18 12:14 Dose: 5 unit Losartan Potassium (Cozaar) 100 mg PO Q24H [facility] Last Admin: 12/16/18 13:10 Dose: 100 mg Metoprolol Tartrate (Lopressor) 100 mg PO BID [facility] Last Admin: 12/16/18 09:10 Dose: 100 mg Rosuvastatin Calcium (Crestor) 20 mg PO HS [facility] Last Admin: 12/15/18 22:33 Dose: 20 mg Vitamin B Complex/Vit C/Folic Acid (Nephro-Barbara) 1 tab PO 0800 [facility] Last Admin: 12/16/18 08:20 Dose: 1 tab - Labs Labs: 12/16/18 07:40 12/16/18 07:40 PT 10.4 SECONDS (9.7-12.2) 12/14/18 08:32 INR 1.0 12/14/18 08:32 APTT 32 SECONDS (21-34) 12/14/18 08:32 - Constitutional Appears: Well, Non-toxic, No Acute Distress - Extremities Exam Additional comments: LE focused exam: Vasc: DP/PT pulses non-palpable b/l. Skin temperature warm to warm from proximal to distal WNL. CFT > 3 seconds to all digits b/l. No edema noted b/l Neuro: Epicritic and protective sensation grossly diminished b/l Derm: Callosity noted to distal aspect of right hallux with ulceration measuring approximately 0.1 cm x 0.1 cm x 0.1 cm noted in center of callosity. No tracking, tunneling, undermining, probe to bone, drainage, malodor or other clinical signs of infection noted. Hypertrophic patch of skin measuring roughly 4 cm x 3 cm noted to anterolateral ankle of right foot, unchanged since yesterday. No evidence of erythema or cellulitic changes. No breaks in the skin appreciated MSK: Pain on palpation of hypertrophic skin at anterior ankle. No pain on palpat ion of distal hallucal ulceration. No evidence of gross deformities appreciated - Neurological Exam Neurological Exam: Alert, Awake, Oriented x3 - Psychiatric Exam Psychiatric exam: Normal Affect, Normal Mood Assessment and Plan - Assessment and Plan (Free Text) Assessment: 63M seen at bedside for distal right hallux ulceration and painful hypertrophic skin on anterior right ankle Plan: Patient seen and evaluated with Dr. Rasmussen Afebrile, absent leukocytosis Continue abx per ID ESR 60 Foot xray: No evidence of osteomyelitis R foot MRI: Marked edema is seen throughout the distal phalanx great toe suggestive of possible osteomyelitis or prominent contusion. No fracture identified Probable surgical intervention planned pending Dr. Rosales vascular intervention/recommendations Wound dressed with betadine, ABD, DSD Podiatry will continue to follow while patient in house <Glen Rasmussen - Last Filed: 12/16/18 20:38> Objective - Vital Signs/Intake and Output Vital Signs (last 24 hours): Temp Pulse Resp BP Pulse Ox 97.5 F L 86 20 148/72 100 12/16/18 15:00 12/16/18 18:42 12/16/18 15:00 12/16/18 15:00 12/16/18 15:00 - Medications Medications: Current Medications Acetaminophen (Tylenol 325mg Tab) 650 mg PO Q6 PRN PRN Reason: Pain, moderate (4-7) Amlodipine Besylate (Norvasc) 10 mg PO Q24H [facility] Aspirin (Aspirin Chewable) 81 mg PO DAILY [facility] Last Admin: 12/16/18 09:15 Dose: 81 mg Calcitriol (Rocaltrol) 0.5 mcg PO DAILY [facility] Last Admin: 12/16/18 09:10 Dose: 0.5 mcg Calcium Acetate (Phoslo) 667 mg PO BIDCC [facility] Last Admin: 12/16/18 17:15 Dose: 667 mg Dextrose (Dextrose 50% Inj) 0 ml IV STAT PRN; Protocol PRN Reason: Hypoglycemia Protocol Last Admin: 12/16/18 06:35 Dose: 50 ml Dextrose (Glutose 15) 0 gm PO ONCE PRN; Protocol PRN Reason: Hypoglycemia Protocol Furosemide (Lasix) 80 mg PO DAILY [facility] Last Admin: 12/16/18 09:11 Dose: 80 mg Gabapentin (Neurontin) 100 mg PO TID [facility] Last Admin: 12/16/18 17:16 Dose: 100 mg Glucagon (Glucagen Diagnostic Kit) 0 mg IM STAT PRN; Protocol PRN Reason: Hypoglycemia Protocol Heparin Sodium (Porcine) (Heparin) 5,000 units SC Q8 [facility] Last Admin: 12/16/18 15:00 Dose: 5,000 units Hydralazine HCl (Apresoline) 25 mg PO Q4 PRN PRN Reason: Other Last Admin: 12/15/18 18:40 Dose: 25 mg Dextrose (Dextrose 5% In Water 1000 Ml) 1,000 mls @ 0 mls/hr IV .Q0M PRN; Protocol PRN Reason: Hypoglycemia Protocol Piperacillin Sod/Tazobactam Sod (Zosyn 2.25 Gm Iv Premix) 2.25 gm in 50 mls @ 100 mls/hr IVPB Q12H [facility]; Protocol Last Admin: 12/16/18 16:33 Dose: 100 mls/hr Vancomycin HCl 1 gm/ Sodium (Chloride) 250 mls @ 166.7 mls/hr IVPB Q4D [facility]; Protocol Last Admin: 12/15/18 18:18 Dose: 166.7 mls/hr Insulin Detemir (Levemir) 44 unit SC HS [facility] Last Admin: 12/15/18 22:34 Dose: 44 u Insulin Detemir (Levemir) 22 unit SC HS ONE Stop: 12/16/18 22:01 Insulin Human Regular (Novolin R) 5 unit SC AC [facility] Last Admin: 12/16/18 17:25 Dose: 5 unit Lactobacillus Acidophilus (Lactobacillus) 1 cap PO BID [facility] Last Admin: 12/16/18 17:24 Dose: 1 cap Losartan Potassium (Cozaar) 100 mg PO Q24H [facility] Last Admin: 12/16/18 13:10 Dose: 100 mg Metoprolol Tartrate (Lopressor) 100 mg PO BID [facility] Last Admin: 12/16/18 17:16 Dose: 100 mg Rosuvastatin Calcium (Crestor) 20 mg PO HS [facility] Last Admin: 12/15/18 22:33 Dose: 20 mg Vitamin B Complex/Vit C/Folic Acid (Nephro-Barbara) 1 tab PO 0800 [facility] Last Admin: 12/16/18 08:20 Dose: 1 tab - Labs Labs: 12/16/18 07:40 12/16/18 07:40 PT 10.4 SECONDS (9.7-12.2) 12/14/18 08:32 INR 1.0 12/14/18 08:32 APTT 32 SECONDS (21-34) 12/14/18 08:32 Assessment and Plan - Assessment and Plan (Free Text) Plan: Dry,Ischemic changes noted at distal end of hallux to IP joint with underlying inflammed bone suspicious for om . will await s/p vascular procedure and make re-eval . /Dr Roseann Rasmussen
--- NOTE | 2018-12-16 14:42 | CP.PCM.PN ---
Subjective - Date & Time of Evaluation Date of Evaluation: 12/16/18 Time of Evaluation: 14:39 - Subjective Subjective: Nephrology Consultation Note: Assessment: Stable Rt foot found/ulcer with PVD Rt foot toe osteomyelitis Diabetic chronic Kidney Disease (E11.22) Hypertensive Chronic Kidney Disease (I12.0) End stage renal disease (N18.6) dependence on dialysis (Z99.2) as PD Anemia (D64.9), Hyperphosphatemia (E83.39), Secondary Hyperparathyroidism (E21.1), HTN (I12.0) uncontrolled severe HTN with urgency Plan: Will plan for PD as ordered. Continue with Nephrovite 1 tab/day. PD d/w staff psychiatrist as well. PRBC as needed for anemia. Not on JESSIE with dialysis as last Hb >10 and high BP Continue with phos binders, last phos level: 4.7 Continue with calcitriol. BP control with meds as ordered. Patient on RAAS rachna as losartan 100 mg/d, metoprolol. add lasix 80 mg/d. also on norvasc and prn hydralazine Glycemic control, Dialysis consistent diet Further work up/management as per primary team Dose meds/antibiotics (if needed) for ESRD status. Avoid fleets enema/magnesium based laxatives. podiatry and interventional cardiology following. plan for angiogram tomorrow abx per ID. please inform renal about d/c antibiotics. Can administer abx intraperitoneally. Thanks for allowing me to participate in care of your patient. Will follow patient with you. Please call if any Qs. d/w team Dr Brad Lucero Office: [phone] Chief Complaint; Rt foot wound HPI: Pt is a 63 M with hx of ESRD on PD since 2014, chronic anemia, hyperphosphatemia, secondary hyperparathyroidism, Diabetes Mellitus, hypertension presented with complaints of rt foot wound Renal consult requested for ESRD management. PD: manual exchanges 1.5% alternating with 2.5% (2000 mL) with 4 hr dwell time, net UF 0-300 mL with each exchange. he is looking forward to switch to HD in near future ROS: tolerating pd well. net UF 1700 mL yesterday. fluid is clear. no pain or issues reported during PD exchanges. Cardiovascular: No chest pain. Pulmonary: No shortness of breath Gastrointestinal: denies abdominal pain No nausea. No vomiting. Genitourinary: No pain while urinating. Denies blood in urine. makes urine 1-2 times per day and not as much as used to in past All other negative except as mentioned in HPI Physical Examination: General Appearance: Comfortable, in no acute respiratory distress, co-operative . Vitals reviewed and noted as below Head; Atraumatic, normocephalic ENT: no ulcers no thrush. Tongue is midline. Oropharynx: no rash or ulcers. EYES: Pupils are equal, round and reactive to light accommodation. Eye muscles and extraocular movement intact. Sclera is anicteric. Neck; supple no lymphadenopathy, no thyromegaly or bruit Lungs: Normal respiratory rate/effort. Breath sounds bilateral reduced at bases Heart: Normal rate. s1s2 normal. No rub or gallop. Extremities: no edema. No varicose veins. Rt foot in dressing Neurological: Patient is alert, awake and oriented to person, place and time. No focal deficit. Strength bilateral appropriate and equal Skin: Warm and dry. Normal turgor. No rash. Palpitation: Normal elasticity for a ge Abdomen: Abdomen is soft. Bowel sounds +. There is no abdominal tenderness, no guarding/rigidity or organomegaly Psych: normal insight and normal affect/mood MSK: no joint tenderness or swelling. Digits and nails normal, no deformity : kidney or bladder not palpable Access: PD catheter. left AV access matured. Labs/imaging reviewed. Past medical history, past surgical history, family history, social history, allergy reviewed and noted as below Family Hx: no hx of CKD. Non contributory Objective - Vital Signs/Intake and Output Vital Signs (last 24 hours): Temp Pulse Resp BP Pulse Ox 97.4 F L 79 18 161/75 H 99 12/16/18 14:10 12/16/18 14:10 12/16/18 14:10 12/16/18 14:10 12/16/18 14:10 Intake and Output: 12/16/18 12/16/18 06:59 18:59 Intake Total 290 Balance 290 - Medications Medications: Current Medications Acetaminophen (Tylenol 325mg Tab) 650 mg PO Q6 PRN PRN Reason: Pain, moderate (4-7) Amlodipine Besylate (Norvasc) 10 mg PO Q24H [facility] Aspirin (Aspirin Chewable) 81 mg PO DAILY [facility] Last Admin: 12/16/18 09:15 Dose: 81 mg Calcitriol (Rocaltrol) 0.5 mcg PO DAILY [facility] Last Admin: 12/16/18 09:10 Dose: 0.5 mcg Calcium Acetate (Phoslo) 667 mg PO BIDCC [facility] Last Admin: 12/16/18 08:20 Dose: 667 mg Dextrose (Dextrose 50% Inj) 0 ml IV STAT PRN; Protocol PRN Reason: Hypoglycemia Protocol Last Admin: 12/16/18 06:35 Dose: 50 ml Dextrose (Glutose 15) 0 gm PO ONCE PRN; Protocol PRN Reason: Hypoglycemia Protocol Furosemide (Lasix) 80 mg PO DAILY [facility] Last Admin: 12/16/18 09:11 Dose: 80 mg Gabapentin (Neurontin) 100 mg PO TID [facility] Last Admin: 12/16/18 13:10 Dose: 100 mg Glucagon (Glucagen Diagnostic Kit) 0 mg IM STAT PRN; Protocol PRN Reason: Hypoglycemia Protocol Heparin Sodium (Porcine) (Heparin) 5,000 units SC Q8 [facility] Last Admin: 12/16/18 05:09 Dose: 5,000 units Hydralazine HCl (Apresoline) 25 mg PO Q4 PRN PRN Reason: Other Last Admin: 12/15/18 18:40 Dose: 25 mg Dextrose (Dextrose 5% In Water 1000 Ml) 1,000 mls @ 0 mls/hr IV .Q0M PRN; Protocol PRN Reason: Hypoglycemia Protocol Piperacillin Sod/Tazobactam Sod (Zosyn 2.25 Gm Iv Premix) 2.25 gm in 50 mls @ 100 mls/hr IVPB Q12H [facility]; Protocol Last Admin: 12/16/18 04:38 Dose: 100 mls/hr Vancomycin HCl 1 gm/ Sodium (Chloride) 250 mls @ 166.7 mls/hr IVPB Q4D [facility]; Protocol Last Admin: 12/15/18 18:18 Dose: 166.7 mls/hr Insulin Detemir (Levemir) 44 unit SC HS [facility] Last Admin: 12/15/18 22:34 Dose: 44 u Insulin Detemir (Levemir) 22 unit SC HS ONE Stop: 12/16/18 22:01 Insulin Human Regular (Novolin R) 5 unit SC AC [facility] Last Admin: 12/16/18 12:14 Dose: 5 unit Losartan Potassium (Cozaar) 100 mg PO Q24H [facility] Last Admin: 12/16/18 13:10 Dose: 100 mg Metoprolol Tartrate (Lopressor) 100 mg PO BID [facility] Last Admin: 12/16/18 09:10 Dose: 100 mg Rosuvastatin Calcium (Crestor) 20 mg PO HS [facility] Last Admin: 12/15/18 22:33 Dose: 20 mg Vitamin B Complex/Vit C/Folic Acid (Nephro-Barbara) 1 tab PO 0800 [facility] Last Admin: 12/16/18 08:20 Dose: 1 tab - Labs Labs: 12/16/18 07:40 12/16/18 07:40 PT 10.4 SECONDS (9.7-12.2) 12/14/18 08:32 INR 1.0 12/14/18 08:32 APTT 32 SECONDS (21-34) 12/14/18 08:32
[2018-12-16] MEDS: Lactobacillus Acidophilus 500 MU Cap PO SCH (17:24)
[2018-12-16] MEDS ORDERED: Insulin Detemir 100 units/ml Vial (Levemir) SC ONE (22:00)
[2018-12-16] MEDS ORDERED: (Novolin R) Insulin Human Regular 100 units/ml vial SC ONE (23:08)
--- NOTE | 2018-12-16 23:38 | CP.PCM.PN ---
Subjective - Date & Time of Evaluation Date of Evaluation: 12/16/18 Time of Evaluation: 07:00 - Subjective Subjective: seen on rounds'awake alert afebrile] Had PD earlier Objective - Vital Signs/Intake and Output Vital Signs (last 24 hours): Temp Pulse Resp BP Pulse Ox 97.6 F 79 18 160/85 H 100 12/16/18 20:54 12/16/18 20:54 12/16/18 20:54 12/16/18 20:54 12/16/18 20:54 Intake and Output: 12/16/18 12/17/18 18:59 06:59 Intake Total 630 Balance 630 - Medications Medications: Current Medications Acetaminophen (Tylenol 325mg Tab) 650 mg PO Q6 PRN PRN Reason: Pain, moderate (4-7) Amlodipine Besylate (Norvasc) 10 mg PO Q24H [facility] Last Admin: 12/16/18 21:40 Dose: 10 mg Aspirin (Aspirin Chewable) 81 mg PO DAILY [facility] Last Admin: 12/16/18 09:15 Dose: 81 mg Calcitriol (Rocaltrol) 0.5 mcg PO DAILY [facility] Last Admin: 12/16/18 09:10 Dose: 0.5 mcg Calcium Acetate (Phoslo) 667 mg PO BIDCC [facility] Last Admin: 12/16/18 17:15 Dose: 667 mg Dextrose (Dextrose 50% Inj) 0 ml IV STAT PRN; Protocol PRN Reason: Hypoglycemia Protocol Last Admin: 12/16/18 06:35 Dose: 50 ml Dextrose (Glutose 15) 0 gm PO ONCE PRN; Protocol PRN Reason: Hypoglycemia Protocol Furosemide (Lasix) 80 mg PO DAILY [facility] Last Admin: 12/16/18 09:11 Dose: 80 mg Gabapentin (Neurontin) 100 mg PO TID [facility] Last Admin: 12/16/18 17:16 Dose: 100 mg Glucagon (Glucagen Diagnostic Kit) 0 mg IM STAT PRN; Protocol PRN Reason: Hypoglycemia Protocol Heparin Sodium (Porcine) (Heparin) 5,000 units SC Q8 [facility] Last Admin: 12/16/18 21:40 Dose: 5,000 units Hydralazine HCl (Apresoline) 25 mg PO Q4 PRN PRN Reason: Other Last Admin: 12/15/18 18:40 Dose: 25 mg Dextrose (Dextrose 5% In Water 1000 Ml) 1,000 mls @ 0 mls/hr IV .Q0M PRN; Protocol PRN Reason: Hypoglycemia Protocol Piperacillin Sod/Tazobactam Sod (Zosyn 2.25 Gm Iv Premix) 2.25 gm in 50 mls @ 100 mls/hr IVPB Q12H [facility]; Protocol Last Admin: 12/16/18 16:33 Dose: 100 mls/hr Vancomycin HCl 1 gm/ Sodium (Chloride) 250 mls @ 166.7 mls/hr IVPB Q4D [facility]; Protocol Last Admin: 12/15/18 18:18 Dose: 166.7 mls/hr Insulin Detemir (Levemir) 44 unit SC [facility] Last Admin: 12/15/18 22:34 Dose: 44 u Insulin Human Regular (Novolin R) 5 unit SC AC [facility] Last Admin: 12/16/18 17:25 Dose: 5 unit Lactobacillus Acidophilus (Lactobacillus) 1 cap PO BID [facility] Last Admin: 12/16/18 17:24 Dose: 1 cap Losartan Potassium (Cozaar) 100 mg PO Q24H [facility] Last Admin: 12/16/18 13:10 Dose: 100 mg Metoprolol Tartrate (Lopressor) 100 mg PO BID [facility] Last Admin: 12/16/18 17:16 Dose: 100 mg Rosuvastatin Calcium (Crestor) 20 mg PO [facility] Last Admin: 12/16/18 21:41 Dose: 20 mg Vitamin B Complex/Vit C/Folic Acid (Nephro-Barbara) 1 tab PO 0800 [facility] Last Admin: 12/16/18 08:20 Dose: 1 tab - Labs Labs: 12/16/18 07:40 12/16/18 07:40 PT 10.4 SECONDS (9.7-12.2) 12/14/18 08:32 INR 1.0 12/14/18 08:32 APTT 32 SECONDS (21-34) 12/14/18 08:32 - Constitutional Appears: Non-toxic, No Acute Distress, Chronically Ill - Head Exam Head Exam: ATRAUMATIC, NORMAL INSPECTION, NORMOCEPHALIC - Eye Exam Eye Exam: EOMI, Normal appearance, PERRL Pupil Exam: NORMAL ACCOMODATION, PERRL - ENT Exam ENT Exam: Mucous Membranes Moist, Normal Exam - Neck Exam Neck Exam: Full ROM, Normal Inspection. absent: Lymphadenopathy - Respiratory Exam Respiratory Exam: Clear to Ausculation Bilateral, NORMAL BREATHING PATTERN - Cardiovascular Exam Cardiovascular Exam: REGULAR RHYTHM, +S1, +S2. absent: Murmur - GI/Abdominal Exam GI & Abdominal Exam: Soft, Normal Bowel Sounds. absent: Tenderness - Rectal Exam Rectal Exam: Deferred - Extremities Exam Extremities Exam: Full ROM, Pedal Edema Additional comments: ischemic ulcer right hallu - Back Exam Back Exam: NORMAL INSPECTION - Neurological Exam Neurological Exam: Alert, Awake, CN II-XII Intact, Normal Gait, Oriented x3 - Psychiatric Exam Psychiatric exam: Normal Affect, Normal Mood - Skin Skin Exam: Dry, Intact, Normal Color, Warm Assessment and Plan (1) Peritoneal dialysis catheter in place Status: Acute (2) CAD (coronary artery disease) Status: Acute (3) Diabetes mellitus Status: Acute (4) ESRD (end stage renal disease) Status: Acute (5) Gangrene Status: Acute (6) Hypertension Status: Acute - Assessment and Plan (Free Text) Assessment: CTA of bilateral lower extremities: Right lower extremity: AT has short segment areas of mild to severe stenosis of mid and distal segments. Peroneal artery has occlusion in the proximal segment and areas of moderate stenosis in distal segment. Patient will be scheduled for peripheral angiogram in AM. May require amputation of digit once vascular supply restored vs senior living IV antibiotics for OM
[2018-12-17] MEDS: Piperacill/Tazo 2.25gm in Dex 2.25 GM/50 ML BAG IVPB SCH ×2 (05:03→16:00)
--- NOTE | 2018-12-17 06:52 | CP.PCM.PN ---
<Katey Mcadams - Last Filed: 12/17/18 17:56> Subjective - Date & Time of Evaluation Date of Evaluation: 12/17/18 Time of Evaluation: 06:52 - Subjective Subjective: PGY-1 Katey Mcadams D.O. medicine progress note for Dr. Hipolito Fraser's service: Patient was seen and examined this morning. Patient is pending lower extremity angiogram today. Patient denies fever, chills, chest pain, SOB, abdominal pain, n/v/d, headache, dizziness, visual changes, numbness or tingling. Patient examined post-angiogram. He has mild pain in his right leg where intervention was done. Objective - Vital Signs/Intake and Output Vital Signs (last 24 hours): Temp Pulse Resp BP Pulse Ox 98.6 F 85 20 147/67 99 12/17/18 04:27 12/17/18 04:27 12/17/18 04:27 12/17/18 04:27 12/17/18 04:27 Intake and Output: 12/16/18 12/17/18 18:59 06:59 Intake Total 630 Balance 630 - Medications Medications: Current Medications Acetaminophen (Tylenol 325mg Tab) 650 mg PO Q6 PRN PRN Reason: Pain, moderate (4-7) Amlodipine Besylate (Norvasc) 10 mg PO Q24H [facility] Last Admin: 12/16/18 21:40 Dose: 10 mg Aspirin (Aspirin Chewable) 81 mg PO DAILY [facility] Last Admin: 12/16/18 09:15 Dose: 81 mg Calcitriol (Rocaltrol) 0.5 mcg PO DAILY [facility] Last Admin: 12/16/18 09:10 Dose: 0.5 mcg Calcium Acetate (Phoslo) 667 mg PO BIDCC [facility] Last Admin: 12/16/18 17:15 Dose: 667 mg Dextrose (Dextrose 50% Inj) 0 ml IV STAT PRN; Protocol PRN Reason: Hypoglycemia Protocol Last Admin: 12/16/18 06:35 Dose: 50 ml Dextrose (Glutose 15) 0 gm PO ONCE PRN; Protocol PRN Reason: Hypoglycemia Protocol Furosemide (Lasix) 80 mg PO DAILY [facility] Last Admin: 12/16/18 09:11 Dose: 80 mg Gabapentin (Neurontin) 100 mg PO TID [facility] Last Admin: 04/04/19 17:16 Dose: 100 mg Glucagon (Glucagen Diagnostic Kit) 0 mg IM STAT PRN; Protocol PRN Reason: Hypoglycemia Protocol Heparin Sodium (Porcine) (Heparin) 5,000 units SC Q8 [facility] Last Admin: 12/16/18 21:40 Dose: 5,000 units Hydralazine HCl (Apresoline) 25 mg PO Q4 PRN PRN Reason: Other Last Admin: 12/15/18 18:40 Dose: 25 mg Dextrose (Dextrose 5% In Water 1000 Ml) 1,000 mls @ 0 mls/hr IV .Q0M PRN; Protocol PRN Reason: Hypoglycemia Protocol Piperacillin Sod/Tazobactam Sod (Zosyn 2.25 Gm Iv Premix) 2.25 gm in 50 mls @ 100 mls/hr IVPB Q12H [facility]; Protocol Last Admin: 12/17/18 05:03 Dose: 100 mls/hr Vancomycin HCl 1 gm/ Sodium (Chloride) 250 mls @ 166.7 mls/hr IVPB Q4D [facility]; Protocol Last Admin: 12/15/18 18:18 Dose: 166.7 mls/hr Insulin Detemir (Levemir) 44 unit SC HS [facility] Last Admin: 12/15/18 22:34 Dose: 44 u Insulin Human Regular (Novolin R) 5 unit SC AC [facility] Last Admin: 12/16/18 17:25 Dose: 5 unit Lactobacillus Acidophilus (Lactobacillus) 1 cap PO BID [facility] Last Admin: 12/16/18 17:24 Dose: 1 cap Losartan Potassium (Cozaar) 100 mg PO Q24H [facility] Last Admin: 12/16/18 13:10 Dose: 100 mg Metoprolol Tartrate (Lopressor) 100 mg PO BID [facility] Last Admin: 12/16/18 17:16 Dose: 100 mg Rosuvastatin Calcium (Crestor) 20 mg PO HS [facility] Last Admin: 12/16/18 21:41 Dose: 20 mg Vitamin B Complex/Vit C/Folic Acid (Nephro-Barbara) 1 tab PO 0800 [facility] Last Admin: 12/16/18 08:20 Dose: 1 tab - Labs Labs: 12/16/18 07:40 12/16/18 07:40 PT 10.4 SECONDS (9.7-12.2) 12/14/18 08:32 INR 1.0 12/14/18 08:32 APTT 32 SECONDS (21-34) 12/14/18 08:32 - Additional Findings Additional findings: - Constitutional Appears: Non-toxic, No Acute Distress - Head Exam Head Exam: ATRAUMATIC, NORMOCEPHALIC - Eye Exam Eye Exam: EOMI, Normal appearance, PERRL - ENT Exam ENT Exam: Mucous Membranes Moist - Neck Exam Neck exam: Positive for: Full Rom, Normal Inspection - Respiratory Exam Respiratory Exam: Clear to Auscultation Bilateral, NORMAL BREATHING PATTERN. absent: Rales, Rhonchi, Wheezes - Cardiovascular Exam Cardiovascular Exam: REGULAR RHYTHM, +S1, +S2 Absent: tachycardia - GI/Abdominal Exam GI & Abdominal Exam: Normal Bowel Sounds, Soft. absent: Guarding, Rebound, Tenderness Additional comments: Peritoneal dialysis catheter L abdomen; no signs of infection - Extremities Exam Extremities exam: (+) Right upper extremity midline with no signs of infection or tenderness. Positive for: full ROM, Left upper forearm AV fistula with palpable thrill, no signs of infection. (+) Abnormal capillary refill. 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 5/5 strength in right upper and lower extremities. 4/5 strength in upper and lower extremities. - Psychiatric Exam Psychiatric exam: Normal Affect, Normal Mood - Skin Skin exam: Warm, dry. Assessment and Plan - Assessment and Plan (Free Text) Assessment: This is a 63 year old male with PMhx of IDDM2, ESRD on peritoneal dialysis, HTN, PVD who presents to the ED for pain to the wounds to his right foot, ankle area and right first toe. Found to to have ESR elevated, right hallux osteomyelitis on MRI started on IV abx (PD dosed). Plan: Osteomyelitis of right hallux, acute - Afebrile, no leukocytosis - ESR elevated at 60 - Blood Cx no growth >3 days - Right Foot x-ray: no periosteal reaction to suggest osetomyelitis. No gross osseous destruction appreciated. - Right ankle x-ray: no periosteal reaction to suggest osetomyelitis. No gross osseous destruction appreciated. - Lower extremity MRI without contrast right forefoot: marked edema is seen throughout the distal phalanx great toe suggestive of possible osteomyelitis or prominent contusion. No fracture identified. - Lower extremity MRI without contrast right hind foot and midfoot: no MR evidence to suggest osteomyelitis at the midfoot and hindfoot bony anatomy with lateral foot cellulitis identified on a mild-moderate basis without abscess. - RUE midline - Zosyn 2.25 gm IVPB Q12H- started 4/3 (dosed for PD) - Vancomycin 1 gm IVPB every 4 days- started 4/3 (dosed for PD) - Tylenol 650 Q6H PRN - Percocet 1 tab Q12H PRN - Podiatry consulted (Valery)- f/u if surg intervention indicated - ID consulted (Loren) - Wound care Peripheral vascular disease, chronic - Arterial doppler study [facility] 12/07/18: R popliteal artery 75-99% stenosis. R Posterior tibial artery is occluded. L posterior tibial and anterior tibial with 50-75% stenosis. Diffuse disease to peroneal artery. R MARIVEL: 1.12, L MARIVEL: 0.91 - CTA of bilateral lower extremities: Right lower extremity: AT has short segment areas of mild to severe stenosis of mid and distal segments. Peroneal artery has occlusion in the proximal segment and areas of moderate stenosis in distal segment. - Left lower extremity: AT has short segment areas of severe stenosis of mid and distal segments. Peroneal artery has multiple areas of moderate stenosis in the mid and distal segments. - Peripheral angiogram of RLE: 3-vessel runoff but diffuse calcification. Atherectomy done and cleared out tibial artery--> now flow to digital arteries. - ASA 81 mg PO daily - Crestor 20 mg PO QHS - Start Cardizem 120 PO daily as per cardio - Cardiology consulted (Bobby)- will need further intervention the future Hypertension, chronic - Monitor on telemetry - Vitals Q4H - Echocardiogram: LVEF approximately 70%. Mild concentric LVH. Grade I abnormal relaxation pattern. - Lasix 80 mg PO once daily at 10 am - Losartan 100 mg PO daily at 2 pm - Metoprolol Tartrate 100 mg PO BID at 10 am and 6 pm - Hydralazine 25 mg PO Q4H PRN SBP>170, DBP>110 - Amlodipine 10 mg PO daily at 10 pm Lethargy, acute, resolved- noted by RN after returning from MRI 12/15 - CT head: Age-related neuro degenerative changes are appreciated in the brain and appear age-appropriate without definite acute intracranial findings. However, density in the arterial and venous system of the brain is appreciated and further evaluation by CT angiography (if no contraindication), brain MRI, MR brain angiogram and MR venography for follow up. - MRI brain without contrast: Artifact but nonacute brain MRI. Vascular changes seen in the CT of head may reflect normal variation or less likely, residual iodinated contrast material within patient's vascular system. - Neuro checks ESRD on Peritoneal dialysis QID, chronic- patient does not want to start hemodialysis Creatinine stable, but elevated at 10.1. Phosphorous is downtrending Pt to continue with peritoneal dialysis as pervious managed as outpatient Nephro Barbara 1 tab PO daily Calcitriol 0.5mct PO daily Continue Phoslo 667 mg PO BIDCC with food Continue to monitor and replete electrolytes as needed - Nephrology consulted ([place]) Type 2 diabetes mellitus with peripheral neuropathy, chronic - HgbA1c 8.4 - TG/CHL/LDL/HDL is 117/166/95/42 - Accuchecks ACHS - Hypoglycemic protocol - Levemir 22 units SC ACB, QHS - Aspart 5 units SC AC - ASA 81 mg PO daily - Crestor 20 mg PO QHS - Gabapentin 100 mg PO TID Ppx: VTE: SCDs contraindicated due to PAD, Heparin 5000 units SC Q8H GI: no indication Diet: heart healthy, renal, low carb Dispo: Continue IV abx. Continue PD. Treat HTN with new regimen. Pending podiatry recs for intervention or not. DC to [facility]. <Hipolito Fraser - Last Filed: 12/17/18 18:51> Objective - Vital Signs/Intake and Output Vital Signs (last 24 hours): Temp Pulse Resp BP Pulse Ox 97.5 F L 86 20 152/78 H 97 12/17/18 16:00 12/17/18 16:00 12/17/18 16:00 12/17/18 16:00 12/17/18 16:00 Intake and Output: 12/17/18 12/17/18 06:59 18:59 Intake Total 800 Balance 800 - Medications Medications: Current Medications Acetaminophen (Tylenol 325mg Tab) 650 mg PO Q6 PRN PRN Reason: Pain, moderate (4-7) Last Admin: 12/17/18 14:03 Dose: 650 mg Amlodipine Besylate (Norvasc) 10 mg PO Q24H [facility] Last Admin: 12/16/18 21:40 Dose: 10 mg Aspirin (Aspirin Chewable) 81 mg PO DAILY [facility] Last Admin: 12/17/18 10:00 Dose: Not Given Calcitriol (Rocaltrol) 0.5 mcg PO DAILY [facility] Last Admin: 12/17/18 10:00 Dose: Not Given Calcium Acetate (Phoslo) 667 mg PO BIDCC [facility] Last Admin: 12/17/18 17:30 Dose: 667 mg Dextrose (Dextrose 50% Inj) 0 ml IV STAT PRN; Protocol PRN Reason: Hypoglycemia Protocol Last Admin: 12/16/18 06:35 Dose: 50 ml Dextrose (Glutose 15) 0 gm PO ONCE PRN; Protocol PRN Reason: Hypoglycemia Protocol Diltiazem HCl (Cardizem Cd) 120 mg PO DAILY [facility] Docusate Sodium (Colace) 100 mg PO BID [facility] Last Admin: 12/17/18 17:41 Dose: 100 mg Furosemide (Lasix) 80 mg PO DAILY [facility] Last Admin: 12/17/18 10:00 Dose: Not Given Gabapentin (Neurontin) 100 mg PO TID [facility] Last Admin: 12/17/18 17:30 Dose: 100 mg Glucagon (Glucagen Diagnostic Kit) 0 mg IM STAT PRN; Protocol PRN Reason: Hypoglycemia Protocol Heparin Sodium (Porcine) (Heparin) 5,000 units SC Q8 [facility] Last Admin: 12/16/18 21:40 Dose: 5,000 units Hydralazine HCl (Apresoline) 25 mg PO Q4 PRN PRN Reason: Other Last Admin: 12/15/18 18:40 Dose: 25 mg Dextrose (Dextrose 5% In Water 1000 Ml) 1,000 mls @ 0 mls/hr IV .Q0M PRN; Protocol PRN Reason: Hypoglycemia Protocol Piperacillin Sod/Tazobactam Sod (Zosyn 2.25 Gm Iv Premix) 2.25 gm in 50 mls @ 100 mls/hr IVPB Q12H [facility]; Protocol Last Admin: 12/17/18 16:00 Dose: 100 mls/hr Vancomycin HCl 1 gm/ Sodium (Chloride) 250 mls @ 166.7 mls/hr IVPB Q4D [facility]; Protocol Last Admin: 12/15/18 18:18 Dose: 166.7 mls/hr Insulin Detemir (Levemir) 22 unit SC ACB [facility] Insulin Detemir (Levemir) 22 unit SC HS [facility] Insulin Human Regular (Novolin R) 5 unit SC AC [facility] Last Admin: 12/17/18 17:29 Dose: 5 unit Lactobacillus Acidophilus (Lactobacillus) 1 cap PO BID [facility] Last Admin: 12/17/18 17:30 Dose: 1 cap Losartan Potassium (Cozaar) 100 mg PO Q24H [facility] Last Admin: 12/17/18 14:00 Dose: Not Given Metoprolol Tartrate (Lopressor) 100 mg PO BID [facility] Last Admin: 12/17/18 17:30 Dose: 100 mg Oxycodone/Acetaminophen (Percocet 5/325 Mg Tab) 1 tab PO Q12H PRN PRN Reason: Pain, severe (8-10) Stop: 12/20/18 14:42 Last Admin: 12/17/18 14:57 Dose: 1 tab Rosuvastatin Calcium (Crestor) 10 mg PO HS [facility] Vitamin B Complex/Vit C/Folic Acid (Nephro-Barbara) 1 tab PO 0800 [facility] Last Admin: 12/17/18 08:00 Dose: Not Given - Labs Labs: 12/17/18 09:08 12/17/18 09:08 PT 10.4 SECONDS (9.7-12.2) 12/14/18 08:32 INR 1.0 12/14/18 08:32 APTT 32 SECONDS (21-34) 12/14/18 08:32 Attending/Attestation - Attestation I have personally seen and examined this patient.: Yes I have fully participated in the care of the patient.: Yes I have reviewed all pertinent clinical information, including history, physical exam and plan: Yes Notes (Text): 12/17/18 18:49 Patient was seen and examined right after he was brought back up from the Cardiac clinical laboratory aide after right lower extremity arteriogram. Care of this patient was gone over in detail with resident Dr. Mcadams. Plan of care as documented above was gone over with the patient and his partner Jenise (with his permission and who was present at bedside). Await further plan from Podiatry concerning further management of the Right Toe #1: Surgery for amputation vs debridement vs continue IV antibiotics? Hipolito Fraser D.O.
[2018-12-17] MEDS: (Novolin R) Insulin Human Regular 100 units/ml vial SC SCH ×3 (07:30→17:29)
--- NOTE | 2018-12-17 07:44 | CP.PCM.PN ---
<Lucian Yang - Last Filed: 12/17/18 07:43> Subjective - Date & Time of Evaluation Date of Evaluation: 12/17/18 Time of Evaluation: 07:43 - Subjective Subjective: Lucian Yang, PGY-1, Cardiology Progress Note for Dr. Rosales Patient seen and evaluated at bedside. Patient had no acute overnight events. Patient reports improvement in pain from ulcer and numbness of right first hallux Objective - Vital Signs/Intake and Output Vital Signs (last 24 hours): Temp Pulse Resp BP Pulse Ox 98.1 F 83 20 125/83 98 12/17/18 07:10 12/17/18 07:10 12/17/18 07:10 12/17/18 07:10 12/17/18 07:10 Intake and Output: 12/17/18 12/17/18 06:59 18:59 Intake Total 800 Balance 800 - Medications Medications: Current Medications Acetaminophen (Tylenol 325mg Tab) 650 mg PO Q6 PRN PRN Reason: Pain, moderate (4-7) Amlodipine Besylate (Norvasc) 10 mg PO Q24H [facility] Last Admin: 12/16/18 21:40 Dose: 10 mg Aspirin (Aspirin Chewable) 81 mg PO DAILY [facility] Last Admin: 12/16/18 09:15 Dose: 81 mg Calcitriol (Rocaltrol) 0.5 mcg PO DAILY [facility] Last Admin: 12/16/18 09:10 Dose: 0.5 mcg Calcium Acetate (Phoslo) 667 mg PO BIDCC [facility] Last Admin: 12/17/18 07:39 Dose: Not Given Dextrose (Dextrose 50% Inj) 0 ml IV STAT PRN; Protocol PRN Reason: Hypoglycemia Protocol Last Admin: 12/16/18 06:35 Dose: 50 ml Dextrose (Glutose 15) 0 gm PO ONCE PRN; Protocol PRN Reason: Hypoglycemia Protocol Furosemide (Lasix) 80 mg PO DAILY [facility] Last Admin: 12/16/18 09:11 Dose: 80 mg Gabapentin (Neurontin) 100 mg PO TID [facility] Last Admin: 12/16/18 17:16 Dose: 100 mg Glucagon (Glucagen Diagnostic Kit) 0 mg IM STAT PRN; Protocol PRN Reason: Hypoglycemia Protocol Heparin Sodium (Porcine) (Heparin) 5,000 units SC Q8 [facility] Last Admin: 12/16/18 21:40 Dose: 5,000 units Hydralazine HCl (Apresoline) 25 mg PO Q4 PRN PRN Reason: Other Last Admin: 12/15/18 18:40 Dose: 25 mg Dextrose (Dextrose 5% In Water 1000 Ml) 1,000 mls @ 0 mls/hr IV .Q0M PRN; Protocol PRN Reason: Hypoglycemia Protocol Piperacillin Sod/Tazobactam Sod (Zosyn 2.25 Gm Iv Premix) 2.25 gm in 50 mls @ 100 mls/hr IVPB Q12H [facility]; Protocol Last Admin: 12/17/18 05:03 Dose: 100 mls/hr Vancomycin HCl 1 gm/ Sodium (Chloride) 250 mls @ 166.7 mls/hr IVPB Q4D [facility]; Protocol Last Admin: 12/15/18 18:18 Dose: 166.7 mls/hr Insulin Detemir (Levemir) 44 unit SC [facility] Last Admin: 12/15/18 22:34 Dose: 44 u Insulin Human Regular (Novolin R) 5 unit SC [facility] Last Admin: 12/16/18 17:25 Dose: 5 unit Lactobacillus Acidophilus (Lactobacillus) 1 cap PO BID [facility] Last Admin: 12/16/18 17:24 Dose: 1 cap Losartan Potassium (Cozaar) 100 mg PO Q24H [facility] Last Admin: 12/16/18 13:10 Dose: 100 mg Metoprolol Tartrate (Lopressor) 100 mg PO BID [facility] Last Admin: 12/16/18 17:16 Dose: 100 mg Rosuvastatin Calcium (Crestor) 20 mg PO [facility] Vitamin B Complex/Vit C/Folic Acid (Nephro-Barbara) 1 tab PO 0800 [facility] Last Admin: 12/16/18 08:20 Dose: 1 tab - Labs Labs: 12/16/18 07:40 12/16/18 07:40 PT 10.4 SECONDS (9.7-12.2) 12/14/18 08:32 INR 1.0 12/14/18 08:32 APTT 32 SECONDS (21-34) 12/14/18 08:32 - Constitutional Appears: Well, Non-toxic, No Acute Distress - Head Exam Head Exam: ATRAUMATIC, NORMAL INSPECTION, NORMOCEPHALIC - Eye Exam Eye Exam: EOMI, PERRL - ENT Exam ENT Exam: Mucous Membranes Moist - Respiratory Exam Respiratory Exam: Clear to Auscultation Bilateral, NORMAL BREATHING PATTERN - Cardiovascular Exam Cardiovascular Exam: REGULAR RHYTHM, RRR, +S1, +S2 - GI/Abdominal Exam GI & Abdominal Exam: Normal Bowel Sounds, Soft. absent: Tenderness - Extremities Exam Extremities exam: Positive for: full ROM (t), pedal edema (trace), tenderness (right lower extremity at ulcer site on sole) Additional comments: darkened right first hallux - Neurological Exam Neurological exam: Alert, CN II-XII Intact, Motor Sensory Deficit (sensory deficit of right hallux), Oriented x3 - Skin Skin Exam: Dry, Intact Additional comments: darkened skin of right hallux Assessment and Plan (1) Gangrene Assessment & Plan: CTA of bilateral lower extremities: Right lower extremity: AT has short segment areas of mild to severe stenosis of mid and distal segments. Peroneal artery has occlusion in the proximal segment and areas of moderate stenosis in distal segment. Left lower extremity: AT has short segment areas of severe stenosis of mid and distal segments. Peroneal artery has multiple areas of moderate stenosis in the mid and distal segments. Patient to have peripheral angiogram today Continue aspirin 81 mg daily, rosuvastatin 20 mg daily No plans for surgery as per podiatry. Status: Acute (2) Diabetes mellitus Assessment & Plan: HgbA1c: 8.4 Continue levemir, sliding scale insulin Status: Acute (3) ESRD (end stage renal disease) Assessment & Plan: Continue with peritoneal dialysis. Continue with calcitriol Status: Acute (4) Hypertension Assessment & Plan: Normotensive today Continue with losartan, lopressor, HCTZ Status: Acute (5) CAD (coronary artery disease) Assessment & Plan: Lipid panel unremarkable Continue aspirin, rosuvastatin, cozaar, lopressor Status: Acute <BobbyTyson - Last Filed: 12/22/18 21:20> Objective - Vital Signs/Intake and Output Vital Signs (last 24 hours): Temp Pulse Resp BP Pulse Ox 97.6 F 98 H 20 111/61 100 12/22/18 19:23 12/22/18 19:23 12/22/18 19:23 12/22/18 19:23 12/22/18 19:01 Intake and Output: 12/22/18 12/23/18 18:59 06:59 Intake Total 460 Balance 460 - Medications Medications: Current Medications Acetaminophen (Tylenol 325mg Tab) 650 mg PO Q6 PRN PRN Reason: Pain, Mild (1-3) Aspirin (Aspirin Chewable) 81 mg PO DAILY [facility] Last Admin: 12/22/18 11:00 Dose: 81 mg Calcitriol (Rocaltrol) 0.5 mcg PO DAILY [facility] Last Admin: 12/22/18 11:00 Dose: 0.5 mcg Calcium Acetate (Phoslo) 667 mg PO BIDCC [facility] Last Admin: 12/22/18 17:47 Dose: 667 mg Dextrose (Dextrose 50% Inj) 0 ml IV STAT PRN; Protocol PRN Reason: Hypoglycemia Protocol Last Admin: 12/16/18 06:35 Dose: 50 ml Dextrose (Glutose 15) 0 gm PO ONCE PRN; Protocol PRN Reason: Hypoglycemia Protocol Diltiazem HCl (Cardizem Cd) 120 mg PO Q24H [facility] Last Admin: 12/21/18 22:47 Dose: 120 mg Docusate Sodium (Colace) 100 mg PO BID [facility] Last Admin: 12/22/18 17:48 Dose: 100 mg Epoetin Sanchez (Procrit) 8,000 unit SC MWF [facility] Gabapentin (Neurontin) 100 mg PO TID [facility] Last Admin: 12/22/18 17:47 Dose: 100 mg Glucagon (Glucagen Diagnostic Kit) 0 mg IM STAT PRN; Protocol PRN Reason: Hypoglycemia Protocol Heparin Sodium (Porcine) (Heparin) 5,000 units SC Q8 [facility] Last Admin: 12/22/18 06:48 Dose: 5,000 units Hydralazine HCl (Apresoline) 25 mg PO Q4 PRN PRN Reason: Other Last Admin: 12/18/18 09:51 Dose: 25 mg Dextrose (Dextrose 5% In Water 1000 Ml) 1,000 mls @ 0 mls/hr IV .Q0M PRN; Protocol PRN Reason: Hypoglycemia Protocol Piperacillin Sod/Tazobactam Sod (Zosyn 2.25 Gm Iv Premix) 2.25 gm in 50 mls @ 100 mls/hr IVPB Q12H [facility]; Protocol Last Admin: 12/22/18 17:30 Dose: 100 mls/hr Vancomycin HCl 1 gm/ Sodium (Chloride) 250 mls @ 166.7 mls/hr IVPB Q4D [facility]; Protocol Last Admin: 12/19/18 17:00 Dose: 166.7 mls/hr Insulin Detemir (Levemir) 22 unit SC HS [facility] Last Admin: 12/21/18 22:48 Dose: 22 units Insulin Detemir (Levemir) 22 unit SC ACB [facility] Insulin Human Regular (Novolin R) 5 unit SC AC [facility] Last Admin: 12/22/18 17:23 Dose: Not Given Lactobacillus Acidophilus (Lactobacillus) 1 cap PO BID [facility] Last Admin: 12/22/18 17:48 Dose: 1 cap Losartan Potassium (Cozaar) 25 mg PO QPM [facility] Last Admin: 12/22/18 17:54 Dose: Not Given Metoprolol Tartrate (Lopressor) 100 mg PO BID [facility] Last Admin: 12/21/18 10:21 Dose: 100 mg Minoxidil (Minoxidil) 2.5 mg PO QPM [facility] Last Admin: 12/22/18 17:55 Dose: Not Given Oxycodone/Acetaminophen (Percocet 5/325 Mg Tab) 1 tab PO Q4H PRN PRN Reason: Pain, moderate (4-7) Stop: 12/25/18 14:47 Oxycodone/Acetaminophen (Percocet 5/325 Mg Tab) 2 tab PO Q4H PRN PRN Reason: Pain, severe (8-10) Stop: 12/25/18 15:50 Rosuvastatin Calcium (Crestor) 10 mg PO [facility] Last Admin: 12/21/18 22:47 Dose: 10 mg Vitamin B Complex/Vit C/Folic Acid (Nephro-Barbara) 1 tab PO 0800 [facility] Last Admin: 12/22/18 08:30 Dose: Not Given - Labs Labs: 12/22/18 07:25 12/22/18 07:25 PT 11.0 SECONDS (9.7-12.2) 12/21/18 14:13 INR 1.0 12/21/18 14:13 APTT 34 SECONDS (21-34) 12/21/18 14:13 Assessment and Plan (1) Preop cardiovascular exam Status: Acute (2) PVD (peripheral vascular disease) Status: Acute (3) CAD (coronary artery disease) Status: Acute (4) Diabetes mellitus Status: Acute (5) ESRD (end stage renal disease) Status: Acute (6) Gangrene Status: Acute (7) Peritoneal dialysis catheter in place Status: Acute (8) Hypertension Status: Acute Attending/Attestation - Attestation I have personally seen and examined this patient.: Yes I have fully participated in the care of the patient.: Yes I have reviewed all pertinent clinical information, including history, physical exam and plan: Yes
[2018-12-17] MEDS: Multivitamin Vitamin B Complex (Nephro-Vite) Tab PO SCH (08:00)
[2018-12-17 09:18] LABS: BASO % 0.8 % (0.0-2.0); EOS # 0.3 K/uL (0.0-0.7); EOS % 4.6 % (0.0-4.0); HEMOGLOBIN 10.1 g/dL (12.0-18.0); LYMPH # 0.6 K/uL (1.0-4.3); LYMPH % 9.9 % (20.0-40.0); MEAN CELL VOLUME 80.3 fL (80.0-94.0); MEAN CORPUSCULAR HEMOGLOBIN 25.8 pg (27.0-31.0); MEAN CORPUSCULAR HGB CONC 32.1 g/dL (33.0-37.0); MEAN PLATELET VOLUME 7.9 fL (7.2-11.7); MONO # 0.6 K/uL (0.0-0.8); MONO % 10.8 % (0.0-10.0); NEUT # 4.3 K/uL (1.8-7.0); NEUT % 73.9 % (50.0-75.0); NRBC % 0.2 % (0.0-2.0); PLATELET COUNT 283 K/uL (130-400); RBC 3.92 Mil/uL (4.40-5.90); RED CELL DISTRIBUTION WIDTH 16.3 % (11.5-14.5); WHITE BLOOD COUNT 5.8 K/uL (4.8-10.8)
[2018-12-17] MEDS ORDERED: Iodixanol 320 MG/ML 200 ML BOTTLE IV ONE (09:28)
[2018-12-17] MEDS ORDERED: Midazolam 2 MG/2 ML VIAL ONE ×2 (09:41→10:20)
[2018-12-17 09:49] LABS: ANISOCYTOSIS SLIGHT; EOSINOPHIL 3 % (0-4); HYPOCHROMIC SLIGHT; LYMPHOCYTE 10 % (20-40); MONOCYTE 8 % (0-10); NEUTROPHIL 79 % (50-75); PLATELET ESTIMATE NORMAL (NORMAL); POIKILOCYTOSIS SLIGHT; TOTAL CELLS COUNTED 100
[2018-12-17] MEDS: Lactobacillus Acidophilus 500 MU Cap PO SCH ×2 (10:00→17:30)
[2018-12-17] MEDS ORDERED: Verapamil 2 ML ONE ×2 (10:11→10:32)
[2018-12-17 10:22] LABS: ALB/GLOB RATIO 1.1 (1.0-2.1); ALBUMIN 3.1 g/dL (3.5-5.0); CALCIUM 9.3 mg/dl (8.6-10.4)
[2018-12-17] MEDS ORDERED: Protamine 50mg/5mL Inj IV ONE (11:11)
--- NOTE | 2018-12-17 14:02 | CP.PCM.PCO ---
<Katey Mcadams - Last Filed: 12/17/18 14:00> Addendum Addendum: 12/17/18 14:00 Patient changed to inpatient status as multiple issues still need to be addressed: - BP uncontrolled- need to continue monitoring and adjust multiple medications - Patient with suspected osteomyelitis- need IV antibiotics - Patient being evaluated for surgery- peripheral angiogram not done until today 12/17 - Uncontrolled glucose- need to monitor and adjust insulin regimen <Hipolito Fraser - Last Filed: 12/17/18 18:48> Attending/Attestation - Attestation I have personally seen and examined this patient.: Yes I have fully participated in the care of the patient.: Yes I have reviewed all pertinent clinical information: Yes
--- NOTE | 2018-12-17 14:24 | CP.PCM.PN ---
Subjective - Date & Time of Evaluation Date of Evaluation: 12/17/18 Time of Evaluation: 14:23 - Subjective Subjective: Nephrology Consultation Note: Assessment: Stable Rt foot found/ulcer with PVD Rt foot toe osteomyelitis Diabetic chronic Kidney Disease (E11.22) Hypertensive Chronic Kidney Disease (I12.0) End stage renal disease (N18.6) dependence on dialysis (Z99.2) as PD Anemia (D64.9), Hyperphosphatemia (E83.39), Secondary Hyperparathyroidism (E21.1), HTN (I12.0) uncontrolled severe HTN with urgency Plan: Will plan for PD as ordered. Continue with Nephrovite 1 tab/day. PD d/w staff nurse midwife as well. PRBC as needed for anemia. Not on JESSIE with dialysis as last Hb >10 and high BP Continue with phos binders, last phos level: 4.7 Continue with calcitriol. BP control with meds as ordered. Patient on RAAS rachna as losartan 100 mg/d, metoprolol. added lasix 80 mg/d. also on norvasc and prn hydralazine Glycemic control, Dialysis consistent diet Further work up/management as per primary team Dose meds/antibiotics (if needed) for ESRD status. Avoid fleets enema/magnesium based laxatives. podiatry and interventional cardiology following. abx per ID. please inform renal about d/c antibiotics. Can administer abx intraperitoneally. Thanks for allowing me to participate in care of your patient. Will follow patient with you. Please call if any Qs. had d/w team and family Dr Brad Lucero Office: [phone] Chief Complaint; Rt foot wound HPI: Pt is a 63 M with hx of ESRD on PD since 2014, chronic anemia, hyperphosphatemia, secondary hyperparathyroidism, Diabetes Mellitus, hypertension presented with complaints of rt foot wound Renal consult requested for ESRD management. PD: manual exchanges 1.5% alternating with 2.5% (2000 mL) with 4 hr dwell time, net UF 0-300 mL with each exchange. he is looking forward to switch to HD in near future ROS: tolerating pd well. net UF 2000 mL yesterday. fluid is clear. no pain or issues reported during PD exchanges. Cardiovascular: No chest pain. Pulmonary: No shortness of breath Gastrointestinal: denies abdominal pain No nausea. No vomiting. Genitourinary: No pain while urinating. Denies blood in urine. makes urine 1-2 times per day and not as much as used to in past All other negative except as mentioned in HPI s/p angiogram 12/17/18 Physical Examination: General Appearance: Comfortable, in no acute respiratory distress, co-operative . Vitals reviewed and noted as below Head; Atraumatic, normocephalic ENT: no ulcers no thrush. Tongue is midline. Oropharynx: no rash or ulcers. EYES: Pupils are equal, round and reactive to light accommodation. Eye muscles and extraocular movement intact. Sclera is anicteric. Neck; supple no lymphadenopathy, no thyromegaly or bruit Lungs: Normal respiratory rate/effort. Breath sounds bilateral reduced at bases Heart: Normal rate. s1s2 normal. No rub or gallop. Extremities: no edema. No varicose veins. Rt foot in dressing Neurological: Patient is alert, awake and oriented to person, place and time. No focal deficit. Strength bilateral appropriate and equal Skin: Warm and dry. Normal turgor. No rash. Palpitation: Normal elasticity for age Abdomen: Abdomen is soft. Bowel sounds +. There is no abdominal tenderness, no guarding/rigidity or organomegaly Psych: normal insight and normal affect/mood MSK: no joint tenderness or swelling. Digits and nails normal, no deformity : kidney or bladder not palpable Access: PD catheter. left AV access matured. Labs/imaging reviewed. Past medical history, past surgical history, family history, social history, allergy reviewed and noted as below Family Hx: no hx of CKD. Non contributory Objective - Vital Signs/Intake and Output Vital Signs (last 24 hours): Temp Pulse Resp BP Pulse Ox 97.6 F 92 H 18 156/77 H 100 12/17/18 13:35 12/17/18 13:35 12/17/18 13:35 12/17/18 13:35 12/17/18 13:35 Intake and Output: 12/17/18 12/17/18 06:59 18:59 Intake Total 800 Balance 800 - Medications Medications: Current Medications Acetaminophen (Tylenol 325mg Tab) 650 mg PO Q6 PRN PRN Reason: Pain, moderate (4-7) Last Admin: 12/17/18 14:03 Dose: 650 mg Amlodipine Besylate (Norvasc) 10 mg PO Q24H [facility] Last Admin: 12/16/18 21:40 Dose: 10 mg Aspirin (Aspirin Chewable) 81 mg PO DAILY [facility] Last Admin: 12/17/18 10:00 Dose: Not Given Calcitriol (Rocaltrol) 0.5 mcg PO DAILY [facility] Last Admin: 12/17/18 10:00 Dose: Not Given Calcium Acetate (Phoslo) 667 mg PO BIDCC [facility] Last Admin: 12/17/18 07:39 Dose: Not Given Dextrose (Dextrose 50% Inj) 0 ml IV STAT PRN; Protocol PRN Reason: Hypoglycemia Protocol Last Admin: 12/16/18 06:35 Dose: 50 ml Dextrose (Glutose 15) 0 gm PO ONCE PRN; Protocol PRN Reason: Hypoglycemia Protocol Furosemide (Lasix) 80 mg PO DAILY [facility] Last Admin: 12/17/18 10:00 Dose: Not Given Gabapentin (Neurontin) 100 mg PO TID [facility] Last Admin: 12/17/18 14:04 Dose: 100 mg Glucagon (Glucagen Diagnostic Kit) 0 mg IM STAT PRN; Protocol PRN Reason: Hypoglycemia Protocol Heparin Sodium (Porcine) (Heparin) 5,000 units SC Q8 [facility] Last Admin: 12/16/18 21:40 Dose: 5,000 units Hydralazine HCl (Apresoline) 25 mg PO Q4 PRN PRN Reason: Other Last Admin: 12/15/18 18:40 Dose: 25 mg Dextrose (Dextrose 5% In Water 1000 Ml) 1,000 mls @ 0 mls/hr IV .Q0M PRN; Protocol PRN Reason: Hypoglycemia Protocol Piperacillin Sod/Tazobactam Sod (Zosyn 2.25 Gm Iv Premix) 2.25 gm in 50 mls @ 100 mls/hr IVPB Q12H [facility]; Protocol Last Admin: 12/17/18 05:03 Dose: 100 mls/hr Vancomycin HCl 1 gm/ Sodium (Chloride) 250 mls @ 166.7 mls/hr IVPB Q4D [facility]; Protocol Last Admin: 12/15/18 18:18 Dose: 166.7 mls/hr Insulin Detemir (Levemir) 44 unit SC HS [facility] Last Admin: 12/15/18 22:34 Dose: 44 u Insulin Human Regular (Novolin R) 5 unit SC AC [facility] Last Admin: 12/17/18 11:30 Dose: Not Given Lactobacillus Acidophilus (Lactobacillus) 1 cap PO BID [facility] Last Admin: 12/17/18 10:00 Dose: Not Given Losartan Potassium (Cozaar) 100 mg PO Q24H [facility] Last Admin: 12/16/18 13:10 Dose: 100 mg Metoprolol Tartrate (Lopressor) 100 mg PO BID [facility] Last Admin: 12/17/18 10:00 Dose: Not Given Rosuvastatin Calcium (Crestor) 10 mg PO HS [facility] Vitamin B Complex/Vit C/Folic Acid (Nephro-Barbara) 1 tab PO 0800 [facility] Last Admin: 12/17/18 08:00 Dose: Not Given - Labs Labs: 12/17/18 09:08 12/17/18 09:08 PT 10.4 SECONDS (9.7-12.2) 12/14/18 08:32 INR 1.0 12/14/18 08:32 APTT 32 SECONDS (21-34) 12/14/18 08:32
[2018-12-17] MEDS: Oxycodone/Acetaminophen 5/325 mg Tab PO PRN (14:57)
--- NOTE | 2018-12-17 15:57 | CP.PCM.PN ---
Subjective - Date & Time of Evaluation Date of Evaluation: 12/17/18 Time of Evaluation: 09:00 - Subjective Subjective: s/p angioplasty denies fever / SOB or chest pain awake / alert appears comfortable Objective - Vital Signs/Intake and Output Vital Signs (last 24 hours): Temp Pulse Resp BP Pulse Ox 97.4 F L 91 H 18 171/88 H 100 12/17/18 15:10 12/17/18 15:10 12/17/18 15:10 12/17/18 15:10 12/17/18 15:10 Intake and Output: 12/17/18 12/17/18 06:59 18:59 Intake Total 800 Balance 800 - Medications Medications: Current Medications Acetaminophen (Tylenol 325mg Tab) 650 mg PO Q6 PRN PRN Reason: Pain, moderate (4-7) Last Admin: 12/17/18 14:03 Dose: 650 mg Amlodipine Besylate (Norvasc) 10 mg PO Q24H [facility] Last Admin: 12/16/18 21:40 Dose: 10 mg Aspirin (Aspirin Chewable) 81 mg PO DAILY [facility] Last Admin: 12/17/18 10:00 Dose: Not Given Calcitriol (Rocaltrol) 0.5 mcg PO DAILY [facility] Last Admin: 12/17/18 10:00 Dose: Not Given [facility] Last Admin: 12/17/18 07:39 Dose: Not Given Dextrose (Dextrose 50% Inj) 0 ml IV STAT PRN; Protocol PRN Reason: Hypoglycemia Protocol Last Admin: 12/16/18 06:35 Dose: 50 ml Dextrose (Glutose 15) 0 gm PO ONCE PRN; Protocol PRN Reason: Hypoglycemia Protocol Diltiazem HCl (Cardizem Cd) 120 mg PO DAILY [facility] Docusate Sodium (Colace) 100 mg PO BID [facility] Furosemide (Lasix) 80 mg PO DAILY [facility] Last Admin: 12/17/18 10:00 Dose: Not Given Gabapentin (Neurontin) 100 mg PO TID [facility] Last Admin: 12/17/18 14:04 Dose: 100 mg Glucagon (Glucagen Diagnostic Kit) 0 mg IM STAT PRN; Protocol PRN Reason: Hypoglycemia Protocol Heparin Sodium (Porcine) (Heparin) 5,000 units SC Q8 [facility] Last Admin: 12/16/18 21:40 Dose: 5,000 units Hydralazine HCl (Apresoline) 25 mg PO Q4 PRN PRN Reason: Other Last Admin: 12/15/18 18:40 Dose: 25 mg Dextrose (Dextrose 5% In Water 1000 Ml) 1,000 mls @ 0 mls/hr IV .Q0M PRN; Protocol PRN Reason: Hypoglycemia Protocol Piperacillin Sod/Tazobactam Sod (Zosyn 2.25 Gm Iv Premix) 2.25 gm in 50 mls @ 100 mls/hr IVPB Q12H [facility]; Protocol Last Admin: 12/17/18 05:03 Dose: 100 mls/hr Vancomycin HCl 1 gm/ Sodium (Chloride) 250 mls @ 166.7 mls/hr IVPB Q4D [facility]; Protocol Last Admin: 12/15/18 18:18 Dose: 166.7 mls/hr Insulin Detemir (Levemir) 44 unit SC [facility] Last Admin: 12/15/18 22:34 Dose: 44 u Insulin Human Regular (Novolin R) 5 unit SC [facility] Last Admin: 12/17/18 11:30 Dose: Not Given Lactobacillus Acidophilus (Lactobacillus) 1 cap PO BID [facility] Last Admin: 12/17/18 10:00 Dose: Not Given Losartan Potassium (Cozaar) 100 mg PO Q24H [facility] Last Admin: 12/16/18 13:10 Dose: 100 mg Metoprolol Tartrate (Lopressor) 100 mg PO BID [facility] Last Admin: 12/17/18 10:00 Dose: Not Given Oxycodone/Acetaminophen (Percocet 5/325 Mg Tab) 1 tab PO Q12H PRN PRN Reason: Pain, severe (8-10) Stop: 12/20/18 14:42 Last Admin: 12/17/18 14:57 Dose: 1 tab Rosuvastatin Calcium (Crestor) 10 mg PO [facility] Vitamin B Complex/Vit C/Folic Acid (Nephro-Barbara) 1 tab PO 0800 [facility] Last Admin: 12/17/18 08:00 Dose: Not Given - Labs Labs: 12/17/18 09:08 12/17/18 09:08 PT 10.4 SECONDS (9.7-12.2) 12/14/18 08:32 INR 1.0 12/14/18 08:32 APTT 32 SECONDS (21-34) 12/14/18 08:32 - Constitutional Appears: Non-toxic, Chronically Ill - Head Exam Head Exam: NORMOCEPHALIC - Eye Exam Eye Exam: absent: Scleral icterus Pupil Exam: NORMAL ACCOMODATION - ENT Exam ENT Exam: Mucous Membranes Dry - Neck Exam Neck Exam: absent: Lymphadenopathy - Respiratory Exam Respiratory Exam: Decreased Breath Sounds, Clear to Ausculation Bilateral - Cardiovascular Exam Cardiovascular Exam: REGULAR RHYTHM, +S1, +S2 - GI/Abdominal Exam GI & Abdominal Exam: Distended, Soft. absent: Tenderness - Rectal Exam Rectal Exam: Deferred - Exam Exam: Testicular Tenderness - Extremities Exam Extremities Exam: Pedal Edema. absent: Calf Tenderness Additional comments: necrotic toe wound same - Back Exam Back Exam: absent: CVA tenderness (L), CVA tenderness (R) - Neurological Exam Neurological Exam: Alert, Awake, CN II-XII Intact, Oriented x3 Neuro motor strength exam: Left Upper Extremity: 4, Right Upper Extremity: 4, Left Lower Extremity: 4, Right Lower Extremity: 4 - Psychiatric Exam Psychiatric exam: Normal Mood - Skin Skin Exam: Dry Assessment and Plan (1) Peritoneal dialysis catheter in place Status: Acute (2) CAD (coronary artery disease) Status: Acute (3) Diabetes mellitus Status: Acute (4) ESRD (end stage renal disease) Status: Acute (5) Gangrene Status: Acute (6) Hypertension Status: Acute - Assessment and Plan (Free Text) Assessment: cont wound care and IV antibiotics possible surgical intervention on toe TBD
[2018-12-17] MEDS: Insulin Detemir 100 units/ml Vial (Levemir) SC SCH (22:07)
[2018-12-18] MEDS: Oxycodone/Acetaminophen 5/325 mg Tab PO PRN ×2 (03:02→14:50)
[2018-12-18] MEDS: Piperacill/Tazo 2.25gm in Dex 2.25 GM/50 ML BAG IVPB SCH ×2 (04:20→17:00)
--- NOTE | 2018-12-18 07:16 | VAS ---
DATE: 12/17/2018 INDICATIONS: Mr. Bermudez is a 63-year-old male with past medical history significant for hypertension, diabetes, hyperlipidemia, who was admitted with right great toe gangrenous changes and significant paresthesias and absent pulses in foot. He underwent a CTA showing high-grade infragenicular disease, therefore was brought to the labeler for further evaluation and treatment. PROCEDURE PERFORMED: Distal abdominal aortogram with bilateral iliac runoff, selective bilateral iliofemoral angiogram with runoff, [employer] atherectomy of right anterior tibial artery and dorsalis pedis with use of 1.25 solid CSI atherectomy device. Additional balloon angioplasty with a 1.5-2.0 and 2.5-3.0 balloon, with improvement from 100% obstruction down to less than 10% BERNADETTE-3 flow. A 6-Czech left femoral access, Mynx closure device for hemostasis. ANGIOGRAPHIC FINDINGS: Left lower extremity, left common iliac and external iliac patent. Profunda femoris patent. SFA has ostial 80% and a mid 85% stenosis, focal lesions, popliteal patent, two-vessel runoff below the knee. Right lower extremity, right common iliac, external iliac patent. Profunda femoris patent, SFA patent, popliteal patent. Anterior tibial proximal 100% occluded. Peroneal 100% occluded. PT 100% occluded with collateral flow feeding into the deep plantar arch with no dorsalis pedis intervention performed. After reviewing the above angiographic findings, it was decided to proceed with revascularization of the AT into the dorsalis pedis. Gold-tip Glidewire with 0.018 TrailBlazer was used to cross the lesion into the dorsum of the foot. Subsequently, the lesion was treated with 1.25 solid CSI atherectomy device. Additional balloon angioplasty was done with three different balloon sizes. Final angiogram does show regeneration down to 0% and good BERNADETTE flow into the dorsalis pedis and the superficial plantar arch. IMPRESSION: Successful revascularization of the anterior tibial all the way up to the dorsalis pedis and the digital plantar arches with good flow into the foot. RECOMMENDATIONS: Continue guideline-directed therapy for peripheral vascular disease. Consider revascularization of the left SFA high-grade lesions and possible right posterior tibial artery vascularization. Thank you Dr. Fraser and Dr. Cabrera for letting me to participate in the care of your patient. Tyson Rosales MD MTDNenita
[2018-12-18] MEDS: Insulin Detemir 100 units/ml Vial (Levemir) SC SCH ×2 (08:13→22:14)
[2018-12-18] MEDS: (Novolin R) Insulin Human Regular 100 units/ml vial SC SCH ×3 (08:14→17:45)
[2018-12-18] MEDS: Multivitamin Vitamin B Complex (Nephro-Vite) Tab PO SCH (09:00)
[2018-12-18] MEDS: Lactobacillus Acidophilus 500 MU Cap PO SCH ×2 (09:51→18:44)
[2018-12-18] MEDS ORDERED: diltiaZEM 120 mg/24 Hours CD Cap PO SCH (10:00)
--- NOTE | 2018-12-18 11:07 | CP.PCM.PN ---
<Dorita Birmingham - Last Filed: 12/18/18 12:18> Subjective - Date & Time of Evaluation Date of Evaluation: 12/18/18 Time of Evaluation: 10:50 - Subjective Subjective: Patient seen and examined at bedside. No overnight events reported. Patient continues to report right distal lower extremity pain. Denies any fever, chills, chest pain, SOB, adbominal pain, nausea, vomiting, or changes in bowel habits. Objective - Vital Signs/Intake and Output Vital Signs (last 24 hours): Temp Pulse Resp BP Pulse Ox 98.0 F 90 18 182/79 H 100 12/18/18 10:05 12/18/18 10:05 12/18/18 10:05 12/18/18 10:05 12/18/18 10:05 Intake and Output: 12/18/18 12/18/18 06:59 18:59 Intake Total 860 Balance 860 - Medications Medications: Current Medications Acetaminophen (Tylenol 325mg Tab) 650 mg PO Q6 PRN PRN Reason: Pain, moderate (4-7) Last Admin: 12/18/18 00:06 Dose: 650 mg Aspirin (Aspirin Chewable) 81 mg PO DAILY [facility] Last Admin: 12/18/18 09:51 Dose: 81 mg Calcitriol (Rocaltrol) 0.5 mcg PO DAILY [facility] Last Admin: 12/18/18 09:48 Dose: 0.5 mcg [facility] ([facility]) [facility] Last Admin: 12/18/18 08:13 Dose: 667 mg Dextrose (Dextrose 50% Inj) 0 ml IV STAT PRN; Protocol PRN Reason: Hypoglycemia Protocol Last Admin: 12/16/18 06:35 Dose: 50 ml Dextrose (Glutose 15) 0 gm PO ONCE PRN; Protocol PRN Reason: Hypoglycemia Protocol Diltiazem HCl (Cardizem Cd) 120 mg PO Q24H [facility] Docusate Sodium (Colace) 100 mg PO BID [facility] Last Admin: 12/18/18 09:49 Dose: 100 mg Furosemide (Lasix) 80 mg PO DAILY [facility] Last Admin: 12/18/18 09:50 Dose: 80 mg Gabapentin (Neurontin) 100 mg PO TID [facility] Last Admin: 12/18/18 09:51 Dose: 100 mg Glucagon (Glucagen Diagnostic Kit) 0 mg IM STAT PRN; Protocol PRN Reason: Hypoglycemia Protocol Heparin Sodium (Porcine) (Heparin) 5,000 units SC Q8 [facility] Last Admin: 12/18/18 05:14 Dose: 5,000 units Hydralazine HCl (Apresoline) 25 mg PO Q4 PRN PRN Reason: Other Last Admin: 12/18/18 09:51 Dose: 25 mg Dextrose (Dextrose 5% In Water 1000 Ml) 1,000 mls @ 0 mls/hr IV .Q0M PRN; Protocol PRN Reason: Hypoglycemia Protocol Piperacillin Sod/Tazobactam Sod (Zosyn 2.25 Gm Iv Premix) 2.25 gm in 50 mls @ 100 mls/hr IVPB Q12H [facility]; Protocol Last Admin: 12/18/18 04:20 Dose: 100 mls/hr Vancomycin HCl 1 gm/ Sodium (Chloride) 250 mls @ 166.7 mls/hr IVPB Q4D [facility]; Protocol Last Admin: 12/15/18 18:18 Dose: 166.7 mls/hr Insulin Detemir (Levemir) 22 unit SC ACB [facility] Last Admin: 12/18/18 08:13 Dose: 22 units Insulin Detemir (Levemir) 22 unit SC HS [facility] Last Admin: 12/17/18 22:07 Dose: 22 units Insulin Human Regular (Novolin R) 5 unit SC AC [facility] Last Admin: 12/18/18 08:14 Dose: 5 unit Lactobacillus Acidophilus (Lactobacillus) 1 cap PO BID [facility] Last Admin: 12/18/18 09:51 Dose: 1 cap Losartan Potassium (Cozaar) 100 mg PO Q24H [facility] Last Admin: 12/17/18 14:00 Dose: Not Given Metoprolol Tartrate (Lopressor) 100 mg PO BID [facility] Last Admin: 12/18/18 09:51 Dose: 100 mg Oxycodone/Acetaminophen (Percocet 5/325 Mg Tab) 1 tab PO Q12H PRN PRN Reason: Pain, severe (8-10) Stop: 12/20/18 14:42 Last Admin: 12/18/18 03:02 Dose: 1 tab Rosuvastatin Calcium (Crestor) 10 mg PO HS [facility] Last Admin: 12/17/18 22:04 Dose: 10 mg Vitamin B Complex/Vit C/Folic Acid (Nephro-Barbara) 1 tab PO 0800 [facility] Last Admin: 12/18/18 09:00 Dose: 1 tab - Labs Labs: 12/17/18 09:08 12/17/18 09:08 PT 10.4 SECONDS (9.7-12.2) 12/14/18 08:32 INR 1.0 12/14/18 08:32 APTT 32 SECONDS (21-34) 12/14/18 08:32 - Additional Findings Additional findings: - Constitutional Appears: Non-toxic, No Acute Distress - Head Exam Head Exam: ATRAUMATIC, NORMOCEPHALIC - Eye Exam Eye Exam: EOMI, Normal appearance, PERRL - ENT Exam ENT Exam: Mucous Membranes Moist - Neck Exam Neck exam: Positive for: Full Rom, Normal Inspection - Respiratory Exam Respiratory Exam: Clear to Auscultation Bilateral, NORMAL BREATHING PATTERN. absent: Rales, Rhonchi, Wheezes - Cardiovascular Exam Cardiovascular Exam: RRR, +Murmur, +S1, +S2 Absent: tachycardia - GI/Abdominal Exam GI & Abdominal Exam: Normal Bowel Sounds, Soft. absent: Guarding, Rebound, Tenderness Additional comments: Peritoneal dialysis catheter L abdomen; no signs of infection - Extremities Exam Extremities exam: (+) Right upper extremity midline with no signs of infection or tenderness. Positive for: full ROM, Left upper forearm AV fistula with palpable thrill, no signs of infection. (+) Abnormal capillary refill. Additional comments: Pulses nonpalpable but lower extremities are warm, without edema, >3s capillary refill (+) 4cm circular unstageable ulcer to lateral malleolus with mild surrounding tenderness to palpation; no active drainage, warmth, erythema, or edema (+) Callous to the distal aspect of right hallux with small ulceration; minimal tenderness, no drainage, erythema, or edema (+) no hair to bilateral lower extremities, skin shiny (+) Dressing. C/D/I - Neurological Exam Neurological exam: Alert, Oriented x3, gliding pilot instructor 2-12 grossly intact. 5/5 strength in right upper and lower extremities. 4/5 strength in upper and lower extremities. - Psychiatric Exam Psychiatric exam: Normal Affect, Normal Mood - Skin Skin exam: Warm, dry. Assessment and Plan - Assessment and Plan (Free Text) Assessment: This is a 63 year old male with PMhx of IDDM2, ESRD on peritoneal dialysis, HTN, PVD who presents to the ED for pain to the wounds to his right foot, ankle area and right first toe. Found to to have ESR elevated, right hallux osteomyelitis on MRI started on IV abx (PD dosed). Plan: Osteomyelitis of right hallux, acute - Afebrile, no leukocytosis - ESR elevated at 60 - Blood Cx no growth >3 days - Right Foot x-ray: no periosteal reaction to suggest osetomyelitis. No gross osseous destruction appreciated. - Right ankle x-ray: no periosteal reaction to suggest osetomyelitis. No gross osseous destruction appreciated. - Lower extremity MRI without contrast right forefoot: marked edema is seen throughout the distal phalanx great toe suggestive of possible osteomyelitis or prominent contusion. No fracture identified. - Lower extremity MRI without contrast right hind foot and midfoot: no MR evidence to suggest osteomyelitis at the midfoot and hindfoot bony anatomy with lateral foot cellulitis identified on a mild-moderate basis without abscess. - RUE midline - Zosyn 2.25 gm IVPB Q12H- started 4/3 (dosed for PD) - Vancomycin 1 gm IVPB every 4 days- started 4/3 (dosed for PD) - Tylenol 650 Q6H PRN - Percocet 1 tab Q12H PRN - Podiatry consulted ([facility])- f/u if surg intervention indicated - ID consulted ([facility]oren) - Wound care Peripheral vascular disease, chronic - Arterial doppler study [facility] 12/07/18: R popliteal artery 75-99% stenosis. R Posterior tibial artery is occluded. L posterior tibial and anterior tibial with 50-75% stenosis. Diffuse disease to peroneal artery. R MARIVEL: 1.12, L MARIVEL: 0.91 - CTA of bilateral lower extremities: Right lower extremity: AT has short segment areas of mild to severe stenosis of mid and distal segments. Peroneal artery has occlusion in the proximal segment and areas of moderate stenosis in distal segment. - Left lower extremity: AT has short segment areas of severe stenosis of mid and distal segments. Peroneal artery has multiple areas of moderate stenosis in the mid and distal segments. - Peripheral angiogram of RLE: 3-vessel runoff but diffuse calcification. Atherectomy done and cleared out tibial artery--> now flow to digital arteries. - ASA 81 mg PO daily - Crestor 20 mg PO QHS - Cardizem 120 PO daily as per cardio - Cardiology consulted ([facility])- will need further intervention the future Hypertension, chronic - Monitor on telemetry - Vitals Q4H - Echocardiogram: LVEF approximately 70%. Mild concentric LVH. Grade I abnormal relaxation pattern. - Lasix 80 mg PO once daily at 10 am - Losartan 100 mg PO daily at 2 pm (HELD) - Cardizem 124mg Q24H ----STARTED TODAY - Metoprolol Tartrate 100 mg PO BID at 10 am and 6 pm - Hydralazine 25 mg PO Q4H PRN SBP>170, DBP>110 - Amlodipine 10 mg PO daily at 10 pm Lethargy, acute, resolved- noted by RN after returning from MRI 12/15 - CT head: Age-related neuro degenerative changes are appreciated in the brain and appear age-appropriate without definite acute intracranial findings. However, density in the arterial and venous system of the brain is appreciated and further evaluation by CT angiography (if no contraindication), brain MRI, MR brain angiogram and MR venography for follow up. - MRI brain without contrast: Artifact but nonacute brain MRI. Vascular changes seen in the CT of head may reflect normal variation or less likely, residual iodinated contrast material within patient's vascular system. - Neuro checks ESRD on Peritoneal dialysis QID, chronic- patient does not want to start hemodialysis Creatinine stable, but elevated at 10.1. Phosphorous is downtrending Pt to continue with peritoneal dialysis as pervious managed as outpatient Nephro Barbara 1 tab PO daily Calcitriol 0.5mct PO daily Continue Phoslo 667 mg PO BIDCC with food Continue to monitor and replete electrolytes as needed - Nephrology consulted ([place]) Type 2 diabetes mellitus with peripheral neuropathy, chronic - HgbA1c 8.4 - TG/CHL/LDL/HDL is 117/166/95/42 - Accuchecks ACHS - Hypoglycemic protocol - Levemir 22 units SC ACB, QHS -- Will adjust based on accuchecks over a 24 hour period tomorrow. - Aspart 5 units SC AC - ASA 81 mg PO daily - Crestor 20 mg PO QHS - Gabapentin 100 mg PO TID Ppx: VTE: SCDs contraindicated due to PAD, Heparin 5000 units SC Q8H GI: no indication Diet: heart healthy, renal, low carb Dispo: Continue IV abx. Continue PD. Treat HTN with new regimen. Pending podiatry recs for intervention or not. Dr. Rasmussen to speak with Dr. Rosales about vascular status for possible partial or complete amputation of right hallux. [place] on DC. Patient discussed with Attending Dorita Birmingham, PGY-2 <Hipolito Fraser - Last Filed: 12/18/18 19:10> Objective - Vital Signs/Intake and Output Vital Signs (last 24 hours): Temp Pulse Resp BP Pulse Ox 98.3 F 82 20 109/73 109 H 12/18/18 16:30 12/18/18 16:30 12/18/18 16:30 12/18/18 16:30 12/18/18 16:30 Intake and Output: 12/18/18 12/19/18 18:59 06:59 Intake Total 450 Balance 450 - Medications Medications: Current Medications Acetaminophen (Tylenol 325mg Tab) 650 mg PO Q6 PRN PRN Reason: Pain, moderate (4-7) Last Admin: 12/18/18 00:06 Dose: 650 mg Aspirin (Aspirin Chewable) 81 mg PO DAILY [facility] Last Admin: 12/18/18 09:51 Dose: 81 mg Calcitriol (Rocaltrol) 0.5 mcg PO DAILY [facility] Last Admin: 12/18/18 09:48 Dose: 0.5 mcg Calcium Acetate (Phoslo) 667 mg PO BIDCC [facility] Last Admin: 12/18/18 17:55 Dose: 667 mg Dextrose (Dextrose 50% Inj) 0 ml IV STAT PRN; Protocol PRN Reason: Hypoglycemia Protocol Last Admin: 12/16/18 06:35 Dose: 50 ml Dextrose (Glutose 15) 0 gm PO ONCE PRN; Protocol PRN Reason: Hypoglycemia Protocol Diltiazem HCl (Cardizem Cd) 120 mg PO Q24H [facility] Docusate Sodium (Colace) 100 mg PO BID [facility] Last Admin: 12/18/18 17:55 Dose: 100 mg Furosemide (Lasix) 80 mg PO DAILY [facility] Last Admin: 12/18/18 09:50 Dose: 80 mg Gabapentin (Neurontin) 100 mg PO TID [facility] Last Admin: 12/18/18 17:55 Dose: 100 mg Glucagon (Glucagen Diagnostic Kit) 0 mg IM STAT PRN; Protocol PRN Reason: Hypoglycemia Protocol Heparin Sodium (Porcine) (Heparin) 5,000 units SC Q8 [facility] Last Admin: 12/18/18 13:37 Dose: 5,000 units Hydralazine HCl (Apresoline) 25 mg PO Q4 PRN PRN Reason: Other Last Admin: 12/18/18 09:51 Dose: 25 mg Dextrose (Dextrose 5% In Water 1000 Ml) 1,000 mls @ 0 mls/hr IV .Q0M PRN; Protocol PRN Reason: Hypoglycemia Protocol Piperacillin Sod/Tazobactam Sod (Zosyn 2.25 Gm Iv Premix) 2.25 gm in 50 mls @ 100 mls/hr IVPB Q12H [facility]; Protocol Last Admin: 12/18/18 17:00 Dose: 100 mls/hr Vancomycin HCl 1 gm/ Sodium (Chloride) 250 mls @ 166.7 mls/hr IVPB Q4D [facility]; Protocol Last Admin: 12/15/18 18:18 Dose: 166.7 mls/hr Insulin Detemir (Levemir) 22 unit SC ACB [facility] Last Admin: 12/18/18 08:13 Dose: 22 units Insulin Detemir (Levemir) 22 unit SC HS [facility] Last Admin: 12/17/18 22:07 Dose: 22 units Insulin Human Regular (Novolin R) 5 unit SC AC [facility] Last Admin: 12/18/18 17:45 Dose: 5 unit Lactobacillus Acidophilus (Lactobacillus) 1 cap PO BID [facility] Last Admin: 12/18/18 18:44 Dose: 1 cap Losartan Potassium (Cozaar) 100 mg PO Q24H [facility] Last Admin: 12/18/18 13:37 Dose: 100 mg Metoprolol Tartrate (Lopressor) 100 mg PO BID [facility] Last Admin: 12/18/18 18:44 Dose: 100 mg Minoxidil (Minoxidil) 5 mg PO DAILY [facility] Last Admin: 12/18/18 16:00 Dose: 5 mg Oxycodone/Acetaminophen (Percocet 5/325 Mg Tab) 1 tab PO Q12H PRN PRN Reason: Pain, severe (8-10) Stop: 12/20/18 14:42 Last Admin: 12/18/18 14:50 Dose: 1 tab Rosuvastatin Calcium (Crestor) 10 mg PO [facility] Last Admin: 12/17/18 22:04 Dose: 10 mg Vitamin B Complex/Vit C/Folic Acid (Nephro-Barbara) 1 tab PO 0800 [facility] Last Admin: 12/18/18 09:00 Dose: 1 tab - Labs Labs: 12/18/18 11:25 12/18/18 11:25 PT 10.4 SECONDS (9.7-12.2) 12/14/18 08:32 INR 1.0 12/14/18 08:32 APTT 32 SECONDS (21-34) 12/14/18 08:32 Attending/Attestation - Attestation I have personally seen and examined this patient.: Yes I have fully participated in the care of the patient.: Yes I have reviewed all pertinent clinical information, including history, physical exam and plan: Yes Notes (Text): 12/18/18 19:00 Patient was seen and examined at 9 AM 12/18/18 Care of this patient was gone over with resident Dr. Pacheco. NO fever B/P is in the 150s to 170s Blood Culture 12/13/18 is negative at 4 days Please note the following changes/corrections in the documentation under Assessment and Plan HTN: Lasix 80 mg PO 1x/day at 10 AM Losartan 100 mg PO 1x/day at 2 PM Metoprolol 100 mg PO 2x/day at 10 AM and 6 PM Norvasc was changed to Cardizem ER 120 mg PO Q24H at 10 PM Patient is currently on the following regimen for his Diabetes: Levemir 22 Units SC AC Breakfast Levemir 22 Units SC QHS Regular Insulin 5 Units SC AC Meals We will adjust the insulin on 12/19/18 Patient is on the following renally dosed regimen for the suspected Osteomyelitis of the Right Toe #1: Zosyn 2.25 gm IV Q12H Vancomycin 1 gm IV Q4Days I spoke with [employer] Dr. Rasmussen as to Podiatry Team's plan for patient's joao pected Right Toe #1 suspected Osteomyelitis and he would like for the intervention performed by Dr. Rosales on 12/17/18 time to work before making a decision on either Thursday or Thursday of this coming week: possible surgery for amputation vs debridement Patient continued to complain of burning and throbbing pain in the right foot. I explained that the throbbing pain likely secondary to repurfusion from the arteriogram that was performed by Dr. Rosales on 12/17/18, that we would need to give this intervention some time, also that Cardizem ER should also help, and that the Percocet should only be used if absolutely necessary due to its addictive potential. Explained that the burning (which is chronic in nature) is likely secondary to Diabetic Neuropathy and that he was started on Gabapentin earlier this week. He expressed understanding. Plan of care was gone over with the patient. Hipolito Fraser D.O.
--- NOTE | 2018-12-18 11:32 | CP.PCM.PN ---
Subjective - Date & Time of Evaluation Date of Evaluation: 12/18/18 Time of Evaluation: 11:28 - Subjective Subjective: Podiatry Progress Note for Dr. Rasmussen 63M seen at bedside for distal right hallux ulceration and painful hypertrophic skin on anterior right ankle. Patient is AAO x 3 and NAD. States that the hypertrophic skin on anterior ankle is burning. Also states that he is having groin pain as a result of the vascular procedure that was performed on him yesterday. Denies any further pedal complaints. Denies any recent N/V/F/C/CP/SOB/D Objective - Vital Signs/Intake and Output Vital Signs (last 24 hours): Temp Pulse Resp BP Pulse Ox 98.4 F 90 18 178/84 H 100 12/18/18 10:53 12/18/18 10:53 12/18/18 10:53 12/18/18 10:53 12/18/18 10:53 Intake and Output: 12/18/18 12/18/18 06:59 18:59 Intake Total 860 Balance 860 - Medications Medications: Current Medications Acetaminophen (Tylenol 325mg Tab) 650 mg PO Q6 PRN PRN Reason: Pain, moderate (4-7) Last Admin: 12/18/18 00:06 Dose: 650 mg Aspirin (Aspirin Chewable) 81 mg PO DAILY [facility] Last Admin: 12/18/18 09:51 Dose: 81 mg Calcitriol (Rocaltrol) 0.5 mcg PO DAILY [facility] Last Admin: 12/18/18 09:48 Dose: 0.5 mcg [facility]cium [facility]etate ([facility]lo) [facility] Last Admin: 12/18/18 08:13 Dose: 667 mg Dextrose (Dextrose 50% Inj) 0 ml IV STAT PRN; Protocol PRN Reason: Hypoglycemia Protocol Last Admin: 12/16/18 06:35 Dose: 50 ml Dextrose (Glutose 15) 0 gm PO ONCE PRN; Protocol PRN Reason: Hypoglycemia Protocol Diltiazem HCl (Cardizem Cd) 120 mg PO Q24H [facility] Docusate Sodium (Colace) 100 mg PO BID [facility] Last Admin: 12/18/18 09:49 Dose: 100 mg Furosemide (Lasix) 80 mg PO DAILY [facility] Last Admin: 12/18/18 09:50 Dose: 80 mg Gabapentin (Neurontin) 100 mg PO TID [facility] Last Admin: 12/18/18 09:51 Dose: 100 mg Glucagon (Glucagen Diagnostic Kit) 0 mg IM STAT PRN; Protocol PRN Reason: Hypoglycemia Protocol Heparin Sodium (Porcine) (Heparin) 5,000 units SC Q8 [facility] Last Admin: 12/18/18 05:14 Dose: 5,000 units Hydralazine HCl (Apresoline) 25 mg PO Q4 PRN PRN Reason: Other Last Admin: 12/18/18 09:51 Dose: 25 mg Dextrose (Dextrose 5% In Water 1000 Ml) 1,000 mls @ 0 mls/hr IV .Q0M PRN; Protocol PRN Reason: Hypoglycemia Protocol Piperacillin Sod/Tazobactam Sod (Zosyn 2.25 Gm Iv Premix) 2.25 gm in 50 mls @ 100 mls/hr IVPB Q12H [facility]; Protocol Last Admin: 12/18/18 04:20 Dose: 100 mls/hr Vancomycin HCl 1 gm/ Sodium (Chloride) 250 mls @ 166.7 mls/hr IVPB Q4D [facility]; Protocol Last Admin: 12/15/18 18:18 Dose: 166.7 mls/hr Insulin Detemir (Levemir) 22 unit SC ACB [facility] Last Admin: 12/18/18 08:13 Dose: 22 units Insulin Detemir (Levemir) 22 unit SC HS [facility] Last Admin: 12/17/18 22:07 Dose: 22 units Insulin Human Regular (Novolin R) 5 unit SC AC [facility] Last Admin: 12/18/18 08:14 Dose: 5 unit Lactobacillus Acidophilus (Lactobacillus) 1 cap PO BID [facility] Last Admin: 12/18/18 09:51 Dose: 1 cap Losartan Potassium (Cozaar) 100 mg PO Q24H [facility] Last Admin: 12/17/18 14:00 Dose: Not Given Metoprolol Tartrate (Lopressor) 100 mg PO BID [facility] Last Admin: 12/18/18 09:51 Dose: 100 mg Oxycodone/Acetaminophen (Percocet 5/325 Mg Tab) 1 tab PO Q12H PRN PRN Reason: Pain, severe (8-10) Stop: 12/20/18 14:42 Last Admin: 12/18/18 03:02 Dose: 1 tab Rosuvastatin Calcium (Crestor) 10 mg PO HS [facility] Last Admin: 12/17/18 22:04 Dose: 10 mg Vitamin B Complex/Vit C/Folic Acid (Nephro-Barbara) 1 tab PO 0800 [facility] Last Admin: 12/18/18 09:00 Dose: 1 tab - Labs Labs: 12/17/18 09:08 12/17/18 09:08 PT 10.4 SECONDS (9.7-12.2) 12/14/18 08:32 INR 1.0 12/14/18 08:32 APTT 32 SECONDS (21-34) 12/14/18 08:32 - Constitutional Appears: Well, Non-toxic, No Acute Distress - Extremities Exam Additional comments: LE focused exam: Vasc: DP/PT pulses non-palpable b/l. Skin temperature warm to warm from proximal to distal WNL. CFT > 3 seconds to all digits b/l. No edema noted b/l Neuro: Epicritic and protective sensation grossly diminished b/l Derm: Callosity noted to distal aspect of right hallux with ulceration measuring approximately 0.1 cm x 0.1 cm x 0.1 cm noted in center of callosity. No tracking, tunneling, undermining, probe to bone, drainage, malodor or other clinical signs of infection noted. Hypertrophic patch of skin measuring roughly 4 cm x 3 cm noted to anterolateral ankle of right foot, unchanged since yesterday. No evidence of erythema or cellulitic changes. No breaks in the skin appreciated MSK: Pain on palpation of hypertrophic skin at anterior ankle. No pain on palpa tion of distal hallucal ulceration. No evidence of gross deformities appreciated - Neurological Exam Neurological Exam: Alert, Awake, Oriented x3 - Psychiatric Exam Psychiatric exam: Normal Affect, Normal Mood Assessment and Plan - Assessment and Plan (Free Text) Assessment: 63M seen at bedside for distal right hallux ulceration and painful hypertrophic skin on anterior right ankle Plan: Patient seen and evaluated with Dr. Rasmussen Afebrile, absent leukocytosis Continue abx per ID ESR 60 Foot xray: No evidence of osteomyelitis R foot MRI: Marked edema is seen throughout the distal phalanx great toe suggestive of possible osteomyelitis or prominent contusion. No fracture identified Dr. Rasmussen to speak with Dr. Rosales about vascular status for possible partial or complete amputation of right hallux Hypertrophic skin on anterior ankle debrided manually to healthy viable tissue without incident and lotion applied to underlying skin Hallux wound dressed with betadine, ABD, LUIS Podiatry will continue to follow while patient in house
[2018-12-18 11:36] LABS: BASO # 0.1 K/uL (0.0-0.2); EOS # 0.3 K/uL (0.0-0.7); EOS % 4.9 % (0.0-4.0); HEMOGLOBIN 10.5 g/dL (12.0-18.0); LYMPH # 0.6 K/uL (1.0-4.3); LYMPH % 8.1 % (20.0-40.0); MEAN CELL VOLUME 80.6 fL (80.0-94.0); MEAN CORPUSCULAR HEMOGLOBIN 25.8 pg (27.0-31.0); MEAN PLATELET VOLUME 8.1 fL (7.2-11.7); MONO # 0.8 K/uL (0.0-0.8); MONO % 10.7 % (0.0-10.0); NEUT # 5.3 K/uL (1.8-7.0); NEUT % 75.3 % (50.0-75.0); NRBC % 0.1 % (0.0-2.0); PLATELET COUNT 278 K/uL (130-400); RBC 4.06 Mil/uL (4.40-5.90); RED CELL DISTRIBUTION WIDTH 16.3 % (11.5-14.5)
[2018-12-18 12:13] LABS: EOSINOPHIL 4 % (0-4); LYMPHOCYTE 10 % (20-40); MONOCYTE 7 % (0-10); NEUTROPHIL 79 % (50-75); PLATELET ESTIMATE NORMAL (NORMAL); TOTAL CELLS COUNTED 100
[2018-12-18 12:14] LABS: ANISOCYTOSIS MODERATE; GIANT PLATELETS PRESENT; HYPOCHROMIC MODERATE; LARGE PLATELETS PRESENT; POLYCHROMIC SLIGHT
[2018-12-18 12:16] LABS: TOXIC GRANULATION PRESENT
[2018-12-18 12:27] LABS: ALB/GLOB RATIO 1.2 (1.0-2.1); ALBUMIN 3.5 g/dL (3.5-5.0); CALCIUM 9.2 mg/dl (8.6-10.4)
--- NOTE | 2018-12-18 15:13 | CP.PCM.PN ---
Subjective - Date & Time of Evaluation Date of Evaluation: 12/18/18 Time of Evaluation: 15:12 - Subjective Subjective: Nephrology Consultation Note: Assessment: Stable Rt foot found/ulcer with PVD Rt foot toe osteomyelitis Diabetic chronic Kidney Disease (E11.22) Hypertensive Chronic Kidney Disease (I12.0) End stage renal disease (N18.6) dependence on dialysis (Z99.2) as PD Anemia (D64.9), Hyperphosphatemia (E83.39), Secondary Hyperparathyroidism (E21.1), HTN (I12.0) uncontrolled severe HTN with urgency Plan: Will plan for PD as ordered. Continue with Nephrovite 1 tab/day. PD d/w staff [employer] as well. PRBC as needed for anemia. Not on JESSIE with dialysis as last Hb >10 and high BP Continue with phos binders, last phos level: 4.7 Continue with calcitriol. BP control with meds as ordered. Patient on RAAS rachna as losartan 100 mg/d, metoprolol. added lasix 80 mg/d. also on CCB and prn hydralazine. will add m inoxidil 5 mg/d Glycemic control, Dialysis consistent diet Further work up/management as per primary team Dose meds/antibiotics (if needed) for ESRD status. Avoid fleets enema/magnesium based laxatives. podiatry and interventional cardiology following. abx per ID. please inform renal about d/c antibiotics. Can administer abx intraperitoneally. Thanks for allowing me to participate in care of your patient. Will follow patient with you. Please call if any Qs. had d/w team and family Dr Brad Lucero Office: [phone] Chief Complaint; Rt foot wound HPI: Pt is a 63 M with hx of ESRD on PD since 2014, chronic anemia, hyperphosphatemia, secondary hyperparathyroidism, Diabetes Mellitus, hypertension presented with complaints of rt foot wound Renal consult requested for ESRD management. PD: manual exchanges 1.5% alternating with 2.5% (2000 mL) with 4 hr dwell time, net UF 0-300 mL with each exchange. he is looking forward to switch to HD in near future ROS: tolerating pd well. net UF 5571-0969 ml. fluid is clear. no pain or issues reported during PD exchanges. Cardiovascular: No chest pain. Pulmonary: No shortness of breath Gastrointestinal: denies abdominal pain No nausea. No vomiting. Genitourinary: No pain while urinating. Denies blood in urine. makes urine 1-2 times per day and not as much as used to in past All other negative except as mentioned in HPI s/p angiogram 12/17/18 Physical Examination: General Appearance: Comfortable, in no acute respiratory distress, co-operative . Vitals reviewed and noted as below Head; Atraumatic, normocephalic ENT: no ulcers no thrush. Tongue is midline. Oropharynx: no rash or ulcers. EYES: Pupils are equal, round and reactive to light accommodation. Eye muscles and extraocular movement intact. Sclera is anicteric. Neck; supple no lymphadenopathy, no thyromegaly or bruit Lungs: Normal respiratory rate/effort. Breath sounds bilateral reduced at bases Heart: Normal rate. s1s2 normal. No rub or gallop. Extremities: no edema. No varicose veins. Rt foot in dressing Neurological: Patient is alert, awake and oriented to person, place and time. No focal deficit. Strength bilateral appropriate and equal Skin: Warm and dry. Normal turgor. No rash. Palpitation: Normal elasticity for age Abdomen: Abdomen is soft. Bowel sounds +. There is no abdominal tenderness, no guarding/rigidity or organomegaly Psych: normal insight and normal affect/mood MSK: no joint tenderness or swelling. Digits and nails normal, no deformity : kidney or bladder not palpable Access: PD catheter. left AV access matured. Labs/imaging reviewed. Past medical history, past surgical history, family history, social history, allergy reviewed and noted as below Family Hx: no hx of CKD. Non contributory Objective - Vital Signs/Intake and Output Vital Signs (last 24 hours): Temp Pulse Resp BP Pulse Ox 97.9 F 85 20 198/102 H 100 12/18/18 14:57 12/18/18 14:57 12/18/18 14:57 12/18/18 14:57 12/18/18 14:57 Intake and Output: 12/18/18 12/18/18 06:59 18:59 Intake Total 860 450 Balance 860 450 - Medications Medications: Current Medications Acetaminophen (Tylenol 325mg Tab) 650 mg PO Q6 PRN PRN Reason: Pain, moderate (4-7) Last Admin: 12/18/18 00:06 Dose: 650 mg Aspirin (Aspirin Chewable) 81 mg PO DAILY [facility] Last Admin: 12/18/18 09:51 Dose: 81 mg Calcitriol (Rocaltrol) 0.5 mcg PO DAILY [facility] Last Admin: 12/18/18 09:48 Dose: 0.5 mcg Calcium Acetate (Phoslo) 667 mg PO BIDCC [facility] Last Admin: 12/18/18 08:13 Dose: 667 mg Dextrose (Dextrose 50% Inj) 0 ml IV STAT PRN; Protocol PRN Reason: Hypoglycemia Protocol Last Admin: 12/16/18 06:35 Dose: 50 ml Dextrose (Glutose 15) 0 gm PO ONCE PRN; Protocol PRN Reason: Hypoglycemia Protocol Diltiazem HCl (Cardizem Cd) 120 mg PO Q24H [facility] Docusate Sodium (Colace) 100 mg PO BID [facility] Last Admin: 12/18/18 09:49 Dose: 100 mg Furosemide (Lasix) 80 mg PO DAILY [facility] Last Admin: 12/18/18 09:50 Dose: 80 mg Gabapentin (Neurontin) 100 mg PO TID [facility] Last Admin: 12/18/18 13:37 Dose: 100 mg Glucagon (Glucagen Diagnostic Kit) 0 mg IM STAT PRN; Protocol PRN Reason: Hypoglycemia Protocol Heparin Sodium (Porcine) (Heparin) 5,000 units SC Q8 [facility] Last Admin: 12/18/18 13:37 Dose: 5,000 units Hydralazine HCl (Apresoline) 25 mg PO Q4 PRN PRN Reason: Other Last Admin: 12/18/18 09:51 Dose: 25 mg Dextrose (Dextrose 5% In Water 1000 Ml) 1,000 mls @ 0 mls/hr IV .Q0M PRN; Protocol PRN Reason: Hypoglycemia Protocol Piperacillin Sod/Tazobactam Sod (Zosyn 2.25 Gm Iv Premix) 2.25 gm in 50 mls @ 100 mls/hr IVPB Q12H [facility]; Protocol Last Admin: 12/18/18 04:20 Dose: 100 mls/hr Vancomycin HCl 1 gm/ Sodium (Chloride) 250 mls @ 166.7 mls/hr IVPB Q4D [facility]; Pr otocol Last Admin: 12/15/18 18:18 Dose: 166.7 mls/hr Insulin Detemir (Levemir) 22 unit SC ACB [facility] Last Admin: 12/18/18 08:13 Dose: 22 units Insulin Detemir (Levemir) 22 unit SC HS [facility] Last Admin: 12/17/18 22:07 Dose: 22 units Insulin Human Regular (Novolin R) 5 unit SC AC [facility] Last Admin: 12/18/18 12:21 Dose: 5 unit Lactobacillus Acidophilus (Lactobacillus) 1 cap PO BID [facility] Last Admin: 12/18/18 09:51 Dose: 1 cap Losartan Potassium (Cozaar) 100 mg PO Q24H [facility] Last Admin: 12/18/18 13:37 Dose: 100 mg Metoprolol Tartrate (Lopressor) 100 mg PO BID [facility] Last Admin: 12/18/18 09:51 Dose: 100 mg Minoxidil (Minoxidil) 5 mg PO DAILY [facility] Oxycodone/Acetaminophen (Percocet 5/325 Mg Tab) 1 tab PO Q12H PRN PRN Reason: Pain, severe (8-10) Stop: 12/20/18 14:42 Last Admin: 12/18/18 14:50 Dose: 1 tab Rosuvastatin Calcium (Crestor) 10 mg PO [facility] Last Admin: 12/17/18 22:04 Dose: 10 mg Vitamin B Complex/Vit C/Folic Acid (Nephro-Barbara) 1 tab PO 0800 [facility] Last Admin: 12/18/18 09:00 Dose: 1 tab - Labs Labs: 12/18/18 11:25 12/18/18 11:25 PT 10.4 SECONDS (9.7-12.2) 12/14/18 08:32 INR 1.0 12/14/18 08:32 APTT 32 SECONDS (21-34) 12/14/18 08:32
[2018-12-18] MEDS ORDERED: Dextrose 50% SYRINGE Inj (50 ml) ONE (19:55)
--- NOTE | 2018-12-18 20:02 | PCM.RRT ---
<Brent Delvalle - Last Filed: 12/18/18 22:04> [employer] Nurses Assessment - Situation Date: 12/18/18 Time [facility] [employer] was called: 19:50 [facility] [employer] Responder Arrival Time:: 19:51 [employer] [employer] Location:: Med/Surg Room Number: 667B [facility] [employer] Reason for Call: Looks Sicker (lethargic, FSBS 50. Pt did not eat dinner but was given Insulin short acting 5 units SC at dinner time.) [employer] Called By: RN - IV IV Inserted during [employer]?: No - Medication Medications Administered During [employer]: 1 amp d50 - Vital Signs Vital Signs: Rapid Response Vital Sign Blood Pressure 105/63 Pulse Rate 75 Respiratory Rate 20 Temperature 98.0 F Oxygen Saturation 99 - [place] Coma Scale Coma Scale Eye Opening: Spontaneous Coma Scale Motor: Obeys Commands Movement Coma Scale Verbal: Oriented Coma Scale Total: 15 - Time [facility] [employer] Ended Time [facility] [employer] Ended: 19:58 - Vital Signs at end of [employer] Vital Signs at end of [employer]: Rapid Response End Vital Sign Blood Pressure 112/62 Pulse Rate 74 Respiratory Rate 18 Temperature 98.0 F O2 Sat by Pulse Oximetry 99 - Recommendations 5) [employer] Level of Care Recommendations: Remain in current setting Notifications: Attending Physician (Dr. Neville Fraser) <Hipolito Fraser - Last Filed: 12/19/18 18:33> [facility] Nurses Assessment - Vital Signs Vital Signs: Rapid Response Vital Sign Blood Pressure 105/63 Pulse Rate 75 Respiratory Rate 20 Temperature 98.0 F Oxygen Saturation 99 - Vital Signs at end of [employer] Vital Signs at end of [employer]: Rapid Response End Vital Sign Blood Pressure 112/62 Pulse Rate 74 Respiratory Rate 18 Temperature 98.0 F O2 Sat by Pulse Oximetry 99 Attending/Attestation - Attestation I have personally seen and examined this patient.: Yes I have fully participated in the care of the patient.: Yes I have reviewed all pertinent clinical information, including history, physical exam and plan: Yes Notes (Text): 12/19/18 18:32 This is a late entry. Care of this patient was gone over with resident Dr. Delvalle with whom this [employer] was run. Nurse was instructed to make sure that patient had his dinner and to make sure bedtime Levemir dose was still given. Hipolito Fraser D.O.
[2018-12-18] MEDS: diltiaZEM 120 mg/24 Hours CD Cap PO SCH (22:16)
[2018-12-19] MEDS: Piperacill/Tazo 2.25gm in Dex 2.25 GM/50 ML BAG IVPB SCH ×2 (04:40→16:21)
[2018-12-19] MEDS: Insulin Detemir 100 units/ml Vial (Levemir) SC SCH ×2 (07:37→22:23)
[2018-12-19] MEDS: (Novolin R) Insulin Human Regular 100 units/ml vial SC SCH ×3 (07:38→18:03)
[2018-12-19] MEDS: Multivitamin Vitamin B Complex (Nephro-Vite) Tab PO SCH (07:38)
--- NOTE | 2018-12-19 07:48 | CP.PCM.PN ---
<Dorita Birmingham - Last Filed: 12/19/18 13:06> Subjective - Date & Time of Evaluation Date of Evaluation: 12/19/18 Time of Evaluation: 13:06 - Subjective Subjective: Patient seen and examined at bedside. No overnight events reported that i was not aware of. Patient denies fever, chills, chest pain , SOB, abdominal pain, nausea, vomiting, changes in bowel habits, or urinary symptoms. Patient does admit to low appetite and feeling weak. Objective - Vital Signs/Intake and Output Vital Signs (last 24 hours): Temp Pulse Resp BP Pulse Ox 98.1 F 96 H 20 144/74 100 12/19/18 06:35 12/19/18 06:35 12/19/18 06:35 12/19/18 06:35 12/19/18 06:35 Intake and Output: 12/19/18 12/19/18 06:59 18:59 Intake Total 670 Balance 670 - Medications Medications: Current Medications Acetaminophen (Tylenol 325mg Tab) 650 mg PO Q6 PRN PRN Reason: Pain, moderate (4-7) Last Admin: 12/18/18 00:06 Dose: 650 mg Aspirin (Aspirin Chewable) 81 mg PO DAILY [facility] Last Admin: 12/18/18 09:51 Dose: 81 mg Calcitriol (Rocaltrol) 0.5 mcg PO DAILY [facility] Last Admin: 12/18/18 09:48 Dose: 0.5 mcg [facility] ([facility]) [facility] Last Admin: 12/19/18 07:39 Dose: 667 mg Dextrose (Dextrose 50% Inj) 0 ml IV STAT PRN; Protocol PRN Reason: Hypoglycemia Protocol Last Admin: 12/16/18 06:35 Dose: 50 ml Dextrose (Glutose 15) 0 gm PO ONCE PRN; Protocol PRN Reason: Hypoglycemia Protocol Diltiazem HCl (Cardizem Cd) 120 mg PO Q24H [facility] Last Admin: 12/18/18 22:16 Dose: 120 mg Docusate Sodium (Colace) 100 mg PO BID [facility] Last Admin: 12/18/18 17:55 Dose: 100 mg Furosemide (Lasix) 80 mg PO DAILY [facility] Last Admin: 12/18/18 09:50 Dose: 80 mg Gabapentin (Neurontin) 100 mg PO TID [facility] Last Admin: 12/18/18 17:55 Dose: 100 mg Glucagon (Glucagen Diagnostic Kit) 0 mg IM STAT PRN; Protocol PRN Reason: Hypoglycemia Protocol Heparin Sodium (Porcine) (Heparin) 5,000 units SC Q8 [facility] Last Admin: 12/19/18 05:56 Dose: 5,000 units Hydralazine HCl (Apresoline) 25 mg PO Q4 PRN PRN Reason: Other Last Admin: 12/18/18 09:51 Dose: 25 mg Dextrose (Dextrose 5% In Water 1000 Ml) 1,000 mls @ 0 mls/hr IV .Q0M PRN; Protocol PRN Reason: Hypoglycemia Protocol Piperacillin Sod/Tazobactam Sod (Zosyn 2.25 Gm Iv Premix) 2.25 gm in 50 mls @ 100 mls/hr IVPB Q12H [facility]; Protocol Last Admin: 12/19/18 04:40 Dose: 100 mls/hr Vancomycin HCl 1 gm/ Sodium (Chloride) 250 mls @ 166.7 mls/hr IVPB Q4D [facility]; Protocol Last Admin: 12/15/18 18:18 Dose: 166.7 mls/hr Insulin Detemir (Levemir) 22 unit SC ACB [facility] Last Admin: 12/19/18 07:37 Dose: 22 units Insulin Detemir (Levemir) 22 unit SC HS [facility] Last Admin: 12/18/18 22:14 Dose: Not Given Insulin Human Regular (Novolin R) 5 unit SC AC [facility] Last Admin: 12/19/18 07:38 Dose: 5 unit Lactobacillus Acidophilus (Lactobacillus) 1 cap PO BID [facility] Last Admin: 12/18/18 18:44 Dose: 1 cap Losartan Potassium (Cozaar) 100 mg PO Q24H [facility] Last Admin: 12/18/18 13:37 Dose: 100 mg Metoprolol Tartrate (Lopressor) 100 mg PO BID [facility] Last Admin: 12/18/18 18:44 Dose: 100 mg Minoxidil (Minoxidil) 5 mg PO DAILY [facility] Last Admin: 12/18/18 16:00 Dose: 5 mg Oxycodone/Acetaminophen (Percocet 5/325 Mg Tab) 1 tab PO Q12H PRN PRN Reason: Pain, severe (8-10) Stop: 12/20/18 14:42 Last Admin: 12/18/18 14:50 Dose: 1 tab Rosuvastatin Calcium (Crestor) 10 mg PO HS [facility] Last Admin: 12/18/18 22:16 Dose: 10 mg Vitamin B Complex/Vit C/Folic Acid (Nephro-Barbara) 1 tab PO 0800 [facility] Last Admin: 12/19/18 07:38 Dose: 1 tab - Labs Labs: 12/18/18 11:25 12/18/18 11:25 PT 10.4 SECONDS (9.7-12.2) 12/14/18 08:32 INR 1.0 12/14/18 08:32 APTT 32 SECONDS (21-34) 12/14/18 08:32 - Additional Findings Additional findings: - Constitutional Appears: Non-toxic, No Acute Distress - Head Exam Head Exam: ATRAUMATIC, NORMOCEPHALIC - Eye Exam Eye Exam: EOMI, Normal appearance, PERRL - ENT Exam ENT Exam: Mucous Membranes Moist - Neck Exam Neck exam: Positive for: Full Rom, Normal Inspection - Respiratory Exam Respiratory Exam: Clear to Auscultation Bilateral, NORMAL BREATHING PATTERN. absent: Rales, Rhonchi, Wheezes - Cardiovascular Exam Cardiovascular Exam: RRR, +Murmur, +S1, +S2 Absent: tachycardia - GI/Abdominal Exam GI & Abdominal Exam: Normal Bowel Sounds, Soft. absent: Guarding, Rebound, Tenderness Additional comments: Peritoneal dialysis catheter L abdomen; no signs of infection - Extremities Exam Extremities exam: (+) Right upper extremity midline with no signs of infection or tenderness. Positive for: full ROM, Left upper forearm AV fistula with palpable thrill, no signs of infection. (+) Abnormal capillary refill. Additional comments: Pulses nonpalpable but lower extremities are warm, without edema, >3s capillary refill (+) 4cm circular unstageable ulcer to lateral malleolus with mild surrounding tenderness to palpation; no active drainage, warmth, erythema, or edema (+) Callous to the distal aspect of right hallux with small ulceration; minimal tenderness, no drainage, erythema, or edema (+) no hair to bilateral lower extremities, skin shiny (+) Dressing. C/D/I Assessment and Plan - Assessment and Plan (Free Text) Assessment: This is a 63 year old male with PMhx of IDDM2, ESRD on peritoneal dialysis, HTN, PVD who presents to the ED for pain to the wounds to his right foot, ankle area and right first toe. Found to to have ESR elevated, right hallux osteomyelitis on MRI started on IV abx (PD dosed). Plan: Osteomyelitis of right hallux, acute - Afebrile, no leukocytosis - ESR elevated at 60 - Blood Cx no growth >3 days - Right Foot x-ray: no periosteal reaction to suggest osetomyelitis. No gross osseous destruction appreciated. - Right ankle x-ray: no periosteal reaction to suggest osetomyelitis. No gross osseous destruction appreciated. - Lower extremity MRI without contrast right forefoot: marked edema is seen throughout the distal phalanx great toe suggestive of possible osteomyelitis or prominent contusion. No fracture identified. - Lower extremity MRI without contrast right hind foot and midfoot: no MR evidence to suggest osteomyelitis at the midfoot and hindfoot bony anatomy with lateral foot cellulitis identified on a mild-moderate basis without abscess. - RUE midline - Zosyn 2.25 gm IVPB Q12H- started 4/3 (dosed for PD) - Vancomycin 1 gm IVPB every 4 days- started 4/3 (dosed for PD) - Tylenol 650 Q6H PRN - Percocet 1 tab Q12H PRN - Podiatry consulted (Valery)- f/u if surg intervention indicated - ID consulted (Loren) - Wound care Peripheral vascular disease, chronic - Arterial doppler study [facility] [place] 12/07/18: R popliteal artery 75-99% stenosis. R Posterior tibial artery is occluded. L posterior tibial and anterior tibial with 50-75% stenosis. Diffuse disease to peroneal artery. R MARIVEL: 1.12, L MARIVEL: 0.91 - CTA of bilateral lower extremities: Right lower extremity: AT has short segment areas of mild to severe stenosis of mid and distal segments. Peroneal artery has occlusion in the proximal segment and areas of moderate stenosis in distal segment. - Left lower extremity: AT has short segment areas of severe stenosis of mid and distal segments. Peroneal artery has multiple areas of moderate stenosis in the mid and distal segments. - Peripheral angiogram of RLE: 3-vessel runoff but diffuse calcification. Atherectomy done and cleared out tibial artery--> now flow to digital arteries. - ASA 81 mg PO daily - Crestor 20 mg PO QHS - Cardizem 120 PO daily as per cardio - Cardiology consulted (Bobby)- will need further intervention the future Hypertension, chronic - Monitor on telemetry - Vitals Q4H - Echocardiogram: LVEF approximately 70%. Mild concentric LVH. Grade I abnormal relaxation pattern. - Lasix 80 mg PO 1x/day at 10 AM - Losartan 100 mg PO 1x/day at 2 PM - Metoprolol 100 mg PO 2x/day at 10 AM and 6 PM - Norvasc was changed to Cardizem ER 120 mg PO Q24H at 10 PM Lethargy, acute, resolved- noted by RN after returning from MRI 12/15 - CT head: Age-related neuro degenerative changes are appreciated in the brain and appear age-appropriate without definite acute intracranial findings. However, density in the arterial and venous system of the brain is appreciated and further evaluation by CT angiography (if no contraindication), brain MRI, MR brain angiogram and MR venography for follow up. - MRI brain without contrast: Artifact but nonacute brain MRI. Vascular changes seen in the CT of head may reflect normal variation or less likely, residual iodinated contrast material within patient's vascular system. - Neuro checks ESRD on Peritoneal dialysis QID, chronic- patient does not want to start hemodialysis Creatinine stable, but elevated at 10.1. Phosphorous is downtrending Pt to continue with peritoneal dialysis as pervious managed as outpatient Nephro Barbara 1 tab PO daily Calcitriol 0.5mct PO daily Continue Phoslo 667 mg PO BIDCC with food Continue to monitor and replete electrolytes as needed - Nephrology consulted (Vail) Type 2 diabetes mellitus with peripheral neuropathy, chronic - HgbA1c 8.4 - TG/CHL/LDL/HDL is 117/166/95/42 - Accuchecks [facility] - Hypoglycemic protocol - Levemir 22 units SC ACB, QHS - Aspart 5 units SC AC - ASA 81 mg PO daily - Crestor 20 mg PO QHS - Gabapentin 100 mg PO TID Insulin was to be adjusted today. Levemir dose was not given last night due to the rapid response, although nurse was told to give after patient ate. Morning sugars were elevated over 500. Insulin dose should be adjusted tomorrow based on sugars over a 24hour period. Ppx: VTE: SCDs contraindicated due to PAD, Heparin 5000 units SC Q8H GI: no indication Diet: heart healthy, renal, low carb. Glucerna [place] TID. Dispo: Continue IV abx. Continue PD. Treat HTN with new regimen. Pending podiatry recs for intervention or not. Dr. Rasmussen to speak with Dr. Rosales about vascular status for possible partial or complete amputation of right hallux. [place] on DC. Patient discussed with Attending Dorita Birmingham, PGY-2 <Hipolito Fraser - Last Filed: 12/19/18 18:31> Objective - Vital Signs/Intake and Output Vital Signs (last 24 hours): Temp Pulse Resp BP Pulse Ox 98.6 F 84 20 92/52 L 98 12/19/18 16:33 12/19/18 16:33 12/19/18 16:33 12/19/18 16:33 12/19/18 16:33 Intake and Output: 12/19/18 12/19/18 06:59 18:59 Intake Total 670 Balance 670 - Medications Medications: Current Medications Acetaminophen (Tylenol 325mg Tab) 650 mg PO Q6 PRN PRN Reason: Pain, moderate (4-7) Last Admin: 12/18/18 00:06 Dose: 650 mg Aspirin (Aspirin Chewable) 81 mg PO DAILY [facility] Last Admin: 12/19/18 10:00 Dose: Not Given Calcitriol (Rocaltrol) 0.5 mcg PO DAILY [facility] Last Admin: 12/19/18 10:00 Dose: Not Given Calcium Acetate (Phoslo) 667 mg PO BIDCC [facility] Last Admin: 12/19/18 17:54 Dose: 667 mg Dextrose (Dextrose 50% Inj) 0 ml IV STAT PRN; Protocol PRN Reason: Hypoglycemia Protocol Last Admin: 12/16/18 06:35 Dose: 50 ml Dextrose (Glutose 15) 0 gm PO ONCE PRN; Protocol PRN Reason: Hypoglycemia Protocol Diltiazem HCl (Cardizem Cd) 120 mg PO Q24H [facility] Last Admin: 12/18/18 22:16 Dose: 120 mg Docusate Sodium (Colace) 100 mg PO BID [facility] Last Admin: 12/19/18 17:55 Dose: 100 mg Epoetin Sanchez (Procrit) 4,000 unit SC MWF [facility] Gabapentin (Neurontin) 100 mg PO TID [facility] Last Admin: 12/19/18 17:54 Dose: 100 mg Glucagon (Glucagen Diagnostic Kit) 0 mg IM STAT PRN; Protocol PRN Reason: Hypoglycemia Protocol Heparin Sodium (Porcine) (Heparin) 5,000 units SC Q8 [facility] Last Admin: 12/19/18 13:32 Dose: 5,000 units Hydralazine HCl (Apresoline) 25 mg PO Q4 PRN PRN Reason: Other Last Admin: 12/18/18 09:51 Dose: 25 mg Dextrose (Dextrose 5% In Water 1000 Ml) 1,000 mls @ 0 mls/hr IV .Q0M PRN; Protocol PRN Reason: Hypoglycemia Protocol Piperacillin Sod/Tazobactam Sod (Zosyn 2.25 Gm Iv Premix) 2.25 gm in 50 mls @ 100 mls/hr IVPB Q12H [facility]; Protocol Last Admin: 12/19/18 16:21 Dose: 100 mls/hr Vancomycin HCl 1 gm/ Sodium (Chloride) 250 mls @ 166.7 mls/hr IVPB Q4D [facility]; Protocol Last Admin: 12/19/18 17:00 Dose: 166.7 mls/hr Insulin Detemir (Levemir) 22 unit SC ACB [facility] Last Admin: 12/19/18 07:37 Dose: 22 units Insulin Detemir (Levemir) 22 unit SC HS [facility] Last Admin: 12/18/18 22:14 Dose: Not Given Insulin Human Regular (Novolin R) 5 unit SC AC [facility] Last Admin: 12/19/18 18:03 Dose: 5 unit Lactobacillus Acidophilus (Lactobacillus) 1 cap PO BID [facility] Last Admin: 12/19/18 17:56 Dose: Not Given Losartan Potassium (Cozaar) 100 mg PO QPM [facility] Last Admin: 12/19/18 18:01 Dose: Not Given Metoprolol Tartrate (Lopressor) 100 mg PO BID [facility] Last Admin: 12/19/18 18:02 Dose: Not Given Minoxidil (Minoxidil) 2.5 mg PO DAILY [facility] Oxycodone/Acetaminophen (Percocet 5/325 Mg Tab) 1 tab PO Q12H PRN PRN Reason: Pain, severe (8-10) Stop: 12/20/18 14:42 Last Admin: 12/18/18 14:50 Dose: 1 tab Rosuvastatin Calcium (Crestor) [address] [facility] Last Admin: 12/18/18 22:16 Dose: 10 mg Vitamin B Complex/Vit C/Folic Acid (Nephro-Barbara) 1 tab PO 0800 [facility] Last Admin: 12/19/18 07:38 Dose: 1 tab - Labs Labs: 12/19/18 08:43 12/19/18 11:51 PT 10.4 SECONDS (9.7-12.2) 12/14/18 08:32 INR 1.0 12/14/18 08:32 APTT 32 SECONDS (21-34) 12/14/18 08:32 Attending/Attestation - Attestation I have personally seen and examined this patient.: Yes I have fully participated in the care of the patient.: Yes I have reviewed all pertinent clinical information, including history, physical exam and plan: Yes Notes (Text): 12/19/18 18:26 Patient was seen and examined at 11:30 AM 12/19/18 Care of this patient was gone over with resident Dr. Pacheco. NO fever B/P is better under control after the addition of Minoxidil to the regimen Blood Culture 12/13/18 is negative at 5 days Please note the following changes/corrections in the documentation under Assessment and Plan HTN: Lasix 80 mg PO 1x/day at 10 AM Losartan 100 mg PO 1x/day at 2 PM Metoprolol 100 mg PO 2x/day at 10 AM and 6 PM Cardizem ER 120 mg PO Q24H at 10 PM Minoxidil 2.5 mg PO 1x/day at 10 AM Patient is currently on the following regimen for his Diabetes: Levemir 22 Units SC AC Breakfast Levemir 22 Units SC QHS Regular Insulin 5 Units SC AC Meals Please note that adjustment to the regimen was not made today as patient was not eating consistently on 12/18/18. 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 Nursing was instructed to make sure patient ate his dinner and to make sure that he still received his Levemir 22 units SC at bedtime, but for some reason the Levemir was not given. Therefore Medicine Team please adjust the Levemir and the PreMeal insulin based upon Accuchecks from 7 AM 12/19/18 through 7 AM 12/20/18 Patient is on the following renally dosed regimen for the suspected Osteomyelit is of the Right Toe #1: Zosyn 2.25 gm IV Q12H Vancomycin 1 gm IV Q4Days I spoke with Foundation [employer] Teacher Dr. Rasmussen 12/18/18 as to Podiatry Team's plan for patient's suspected Right Toe #1 suspected Osteomyelitis and he would like for the intervention performed by Dr. Rosales on 12/17/18 time to work before making a decision on either Thursday or Thursday of this coming week: possible surgery for amputation vs debridement Patient continued to complain of burning and throbbing pain in the right foot on 12/18/18 and 12/19/18. I explained that the throbbing pain likely secondary to repurfusion from the arteriogram that was performed by Dr. Rosales on 12/17/18, that we would need to give this intervention some time, also that Cardizem ER should also help, and that the Percocet should only be used if absolutely necessary due to its addictive potential. Explained that the burning (which is chronic in nature) is likely secondary to Diabetic Neuropathy and that he was started on Gabapentin earlier this week. He continued to express understanding. Plan of care was gone over with the patient. Hipolito Fraser D.O.
[2018-12-19 08:56] LABS: BASO # 0.1 K/uL (0.0-0.2); BASO % 0.8 % (0.0-2.0); EOS # 0.3 K/uL (0.0-0.7); HEMOGLOBIN 9.5 g/dL (12.0-18.0); LYMPH # 0.6 K/uL (1.0-4.3); LYMPH % 7.5 % (20.0-40.0); MEAN CELL VOLUME 80.7 fL (80.0-94.0); MEAN CORPUSCULAR HGB CONC 32.3 g/dL (33.0-37.0); MEAN PLATELET VOLUME 8.1 fL (7.2-11.7); MONO # 0.8 K/uL (0.0-0.8); MONO % 10.6 % (0.0-10.0); NEUT % 77.1 % (50.0-75.0); NRBC % 0.1 % (0.0-2.0); PLATELET COUNT 263 K/uL (130-400); RBC 3.64 Mil/uL (4.40-5.90); RED CELL DISTRIBUTION WIDTH 16.1 % (11.5-14.5); WHITE BLOOD COUNT 7.8 K/uL (4.8-10.8)
[2018-12-19] MEDS: Lactobacillus Acidophilus 500 MU Cap PO SCH ×2 (10:00→17:56)
[2018-12-19 10:43] LABS: EOSINOPHIL 1 % (0-4); LYMPHOCYTE 8 % (20-40); MONOCYTE 11 % (0-10); NEUTROPHIL 80 % (50-75); PLATELET ESTIMATE NORMAL (NORMAL); TOTAL CELLS COUNTED 100
[2018-12-19 10:44] LABS: ANISOCYTOSIS SLIGHT; HYPOCHROMIC SLIGHT; POLYCHROMIC SLIGHT
[2018-12-19 10:46] LABS: LARGE PLATELETS PRESENT
[2018-12-19 10:47] LABS: MICROCYTOSIS SLIGHT
--- NOTE | 2018-12-19 11:29 | CP.PCM.PN ---
Subjective - Date & Time of Evaluation Date of Evaluation: 12/19/18 Time of Evaluation: 11:26 - Subjective Subjective: Podiatry Progress Note for Dr. Rasmussen 63M seen at bedside for distal right hallux ulceration and painful hypertrophic skin on anterior right ankle. Patient appears more lethargic today. States that his anterior ankle pain is slightly improved. 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 Denies any further pedal complaints at this time. Denies any recent N/V/F/C/CP/SOB/D Objective - Vital Signs/Intake and Output Vital Signs (last 24 hours): Temp Pulse Resp BP Pulse Ox 98.1 F 92 H 18 113/57 L 99 12/19/18 09:45 12/19/18 10:43 12/19/18 09:45 12/19/18 10:43 12/19/18 09:45 Intake and Output: 12/19/18 12/19/18 06:59 18:59 Intake Total 670 Balance 670 - Medications Medications: Current Medications Acetaminophen (Tylenol 325mg Tab) 650 mg PO Q6 PRN PRN Reason: Pain, moderate (4-7) Last Admin: 12/18/18 00:06 Dose: 650 mg Aspirin (Aspirin Chewable) 81 mg PO DAILY [facility] Last Admin: 12/18/18 09:51 Dose: 81 mg Calcitriol (Rocaltrol) 0.5 mcg PO DAILY [facility] Last Admin: 12/18/18 09:48 Dose: 0.5 mcg [facility]cium [facility] ([facility]) [facility] Last Admin: 12/19/18 07:39 Dose: 667 mg Dextrose (Dextrose 50% Inj) 0 ml IV STAT PRN; Protocol PRN Reason: Hypoglycemia Protocol Last Admin: 12/16/18 06:35 Dose: 50 ml Dextrose (Glutose 15) 0 gm PO ONCE PRN; Protocol PRN Reason: Hypoglycemia Protocol Diltiazem HCl (Cardizem Cd) 120 mg PO Q24H [facility] Last Admin: 12/18/18 22:16 Dose: 120 mg Docusate Sodium (Colace) 100 mg PO BID [facility] Last Admin: 12/18/18 17:55 Dose: 100 mg Epoetin Sanchez (Procrit) 4,000 unit SC F [facility] Gabapentin (Neurontin) 100 mg PO TID [facility] Last Admin: 12/18/18 17:55 Dose: 100 mg Glucagon (Glucagen Diagnostic Kit) 0 mg IM STAT PRN; Protocol PRN Reason: Hypoglycemia Protocol Heparin Sodium (Porcine) (Heparin) 5,000 units SC Q8 [facility] Last Admin: 12/19/18 05:56 Dose: 5,000 units Hydralazine HCl (Apresoline) 25 mg PO Q4 PRN PRN Reason: Other Last Admin: 12/18/18 09:51 Dose: 25 mg Dextrose (Dextrose 5% In Water 1000 Ml) 1,000 mls @ 0 mls/hr IV .Q0M PRN; Protocol PRN Reason: Hypoglycemia Protocol Piperacillin Sod/Tazobactam Sod (Zosyn 2.25 Gm Iv Premix) 2.25 gm in 50 mls @ 100 mls/hr IVPB Q12H [facility]; Protocol Last Admin: 12/19/18 04:40 Dose: 100 mls/hr Vancomycin HCl 1 gm/ Sodium (Chloride) 250 mls @ 166.7 mls/hr IVPB Q4D [facility]; Protocol Last Admin: 12/15/18 18:18 Dose: 166.7 mls/hr Insulin Detemir (Levemir) 22 unit SC ACB [facility] Last Admin: 12/19/18 07:37 Dose: 22 units Insulin Detemir (Levemir) 22 unit SC HS [facility] Last Admin: 12/18/18 22:14 Dose: Not Given Insulin Human Regular (Novolin R) 5 unit SC AC [facility] Last Admin: 12/19/18 07:38 Dose: 5 unit Lactobacillus Acidophilus (Lactobacillus) 1 cap PO BID [facility] Last Admin: 12/18/18 18:44 Dose: 1 cap Losartan Potassium (Cozaar) 100 mg PO QPM [facility] Metoprolol Tartrate (Lopressor) 100 mg PO BID [facility] Last Admin: 12/18/18 18:44 Dose: 100 mg Minoxidil (Minoxidil) 2.5 mg PO DAILY [facility] Oxycodone/Acetaminophen (Percocet 5/325 Mg Tab) 1 tab PO Q12H PRN PRN Reason: Pain, severe (8-10) Stop: 12/20/18 14:42 Last Admin: 12/18/18 14:50 Dose: 1 tab Rosuvastatin Calcium (Crestor) 10 mg PO HS [facility] Last Admin: 12/18/18 22:16 Dose: 10 mg Vitamin B Complex/Vit C/Folic Acid (Nephro-Barbara) 1 tab PO 0800 [facility] Last Admin: 12/19/18 07:38 Dose: 1 tab - Labs Labs: 12/19/18 08:43 12/18/18 11:25 PT 10.4 SECONDS (9.7-12.2) 12/14/18 08:32 INR 1.0 12/14/18 08:32 APTT 32 SECONDS (21-34) 12/14/18 08:32 - Constitutional Appears: Non-toxic, No Acute Distress - Extremities Exam Additional comments: LE focused exam: Vasc: DP/PT pulses non-palpable b/l. Skin temperature warm to warm from proximal to distal WNL. CFT > 3 seconds to all digits b/l. No edema noted b/l Neuro: Epicritic and protective sensation grossly diminished b/l Derm: Callosity noted to distal aspect of right hallux with ulceration measuring approximately 0.1 cm x 0.1 cm x 0.1 cm noted in center of callosity. No tracking, tunneling, undermining, probe to bone, drainage, malodor or other clinical signs of infection noted. Hypertrophic patch of skin measuring roughly 4 cm x 3 cm noted to anterolateral ankle of right foot, unchanged since yesterday. No evidence of erythema or cellulitic changes. No breaks in the skin appreciated MSK: Pain on palpation of hypertrophic skin at anterior ankle, slightly improved. No pain on palpation of distal hallucal ulceration. No evidence of gross deformities appreciated - Neurological Exam Neurological Exam: Alert, Awake, Oriented x3 - Psychiatric Exam Psychiatric exam: Normal Affect, Normal Mood Assessment and Plan - Assessment and Plan (Free Text) Assessment: 63M seen at bedside for distal right hallux ulceration and painful hypertrophic skin on anterior right ankle Plan: Patient seen and evaluated Plan discussed with Dr. Rasmussen Afebrile, absent leukocytosis Continue abx per ID ESR 60 Foot xray: No evidence of osteomyelitis R foot MRI: Marked edema is seen throughout the distal phalanx great toe suggestive of possible osteomyelitis or prominent contusion. No fracture identified Dr. Rasmussen to speak with Dr. Rosales about vascular status for possible partial or complete amputation of right hallux. Allow demarcation to occur over weekend Hallux wound dressed with betadine, ABD, DSD Lotion applied to anterior ankle Podiatry will continue to follow while patient in house
--- NOTE | 2018-12-19 12:03 | CP.PCM.PN ---
Subjective - Date & Time of Evaluation Date of Evaluation: 12/19/18 Time of Evaluation: 12:00 - Subjective Subjective: Nephrology Consultation Note: Assessment: Stable Rt foot found/ulcer with PVD Rt foot toe osteomyelitis Diabetic chronic Kidney Disease (E11.22). Hypoglyecmia and hyperglycemia Hypertensive Chronic Kidney Disease (I12.0) End stage renal disease (N18.6) dependence on dialysis (Z99.2) as PD Anemia (D64.9), Hyperphosphatemia (E83.39), Secondary Hyperparathyroidism (E21.1), HTN (I12.0) uncontrolled severe HTN with urgency Plan: Will plan for PD as ordered. Continue with Nephrovite 1 tab/day. PD d/w bell staff as well. PRBC as needed for anemia. will add JESSIE as last Hb <10 Continue with phos binders, last phos level: 4.7 Continue with calcitriol. BP control with meds as ordered. Patient on RAAS rachna as losartan 100 mg/d, metoprolol. also on CCB and prn hydralazine. will lower minoxidil 2.5 mg/d. d/c lasix 80 mg/d. . may d/c ccb also if BP stays low Glycemic control, Dialysis consistent diet Further work up/management as per primary team Dose meds/antibiotics (if needed) for ESRD status. Avoid fleets enema/magnesium based laxatives. podiatry and interventional cardiology following. abx per ID. please inform renal about d/c antibiotics. Can administer abx intraperitoneally as outpt. Thanks for allowing me to participate in care of your patient. Will follow patient with you. Please call if any Qs. had d/w team and family Dr Brad Lucero Office: [phone] Chief Complaint; Rt foot wound HPI: Pt is a 63 M with hx of ESRD on PD since 2014, chronic anemia, hyperphosphatemia, secondary hyperparathyroidism, Diabetes Mellitus, hypertension presented with complaints of rt foot wound Renal consult requested for ESRD management. PD: manual exchanges 1.5% alternating with 2.5% (2000 mL) with 4 hr dwell time, net UF 0-300 mL with each exchange. he is looking forward to switch to HD in near future ROS: tolerating pd well. net UF 3410-4400 ml. fluid is clear. no pain or issues reported during PD exchanges. feels sluggish. BP and sugar level fluctuating, ranging from high to low Cardiovascular: No chest pain. Pulmonary: No shortness of breath Gastrointestinal: denies abdominal pain No nausea. No vomiting. Genitourinary: No pain while urinating. Denies blood in urine. makes urine 1-2 times per day and not as much as used to in past All other negative except as mentioned in HPI s/p angiogram 12/17/18 Physical Examination: General Appearance: Comfortable, in no acute respiratory distress, co-operative . Vitals reviewed and noted as below Head; Atraumatic, normocephalic ENT: no ulcers no thrush. Tongue is midline. Oropharynx: no rash or ulcers. EYES: Pupils are equal, round and reactive to light accommodation. Eye muscles and extraocular movement intact. Sclera is anicteric. Neck; supple no lymphadenopathy, no thyromegaly or bruit Lungs: Normal respiratory rate/effort. Breath sounds bilateral reduced at bases Heart: Normal rate. s1s2 normal. No rub or gallop. Extremities: no edema. No varicose veins. Rt foot in dressing Neurological: Patient is alert, awake and oriented to person, place and time. No focal deficit. Strength bilateral appropriate and equal Skin: Warm and dry. Normal turgor. No rash. Palpitation: Normal elasticity for age Abdomen: Abdomen is soft. Bowel sounds +. There is no abdominal tenderness, no guarding/rigidity or organomegaly Psych: normal insight and normal affect/mood MSK: no joint tenderness or swelling. Digits and nails normal, no deformity : kidney or bladder not palpable Access: PD catheter. left AV access matured. Labs/imaging reviewed. Past medical history, past surgical history, family history, social history, allergy reviewed and noted as below Family Hx: no hx of CKD. Non contributory Objective - Vital Signs/Intake and Output Vital Signs (last 24 hours): Temp Pulse Resp BP Pulse Ox 98.0 F 89 18 118/52 L 98 12/19/18 11:21 12/19/18 11:21 12/19/18 11:21 12/19/18 11:21 12/19/18 11:21 Intake and Output: 12/19/18 12/19/18 06:59 18:59 Intake Total 670 Balance 670 - Medications Medications: Current Medications Acetaminophen (Tylenol 325mg Tab) 650 mg PO Q6 PRN PRN Reason: Pain, moderate (4-7) Last Admin: 12/18/18 00:06 Dose: 650 mg Aspirin (Aspirin Chewable) 81 mg PO DAILY [facility] Last Admin: 12/18/18 09:51 Dose: 81 mg Calcitriol (Rocaltrol) 0.5 mcg PO DAILY [facility] Last Admin: 12/18/18 09:48 Dose: 0.5 mcg Calcium Acetate (Phoslo) 667 mg PO BIDCC [facility] Last Admin: 12/19/18 07:39 Dose: 667 mg Dextrose (Dextrose 50% Inj) 0 ml IV STAT PRN; Protocol PRN Reason: Hypoglycemia Protocol Last Admin: 12/16/18 06:35 Dose: 50 ml Dextrose (Glutose 15) 0 gm PO ONCE PRN; Protocol PRN Reason: Hypoglycemia Protocol Diltiazem HCl (Cardizem Cd) 120 mg PO Q24H [facility] Last Admin: 12/18/18 22:16 Dose: 120 mg Docusate Sodium (Colace) 100 mg PO BID [facility] Last Admin: 12/18/18 17:55 Dose: 100 mg Epoetin Sanchez (Procrit) 4,000 unit SC MWF [facility] Gabapentin (Neurontin) 100 mg PO TID [facility] Last Admin: 12/18/18 17:55 Dose: 100 mg Glucagon (Glucagen Diagnostic Kit) 0 mg IM STAT PRN; Protocol PRN Reason: Hypoglycemia Protocol Heparin Sodium (Porcine) (Heparin) 5,000 units SC Q8 [facility] Last Admin: 12/19/18 05:56 Dose: 5,000 units Hydralazine HCl (Apresoline) 25 mg PO Q4 PRN PRN Reason: Other Last Admin: 12/18/18 09:51 Dose: 25 mg Dextrose (Dextrose 5% In Water 1000 Ml) 1,000 mls @ 0 mls/hr IV .Q0M PRN; Protocol PRN Reason: Hypoglycemia Protocol Piperacillin Sod/Tazobactam Sod (Zosyn 2.25 Gm Iv Premix) 2.25 gm in 50 mls @ 100 mls/hr IVPB Q12H [facility]; Protocol Last Admin: 12/19/18 04:40 Dose: 100 mls/hr Vancomycin HCl 1 gm/ Sodium (Chloride) 250 mls @ 166.7 mls/hr IVPB Q4D [facility]; Protocol Last Admin: 12/15/18 18:18 Dose: 166.7 mls/hr Insulin Detemir (Levemir) 22 unit SC ACB [facility] Last Admin: 12/19/18 07:37 Dose: 22 units Insulin Detemir (Levemir) 22 unit SC HS [facility] Last Admin: 12/18/18 22:14 Dose: Not Given Insulin Human Regular (Novolin R) 5 unit SC AC [facility] Last Admin: 12/19/18 07:38 Dose: 5 unit Lactobacillus Acidophilus (Lactobacillus) 1 cap PO BID [facility] Last Admin: 12/18/18 18:44 Dose: 1 cap Losartan Potassium (Cozaar) 100 mg PO QPM [facility] Metoprolol Tartrate (Lopressor) 100 mg PO BID [facility] Last Admin: 12/18/18 18:44 Dose: 100 mg Minoxidil (Minoxidil) 2.5 mg PO DAILY [facility] Oxycodone/Acetaminophen (Percocet 5/325 Mg Tab) 1 tab PO Q12H PRN PRN Reason: Pain, severe (8-10) Stop: 12/20/18 14:42 Last Admin: 12/18/18 14:50 Dose: 1 tab Rosuvastatin Calcium (Crestor) 10 mg PO HS [facility] Last Admin: 12/18/18 22:16 Dose: 10 mg Vitamin B Complex/Vit C/Folic Acid (Nephro-Barbara) 1 tab PO 0800 [facility] Last Admin: 12/19/18 07:38 Dose: 1 tab - Labs Labs: 12/19/18 08:43 12/18/18 11:25 PT 10.4 SECONDS (9.7-12.2) 12/14/18 08:32 INR 1.0 12/14/18 08:32 APTT 32 SECONDS (21-34) 12/14/18 08:32
[2018-12-19] MEDS ORDERED: (Novolin R) Insulin Human Regular 100 units/ml vial SC ONE ×2 (12:27→22:05)
[2018-12-19 12:35] LABS: ALB/GLOB RATIO 1.1 (1.0-2.1); ALBUMIN 3.1 g/dL (3.5-5.0); CALCIUM 9.2 mg/dl (8.6-10.4)
--- NOTE | 2018-12-19 15:50 | CP.PCM.PN ---
Subjective - Date & Time of Evaluation Date of Evaluation: 12/19/18 Time of Evaluation: 08:00 - Subjective Subjective: blood sugar hi patient feels weak Objective - Vital Signs/Intake and Output Vital Signs (last 24 hours): Temp Pulse Resp BP Pulse Ox 98.2 F 88 18 132/69 100 12/19/18 15:08 12/19/18 15:08 12/19/18 15:08 12/19/18 15:08 12/19/18 15:08 Intake and Output: 12/19/18 12/19/18 06:59 18:59 Intake Total 670 Balance 670 - Medications Medications: Current Medications Acetaminophen (Tylenol 325mg Tab) 650 mg PO Q6 PRN PRN Reason: Pain, moderate (4-7) Last Admin: 12/18/18 00:06 Dose: 650 mg Aspirin (Aspirin Chewable) 81 mg PO DAILY [facility] Last Admin: 12/19/18 10:00 Dose: Not Given Calcitriol (Rocaltrol) 0.5 mcg PO DAILY [facility] Last Admin: 12/19/18 10:00 Dose: Not Given Calcium Acetate (Phoslo) 667 mg PO BIDCC [facility] Last Admin: 12/19/18 07:39 Dose: 667 mg Dextrose (Dextrose 50% Inj) 0 ml IV STAT PRN; Protocol PRN Reason: Hypoglycemia Protocol Last Admin: 12/16/18 06:35 Dose: 50 ml Dextrose (Glutose 15) 0 gm PO ONCE PRN; Protocol PRN Reason: Hypoglycemia Protocol Diltiazem HCl (Cardizem Cd) 120 mg PO Q24H [facility] Last Admin: 12/18/18 22:16 Dose: 120 mg Docusate Sodium (Colace) 100 mg PO BID [facility] Last Admin: 12/19/18 10:00 Dose: Not Given Epoetin Sanchez (Procrit) 4,000 unit SC MWF [facility] Gabapentin (Neurontin) 100 mg PO TID [facility] Last Admin: 12/19/18 13:32 Dose: 100 mg Glucagon (Glucagen Diagnostic Kit) 0 mg IM STAT PRN; Protocol PRN Reason: Hypoglycemia Protocol Heparin Sodium (Porcine) (Heparin) 5,000 units SC Q8 [facility] Last Admin: 12/19/18 13:32 Dose: 5,000 units Hydralazine HCl (Apresoline) 25 mg PO Q4 PRN PRN Reason: Other Last Admin: 12/18/18 09:51 Dose: 25 mg Dextrose (Dextrose 5% In Water 1000 Ml) 1,000 mls @ 0 mls/hr IV .Q0M PRN; Protocol PRN Reason: Hypoglycemia Protocol Piperacillin Sod/Tazobactam Sod (Zosyn 2.25 Gm Iv Premix) 2.25 gm in 50 mls @ 100 mls/hr IVPB Q12H [facility]; Protocol Last Admin: 12/19/18 04:40 Dose: 100 mls/hr Vancomycin HCl 1 gm/ Sodium (Chloride) 250 mls @ 166.7 mls/hr IVPB Q4D [facility]; Protocol Last Admin: 12/15/18 18:18 Dose: 166.7 mls/hr Insulin Detemir (Levemir) 22 unit SC ACB [facility] Last Admin: 12/19/18 07:37 Dose: 22 units Insulin Detemir (Levemir) 22 unit SC HS [facility] Last Admin: 12/18/18 22:14 Dose: Not Given Insulin Human Regular (Novolin R) 5 unit SC AC [facility] Last Admin: 12/19/18 12:34 Dose: 5 unit Lactobacillus Acidophilus (Lactobacillus) 1 cap PO BID [facility] Last Admin: 12/19/18 10:00 Dose: Not Given Losartan Potassium (Cozaar) 100 mg PO QPM [facility] Metoprolol Tartrate (Lopressor) 100 mg PO BID [facility] Last Admin: 12/19/18 10:00 Dose: Not Given Minoxidil (Minoxidil) 2.5 mg PO DAILY [facility] Oxycodone/Acetaminophen (Percocet 5/325 Mg Tab) 1 tab PO Q12H PRN PRN Reason: Pain, severe (8-10) Stop: 12/20/18 14:42 Last Admin: 12/18/18 14:50 Dose: 1 tab Rosuvastatin Calcium (Crestor) 10 mg PO HS [facility] Last Admin: 12/18/18 22:16 Dose: 10 mg Vitamin B Complex/Vit C/Folic Acid (Nephro-Barbara) 1 tab PO 0800 [facility] Last Admin: 12/19/18 07:38 Dose: 1 tab - Labs Labs: 12/19/18 08:43 12/19/18 11:51 PT 10.4 SECONDS (9.7-12.2) 12/14/18 08:32 INR 1.0 12/14/18 08:32 APTT 32 SECONDS (21-34) 12/14/18 08:32 - Constitutional Appears: Non-toxic, No Acute Distress, Chronically Ill - Head Exam Head Exam: NORMOCEPHALIC - Eye Exam Eye Exam: absent: Scleral icterus - ENT Exam ENT Exam: Mucous Membranes Dry - Neck Exam Neck Exam: absent: Lymphadenopathy - Respiratory Exam Respiratory Exam: Decreased Breath Sounds - Cardiovascular Exam Cardiovascular Exam: REGULAR RHYTHM - GI/Abdominal Exam GI & Abdominal Exam: Distended - Rectal Exam Rectal Exam: Deferred - Exam Exam: NORMAL INSPECTION - Extremities Exam Extremities Exam: absent: Calf Tenderness, Pedal Edema, Tenderness Additional comments: Vasc: DP/PT pulses non-palpable b/l. Skin temperature warm to warm from proximal to distal WNL. CFT > 3 seconds to all digits b/l. No edema noted b/l Neuro: Epicritic and protective sensation grossly diminished b/l Derm: Callosity noted to distal aspect of right hallux with ulceration measuring approximately 0.1 cm x 0.1 cm x 0.1 cm noted in center of callosity. No tracking, tunneling, undermining, probe to bone, drainage, malodor or other clinical signs of infection noted. Hypertrophic patch of skin measuring roughly 4 cm x 3 cm noted to anterolateral ankle of right foot, unchanged since yesterday. No evidence of erythema or cellulitic changes. No breaks in the skin appreciated MSK: Pain on palpation of hypertrophic skin at anterior ankle, slightly improved. No pain on palpation of distal hallucal ulceration. No evidence of gross deformities appreciated - Back Exam Back Exam: absent: CVA tenderness (L), CVA tenderness (R) - Neurological Exam Neurological Exam: Alert, Awake, Oriented x3 - Psychiatric Exam Psychiatric exam: Normal Mood - Skin Skin Exam: Dry Assessment and Plan (1) Peritoneal dialysis catheter in place Status: Acute (2) CAD (coronary artery disease) Status: Acute (3) Diabetes mellitus Status: Acute (4) ESRD (end stage renal disease) Status: Acute (5) Gangrene Status: Acute (6) Hypertension Status: Acute - Assessment and Plan (Free Text) Assessment: 63M seen at bedside for distal right hallux ulceration and painful hypertrophic skin on anterior right ankle Afebrile, absent leukocytosis Foot xray: No evidence of osteomyelitis R foot MRI: Marked edema is seen throughout the distal phalanx great toe suggestive of possible osteomyelitis or prominent contusion. Dr. Rasmussen to speak with Dr. Rosales about vascular status for possible partial or complete amputation of right hallux. Allow demarcation to occur over weekend
[2018-12-19] MEDS: diltiaZEM 120 mg/24 Hours CD Cap PO SCH (22:23)
[2018-12-20] MEDS: Piperacill/Tazo 2.25gm in Dex 2.25 GM/50 ML BAG IVPB SCH ×2 (04:45→17:00)
--- NOTE | 2018-12-20 07:07 | CP.PCM.PN ---
<Sophy Martínez V - Last Filed: 12/20/18 18:10> Objective - Vital Signs/Intake and Output Vital Signs (last 24 hours): Temp Pulse Resp BP Pulse Ox 98.3 F 81 18 113/64 98 12/20/18 15:25 12/20/18 15:25 12/20/18 15:25 12/20/18 15:25 12/20/18 15:25 Intake and Output: 12/20/18 12/20/18 06:59 18:59 Intake Total 940 420 Balance 940 420 - Medications Medications: Current Medications Acetaminophen (Tylenol 325mg Tab) 650 mg PO Q6 PRN PRN Reason: Pain, moderate (4-7) Last Admin: 12/18/18 00:06 Dose: 650 mg Aspirin (Aspirin Chewable) 81 mg PO DAILY [facility] Last Admin: 12/20/18 09:35 Dose: 81 mg Calcitriol (Rocaltrol) 0.5 mcg PO DAILY [facility] Last Admin: 12/20/18 09:35 Dose: 0.5 mcg Calcium Acetate (Phoslo) 667 mg PO BIDCC [facility] Last Admin: 12/20/18 18:00 Dose: 667 mg Dextrose (Dextrose 50% Inj) 0 ml IV STAT PRN; Protocol PRN Reason: Hypoglycemia Protocol Last Admin: 12/16/18 06:35 Dose: 50 ml Dextrose (Glutose 15) 0 gm PO ONCE PRN; Protocol PRN Reason: Hypoglycemia Protocol Diltiazem HCl (Cardizem Cd) 120 mg PO Q24H [facility] Last Admin: 12/19/18 22:23 Dose: 120 mg Docusate Sodium (Colace) 100 mg PO BID [facility] Last Admin: 12/20/18 18:02 Dose: 100 mg Epoetin Sanchez (Procrit) 4,000 unit SC MWF [facility] Last Admin: 12/20/18 14:44 Dose: 4,000 unit Gabapentin (Neurontin) 100 mg PO TID [facility] Last Admin: 12/20/18 18:01 Dose: 100 mg Glucagon (Glucagen Diagnostic Kit) 0 mg IM STAT PRN; Protocol PRN Reason: Hypoglycemia Protocol Heparin Sodium (Porcine) (Heparin) 5,000 units SC Q8 [facility] Last Admin: 12/20/18 13:28 Dose: 5,000 units Hydralazine HCl (Apresoline) 25 mg PO Q4 PRN PRN Reason: Other Last Admin: 12/18/18 09:51 Dose: 25 mg Dextrose (Dextrose 5% In Water 1000 Ml) 1,000 mls @ 0 mls/hr IV .Q0M PRN; Protocol PRN Reason: Hypoglycemia Protocol Piperacillin Sod/Tazobactam Sod (Zosyn 2.25 Gm Iv Premix) 2.25 gm in 50 mls @ 100 mls/hr IVPB Q12H [facility]; Protocol Last Admin: 12/20/18 17:00 Dose: 100 mls/hr Vancomycin HCl 1 gm/ Sodium (Chloride) 250 mls @ 166.7 mls/hr IVPB Q4D [facility]; Protocol Last Admin: 12/19/18 17:00 Dose: 166.7 mls/hr Insulin Detemir (Levemir) 22 unit SC ACB [facility] Last Admin: 12/20/18 08:07 Dose: 22 units Insulin Detemir (Levemir) 22 unit SC HS [facility] Last Admin: 12/19/18 22:23 Dose: 22 units Insulin Human Regular (Novolin R) 5 unit SC AC [facility] Last Admin: 12/20/18 17:00 Dose: Not Given Lactobacillus Acidophilus (Lactobacillus) 1 cap PO BID [facility] Last Admin: 12/20/18 18:01 Dose: 1 cap Losartan Potassium (Cozaar) 100 mg PO QPM [facility] Last Admin: 12/20/18 18:00 Dose: 100 mg Metoprolol Tartrate (Lopressor) 100 mg PO BID [facility] Last Admin: 12/20/18 18:01 Dose: 100 mg Minoxidil (Minoxidil) 2.5 mg PO DAILY [facility] Last Admin: 12/20/18 09:40 Dose: 2.5 mg Rosuvastatin Calcium (Crestor) 10 mg PO HS [facility] Last Admin: 12/19/18 22:23 Dose: 10 mg Vitamin B Complex/Vit C/Folic Acid (Nephro-Barbara) 1 tab PO 0800 [facility] Last Admin: 12/20/18 08:07 Dose: 1 tab - Labs Labs: 12/20/18 07:13 12/20/18 07:13 PT 10.4 SECONDS (9.7-12.2) 12/14/18 08:32 INR 1.0 12/14/18 08:32 APTT 32 SECONDS (21-34) 12/14/18 08:32 Attending/Attestation - Attestation I have personally seen and examined this patient.: Yes I have fully participated in the care of the patient.: Yes I have reviewed all pertinent clinical information, including history, physical exam and plan: Yes Notes (Text): This is a 63 year old male with PMhx of IDDM2, ESRD on peritoneal dialysis, HTN, PVD who presents to the ED for pain to the wounds to his right foot, ankle area and right first toe. Found to to have ESR elevated, right hallux osteomyelitis on MRI started on IV abx (PD dosed). Assessment/Plan 1. Osteomyelitis of right hallux, acute Assessment/Plan * Podiatry on consult help appreciated * Cardiology on consult help appreciated * Infectious disease on consult help appreciated * Afebrile, no leukocytes, on admission 60 * 12/20/18: Resident discussed with cardiology, cleared from standpoint for podiatric procedure. Pending from plan from podiatric for interventions * Blood Cx (12/13/18): no growth >5 days X2 * Right Foot x-ray (12/14/18): no periosteal reaction to suggest osetomyelitis. No gross osseous destruction appreciated. * Right ankle x-ray (12/14/18): no periosteal reaction to suggest osetomyelitis. No gross osseous destruction appreciated. * Lower extremity MRI (12/15/18) without contrast right forefoot: marked edema is seen throughout the distal phalanx great toe suggestive of possible osteomyelitis or prominent contusion. No fracture identified. * Lower extremity MRI without contrast (12/15/18) right hind foot and midfoot: no MR evidence to suggest osteomyelitis at the midfoot and hindfoot bony anatomy with lateral foot cellulitis identified on a mild-moderate basis without abscess. * IV abx * Zosyn 2.25 gm IVPB Q12H- started 12/15 (dosed for PD) * Vancomycin 1 gm IVPB every 4 days- started 4/3 (dosed for PD) * Please note when antibiotics are determined for discharge planning; we will need to speak with nephrology intraperitonal Peripheral vascular disease, chronic - Arterial doppler study [facility] 12/07/18: R popliteal artery 75-99% stenosis. R Posterior tibial artery is occluded. L posterior tibial and anterior tibial with 50-75% stenosis. Diffuse disease to peroneal artery. R MARIVEL: 1.12, L MARIVEL: 0.91 - CTA of bilateral lower extremities: Right lower extremity: AT has short segment areas of mild to severe stenosis of mid and distal segments. Peroneal artery has occlusion in the proximal segment and areas of moderate stenosis in distal segment. - Left lower extremity: AT has short segment areas of severe stenosis of mid and distal segments. Peroneal artery has multiple areas of moderate stenosis in the mid and distal segments. - Peripheral angiogram of RLE: 3-vessel runoff but diffuse calcification. Atherectomy done and cleared out tibial artery--> now flow to digital arteries. - ASA 81 mg PO daily - Crestor 20 mg PO QHS - Cardizem 120 PO daily as per cardio - Cardiology consulted (Bobby)- will need further intervention the future Hypertension, chronic - Monitor on telemetry - Vitals Q4H - Echocardiogram: LVEF approximately 70%. Mild concentric LVH. Grade I abnormal relaxation pattern. - Lasix 80 mg PO 1x/day at 10 AM - Losartan 100 mg PO 1x/day at 2 PM - Metoprolol 100 mg PO 2x/day at 10 AM and 6 PM - Norvasc was changed to Cardizem ER 120 mg PO Q24H at 10 PM Lethargy, acute, resolved- noted by RN after returning from MRI 12/15 - CT head: Age-related neuro degenerative changes are appreciated in the brain and appear age-appropriate without definite acute intracranial findings. However, density in the arterial and venous system of the brain is appreciated and further evaluation by CT angiography (if no contraindication), brain MRI, MR brain angiogram and MR venography for follow up. - MRI brain without contrast: Artifact but nonacute brain MRI. Vascular changes seen in the CT of head may reflect normal variation or less likely, residual io dinated contrast material within patient's vascular system. - Neuro checks ESRD on Peritoneal dialysis QID, chronic- patient does not want to start hemodialysis Creatinine stable, but elevated at 10.1. Phosphorous is downtrending Pt to continue with peritoneal dialysis as pervious managed as outpatient Nephro Barbara 1 tab PO daily Calcitriol 0.5mct PO daily Continue Phoslo 667 mg PO BIDCC with food Continue to monitor and replete electrolytes as needed - Nephrology consulted ([place]) Type 2 diabetes mellitus with peripheral neuropathy, chronic - HgbA1c 8.4 - TG/CHL/LDL/HDL is 117/166/95/42 - Accuchecks ACHS - Hypoglycemic protocol - Levemir 22 units SC ACB, QHS - Aspart 5 units SC AC - ASA 81 mg PO daily - Crestor 20 mg PO QHS - Gabapentin 100 mg PO TID Insulin was to be adjusted today. Levemir dose was not given last night due to the rapid response, although nurse was told to give after patient ate. Morning sugars were elevated over 500. Insulin dose should be adjusted tomorrow based on sugars over a 24hour period. Ppx: VTE: SCDs contraindicated due to PAD, Heparin 5000 units SC Q8H GI: no indication Diet: heart healthy, renal, low carb. Glucerna [place] Shakes TID. Dispo: Continue IV abx. Continue PD. Treat HTN with new regimen. Pending podiatry recs for intervention or not. Dr. Rasmussen to speak with Dr. Rosales about vascular status for possible partial or complete amputation of right hallux. [facility] on DC. <Vidhya Cleary P - Last Filed: 12/20/18 20:02> Subjective - Date & Time of Evaluation Date of Evaluation: 12/20/18 Time of Evaluation: 07:06 - Subjective Subjective: Progress note for Dr. Martínez. Patient seen and examined at bedside. Pt required 5 units Novolin last night for elevated blood sugar. Patient states he is feeling much better today and has improved appetite. Reports some pain to RLE, but improved from previous. Denies fever, chills, nausea, vomiting, abdominal pain and shortness of breath. Objective - Vital Signs/Intake and Output Vital Signs (last 24 hours): Temp Pulse Resp BP Pulse Ox 98.2 F 95 H 20 128/82 100 12/20/18 06:35 12/20/18 06:35 12/20/18 06:35 12/20/18 06:35 12/20/18 06:35 Intake and Output: 12/20/18 12/20/18 06:59 18:59 Intake Total 940 Balance 940 - Medications Medications: Current Medications Acetaminophen (Tylenol 325mg Tab) 650 mg PO Q6 PRN PRN Reason: Pain, moderate (4-7) Last Admin: 12/18/18 00:06 Dose: 650 mg Aspirin (Aspirin Chewable) 81 mg PO DAILY [facility] Last Admin: 12/19/18 10:00 Dose: Not Given Calcitriol (Rocaltrol) 0.5 mcg PO DAILY [facility] Last Admin: 12/19/18 10:00 Dose: Not Given Calcium Acetate (Phoslo) 667 mg PO BIDCC [facility] Last Admin: 12/19/18 17:54 Dose: 667 mg Dextrose (Dextrose 50% Inj) 0 ml IV STAT PRN; Protocol PRN Reason: Hypoglycemia Protocol Last Admin: 12/16/18 06:35 Dose: 50 ml Dextrose (Glutose 15) 0 gm PO ONCE PRN; Protocol PRN Reason: Hypoglycemia Protocol Diltiazem HCl (Cardizem Cd) 120 mg PO Q24H [facility] Last Admin: 12/19/18 22:23 Dose: 120 mg Docusate Sodium (Colace) 100 mg PO BID [facility] Last Admin: 12/19/18 17:55 Dose: 100 mg Epoetin Sanchez (Procrit) 4,000 unit SC MWF [facility] Gabapentin (Neurontin) 100 mg PO TID [facility] Last Admin: 12/19/18 17:54 Dose: 100 mg Glucagon (Glucagen Diagnostic Kit) 0 mg IM STAT PRN; Protocol PRN Reason: Hypoglycemia Protocol Heparin Sodium (Porcine) (Heparin) 5,000 units SC Q8 [facility] Last Admin: 12/20/18 05:27 Dose: 5,000 units Hydralazine HCl (Apresoline) 25 mg PO Q4 PRN PRN Reason: Other Last Admin: 12/18/18 09:51 Dose: 25 mg Dextrose (Dextrose 5% In Water 1000 Ml) 1,000 mls @ 0 mls/hr IV .Q0M PRN; Protocol PRN Reason: Hypoglycemia Protocol Piperacillin Sod/Tazobactam Sod (Zosyn 2.25 Gm Iv Premix) 2.25 gm in 50 mls @ 100 mls/hr IVPB Q12H [facility]; Protocol Last Admin: 12/20/18 04:45 Dose: 100 mls/hr Vancomycin HCl 1 gm/ Sodium (Chloride) 250 mls @ 166.7 mls/hr IVPB Q4D [facility]; Pr otocol Last Admin: 12/19/18 17:00 Dose: 166.7 mls/hr Insulin Detemir (Levemir) 22 unit SC ACB [facility] Last Admin: 12/19/18 07:37 Dose: 22 units Insulin Detemir (Levemir) 22 unit SC [facility] Last Admin: 12/19/18 22:23 Dose: 22 units Insulin Human Regular (Novolin R) 5 unit SC AC [facility] Last Admin: 12/19/18 18:03 Dose: 5 unit Lactobacillus Acidophilus (Lactobacillus) 1 cap PO BID [facility] Last Admin: 12/19/18 17:56 Dose: Not Given Losartan Potassium (Cozaar) 100 mg PO QPM [facility] Last Admin: 12/19/18 18:01 Dose: Not Given Metoprolol Tartrate (Lopressor) 100 mg PO BID [facility] Last Admin: 12/19/18 18:02 Dose: Not Given Minoxidil (Minoxidil) 2.5 mg PO DAILY [facility] Oxycodone/Acetaminophen (Percocet 5/325 Mg Tab) 1 tab PO Q12H PRN PRN Reason: Pain, severe (8-10) Stop: 12/20/18 14:42 Last Admin: 12/18/18 14:50 Dose: 1 tab Rosuvastatin Calcium (Crestor) 10 mg PO [facility] Last Admin: 12/19/18 22:23 Dose: 10 mg Vitamin B Complex/Vit C/Folic Acid (Nephro-Barbara) 1 tab PO 0800 [facility] Last Admin: 12/19/18 07:38 Dose: 1 tab - Labs Labs: 12/19/18 08:43 12/19/18 11:51 PT 10.4 SECONDS (9.7-12.2) 12/14/18 08:32 INR 1.0 12/14/18 08:32 APTT 32 SECONDS (21-34) 12/14/18 08:32 - Constitutional Appears: Non-toxic, No Acute Distress - Head Exam Head Exam: ATRAUMATIC, NORMOCEPHALIC - Eye Exam Eye Exam: EOMI, Normal appearance - Neck Exam Neck Exam: Full ROM, Normal Inspection - Respiratory Exam Respiratory Exam: Clear to Ausculation Bilateral. absent: Rales, Rhonchi, Wheezes - Cardiovascular Exam Cardiovascular Exam: REGULAR RHYTHM, +S1, +S2, Murmur - GI/Abdominal Exam GI & Abdominal Exam: Soft. absent: Distended, Firm, Guarding, Rigid, Tenderness - Extremities Exam Extremities Exam: Full ROM. absent: Normal Inspection (shiny hairless LE b/l) Additional comments: LUE AV fistula, RUE PICC line. 4cm ulcer to R lateral malleolus with mild tenderness to palpation; no active drainage, warmth, erythema, or edema. 1 cm ulceration distal aspect of right hallux; minimal tenderness, no drainage, erythema, or edema. DP's not palpable bilaterally. - Neurological Exam Neurological Exam: Alert, Awake, Oriented x3 - Psychiatric Exam Psychiatric exam: Normal Affect, Normal Mood Assessment and Plan - Assessment and Plan (Free Text) Plan: This is a 63 year old male with PMhx of IDDM2, ESRD on peritoneal dialysis, HTN, PVD who presents to the ED for pain to the wounds to his right foot, ankle area and right first toe. Found to to have ESR elevated, right hallux osteomyelitis on MRI started on IV abx (PD dosed). Osteomyelitis of right hallux, acute - Afebrile, no leukocytosis - ESR elevated at 60 - Blood Cx no growth >3 days - Right Foot x-ray: no periosteal reaction to suggest osetomyelitis. No gross osseous destruction appreciated. - Right ankle x-ray: no periosteal reaction to suggest osetomyelitis. No gross osseous destruction appreciated. - Lower extremity MRI without contrast right forefoot: marked edema is seen throughout the distal phalanx great toe suggestive of possible osteomyelitis or prominent contusion. No fracture identified. - Lower extremity MRI without contrast right hind foot and midfoot: no MR evidence to suggest osteomyelitis at the midfoot and hindfoot bony anatomy with lateral foot cellulitis identified on a mild-moderate basis without abscess. - RUE midline - Zosyn 2.25 gm IVPB Q12H- started 4/3 (dosed for PD) - Vancomycin 1 gm IVPB every 4 days- started 4/3 (dosed for PD) - Tylenol 650 Q6H PRN - Podiatry consulted (Valery)- f/u recs - ID consulted (Loren) - Wound care Peripheral vascular disease, chronic - Arterial doppler study [facility] 12/07/18: R popliteal artery 75-99% stenosis. R Posterior tibial artery is occluded. L posterior tibial and anterior tibial with 50-75% stenosis. Diffuse disease to peroneal artery. R MARIVEL: 1.12, L MARIVEL: 0.91 - CTA of bilateral lower extremities: Right lower extremity: AT has short segment areas of mild to severe stenosis of mid and distal segments. Peroneal artery has occlusion in the proximal segment and areas of moderate stenosis in distal segment. - Left lower extremity: AT has short segment areas of severe stenosis of mid and distal segments. Peroneal artery has multiple areas of moderate stenosis in the mid and distal segments. - Peripheral angiogram of RLE: 3-vessel runoff but diffuse calcification. Atherectomy done and cleared out tibial artery--> now flow to digital arteries. - ASA 81 mg PO daily - Crestor 20 mg PO QHS - Cardizem 120 PO daily as per cardio - Cardiology consulted (Bobby)- will need further intervention the future Hypertension, chronic - Monitor on telemetry - Vitals Q4H - Echocardiogram: LVEF approximately 70%. Mild concentric LVH. Grade I abnormal relaxation pattern. - Lasix 80 mg PO 1x/day at 10 AM - Losartan 100 mg PO 1x/day at 2 PM - Metoprolol 100 mg PO 2x/day at 10 AM and 6 PM - Norvasc was changed to Cardizem ER 120 mg PO Q24H at 10 PM Lethargy, acute, resolved- noted by RN after returning from MRI 12/15 - CT head: Age-related neuro degenerative changes are appreciated in the brain and appear age-appropriate without definite acute intracranial findings. However, density in the arterial and venous system of the brain is appreciated and further evaluation by CT angiography (if no contraindication), brain MRI, MR brain angiogram and MR venography for follow up. - MRI brain without contrast: Artifact but nonacute brain MRI. Vascular changes seen in the CT of head may reflect normal variation or less likely, residual iodinated contrast material within patient's vascular system. - Neuro checks ESRD on Peritoneal dialysis QID, chronic- patient does not want to start hemodialysis -Creatinine stable, but elevated at 10.1. Phosphorous is downtrending -Pt to continue with peritoneal dialysis as pervious managed as outpatient -Nephro Barbara 1 tab PO daily -Calcitriol 0.5mct PO daily -Continue Phoslo 667 mg PO BIDCC with food -Continue to monitor and replete electrolytes as needed - Nephrology consulted ([place]) Type 2 diabetes mellitus with peripheral neuropathy, chronic - HgbA1c 8.4 - TG/CHL/LDL/HDL is 117/166/95/42 - Accuchecks ACHS - Hypoglycemic protocol - Levemir 22 units SC ACB, QHS - Aspart 5 units SC AC - ASA 81 mg PO daily - Crestor 20 mg PO QHS - Gabapentin 100 mg PO TID Insulin was to be adjusted today. Levemir dose was not given last night due to the rapid response, although nurse was told to give after patient ate. Morning sugars were elevated over 500. Insulin dose should be adjusted tomorrow based on sugars over a 24hour period. Ppx: VTE: SCDs contraindicated due to PAD, Heparin 5000 units SC Q8H GI: no indication Diet: heart healthy, renal, low carb. Glucerna [place] Shakes TID. Dispo: Continue IV abx. Continue PD. As per Dr. Rosales, patient is cleared for partial vs complete amputation of R hallux. Dr. Rasmussen to schedule patient for OR 12/22/18 tentatively. [facility] on DC.
[2018-12-20 07:21] LABS: BASO # 0.1 K/uL (0.0-0.2); BASO % 1.3 % (0.0-2.0); EOS # 0.4 K/uL (0.0-0.7); EOS % 5.5 % (0.0-4.0); HEMOGLOBIN 9.9 g/dL (12.0-18.0); LYMPH # 0.8 K/uL (1.0-4.3); LYMPH % 9.4 % (20.0-40.0); MEAN CELL VOLUME 79.6 fL (80.0-94.0); MEAN CORPUSCULAR HEMOGLOBIN 25.8 pg (27.0-31.0); MEAN CORPUSCULAR HGB CONC 32.5 g/dL (33.0-37.0); MEAN PLATELET VOLUME 7.6 fL (7.2-11.7); MONO % 12.6 % (0.0-10.0); NEUT # 5.7 K/uL (1.8-7.0); NEUT % 71.2 % (50.0-75.0); NRBC % 0.1 % (0.0-2.0); PLATELET COUNT 302 K/uL (130-400); RBC 3.85 Mil/uL (4.40-5.90); RED CELL DISTRIBUTION WIDTH 15.4 % (11.5-14.5); WHITE BLOOD COUNT 8.1 K/uL (4.8-10.8)
[2018-12-20] MEDS: Multivitamin Vitamin B Complex (Nephro-Vite) Tab PO SCH (08:07)
[2018-12-20] MEDS: Insulin Detemir 100 units/ml Vial (Levemir) SC SCH ×2 (08:07→22:39)
[2018-12-20 08:08] LABS: ALB/GLOB RATIO 1.2 (1.0-2.1); ALBUMIN 3.3 g/dL (3.5-5.0); CALCIUM 9.2 mg/dl (8.6-10.4)
[2018-12-20] MEDS: (Novolin R) Insulin Human Regular 100 units/ml vial SC SCH ×3 (08:08→17:00)
--- NOTE | 2018-12-20 08:26 | CP.PCM.PN ---
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 [employer] Objective - Vital Signs/Intake and Output Vital Signs (last 24 hours): Temp Pulse Resp BP Pulse Ox 98.2 F 95 H 20 145/82 100 12/20/18 07:05 12/20/18 07:05 12/20/18 07:05 12/20/18 07:05 12/20/18 07:05 Intake and Output: 12/20/18 12/20/18 06:59 18:59 Intake Total 940 Balance 940 - Medications Medications: Current Medications Acetaminophen (Tylenol 325mg Tab) 650 mg PO Q6 PRN PRN Reason: Pain, moderate (4-7) Last Admin: 12/18/18 00:06 Dose: 650 mg Aspirin (Aspirin Chewable) 81 mg PO DAILY [facility] Last Admin: 12/19/18 10:00 Dose: Not Given Calcitriol (Rocaltrol) 0.5 mcg PO DAILY [facility] Last Admin: 12/19/18 10:00 Dose: Not Given Calcium Acetate (Phoslo) 667 mg PO BIDCC [facility] Last Admin: 12/20/18 08:07 Dose: 667 mg Dextrose (Dextrose 50% Inj) 0 ml IV STAT PRN; Protocol PRN Reason: Hypoglycemia Protocol Last Admin: 12/16/18 06:35 Dose: 50 ml Dextrose (Glutose 15) 0 gm PO ONCE PRN; Protocol PRN Reason: Hypoglycemia Protocol Diltiazem HCl (Cardizem Cd) 120 mg PO Q24H [facility] Last Admin: 12/19/18 22:23 Dose: 120 mg Docusate Sodium (Colace) 100 mg PO BID [facility] Last Admin: 12/19/18 17:55 Dose: 100 mg Epoetin Sanchez (Procrit) 4,000 unit SC MWF [facility] Gabapentin (Neurontin) 100 mg PO TID [facility] Last Admin: 12/19/18 17:54 Dose: 100 mg Glucagon (Glucagen Diagnostic Kit) 0 mg IM STAT PRN; Protocol PRN Reason: Hypoglycemia Protocol Heparin Sodium (Porcine) (Heparin) 5,000 units SC Q8 [facility] Last Admin: 12/20/18 05:27 Dose: 5,000 units Hydralazine HCl (Apresoline) 25 mg PO Q4 PRN PRN Reason: Other Last Admin: 12/18/18 09:51 Dose: 25 mg Dextrose (Dextrose 5% In Water 1000 Ml) 1,000 mls @ 0 mls/hr IV .Q0M PRN; P rotocol PRN Reason: Hypoglycemia Protocol Piperacillin Sod/Tazobactam Sod (Zosyn 2.25 Gm Iv Premix) 2.25 gm in 50 mls @ 100 mls/hr IVPB Q12H [facility]; Protocol Last Admin: 12/20/18 04:45 Dose: 100 mls/hr Vancomycin HCl 1 gm/ Sodium (Chloride) 250 mls @ 166.7 mls/hr IVPB Q4D [facility]; Protocol Last Admin: 12/19/18 17:00 Dose: 166.7 mls/hr Insulin Detemir (Levemir) 22 unit SC ACB [facility] Last Admin: 12/20/18 08:07 Dose: 22 units Insulin Detemir (Levemir) 22 unit SC HS [facility] Last Admin: 12/19/18 22:23 Dose: 22 units Insulin Human Regular (Novolin R) 5 unit SC AC [facility] Last Admin: 12/20/18 08:08 Dose: 5 unit Lactobacillus Acidophilus (Lactobacillus) 1 cap PO BID [facility] Last Admin: 12/19/18 17:56 Dose: Not Given Losartan Potassium (Cozaar) 100 mg PO QPM [facility] Last Admin: 12/19/18 18:01 Dose: Not Given Metoprolol Tartrate (Lopressor) 100 mg PO BID [facility] Last Admin: 12/19/18 18:02 Dose: Not Given Minoxidil (Minoxidil) 2.5 mg PO DAILY [facility] Oxycodone/Acetaminophen (Percocet 5/325 Mg Tab) 1 tab PO Q12H PRN PRN Reason: Pain, severe (8-10) Stop: 12/20/18 14:42 Last Admin: 12/18/18 14:50 Dose: 1 tab Rosuvastatin Calcium (Crestor) 10 mg PO [facility] Last Admin: 12/19/18 22:23 Dose: 10 mg Vitamin B Complex/Vit C/Folic Acid (Nephro-Barbara) 1 tab PO 0800 [facility] Last Admin: 12/20/18 08:07 Dose: 1 tab - Labs Labs: 12/20/18 07:13 12/20/18 07:13 PT 10.4 SECONDS (9.7-12.2) 12/14/18 08:32 INR 1.0 12/14/18 08:32 APTT 32 SECONDS (21-34) 12/14/18 08:32 - Constitutional Appears: Well - Head Exam Head Exam: ATRAUMATIC, NORMAL INSPECTION, NORMOCEPHALIC - Eye Exam Eye Exam: EOMI, Normal appearance, PERRL Pupil Exam: NORMAL ACCOMODATION, PERRL - ENT Exam ENT Exam: Mucous Membranes Moist, Normal Exam - Neck Exam Neck Exam: Full ROM, Normal Inspection. absent: Lymphadenopathy - Respiratory Exam Respiratory Exam: Clear to Ausculation Bilateral, NORMAL BREATHING PATTERN - Cardiovascular Exam Cardiovascular Exam: REGULAR RHYTHM, +S1, +S2. absent: Murmur - GI/Abdominal Exam GI & Abdominal Exam: Soft, Normal Bowel Sounds. absent: Tenderness - Extremities Exam Extremities Exam: Full ROM, Normal Capillary Refill, Normal Inspection. absent: Joint Swelling, Pedal Edema - Back Exam Back Exam: NORMAL INSPECTION - Neurological Exam Neurological Exam: Alert, Awake, CN II-XII Intact, Normal Gait, Oriented x3 - Psychiatric Exam Psychiatric exam: Normal Affect, Normal Mood - Skin Skin Exam: Dry, Intact, Normal Color, Warm Assessment and Plan (1) PVD (peripheral vascular disease) Assessment & Plan: asa add plavix statins arb Status: Acute (2) CAD (coronary artery disease) Status: Acute (3) Diabetes mellitus Status: Acute (4) ESRD (end stage renal disease) Status: Acute (5) Gangrene Status: Acute (6) Peritoneal dialysis catheter in place Status: Acute (7) Hypertension Status: Acute
[2018-12-20 08:57] LABS: ANISOCYTOSIS SLIGHT; BASOPHIL 1 % (0-2); EOSINOPHIL 6 % (0-4); HYPOCHROMIC SLIGHT; LYMPHOCYTE 10 % (20-40); MONOCYTE 10 % (0-10); NEUTROPHIL 73 % (50-75); PLATELET ESTIMATE NORMAL (NORMAL); POIKILOCYTOSIS SLIGHT; TOTAL CELLS COUNTED 100
[2018-12-20] MEDS ORDERED: Epoetin Alfa 4000 UNIT/ML Inj SC SCH ×2 (09:00→13:35)
[2018-12-20] MEDS: Lactobacillus Acidophilus 500 MU Cap PO SCH ×2 (09:35→18:01)
--- NOTE | 2018-12-20 12:29 | CP.PCM.PN ---
Subjective - Date & Time of Evaluation Date of Evaluation: 12/20/18 Time of Evaluation: 09:00 - Subjective Subjective: denies fever less pain Objective - Vital Signs/Intake and Output Vital Signs (last 24 hours): Temp Pulse Resp BP Pulse Ox 98.0 F 99 H 18 145/75 100 12/20/18 10:53 12/20/18 10:53 12/20/18 10:53 12/20/18 10:53 12/20/18 10:53 Intake and Output: 12/20/18 12/20/18 06:59 18:59 Intake Total 940 Balance 940 - Medications Medications: Current Medications Acetaminophen (Tylenol 325mg Tab) 650 mg PO Q6 PRN PRN Reason: Pain, moderate (4-7) Last Admin: 12/18/18 00:06 Dose: 650 mg Aspirin (Aspirin Chewable) 81 mg PO DAILY [facility] Last Admin: 12/20/18 09:35 Dose: 81 mg Calcitriol (Rocaltrol) 0.5 mcg PO DAILY [facility] Last Admin: 12/20/18 09:35 Dose: 0.5 mcg Calcium Acetate (Phoslo) 667 mg PO BIDCC [facility] Last Admin: 12/20/18 08:07 Dose: 667 mg Dextrose (Dextrose 50% Inj) 0 ml IV STAT PRN; Protocol PRN Reason: Hypoglycemia Protocol Last Admin: 12/16/18 06:35 Dose: 50 ml Dextrose (Glutose 15) 0 gm PO ONCE PRN; Protocol PRN Reason: Hypoglycemia Protocol Diltiazem HCl (Cardizem Cd) 120 mg PO Q24H [facility] Last Admin: 12/19/18 22:23 Dose: 120 mg Docusate Sodium (Colace) 100 mg PO BID [facility] Last Admin: 12/20/18 09:35 Dose: 100 mg Epoetin Sanchez (Procrit) 4,000 unit SC MWF [facility] Gabapentin (Neurontin) 100 mg PO TID [facility] Last Admin: 12/20/18 09:35 Dose: 100 mg Glucagon (Glucagen Diagnostic Kit) 0 mg IM STAT PRN; Protocol PRN Reason: Hypoglycemia Protocol Heparin Sodium (Porcine) (Heparin) 5,000 units SC Q8 [facility] Last Admin: 12/20/18 05:27 Dose: 5,000 units Hydralazine HCl (Apresoline) 25 mg PO Q4 PRN PRN Reason: Other Last Admin: 12/18/18 09:51 Dose: 25 mg Dextrose (Dextrose 5% In Water 1000 Ml) 1,000 mls @ 0 mls/hr IV .Q0M PRN; Protocol PRN Reason: Hypoglycemia Protocol Piperacillin Sod/Tazobactam Sod (Zosyn 2.25 Gm Iv Premix) 2.25 gm in 50 mls @ 100 mls/hr IVPB Q12H [facility]; Protocol Last Admin: 12/20/18 04:45 Dose: 100 mls/hr Vancomycin HCl 1 gm/ Sodium (Chloride) 250 mls @ 166.7 mls/hr IVPB Q4D [facility]; Protocol Last Admin: 12/19/18 17:00 Dose: 166.7 mls/hr Insulin Detemir (Levemir) 22 unit SC ACB [facility] Last Admin: 12/20/18 08:07 Dose: 22 units Insulin Detemir (Levemir) 22 unit SC HS [facility] Last Admin: 12/19/18 22:23 Dose: 22 units Insulin Human Regular (Novolin R) 5 unit SC AC [facility] Last Admin: 12/20/18 08:08 Dose: 5 unit Lactobacillus Acidophilus (Lactobacillus) 1 cap PO BID [facility] Last Admin: 12/20/18 09:35 Dose: 1 cap Losartan Potassium (Cozaar) 100 mg PO QPM [facility] Last Admin: 12/19/18 18:01 Dose: Not Given Metoprolol Tartrate (Lopressor) 100 mg PO BID [facility] Last Admin: 12/20/18 09:35 Dose: 100 mg Minoxidil (Minoxidil) 2.5 mg PO DAILY [facility] Last Admin: 12/20/18 09:40 Dose: 2.5 mg Oxycodone/Acetaminophen (Percocet 5/325 Mg Tab) 1 tab PO Q12H PRN PRN Reason: Pain, severe (8-10) Stop: 12/20/18 14:42 Last Admin: 12/18/18 14:50 Dose: 1 tab Rosuvastatin Calcium (Crestor) 10 mg PO [facility] Last Admin: 12/19/18 22:23 Dose: 10 mg Vitamin B Complex/Vit C/Folic Acid (Nephro-Barbara) 1 tab PO 0800 [facility] Last Admin: 12/20/18 08:07 Dose: 1 tab - Labs Labs: 12/20/18 07:13 12/20/18 07:13 PT 10.4 SECONDS (9.7-12.2) 12/14/18 08:32 INR 1.0 12/14/18 08:32 APTT 32 SECONDS (21-34) 12/14/18 08:32 - Constitutional Appears: Non-toxic - Head Exam Head Exam: NORMOCEPHALIC - Eye Exam Eye Exam: PERRL. absent: Scleral icterus - ENT Exam ENT Exam: Mucous Membranes Dry, Normal Oropharynx - Neck Exam Neck Exam: absent: Lymphadenopathy - Respiratory Exam Respiratory Exam: Decreased Breath Sounds - Cardiovascular Exam Cardiovascular Exam: REGULAR RHYTHM, +S1, +S2 - GI/Abdominal Exam GI & Abdominal Exam: Soft. absent: Distended - Rectal Exam Rectal Exam: Deferred - Exam Exam: NORMAL INSPECTION - Extremities Exam Extremities Exam: Tenderness. absent: Normal Inspection, Pedal Edema - Back Exam Back Exam: absent: CVA tenderness (L), CVA tenderness (R) - Neurological Exam Neurological Exam: Alert, Awake, CN II-XII Intact, Oriented x3 - Psychiatric Exam Psychiatric exam: Depressed - Skin Skin Exam: Dry Assessment and Plan (1) Peritoneal dialysis catheter in place Status: Acute (2) CAD (coronary artery disease) Status: Acute (3) Diabetes mellitus Status: Acute (4) ESRD (end stage renal disease) Status: Acute (5) Gangrene Status: Acute (6) Hypertension Status: Acute - Assessment and Plan (Free Text) Assessment: improving no new cultures possible OR amputation vs mcfp IV antibiotics
[2018-12-20] MEDS ORDERED: EPOETIN ALFA 4,000 UNIT/ML ML Dialysis SC ONE (13:34)
--- NOTE | 2018-12-20 16:13 | CP.PCM.PN ---
Subjective - Date & Time of Evaluation Date of Evaluation: 12/20/18 Time of Evaluation: 16:12 - Subjective Subjective: Nephrology Consultation Note: Assessment: Stable Rt foot found/ulcer with PVD Rt foot toe osteomyelitis Diabetic chronic Kidney Disease (E11.22). Hypoglyecmia and hyperglycemia Hypertensive Chronic Kidney Disease (I12.0) End stage renal disease (N18.6) dependence on dialysis (Z99.2) as PD Anemia (D64.9), Hyperphosphatemia (E83.39), Secondary Hyperparathyroidism (E21.1), HTN (I12.0) uncontrolled severe HTN with urgency Plan: Will plan for PD as ordered. Continue with Nephrovite 1 tab/day. PD d/w medical staff services coordinator as well. PRBC as needed for anemia. will add JESSIE as last Hb <10 Continue with phos binders, last phos level: 4.7 Continue with calcitriol. BP control with meds as ordered. Patient on RAAS rachna as losartan 100 mg/d, metoprolol. also on CCB and prn hydralazine. will lower minoxidil 2.5 mg/d. d/c lasix 80 mg/d. . may d/c ccb also if BP stays low Glycemic control, Dialysis consistent diet Further work up/management as per primary team Dose meds/antibiotics (if needed) for ESRD status. Avoid fleets enema/magnesium based laxatives. podiatry and interventional cardiology following. abx per ID. please inform renal about d/c antibiotics. Can administer abx intraperitoneally as outpt. Thanks for allowing me to participate in care of your patient. Will follow patient with you. Please call if any Qs. had d/w team and family Dr Brad Lucero Office: [phone] Chief Complaint; Rt foot wound HPI: Pt is a 63 M with hx of ESRD on PD since 2014, chronic anemia, hyperphosphatemia, secondary hyperparathyroidism, Diabetes Mellitus, hypertension presented with complaints of rt foot wound Renal consult requested for ESRD management. PD: manual exchanges 1.5% alternating with 2.5% (2000 mL) with 4 hr dwell time, net UF 0-300 mL with each exchange. he is looking forward to switch to HD in near future ROS: tolerating pd well. net UF 5550-1218 ml. fluid is clear. no pain or issues reported during PD exchanges. feels sluggish. BP and sugar level fluctuating, ranging from high to low Cardiovascular: No chest pain. Pulmonary: No shortness of breath Gastrointestinal: denies abdominal pain No nausea. No vomiting. Genitourinary: No pain while urinating. Denies blood in urine. makes urine 1-2 times per day and not as much as used to in past All other negative except as mentioned in HPI s/p angiogram 12/17/18 Physical Examination: General Appearance: Comfortable, in no acute respiratory distress, co-operative . Vitals reviewed and noted as below Head; Atraumatic, normocephalic ENT: no ulcers no thrush. Tongue is midline. Oropharynx: no rash or ulcers. EYES: Pupils are equal, round and reactive to light accommodation. Eye muscles and extraocular movement intact. Sclera is anicteric. Neck; supple no lymphadenopathy, no thyromegaly or bruit Lungs: Normal respiratory rate/effort. Breath sounds bilateral reduced at bases Heart: Normal rate. s1s2 normal. No rub or gallop. Extremities: no edema. No varicose veins. Rt foot in dressing Neurological: Patient is alert, awake and oriented to person, place and time. No focal deficit. Strength bilateral appropriate and equal Skin: Warm and dry. Normal turgor. No rash. Palpitation: Normal elasticity for age Abdomen: Abdomen is soft. Bowel sounds +. There is no abdominal tenderness, no guarding/rigidity or organomegaly Psych: normal insight and normal affect/mood MSK: no joint tenderness or swelling. Digits and nails normal, no deformity : kidney or bladder not palpable Access: PD catheter. left AV access matured. Labs/imaging reviewed. Past medical history, past surgical history, family history, social history, allergy reviewed and noted as below Family Hx: no hx of CKD. Non contributory Objective - Vital Signs/Intake and Output Vital Signs (last 24 hours): Temp Pulse Resp BP Pulse Ox 98.3 F 81 18 113/64 98 12/20/18 15:25 12/20/18 15:25 12/20/18 15:25 12/20/18 15:25 12/20/18 15:25 Intake and Output: 12/20/18 12/20/18 06:59 18:59 Intake Total 940 420 Balance 940 420 - Medications Medications: Current Medications Acetaminophen (Tylenol 325mg Tab) 650 mg PO Q6 PRN PRN Reason: Pain, moderate (4-7) Last Admin: 12/18/18 00:06 Dose: 650 mg Aspirin (Aspirin Chewable) 81 mg PO DAILY [facility] Last Admin: 12/20/18 09:35 Dose: 81 mg Calcitriol (Rocaltrol) 0.5 mcg PO DAILY [facility] Last Admin: 12/20/18 09:35 Dose: 0.5 mcg Calcium Acetate (Phoslo) 667 mg PO BIDCC [facility] Last Admin: 12/20/18 08:07 Dose: 667 mg Dextrose (Dextrose 50% Inj) 0 ml IV STAT PRN; Protocol PRN Reason: Hypoglycemia Protocol Last Admin: 12/16/18 06:35 Dose: 50 ml Dextrose (Glutose 15) 0 gm PO ONCE PRN; Protocol PRN Reason: Hypoglycemia Protocol Diltiazem HCl (Cardizem Cd) 120 mg PO Q24H [facility] Last Admin: 12/19/18 22:23 Dose: 120 mg Docusate Sodium (Colace) 100 mg PO BID [facility] Last Admin: 12/20/18 09:35 Dose: 100 mg Epoetin Sanchez (Procrit) 4,000 unit SC MWF [facility] Last Admin: 12/20/18 14:44 Dose: 4,000 unit Gabapentin (Neurontin) 100 mg PO TID [facility] Last Admin: 12/20/18 13:27 Dose: 100 mg Glucagon (Glucagen Diagnostic Kit) 0 mg IM STAT PRN; Protocol PRN Reason: Hypoglycemia Protocol Heparin Sodium (Porcine) (Heparin) 5,000 units SC Q8 [facility] Last Admin: 12/20/18 13:28 Dose: 5,000 units Hydralazine HCl (Apresoline) 25 mg PO Q4 PRN PRN Reason: Other Last Admin: 12/18/18 09:51 Dose: 25 mg Dextrose (Dextrose 5% In Water 1000 Ml) 1,000 mls @ 0 mls/hr IV .Q0M PRN; Pro tocol PRN Reason: Hypoglycemia Protocol Piperacillin Sod/Tazobactam Sod (Zosyn 2.25 Gm Iv Premix) 2.25 gm in 50 mls @ 100 mls/hr IVPB Q12H [facility]; Protocol Last Admin: 12/20/18 04:45 Dose: 100 mls/hr Vancomycin HCl 1 gm/ Sodium (Chloride) 250 mls @ 166.7 mls/hr IVPB Q4D [facility]; Protocol Last Admin: 12/19/18 17:00 Dose: 166.7 mls/hr Insulin Detemir (Levemir) 22 unit SC ACB [facility] Last Admin: 12/20/18 08:07 Dose: 22 units Insulin Detemir (Levemir) 22 unit SC HS [facility] Last Admin: 12/19/18 22:23 Dose: 22 units Insulin Human Regular (Novolin R) 5 unit SC AC [facility] Last Admin: 12/20/18 12:33 Dose: 5 unit Lactobacillus Acidophilus (Lactobacillus) 1 cap PO BID [facility] Last Admin: 12/20/18 09:35 Dose: 1 cap Losartan Potassium (Cozaar) 100 mg PO QPM [facility] Last Admin: 12/19/18 18:01 Dose: Not Given Metoprolol Tartrate (Lopressor) 100 mg PO BID [facility] Last Admin: 12/20/18 09:35 Dose: 100 mg Minoxidil (Minoxidil) 2.5 mg PO DAILY [facility] Last Admin: 12/20/18 09:40 Dose: 2.5 mg Rosuvastatin Calcium (Crestor) 10 mg PO HS [facility] Last Admin: 12/19/18 22:23 Dose: 10 mg Vitamin B Complex/Vit C/Folic Acid (Nephro-Barbara) 1 tab PO 0800 [facility] Last Admin: 12/20/18 08:07 Dose: 1 tab - Labs Labs: 12/20/18 07:13 12/20/18 07:13 PT 10.4 SECONDS (9.7-12.2) 12/14/18 08:32 INR 1.0 12/14/18 08:32 APTT 32 SECONDS (21-34) 12/14/18 08:32
[2018-12-20] MEDS: diltiaZEM 120 mg/24 Hours CD Cap PO SCH (22:39)
[2018-12-21] MEDS ORDERED: (Novolin R) Insulin Human Regular 100 units/ml vial SC ONE ×2 (02:11→13:46)
[2018-12-21] MEDS: Piperacill/Tazo 2.25gm in Dex 2.25 GM/50 ML BAG IVPB SCH ×2 (05:21→17:25)
--- NOTE | 2018-12-21 07:48 | CP.PCM.PN ---
Subjective - Date & Time of Evaluation Date of Evaluation: 12/21/18 Time of Evaluation: 07:45 - Subjective Subjective: HOSPITALIST SERVICE Pt s/e at bedside, no acute complaints overnight, denies pain in the foot, denies CP SOB FC NV, pt however says sugars have been uncontrolled. Pt is not eating sugary drink/ juices. understands plan for OR tmrw and agress w/ plan Objective - Vital Signs/Intake and Output Vital Signs (last 24 hours): Temp Pulse Resp BP Pulse Ox 98.1 F 88 20 108/64 98 12/21/18 06:32 12/21/18 06:32 12/21/18 06:32 12/21/18 06:32 12/21/18 06:32 Intake and Output: 12/21/18 12/21/18 06:59 18:59 Intake Total 840 Balance 840 - Medications Medications: Current Medications Acetaminophen (Tylenol 325mg Tab) 650 mg PO Q6 PRN PRN Reason: Pain, moderate (4-7) Last Admin: 12/18/18 00:06 Dose: 650 mg Aspirin (Aspirin Chewable) 81 mg PO DAILY [facility] Last Admin: 12/20/18 09:35 Dose: 81 mg Calcitriol (Rocaltrol) 0.5 mcg PO DAILY [facility] Last Admin: 12/20/18 09:35 Dose: 0.5 mcg Calcium Acetate (Phoslo) 667 mg PO BIDCC [facility] Last Admin: 12/20/18 18:00 Dose: 667 mg Dextrose (Dextrose 50% Inj) 0 ml IV STAT PRN; Protocol PRN Reason: Hypoglycemia Protocol Last Admin: 12/16/18 06:35 Dose: 50 ml Dextrose (Glutose 15) 0 gm PO ONCE PRN; Protocol PRN Reason: Hypoglycemia Protocol Diltiazem HCl (Cardizem Cd) 120 mg PO Q24H [facility] Last Admin: 12/20/18 22:39 Dose: 120 mg Docusate Sodium (Colace) 100 mg PO BID [facility] Last Admin: 12/20/18 18:02 Dose: 100 mg Epoetin Sanchez (Procrit) 4,000 unit SC MWF [facility] Last Admin: 12/20/18 14:44 Dose: 4,000 unit Gabapentin (Neurontin) 100 mg PO TID [facility] Last Admin: 12/20/18 18:01 Dose: 100 mg Glucagon (Glucagen Diagnostic Kit) 0 mg IM STAT PRN; Protocol PRN Reason: Hypoglycemia Protocol Heparin Sodium (Porcine) (Heparin) 5,000 units SC Q8 [facility] Last Admin: 12/21/18 05:58 Dose: 5,000 units Hydralazine HCl (Apresoline) 25 mg PO Q4 PRN PRN Reason: Other Last Admin: 12/18/18 09:51 Dose: 25 mg Dextrose (Dextrose 5% In Water 1000 Ml) 1,000 mls @ 0 mls/hr IV .Q0M PRN; Protocol PRN Reason: Hypoglycemia Protocol Piperacillin Sod/Tazobactam Sod (Zosyn 2.25 Gm Iv Premix) 2.25 gm in 50 mls @ 100 mls/hr IVPB Q12H [facility]; Protocol Last Admin: 12/21/18 05:21 Dose: 100 mls/hr Vancomycin HCl 1 gm/ Sodium (Chloride) 250 mls @ 166.7 mls/hr IVPB Q4D [facility]; Protocol Last Admin: 12/19/18 17:00 Dose: 166.7 mls/hr Insulin Detemir (Levemir) 22 unit SC ACB [facility] Last Admin: 12/20/18 08:07 Dose: 22 units Insulin Detemir (Levemir) 22 unit SC HS [facility] Last Admin: 12/20/18 22:39 Dose: 22 units Insulin Human Regular (Novolin R) 5 unit SC AC [facility] Last Admin: 12/20/18 17:00 Dose: Not Given Lactobacillus Acidophilus (Lactobacillus) 1 cap PO BID [facility] Last Admin: 12/20/18 18:01 Dose: 1 cap Losartan Potassium (Cozaar) 100 mg PO QPM [facility] Last Admin: 12/20/18 18:00 Dose: 100 mg Metoprolol Tartrate (Lopressor) 100 mg PO BID [facility] Last Admin: 12/20/18 18:01 Dose: 100 mg Minoxidil (Minoxidil) 2.5 mg PO DAILY [facility] Last Admin: 12/20/18 09:40 Dose: 2.5 mg Rosuvastatin Calcium (Crestor) 10 mg PO HS [facility] Last Admin: 12/20/18 22:39 Dose: 10 mg Vitamin B Complex/Vit C/Folic Acid (Nephro-Barbara) 1 tab PO 0800 [facility] Last Admin: 12/20/18 08:07 Dose: 1 tab - Labs Labs: 04/08/19 07:13 12/20/18 07:13 PT 10.4 SECONDS (9.7-12.2) 12/14/18 08:32 INR 1.0 12/14/18 08:32 APTT 32 SECONDS (21-34) 12/14/18 08:32 - Additional Findings Additional findings: - Constitutional Appears: Non-toxic, No Acute Distress - Head Exam Head Exam: ATRAUMATIC, NORMOCEPHALIC - Eye Exam Eye Exam: EOMI, Normal appearance - Neck Exam Neck Exam: Full ROM, Normal Inspection - Respiratory Exam Respiratory Exam: Clear to Ausculation Bilateral. absent: Rales, Rhonchi, Wheezes - Cardiovascular Exam Cardiovascular Exam: REGULAR RHYTHM, +S1, +S2, Murmur - GI/Abdominal Exam GI & Abdominal Exam: Soft. absent: Distended, Firm, Guarding, Rigid, Tenderness - Extremities Exam Extremities Exam: Full ROM. absent: Normal Inspection (shiny hairless LE b/l) Additional comments: LUE AV fistula, RUE PICC line. 4cm ulcer to R lateral malleolus with mild tenderness to palpation; no active drainage, warmth, erythema, or edema. 1 cm ulceration distal aspect of right hallux; minimal tenderness, no drainage, erythema, or edema. DP's not palpable bilaterally. - Neurological Exam Neurological Exam: Alert, Awake, Oriented x3 - Psychiatric Exam Psychiatric exam: Normal Affect, Normal Mood Assessment and Plan - Assessment and Plan (Free Text) Assessment: This is a 63 year old male with PMhx of IDDM2, ESRD on peritoneal dialysis, HTN, PVD who presents to the ED for pain to the wounds to his right foot, ankle area and right first toe. Found to to have ESR elevated, right hallux osteomyelitis on MRI started on IV abx (PD dosed). PLAN Osteomyelitis of right hallux, acute - Afebrile, no leukocytosis - ESR elevated at 60 - Blood Cx no growth >3 days - Right Foot x-ray: no periosteal reaction to suggest osetomyelitis. No gross os seous destruction appreciated. - Right ankle x-ray: no periosteal reaction to suggest osetomyelitis. No gross osseous destruction appreciated. - Lower extremity MRI without contrast right forefoot: marked edema is seen throughout the distal phalanx great toe suggestive of possible osteomyelitis or prominent contusion. No fracture identified. - Lower extremity MRI without contrast right hind foot and midfoot: no MR evidence to suggest osteomyelitis at the midfoot and hindfoot bony anatomy with lateral foot cellulitis identified on a mild-moderate basis without abscess. - RUE midline - Zosyn 2.25 gm IVPB Q12H- started 12/15 (dosed for PD) - Vancomycin 1 gm IVPB every 4 days- started 12/15 (dosed for PD) - Tylenol 650 Q6H PRN - Podiatry consulted (Valery)- for R 1st toe Ampu @ 130pm tmrw - NPO after midnight except meds: hold lunch insulin - ID consulted (Loren) - Wound care Peripheral vascular disease, chronic - Arterial doppler study [facility] [place]: R popliteal artery 75-99% stenosis. R Posterior tibial artery is occluded. L posterior tibial and anterior tibial with 50-75% stenosis. Diffuse disease to peroneal artery. R MARIVEL: 1.12, L MARIVEL: 0.91 - CTA of bilateral lower extremities: Right lower extremity: AT has short segment areas of mild to severe stenosis of mid and distal segments. Peroneal artery has occlusion in the proximal segment and areas of moderate stenosis in distal segment. - Left lower extremity: AT has short segment areas of severe stenosis of mid and distal segments. Peroneal artery has multiple areas of moderate stenosis in the mid and distal segments. - Peripheral angiogram of RLE: 3-vessel runoff but diffuse calcification. Atherectomy done and cleared out tibial artery--> now flow to digital arteries. - ASA 81 mg PO daily - Crestor 20 mg PO QHS - Cardizem 120 PO daily as per cardio - Cardiology consulted (Bobby)- will need further intervention the future Hypertension, chronic - Monitor on telemetry - Vitals Q4H - Echocardiogram: LVEF approximately 70%. Mild concentric LVH. Grade I abnormal relaxation pattern. - Lasix 80 mg PO 1x/day at 10 AM - Losartan 100 mg PO 1x/day at 2 PM - Metoprolol 100 mg PO 2x/day at 10 AM and 6 PM - Norvasc was changed to Cardizem ER 120 mg PO Q24H at 10 PM Lethargy, acute, resolved- noted by RN after returning from MRI 12/15 - CT head: Age-related neuro degenerative changes are appreciated in the brain and appear age-appropriate without definite acute intracranial findings. However, density in the arterial and venous system of the brain is appreciated and further evaluation by CT angiography (if no contraindication), brain MRI, MR brain angiogram and MR venography for follow up. - MRI brain without contrast: Artifact but nonacute brain MRI. Vascular changes seen in the CT of head may reflect normal variation or less likely, residual iodinated contrast material within patient's vascular system. - Neuro checks ESRD on Peritoneal dialysis QID, chronic- patient does not want to start hemodialysis -Creatinine stable, but elevated at 10.1. Phosphorous is downtrending -Pt to continue with peritoneal dialysis as pervious managed as outpatient -Nephro Barbara 1 tab PO daily -Calcitriol 0.5mct PO daily -Continue Phoslo 667 mg PO BIDCC with food -Continue to monitor and replete electrolytes as needed - Nephrology consulted (Vail) Type 2 diabetes mellitus with peripheral neuropathy, chronic - HgbA1c 8.4 - TG/CHL/LDL/HDL is 117/166/95/42 - Accuchecks q6 - Hypoglycemic protocol - Levemir 22 units SC ACB, QHS - Aspart 5 units SC AC: *hold for lunch tmrw before OR - novolog 3u stat given for lunch today - ASA 81 mg PO daily - Crestor 20 mg PO QHS - Gabapentin 100 mg PO TID Insulin was not given yesterday before dinner, gluc elevated Ppx: VTE: SCDs contraindicated due to PAD, Heparin 5000 units SC Q8H- hold AM dose tmrw GI: no indication Diet: heart healthy, renal, low carb. Glucerna Tell Shakes TID. Dispo: Continue IV abx. Continue PD. As per Dr. Rosales, patient is cleared for partial vs complete amputation of R hallux. Dr. Rasmussen taking to OR tmrw @ 130pm hold lunch insulin, hold AM anti coag
[2018-12-21 08:19] LABS: BASO # 0.1 K/uL (0.0-0.2); EOS # 0.3 K/uL (0.0-0.7); HEMOGLOBIN 9.4 g/dL (12.0-18.0); LYMPH # 0.7 K/uL (1.0-4.3); LYMPH % 10.7 % (20.0-40.0); MEAN CELL VOLUME 80.6 fL (80.0-94.0); MEAN CORPUSCULAR HEMOGLOBIN 26.3 pg (27.0-31.0); MEAN CORPUSCULAR HGB CONC 32.6 g/dL (33.0-37.0); MEAN PLATELET VOLUME 8.2 fL (7.2-11.7); MONO % 14.8 % (0.0-10.0); NEUT # 4.6 K/uL (1.8-7.0); NEUT % 68.5 % (50.0-75.0); NRBC % 0.3 % (0.0-2.0); RBC 3.59 Mil/uL (4.40-5.90); RED CELL DISTRIBUTION WIDTH 15.8 % (11.5-14.5); WHITE BLOOD COUNT 6.7 K/uL (4.8-10.8)
[2018-12-21] MEDS: (Novolin R) Insulin Human Regular 100 units/ml vial SC SCH ×3 (08:22→17:24)
[2018-12-21] MEDS: Insulin Detemir 100 units/ml Vial (Levemir) SC SCH ×2 (08:23→22:48)
[2018-12-21] MEDS: Multivitamin Vitamin B Complex (Nephro-Vite) Tab PO SCH (08:23)
[2018-12-21 08:42] LABS: ALB/GLOB RATIO 1.2 (1.0-2.1); ALBUMIN 3.2 g/dL (3.5-5.0); CALCIUM 9.4 mg/dl (8.6-10.4)
[2018-12-21] MEDS: Lactobacillus Acidophilus 500 MU Cap PO SCH ×2 (10:27→17:23)
--- NOTE | 2018-12-21 11:23 | CP.PCM.PN ---
Subjective - Date & Time of Evaluation Date of Evaluation: 12/21/18 Time of Evaluation: 11:19 - Subjective Subjective: Podiatry Progress Note for Dr. Rasmussen 63M seen at bedside for distal right hallux ulceration and painful hypertrophic skin on anterior right ankle. Patient is much more alert today. States that his anterior ankle pain is improved at this time. Denies any further pedal complaints at this time. Patient Denies any recent N/V/F/C/CP/SOB/D Objective - Vital Signs/Intake and Output Vital Signs (last 24 hours): Temp Pulse Resp BP Pulse Ox 98.3 F 87 20 102/60 99 12/21/18 08:41 12/21/18 08:41 12/21/18 08:41 12/21/18 08:41 12/21/18 08:41 Intake and Output: 12/21/18 12/21/18 06:59 18:59 Intake Total 840 Balance 840 - Medications Medications: Current Medications Acetaminophen (Tylenol 325mg Tab) 650 mg PO Q6 PRN PRN Reason: Pain, moderate (4-7) Last Admin: 12/18/18 00:06 Dose: 650 mg Aspirin (Aspirin Chewable) 81 mg PO DAILY [facility] Last Admin: 12/21/18 10:24 Dose: 81 mg Calcitriol (Rocaltrol) 0.5 mcg PO DAILY [facility] Last Admin: 12/21/18 10:30 Dose: 0.5 mcg [facility]) [facility] Last Admin: 12/21/18 08:23 Dose: 667 mg Dextrose (Dextrose 50% Inj) 0 ml IV STAT PRN; Protocol PRN Reason: Hypoglycemia Protocol Last Admin: 12/16/18 06:35 Dose: 50 ml Dextrose (Glutose 15) 0 gm PO ONCE PRN; Protocol PRN Reason: Hypoglycemia Protocol Diltiazem HCl (Cardizem Cd) 120 mg PO Q24H [facility] Last Admin: 12/20/18 22:39 Dose: 120 mg Docusate Sodium (Colace) 100 mg PO BID [facility] Last Admin: 12/21/18 10:24 Dose: 100 mg Epoetin Sanchez (Procrit) 4,000 unit SC MWF [facility] Last Admin: 12/20/18 14:44 Dose: 4,000 unit Gabapentin (Neurontin) 100 mg PO TID [facility] Last Admin: 12/21/18 10:21 Dose: 100 mg Glucagon (Glucagen Diagnostic Kit) 0 mg IM STAT PRN; Protocol PRN Reason: Hypoglycemia Protocol Heparin Sodium (Porcine) (Heparin) 5,000 units SC Q8 [facility] Last Admin: 12/21/18 05:58 Dose: 5,000 units Hydralazine HCl (Apresoline) 25 mg PO Q4 PRN PRN Reason: Other Last Admin: 12/18/18 09:51 Dose: 25 mg Dextrose (Dextrose 5% In Water 1000 Ml) 1,000 mls @ 0 mls/hr IV .Q0M PRN; Protocol PRN Reason: Hypoglycemia Protocol Piperacillin Sod/Tazobactam Sod (Zosyn 2.25 Gm Iv Premix) 2.25 gm in 50 mls @ 100 mls/hr IVPB Q12H [facility]; Protocol Last Admin: 12/21/18 05:21 Dose: 100 mls/hr Vancomycin HCl 1 gm/ Sodium (Chloride) 250 mls @ 166.7 mls/hr IVPB Q4D [facility]; Protocol Last Admin: 12/19/18 17:00 Dose: 166.7 mls/hr Insulin Detemir (Levemir) 22 unit SC ACB [facility] Last Admin: 12/21/18 08:23 Dose: 22 units Insulin Detemir (Levemir) 22 unit SC HS [facility] Last Admin: 12/20/18 22:39 Dose: 22 units Insulin Human Regular (Novolin R) 5 unit SC AC [facility] Last Admin: 12/21/18 08:22 Dose: 5 unit Lactobacillus Acidophilus (Lactobacillus) 1 cap PO BID [facility] Last Admin: 12/21/18 10:27 Dose: 1 cap Losartan Potassium (Cozaar) 25 mg PO QPM [facility] Metoprolol Tartrate (Lopressor) 100 mg PO BID [facility] Last Admin: 12/21/18 10:21 Dose: 100 mg Minoxidil (Minoxidil) 2.5 mg PO DAILY [facility] Last Admin: 12/21/18 10:23 Dose: 2.5 mg Rosuvastatin Calcium (Crestor) 10 mg PO HS [facility] Last Admin: 12/20/18 22:39 Dose: 10 mg Vitamin B Complex/Vit C/Folic Acid (Nephro-Barbara) 1 tab PO 0800 [facility] Last Admin: 12/21/18 08:23 Dose: 1 tab - Labs Labs: 04/09/19 08:11 12/21/18 08:11 PT 10.4 SECONDS (9.7-12.2) 12/14/18 08:32 INR 1.0 12/14/18 08:32 APTT 32 SECONDS (21-34) 12/14/18 08:32 - Constitutional Appears: Well, Non-toxic, No Acute Distress - Extremities Exam Additional comments: LE focused exam: Vasc: DP/PT pulses non-palpable b/l. Skin temperature warm to warm from proximal to distal WNL except at right hallux which is cool to touch. CFT > 3 seconds to all digits b/l. No edema noted b/l Neuro: Epicritic and protective sensation grossly diminished b/l Derm: Callosity noted to distal aspect of right hallux with ulceration measuring approximately 0.1 cm x 0.1 cm x 0.1 cm noted in center of callosity. Signs of dry, stable gangrenous changes noted to entirety of right hallux. Demarcation at base of hallux appreciated at this time. No tracking, tunneling, undermining, probe to bone, drainage, malodor or other clinical signs of infection noted. Hypertrophic patch of skin measuring roughly 4 cm x 3 cm noted to anterolateral ankle of right foot, unchanged since yesterday. No evidence of erythema or cellulitic changes. No breaks in the skin appreciated MSK: Pain on palpation of hypertrophic skin at anterior ankle, continues to improve. No pain on palpation of distal hallucal ulceration. No evidence of gross deformities appreciated - Neurological Exam Neurological Exam: Alert, Awake, Oriented x3 - Psychiatric Exam Psychiatric exam: Normal Affect, Normal Mood Assessment and Plan - Assessment and Plan (Free Text) Assessment: 63M seen at bedside for distal right hallux ulceration and gangrene and painful hypertrophic skin on anterior right ankle. Plan: Patient seen and evaluated with Dr. Rasmussen Afebrile, absent leukocytosis Continue abx per ID ESR 60 Foot xray: No evidence of osteomyelitis R foot MRI: Marked edema is seen throughout the distal phalanx great toe suggestive of possible osteomyelitis or prominent contusion. No fracture id entified Per Dr. Rosales, patient should have adequate healing potential for right hallux amputation Discussed with patient need for amputation of right hallux secondary to gangrene and likely underlying OM Discussed all possible risks, benefits and complications with patient demonstrating good understanding Dressed wound with betadine, DSD Plan for amputation of right hallux with Dr. Rasmussen tomorrow at 1:30pm Patient to be NPO after midnight tonight F/u INR, PTT Podiatry will continue to follow while patient in house
--- NOTE | 2018-12-21 11:24 | CP.PCM.PN ---
Subjective - Date & Time of Evaluation Date of Evaluation: 12/21/18 Time of Evaluation: 11:22 - Subjective Subjective: Nephrology Consultation Note: Assessment: Stable Rt foot found/ulcer with PVD Rt foot toe osteomyelitis Diabetic chronic Kidney Disease (E11.22). Hypoglyecmia and hyperglycemia Hypertensive Chronic Kidney Disease (I12.0) End stage renal disease (N18.6) dependence on dialysis (Z99.2) as PD Anemia (D64.9), Hyperphosphatemia (E83.39), Secondary Hyperparathyroidism (E21.1), HTN (I12.0) uncontrolled severe HTN with urgency Plan: Will plan for PD as ordered. Continue with Nephrovite 1 tab/day. PD d/w staffing associate as well. pt to go to OR with dry abdomen. resume PD once back from OR. PRBC as needed for anemia. will add JESSIE as last Hb <10 Continue with phos binders, last phos level: 4.7 Continue with calcitriol. BP control with meds as ordered. Patient on RAAS rachna as losartan 100 mg/d- lower to 25 mg/d, metoprolol 100 mg bid. lowered minoxidil 2.5 mg/d. may d/c ccb also if BP stays low Glycemic control, Dialysis consistent diet Further work up/management as per primary team Dose meds/antibiotics (if needed) for ESRD status. Avoid fleets enema/magnesium based laxatives. podiatry and interventional cardiology following. abx per ID. please inform renal about d/c antibiotics. Can administer abx intraperitoneally as outpt. pt planned for toe amputation Thanks for allowing me to participate in care of your patient. Will follow patient with you. Please call if any Qs. had d/w team and family Dr Brad Lucero Office: [phone] Chief Complaint; Rt foot wound HPI: Pt is a 63 M with hx of ESRD on PD since 2014, chronic anemia, hyperphosphatemia, secondary hyperparathyroidism, Diabetes Mellitus, hypertension presented with complaints of rt foot wound Renal consult requested for ESRD management. PD: manual exchanges 1.5% alternating with 2.5% (2000 mL) with 4 hr dwell time, net UF 0-300 mL with each exchange. he is looking forward to switch to HD in near future ROS: tolerating pd well. net UF 9566-3765 ml. fluid is clear. no pain or issues reported during PD exchanges. Cardiovascular: No chest pain. Pulmonary: No shortness of breath Gastrointestinal: denies abdominal pain No nausea. No vomiting. Genitourinary: No pain while urinating. Denies blood in urine. makes urine 1-2 times per day and not as much as used to in past All other negative except as mentioned in HPI s/p angiogram 12/17/18 Physical Examination: General Appearance: Comfortable, in no acute respiratory distress, co-operative . Vitals reviewed and noted as below Head; Atraumatic, normocephalic ENT: no ulcers no thrush. Tongue is midline. Oropharynx: no rash or ulcers. EYES: Pupils are equal, round and reactive to light accommodation. Eye muscles and extraocular movement intact. Sclera is anicteric. Neck; supple no lymphadenopathy, no thyromegaly or bruit Lungs: Normal respiratory rate/effort. Breath sounds bilateral reduced at bases Heart: Normal rate. s1s2 normal. No rub or gallop. Extremities: no edema. No varicose veins. Rt foot in dressing Neurological: Patient is alert, awake and oriented to person, place and time. No focal deficit. Strength bilateral appropriate and equal Skin: Warm and dry. Normal turgor. No rash. Palpitation: Normal elasticity for age Abdomen: Abdomen is soft. Bowel sounds +. There is no abdominal tenderness, no guarding/rigidity or organomegaly Psych: normal insight and normal affect/mood MSK: no joint tenderness or swelling. Digits and nails normal, no deformity : kidney or bladder not palpable Access: PD catheter. left AV access matured. Labs/imaging reviewed. Past medical history, past surgical history, family history, social history, allergy reviewed and noted as below Family Hx: no hx of CKD. Non contributory Objective - Vital Signs/Intake and Output Vital Signs (last 24 hours): Temp Pulse Resp BP Pulse Ox 98.3 F 87 20 102/60 99 12/21/18 08:41 12/21/18 08:41 12/21/18 08:41 12/21/18 08:41 12/21/18 08:41 Intake and Output: 12/21/18 12/21/18 06:59 18:59 Intake Total 840 Balance 840 - Medications Medications: Current Medications Acetaminophen (Tylenol 325mg Tab) 650 mg PO Q6 PRN PRN Reason: Pain, moderate (4-7) Last Admin: 12/18/18 00:06 Dose: 650 mg Aspirin (Aspirin Chewable) 81 mg PO DAILY [facility] Last Admin: 12/21/18 10:24 Dose: 81 mg Calcitriol (Rocaltrol) 0.5 mcg PO DAILY [facility] Last Admin: 12/21/18 10:30 Dose: 0.5 mcg [facility]cium [facility]ate ([facility]lo) [facility] Last Admin: 12/21/18 08:23 Dose: 667 mg Dextrose (Dextrose 50% Inj) 0 ml IV STAT PRN; Protocol PRN Reason: Hypoglycemia Protocol Last Admin: 12/16/18 06:35 Dose: 50 ml Dextrose (Glutose 15) 0 gm PO ONCE PRN; Protocol PRN Reason: Hypoglycemia Protocol Diltiazem HCl (Cardizem Cd) 120 mg PO Q24H [facility] Last Admin: 12/20/18 22:39 Dose: 120 mg Docusate Sodium (Colace) 100 mg PO BID [facility] Last Admin: 12/21/18 10:24 Dose: 100 mg Epoetin Sanchez (Procrit) 4,000 unit SC MWF [facility] Last Admin: 12/20/18 14:44 Dose: 4,000 unit Gabapentin (Neurontin) 100 mg PO TID [facility] Last Admin: 12/21/18 10:21 Dose: 100 mg Glucagon (Glucagen Diagnostic Kit) 0 mg IM STAT PRN; Protocol PRN Reason: Hypoglycemia Protocol Heparin Sodium (Porcine) (Heparin) 5,000 units SC Q8 [facility] Last Admin: 12/21/18 05:58 Dose: 5,000 units Hydralazine HCl (Apresoline) 25 mg PO Q4 PRN PRN Reason: Other Last Admin: 12/18/18 09:51 Dose: 25 mg Dextrose (Dextrose 5% In Water 1000 Ml) 1,000 mls @ 0 mls/hr IV .Q0M PRN; Protocol PRN Reason: Hypoglycemia Protocol Piperacillin Sod/Tazobactam Sod (Zosyn 2.25 Gm Iv Premix) 2.25 gm in 50 mls @ 100 mls/hr IVPB Q12H [facility]; Protocol Last Admin: 12/21/18 05:21 Dose: 100 mls/hr Vancomycin HCl 1 gm/ Sodium (Chloride) 250 mls @ 166.7 mls/hr IVPB Q4D [facility]; Protocol Last Admin: 12/19/18 17:00 Dose: 166.7 mls/hr Insulin Detemir (Levemir) 22 unit SC ACB [facility] Last Admin: 12/21/18 08:23 Dose: 22 units Insulin Detemir (Levemir) 22 unit SC HS [facility] Last Admin: 12/20/18 22:39 Dose: 22 units Insulin Human Regular (Novolin R) 5 unit SC AC [facility] Last Admin: 12/21/18 08:22 Dose: 5 unit Lactobacillus Acidophilus (Lactobacillus) 1 cap PO BID [facility] Last Admin: 12/21/18 10:27 Dose: 1 cap Losartan Potassium (Cozaar) 25 mg PO QPM [facility] Metoprolol Tartrate (Lopressor) 100 mg PO BID [facility] Last Admin: 12/21/18 10:21 Dose: 100 mg Minoxidil (Minoxidil) 2.5 mg PO DAILY [facility] Last Admin: 12/21/18 10:23 Dose: 2.5 mg Rosuvastatin Calcium (Crestor) 10 mg PO [facility] Last Admin: 12/20/18 22:39 Dose: 10 mg Vitamin B Complex/Vit C/Folic Acid (Nephro-Barbara) 1 tab PO 0800 [facility] Last Admin: 12/21/18 08:23 Dose: 1 tab - Labs Labs: 12/21/18 08:11 12/21/18 08:11 PT 10.4 SECONDS (9.7-12.2) 12/14/18 08:32 INR 1.0 12/14/18 08:32 APTT 32 SECONDS (21-34) 12/14/18 08:32
--- NOTE | 2018-12-21 12:29 | CP.PCM.PN ---
Subjective - Date & Time of Evaluation Date of Evaluation: 12/21/18 Time of Evaluation: 10:00 - Subjective Subjective: improving' afebrile alert nad Objective - Vital Signs/Intake and Output Vital Signs (last 24 hours): Temp Pulse Resp BP Pulse Ox 98.3 F 87 20 102/60 99 12/21/18 08:41 12/21/18 08:41 12/21/18 08:41 12/21/18 08:41 12/21/18 08:41 Intake and Output: 12/21/18 12/21/18 06:59 18:59 Intake Total 840 Balance 840 - Medications Medications: Current Medications Acetaminophen (Tylenol 325mg Tab) 650 mg PO Q6 PRN PRN Reason: Pain, moderate (4-7) Last Admin: 12/18/18 00:06 Dose: 650 mg Aspirin (Aspirin Chewable) 81 mg PO DAILY [facility] Last Admin: 12/21/18 10:24 Dose: 81 mg Calcitriol (Rocaltrol) 0.5 mcg PO DAILY [facility] Last Admin: 12/21/18 10:30 Dose: 0.5 mcg Calcium Acetate (Phoslo) 667 mg PO BIDCC [facility] Last Admin: 12/21/18 08:23 Dose: 667 mg Dextrose (Dextrose 50% Inj) 0 ml IV STAT PRN; Protocol PRN Reason: Hypoglycemia Protocol Last Admin: 12/16/18 06:35 Dose: 50 ml Dextrose (Glutose 15) 0 gm PO ONCE PRN; Protocol PRN Reason: Hypoglycemia Protocol Diltiazem HCl (Cardizem Cd) 120 mg PO Q24H [facility] Last Admin: 12/20/18 22:39 Dose: 120 mg Docusate Sodium (Colace) 100 mg PO BID [facility] Last Admin: 12/21/18 10:24 Dose: 100 mg Epoetin Sanchez (Procrit) 4,000 unit SC MWF [facility] Last Admin: 12/20/18 14:44 Dose: 4,000 unit Gabapentin (Neurontin) 100 mg PO TID [facility] Last Admin: 12/21/18 10:21 Dose: 100 mg Glucagon (Glucagen Diagnostic Kit) 0 mg IM STAT PRN; Protocol PRN Reason: Hypoglycemia Protocol Heparin Sodium (Porcine) (Heparin) 5,000 units SC Q8 [facility] Last Admin: 12/21/18 05:58 Dose: 5,000 units Hydralazine HCl (Apresoline) 25 mg PO Q4 PRN PRN Reason: Other Last Admin: 12/18/18 09:51 Dose: 25 mg Dextrose (Dextrose 5% In Water 1000 Ml) 1,000 mls @ 0 mls/hr IV .Q0M PRN; Protocol PRN Reason: Hypoglycemia Protocol Piperacillin Sod/Tazobactam Sod (Zosyn 2.25 Gm Iv Premix) 2.25 gm in 50 mls @ 100 mls/hr IVPB Q12H [facility]; Protocol Last Admin: 12/21/18 05:21 Dose: 100 mls/hr Vancomycin HCl 1 gm/ Sodium (Chloride) 250 mls @ 166.7 mls/hr IVPB Q4D [facility]; Protocol Last Admin: 12/19/18 17:00 Dose: 166.7 mls/hr Insulin Detemir (Levemir) 22 unit SC ACB [facility] Last Admin: 12/21/18 08:23 Dose: 22 units Insulin Detemir (Levemir) 22 unit SC HS [facility] Last Admin: 12/20/18 22:39 Dose: 22 units Insulin Human Regular (Novolin R) 5 unit SC AC [facility] Last Admin: 12/21/18 12:15 Dose: 5 unit Lactobacillus Acidophilus (Lactobacillus) 1 cap PO BID [facility] Last Admin: 12/21/18 10:27 Dose: 1 cap Losartan Potassium (Cozaar) 25 mg PO QPM [facility] Metoprolol Tartrate (Lopressor) 100 mg PO BID [facility] Last Admin: 12/21/18 10:21 Dose: 100 mg Minoxidil (Minoxidil) 2.5 mg PO DAILY [facility] Last Admin: 12/21/18 10:23 Dose: 2.5 mg Rosuvastatin Calcium (Crestor) 10 mg PO HS [facility] Last Admin: 12/20/18 22:39 Dose: 10 mg Vitamin B Complex/Vit C/Folic Acid (Nephro-Barbara) 1 tab PO 0800 [facility] Last Admin: 12/21/18 08:23 Dose: 1 tab - Labs Labs: 12/21/18 08:11 12/21/18 08:11 PT 10.4 SECONDS (9.7-12.2) 12/14/18 08:32 INR 1.0 12/14/18 08:32 APTT 32 SECONDS (21-34) 12/14/18 08:32 - Constitutional Appears: Non-toxic, No Acute Distress, Chronically Ill - Head Exam Head Exam: ATRAUMATIC, NORMAL INSPECTION, NORMOCEPHALIC - Eye Exam Eye Exam: EOMI, Normal appearance, PERRL Pupil Exam: NORMAL ACCOMODATION, PERRL - ENT Exam ENT Exam: Mucous Membranes Moist, Normal Exam - Neck Exam Neck Exam: Full ROM, Normal Inspection. absent: Lymphadenopathy - Respiratory Exam Respiratory Exam: Clear to Ausculation Bilateral, NORMAL BREATHING PATTERN - Cardiovascular Exam Cardiovascular Exam: REGULAR RHYTHM, +S1, +S2. absent: Murmur - GI/Abdominal Exam GI & Abdominal Exam: Soft, Normal Bowel Sounds. absent: Tenderness - Rectal Exam Rectal Exam: Deferred - Exam Exam: NORMAL INSPECTION - Extremities Exam Extremities Exam: Full ROM, Normal Capillary Refill, Normal Inspection. absent: Joint Swelling, Pedal Edema - Back Exam Back Exam: NORMAL INSPECTION - Neurological Exam Neurological Exam: Alert, Awake, CN II-XII Intact, Normal Gait, Oriented x3 - Psychiatric Exam Psychiatric exam: Normal Affect, Normal Mood - Skin Skin Exam: Dry Assessment and Plan (1) Peritoneal dialysis catheter in place Status: Acute (2) CAD (coronary artery disease) Status: Acute (3) Diabetes mellitus Status: Acute (4) ESRD (end stage renal disease) Status: Acute (5) Gangrene Status: Acute (6) Hypertension Status: Acute - Assessment and Plan (Free Text) Assessment: for OR in am
[2018-12-21] MEDS ORDERED: (Novolog) Insulin Aspart, Recombinant 100 u/ml 10 ml vial SC STA (13:16)
--- NOTE | 2018-12-21 14:18 | CP.PCM.PN ---
Subjective - Date & Time of Evaluation Date of Evaluation: 12/21/18 Time of Evaluation: 14:16 - Subjective Subjective: to OR tomorrow sx improved post revascularization Objective - Vital Signs/Intake and Output Vital Signs (last 24 hours): Temp Pulse Resp BP Pulse Ox 98.3 F 87 20 102/60 99 12/21/18 08:41 12/21/18 08:41 12/21/18 08:41 12/21/18 08:41 12/21/18 08:41 Intake and Output: 12/21/18 12/21/18 06:59 18:59 Intake Total 840 Balance 840 - Medications Medications: Current Medications Acetaminophen (Tylenol 325mg Tab) 650 mg PO Q6 PRN PRN Reason: Pain, moderate (4-7) Last Admin: 12/18/18 00:06 Dose: 650 mg Aspirin (Aspirin Chewable) 81 mg PO DAILY [facility] Last Admin: 12/21/18 10:24 Dose: 81 mg Calcitriol (Rocaltrol) 0.5 mcg PO DAILY [facility] Last Admin: 12/21/18 10:30 Dose: 0.5 mcg Calcium Acetate (Phoslo) 667 mg PO BIDCC [facility] Last Admin: 12/21/18 08:23 Dose: 667 mg Dextrose (Dextrose 50% Inj) 0 ml IV STAT PRN; Protocol PRN Reason: Hypoglycemia Protocol Last Admin: 12/16/18 06:35 Dose: 50 ml Dextrose (Glutose 15) 0 gm PO ONCE PRN; Protocol PRN Reason: Hypoglycemia Protocol Diltiazem HCl (Cardizem Cd) 120 mg PO Q24H [facility] Last Admin: 12/20/18 22:39 Dose: 120 mg Docusate Sodium (Colace) 100 mg PO BID [facility] Last Admin: 12/21/18 10:24 Dose: 100 mg Epoetin Sanchez (Procrit) 4,000 unit SC MWF [facility] Last Admin: 12/20/18 14:44 Dose: 4,000 unit Gabapentin (Neurontin) 100 mg PO TID [facility] Last Admin: 12/21/18 13:43 Dose: 100 mg Glucagon (Glucagen Diagnostic Kit) 0 mg IM STAT PRN; Protocol PRN Reason: Hypoglycemia Protocol Heparin Sodium (Porcine) (Heparin) 5,000 units SC Q8 [facility] Last Admin: 12/21/18 05:58 Dose: 5,000 units Hydralazine HCl (Apresoline) 25 mg PO Q4 PRN PRN Reason: Other Last Admin: 12/18/18 09:51 Dose: 25 mg Dextrose (Dextrose 5% In Water 1000 Ml) 1,000 mls @ 0 mls/hr IV .Q0M PRN; Protocol PRN Reason: Hypoglycemia Protocol Piperacillin Sod/Tazobactam Sod (Zosyn 2.25 Gm Iv Premix) 2.25 gm in 50 mls @ 100 mls/hr IVPB Q12H [facility]; Protocol Last Admin: 12/21/18 05:21 Dose: 100 mls/hr Vancomycin HCl 1 gm/ Sodium (Chloride) 250 mls @ 166.7 mls/hr IVPB Q4D [facility]; Protocol Last Admin: 12/19/18 17:00 Dose: 166.7 mls/hr Insulin Detemir (Levemir) 22 unit SC ACB [facility] Last Admin: 12/21/18 08:23 Dose: 22 units Insulin Detemir (Levemir) 22 unit SC HS [facility] Last Admin: 12/20/18 22:39 Dose: 22 units Insulin Human Regular (Novolin R) 5 unit SC AC [facility] Last Admin: 12/21/18 12:15 Dose: 5 unit Lactobacillus Acidophilus (Lactobacillus) 1 cap PO BID [facility] Last Admin: 12/21/18 10:27 Dose: 1 cap Losartan Potassium (Cozaar) 25 mg PO QPM [facility] Metoprolol Tartrate (Lopressor) 100 mg PO BID [facility] Last Admin: 12/21/18 10:21 Dose: 100 mg Minoxidil (Minoxidil) 2.5 mg PO DAILY [facility] Last Admin: 12/21/18 10:23 Dose: 2.5 mg Rosuvastatin Calcium (Crestor) 10 mg PO HS [facility] Last Admin: 12/20/18 22:39 Dose: 10 mg Vitamin B Complex/Vit C/Folic Acid (Nephro-Barbara) 1 tab PO 0800 [facility] Last Admin: 12/21/18 08:23 Dose: 1 tab - Labs Labs: 12/21/18 08:11 12/21/18 08:11 PT 10.4 SECONDS (9.7-12.2) 12/14/18 08:32 INR 1.0 12/14/18 08:32 APTT 32 SECONDS (21-34) 12/14/18 08:32 - Constitutional Appears: Well - Head Exam Head Exam: ATRAUMATIC, NORMAL INSPECTION, NORMOCEPHALIC - Eye Exam Eye Exam: EOMI, Normal appearance, PERRL Pupil Exam: NORMAL ACCOMODATION, PERRL - ENT Exam ENT Exam: Mucous Membranes Moist, Normal Exam - Neck Exam Neck Exam: Full ROM, Normal Inspection. absent: Lymphadenopathy - Respiratory Exam Respiratory Exam: Clear to Ausculation Bilateral, NORMAL BREATHING PATTERN - Cardiovascular Exam Cardiovascular Exam: REGULAR RHYTHM, +S1, +S2. absent: Murmur - GI/Abdominal Exam GI & Abdominal Exam: Soft, Normal Bowel Sounds. absent: Tenderness - Extremities Exam Extremities Exam: Full ROM, Normal Capillary Refill, Normal Inspection. absent: Joint Swelling, Pedal Edema - Back Exam Back Exam: NORMAL INSPECTION - Neurological Exam Neurological Exam: Alert, Awake, CN II-XII Intact, Normal Gait, Oriented x3 - Psychiatric Exam Psychiatric exam: Normal Affect, Normal Mood - Skin Skin Exam: Dry, Normal Color, Warm Assessment and Plan (1) Preop cardiovascular exam Assessment & Plan: stable to proceed with amputation of gangrenous toe Status: Acute (2) PVD (peripheral vascular disease) Assessment & Plan: cont asa , cardizem add plavix post op Status: Acute (3) CAD (coronary artery disease) Status: Acute (4) Diabetes mellitus Status: Acute (5) ESRD (end stage renal disease) Status: Acute (6) Gangrene Status: Acute (7) Peritoneal dialysis catheter in place Status: Acute (8) Hypertension Status: Acute
[2018-12-21] MEDS: diltiaZEM 120 mg/24 Hours CD Cap PO SCH (22:47)
[2018-12-22] MEDS ORDERED: (Novolin R) Insulin Human Regular 100 units/ml vial SC ONE (02:17)
[2018-12-22] MEDS: Piperacill/Tazo 2.25gm in Dex 2.25 GM/50 ML BAG IVPB SCH ×2 (04:07→17:30)
[2018-12-22] MEDS ORDERED: Insulin Detemir 100 units/ml Vial (Levemir) SC ONE (07:00)
--- NOTE | 2018-12-22 07:13 | CP.PCM.PN ---
Subjective - Date & Time of Evaluation Date of Evaluation: 12/22/18 Time of Evaluation: 07:11 - Subjective Subjective: Progress note for Dr. aMrtínez. Patient seen and evaluated at bedside. Patient required 14 units of insulin overnight due to elevated blood sugar. Patient had PD at 4am today in anticipation for surgery. He has no complaints at this time, only wishes that he will not need any additional surgery after today. Denies chest pain, SOB, nause a, vomiting, dizziness, lightheadedness. Objective - Vital Signs/Intake and Output Vital Signs (last 24 hours): Temp Pulse Resp BP Pulse Ox 98.3 F 95 H 20 97/60 L 100 12/22/18 06:00 12/22/18 06:00 12/22/18 06:00 12/22/18 06:00 12/22/18 04:26 - Medications Medications: Current Medications Acetaminophen (Tylenol 325mg Tab) 650 mg PO Q6 PRN PRN Reason: Pain, moderate (4-7) Last Admin: 12/18/18 00:06 Dose: 650 mg Aspirin (Aspirin Chewable) 81 mg PO DAILY [facility] Last Admin: 12/21/18 10:24 Dose: 81 mg Calcitriol (Rocaltrol) 0.5 mcg PO DAILY [facility] Last Admin: 12/21/18 10:30 Dose: 0.5 mcg Calcium Acetate (Phoslo) 667 mg PO BIDCC [facility] Last Admin: 12/21/18 17:25 Dose: 667 mg Dextrose (Dextrose 50% Inj) 0 ml IV STAT PRN; Protocol PRN Reason: Hypoglycemia Protocol Last Admin: 12/16/18 06:35 Dose: 50 ml Dextrose (Glutose 15) 0 gm PO ONCE PRN; Protocol PRN Reason: Hypoglycemia Protocol Diltiazem HCl (Cardizem Cd) 120 mg PO Q24H [facility] Last Admin: 12/21/18 22:47 Dose: 120 mg Docusate Sodium (Colace) 100 mg PO BID [facility] Last Admin: 12/21/18 17:23 Dose: 100 mg Epoetin Sanchez (Procrit) 4,000 unit SC MWF [facility] Last Admin: 12/20/18 14:44 Dose: 4,000 unit Gabapentin (Neurontin) 100 mg PO TID [facility] Last Admin: 12/21/18 17:24 Dose: 100 mg Glucagon (Glucagen Diagnostic Kit) 0 mg IM STAT PRN; Protocol PRN Reason: Hypoglycemia Protocol Heparin Sodium (Porcine) (Heparin) 5,000 units SC Q8 [facility] Last Admin: 12/22/18 06:48 Dose: 5,000 units Hydralazine HCl (Apresoline) 25 mg PO Q4 PRN PRN Reason: Other Last Admin: 12/18/18 09:51 Dose: 25 mg Dextrose (Dextrose 5% In Water 1000 Ml) 1,000 mls @ 0 mls/hr IV .Q0M PRN; Protocol PRN Reason: Hypoglycemia Protocol Piperacillin Sod/Tazobactam Sod (Zosyn 2.25 Gm Iv Premix) 2.25 gm in 50 mls @ 100 mls/hr IVPB Q12H [facility]; Protocol Last Admin: 12/22/18 04:07 Dose: 100 mls/hr Vancomycin HCl 1 gm/ Sodium (Chloride) 250 mls @ 166.7 mls/hr IVPB Q4D [facility]; Protocol Last Admin: 12/19/18 17:00 Dose: 166.7 mls/hr Insulin Detemir (Levemir) 22 unit SC HS [facility] Last Admin: 12/21/18 22:48 Dose: 22 units Insulin Detemir (Levemir) 22 unit SC ACB [facility] Insulin Human Regular (Novolin R) 5 unit SC AC [facility] Last Admin: 12/21/18 17:24 Dose: 5 unit Lactobacillus Acidophilus (Lactobacillus) 1 cap PO BID [facility] Last Admin: 12/21/18 17:23 Dose: 1 cap Losartan Potassium (Cozaar) 25 mg PO QPM [facility] Metoprolol Tartrate (Lopressor) 100 mg PO BID [facility] Last Admin: 12/21/18 10:21 Dose: 100 mg Minoxidil (Minoxidil) 2.5 mg PO DAILY [facility] Last Admin: 12/21/18 10:23 Dose: 2.5 mg Rosuvastatin Calcium (Crestor) 10 mg PO HS [facility] Last Admin: 12/21/18 22:47 Dose: 10 mg Vitamin B Complex/Vit C/Folic Acid (Nephro-Barbara) 1 tab PO 0800 [facility] Last Admin: 12/21/18 08:23 Dose: 1 tab - Labs Labs: 12/21/18 08:11 12/21/18 08:11 PT 11.0 SECONDS (9.7-12.2) 12/21/18 14:13 INR 1.0 12/21/18 14:13 APTT 34 SECONDS (21-34) 12/21/18 14:13 - Additional Findings Additional findings: - Constitutional Appears: Non-toxic, No Acute Distress - Head Exam Head Exam: ATRAUMATIC, NORMOCEPHALIC - Eye Exam Eye Exam: EOMI, Normal appearance - Neck Exam Neck Exam: Full ROM, Normal Inspection - Respiratory Exam Respiratory Exam: Clear to Ausculation Bilateral. absent: Rales, Rhonchi, Wheezes - Cardiovascular Exam Cardiovascular Exam: REGULAR RHYTHM, +S1, +S2, Murmur - GI/Abdominal Exam GI & Abdominal Exam: Soft. absent: Distended, Firm, Guarding, Rigid, Tenderness - Extremities Exam Extremities Exam: Full ROM. absent: Normal Inspection (shiny hairless LE b/l) Additional comments: LUE AV fistula with palpable thrill, RUE midline line. R foot dressing c/d/i. DP's not palpable bilaterally. - Neurological Exam Neurological Exam: Alert, Awake, Oriented x3 - Psychiatric Exam Psychiatric exam: Normal Affect, Normal Mood Assessment and Plan - Assessment and Plan (Free Text) Plan: This is a 63 year old male with PMhx of IDDM2, ESRD on peritoneal dialysis, HTN, PVD who presents to the ED for pain to the wounds to his right foot, ankle area and right first toe. Found to to have ESR elevated, right hallux osteomyelitis on MRI started on IV abx (PD dosed). Osteomyelitis of right hallux, acute - Afebrile, no leukocytosis - ESR elevated at 60 - Blood Cx no growth >3 days - Right Foot x-ray: no periosteal reaction to suggest osetomyelitis. No gross osseous destruction appreciated. - Right ankle x-ray: no periosteal reaction to suggest osetomyelitis. No gross osseous destruction appreciated. - Lower extremity MRI without contrast right forefoot: marked edema is seen throughout the distal phalanx great toe suggestive of possible osteomyelitis or prominent contusion. No fracture identified. - Lower extremity MRI without contrast right hind foot and midfoot: no MR evidence to suggest osteomyelitis at the midfoot and hindfoot bony anatomy with lateral foot cellulitis identified on a mild-moderate basis without abscess. - RUE midline - Zosyn 2.25 gm IVPB Q12H- started 4/3 (dosed for PD) - Vancomycin 1 gm IVPB every 4 days- started 12/15 (dosed for PD) - Tylenol 650 Q6H PRN - Podiatry consulted (Valery)- for R 1st toe Ampu @ 130pm tmrw - NPO after midnight except meds: hold lunch insulin - ID consulted (Loren) - Wound care Peripheral vascular disease, chronic - Arterial doppler study [facility] [place] 12/07/18: R popliteal artery 75-99% stenosis. R Posterior tibial artery is occluded. L posterior tibial and anterior tibial with 50-75% stenosis. Diffuse disease to peroneal artery. R MARIVEL: 1.12, L MARIVEL: 0.91 - CTA of bilateral lower extremities: Right lower extremity: AT has short segment areas of mild to severe stenosis of mid and distal segments. Peroneal artery has occlusion in the proximal segment and areas of moderate stenosis in distal segment. - Left lower extremity: AT has short segment areas of severe stenosis of mid and distal segments. Peroneal artery has multiple areas of moderate stenosis in the mid and distal segments. - Peripheral angiogram of RLE: 3-vessel runoff but diffuse calcification. Atherectomy done and cleared out tibial artery--> now flow to digital arteries. - ASA 81 mg PO daily - Crestor 20 mg PO QHS - Cardizem 120 PO daily as per cardio - Cardiology consulted (Bobby) Hypertension, chronic - Monitor on telemetry - Vitals Q4H - Echocardiogram: LVEF approximately 70%. Mild concentric LVH. Grade I abnormal relaxation pattern. - Lasix 80 mg PO 1x/day at 10 AM - Losartan 100 mg PO 1x/day at 2 PM - Metoprolol 100 mg PO 2x/day at 10 AM and 6 PM- held for low BP - Norvasc was changed to Cardizem ER 120 mg PO Q24H at 10 PM Lethargy, acute, resolved- noted by RN after returning from MRI 12/15 - CT head: Age-related neuro degenerative changes are appreciated in the brain and appear age-appropriate without definite acute intracranial findings. However, density in the arterial and venous system of the brain is appreciated and further evaluation by CT angiography (if no contraindication), brain MRI, MR brain angiogram and MR venography for follow up. - MRI brain without contrast: Artifact but nonacute brain MRI. Vascular changes seen in the CT of head may reflect normal variation or less likely, residual iodinated contrast material within patient's vascular system. - Neuro checks ESRD on Peritoneal dialysis QID, chronic- patient does not want to start hemodialysis -Creatinine stable, but elevated. Phosphorous is downtrending -Pt to continue with peritoneal dialysis as pervious managed as outpatient -Nephro Barbara 1 tab PO daily -Calcitriol 0.5mct PO daily -Continue Phoslo 667 mg PO BIDCC with food -Continue to monitor and replete electrolytes as needed - Nephrology consulted (Vail) Type 2 diabetes mellitus with peripheral neuropathy, chronic - HgbA1c 8.4 - TG/CHL/LDL/HDL is 117/166/95/42 - Accuchecks q6 - Hypoglycemic protocol - Levemir 22 units SC ACB, QHS - Aspart 5 units SC AC: - novolog 3u stat given for lunch today - ASA 81 mg PO daily - Crestor 20 mg PO QHS - Gabapentin 100 mg PO TID Insulin was not given yesterday before dinner, gluc elevated Ppx: VTE: SCDs contraindicated due to PAD, Heparin 5000 units SC Q8H GI: no indication Diet: heart healthy, renal, low carb. Glucerna Ophir Shakes TID. Dispo: Continue IV abx. Continue PD. Dr. Rasmussen taking to OR today @ 130pm. As per nursing, patient not eligible for [facility] with PD. Case discussed with Dr. Martínez. Vidhya Cleary, PGY-1
[2018-12-22 07:29] LABS: BASO # 0.1 K/uL (0.0-0.2); EOS # 0.3 K/uL (0.0-0.7); EOS % 4.7 % (0.0-4.0); LYMPH # 0.7 K/uL (1.0-4.3); LYMPH % 10.5 % (20.0-40.0); MEAN CORPUSCULAR HEMOGLOBIN 26.4 pg (27.0-31.0); MEAN CORPUSCULAR HGB CONC 33.1 g/dL (33.0-37.0); MEAN PLATELET VOLUME 7.8 fL (7.2-11.7); MONO # 0.9 K/uL (0.0-0.8); MONO % 14.4 % (0.0-10.0); NEUT # 4.3 K/uL (1.8-7.0); NEUT % 69.4 % (50.0-75.0); NRBC % 0.1 % (0.0-2.0); RBC 3.42 Mil/uL (4.40-5.90); RED CELL DISTRIBUTION WIDTH 15.6 % (11.5-14.5); WHITE BLOOD COUNT 6.3 K/uL (4.8-10.8)
[2018-12-22 08:15] LABS: ALB/GLOB RATIO 1.1 (1.0-2.1); ALBUMIN 3.1 g/dL (3.5-5.0); CALCIUM 9.4 mg/dl (8.6-10.4)
[2018-12-22] MEDS: (Novolin R) Insulin Human Regular 100 units/ml vial SC SCH ×2 (08:30→17:23)
[2018-12-22] MEDS: Multivitamin Vitamin B Complex (Nephro-Vite) Tab PO SCH (08:30)
[2018-12-22] MEDS: Lactobacillus Acidophilus 500 MU Cap PO SCH ×2 (11:00→17:48)
[2018-12-22] MEDS ORDERED: Lidocaine 2% MPF (5 ml) Inj ONE (12:58)
[2018-12-22] MEDS ORDERED: ceFAZolin 1 gm in NS 0 GM/0 ML BAG IVPB ONE (12:58)
[2018-12-22] MEDS ORDERED: Bupivacaine 0.25% 20 ML INJ IJ ONE (12:59)
[2018-12-22] MEDS ORDERED: Lidocaine Hydrochloride 10 ML INJ ONE (13:00)
[2018-12-22] MEDS ORDERED: Propofol 10 mg/ml Inj (20 ML) ONE (13:35)
[2018-12-22] MEDS ORDERED: Midazolam 2 MG/2 ML VIAL ONE (13:35)
--- NOTE | 2018-12-22 14:42 | PCM.SURG1 ---
Surgeon's Initial Post Op Note - Surgeon's Notes Surgeon: Dr. Rasmussen, DPM Sack Repairer: Dr. Beulah Colon PGY1, Dr. Romeo Ramsey PGY2 Type of Anesthesia: IV Sedation, Local Pre-Operative Diagnosis: Right hallux gangrene Operative Findings: See Dictation. I: Pre-op: 17cc of 1:1 mix of 0.5% marcaine plain, 1% lidocaine plain. M: 3-0 Vicryl, 3-0 Nylon Post-Operative Diagnosis: Same Operation Performed: Right hallux amputation Specimen/Specimens Removed: Right hallux Estimated Blood Loss: EBL {In ML}: 25 Blood Products Given: N/A Drains Used: No Drains Post-Op Condition: Good Date of Surgery/Procedure: 12/22/18 Time of Surgery/Procedure: 14:42
[2018-12-22] MEDS ORDERED: Oxycodone/Acetaminophen 5/325 mg Tab PO PRN (14:46)
--- NOTE | 2018-12-22 17:03 | RAD ---
Date of service: 12/22/2018 PROCEDURE: Right Foot Radiographs. HISTORY: s/p right hallux amputation COMPARISON: None. TECHNIQUE: 3 views obtained. FINDINGS: BONES: No acute fracture. Status post amputation 1st digit at metatarsal phalangeal articulation. JOINTS: Normal. SOFT TISSUES: Vascular calcifications are noted. OTHER FINDINGS: None. IMPRESSION: Amputation 1st digit. Otherwise unremarkable.
--- NOTE | 2018-12-22 17:32 | CP.PCM.PN ---
Subjective - Date & Time of Evaluation Date of Evaluation: 12/22/18 Time of Evaluation: 17:31 - Subjective Subjective: Nephrology Consultation Note: Assessment: Stable Rt foot found/ulcer with PVD Rt foot toe osteomyelitis Diabetic chronic Kidney Disease (E11.22). Hypoglyecmia and hyperglycemia Hypertensive Chronic Kidney Disease (I12.0) End stage renal disease (N18.6) dependence on dialysis (Z99.2) as PD Anemia (D64.9), Hyperphosphatemia (E83.39), Secondary Hyperparathyroidism (E21.1), HTN (I12.0) uncontrolled severe HTN with urgency Plan: Will plan for PD as ordered. Continue with Nephrovite 1 tab/day. PD d/w staff certified nurse midwife as well. PRBC as needed for anemia. will add JESSIE as last Hb <10 Continue with phos binders, last phos level: 4.7 Continue with calcitriol. BP control with meds as ordered. Patient on RAAS rachna as losartan 100 mg/d- lower to 25 mg/d, metoprolol 100 mg bid. lowered minoxidil 2.5 mg/d. may d/c ccb also if BP stays low Glycemic control, Dialysis consistent diet Further work up/management as per primary team Dose meds/antibiotics (if needed) for ESRD status. Avoid fleets enema/magnesium based laxatives. podiatry and interventional cardiology following. abx per ID. please inform renal about d/c antibiotics. Can administer abx intraperitoneally as outpt. pt had toe amputation 12/22/18 Thanks for allowing me to participate in care of your patient. Will follow patient with you. Please call if any Qs. had d/w team and family Dr Brad Lucero Office: [phone] Chief Complaint; Rt foot wound HPI: Pt is a 63 M with hx of ESRD on PD since 2014, chronic anemia, hyperphosphatemia, secondary hyperparathyroidism, Diabetes Mellitus, hypertension presented with complaints of rt foot wound Renal consult requested for ESRD management. PD: manual exchanges 1.5% alternating with 2.5% (2000 mL) with 4 hr dwell time, net UF 0-300 mL with each exchange. he is looking forward to switch to HD in near future ROS: tolerating pd well. net UF 1603-6960 ml. fluid is clear. no pain or issues reported during PD exchanges. Cardiovascular: No chest pain. Pulmonary: No shortness of breath Gastrointestinal: denies abdominal pain No nausea. No vomiting. Genitourinary: No pain while urinating. Denies blood in urine. makes urine 1-2 times per day and not as much as used to in past All other negative except as mentioned in HPI s/p angiogram 12/17/18 Physical Examination: General Appearance: Comfortable, in no acute respiratory distress, co-operative . Vitals reviewed and noted as below Head; Atraumatic, normocephalic ENT: no ulcers no thrush. Tongue is midline. Oropharynx: no rash or ulcers. EYES: Pupils are equal, round and reactive to light accommodation. Eye muscles and extraocular movement intact. Sclera is anicteric. Neck; supple no lymphadenopathy, no thyromegaly or bruit Lungs: Normal respiratory rate/effort. Breath sounds bilateral reduced at bases Heart: Normal rate. s1s2 normal. No rub or gallop. Extremities: no edema. No varicose veins. Rt foot in dressing Neurological: Patient is alert, awake and oriented to person, place and time. No focal deficit. Strength bilateral appropriate and equal Skin: Warm and dry. Normal turgor. No rash. Palpitation: Normal elasticity for age Abdomen: Abdomen is soft. Bowel sounds +. There is no abdominal tenderness, no guarding/rigidity or organomegaly Psych: normal insight and normal affect/mood MSK: no joint tenderness or swelling. Digits and nails normal, no deformity. s/p Rt great toe amputation : kidney or bladder not palpable Access: PD catheter. left AV access matured. Labs/imaging reviewed. Past medical history, past surgical history, family history, social history, allergy reviewed and noted as below Family Hx: no hx of CKD. Non contributory Objective - Vital Signs/Intake and Output Vital Signs (last 24 hours): Temp Pulse Resp BP Pulse Ox 97.4 F L 95 H 20 177/85 H 100 12/22/18 16:00 12/22/18 16:00 12/22/18 16:00 12/22/18 16:00 12/22/18 16:00 Intake and Output: 12/22/18 12/22/18 06:59 18:59 Intake Total 50 460 Balance 50 460 - Medications Medications: Current Medications Acetaminophen (Tylenol 325mg Tab) 650 mg PO Q6 PRN PRN Reason: Pain, Mild (1-3) Aspirin (Aspirin Chewable) 81 mg PO DAILY [facility] Last Admin: 12/22/18 11:00 Dose: 81 mg Calcitriol (Rocaltrol) 0.5 mcg PO DAILY [facility] Last Admin: 12/22/18 11:00 Dose: 0.5 mcg Calcium Acetate (Phoslo) 667 mg PO BIDCC [facility] Last Admin: 12/22/18 08:49 Dose: Not Given Dextrose (Dextrose 50% Inj) 0 ml IV STAT PRN; Protocol PRN Reason: Hypoglycemia Protocol Last Admin: 12/16/18 06:35 Dose: 50 ml Dextrose (Glutose 15) 0 gm PO ONCE PRN; Protocol PRN Reason: Hypoglycemia Protocol Diltiazem HCl (Cardizem Cd) 120 mg PO Q24H [facility] Last Admin: 12/21/18 22:47 Dose: 120 mg Docusate Sodium (Colace) 100 mg PO BID [facility] Last Admin: 12/22/18 11:00 Dose: 100 mg Epoetin Sanchez (Procrit) 8,000 unit SC MWF [facility] Gabapentin (Neurontin) 100 mg PO TID [facility] Last Admin: 12/22/18 11:00 Dose: 100 mg Glucagon (Glucagen Diagnostic Kit) 0 mg IM STAT PRN; Protocol PRN Reason: Hypoglycemia Protocol Heparin Sodium (Porcine) (Heparin) 5,000 units SC Q8 [facility] Last Admin: 12/22/18 06:48 Dose: 5,000 units Hydralazine HCl (Apresoline) 25 mg PO Q4 PRN PRN Reason: Other Last Admin: 12/18/18 09:51 Dose: 25 mg Dextrose (Dextrose 5% In Water 1000 Ml) 1,000 mls @ 0 mls/hr IV .Q0M PRN; Protocol PRN Reason: Hypoglycemia Protocol Piperacillin Sod/Tazobactam Sod (Zosyn 2.25 Gm Iv Premix) 2.25 gm in 50 mls @ 100 mls/hr IVPB Q12H [facility]; Protocol Last Admin: 12/22/18 04:07 Dose: 100 mls/hr Vancomycin HCl 1 gm/ Sodium (Chloride) 250 mls @ 166.7 mls/hr IVPB Q4D [facility]; Protocol Last Admin: 12/19/18 17:00 Dose: 166.7 mls/hr Insulin Detemir (Levemir) 22 unit SC [facility] Last Admin: 12/21/18 22:48 Dose: 22 units Insulin Detemir (Levemir) 22 unit SC ACB [facility] Insulin Human Regular (Novolin R) 5 unit SC AC [facility] Last Admin: 12/22/18 17:23 Dose: Not Given Lactobacillus Acidophilus (Lactobacillus) 1 cap PO BID [facility] Last Admin: 12/22/18 11:00 Dose: 1 cap Losartan Potassium (Cozaar) 25 mg PO QPM [facility] Metoprolol Tartrate (Lopressor) 100 mg PO BID [facility] Last Admin: 12/21/18 10:21 Dose: 100 mg Oxycodone/Acetaminophen (Percocet 5/325 Mg Tab) 1 tab PO Q4H PRN PRN Reason: Pain, moderate (4-7) Stop: 12/25/18 14:47 Oxycodone/Acetaminophen (Percocet 5/325 Mg Tab) 2 tab PO Q4H PRN PRN Reason: Pain, severe (8-10) Stop: 12/25/18 15:50 Rosuvastatin Calcium (Crestor) 10 mg PO [facility] Last Admin: 12/21/18 22:47 Dose: 10 mg Vitamin B Complex/Vit C/Folic Acid (Nephro-Barbara) 1 tab PO 0800 [facility] Last Admin: 12/22/18 08:30 Dose: Not Given - Labs Labs: 12/22/18 07:25 12/22/18 07:25 PT 11.0 SECONDS (9.7-12.2) 12/21/18 14:13 INR 1.0 12/21/18 14:13 APTT 34 SECONDS (21-34) 12/21/18 14:13
--- NOTE | 2018-12-22 21:29 | CP.PCM.PN ---
Subjective - Date & Time of Evaluation Date of Evaluation: 12/22/18 Time of Evaluation: 13:00 - Subjective Subjective: to OR today for hallux amputation Objective - Vital Signs/Intake and Output Vital Signs (last 24 hours): Temp Pulse Resp BP Pulse Ox 97.6 F 98 H 20 111/61 100 12/22/18 19:23 12/22/18 19:23 12/22/18 19:23 12/22/18 19:23 12/22/18 19:01 Intake and Output: 12/22/18 12/23/18 18:59 06:59 Intake Total 460 Balance 460 - Medications Medications: Current Medications Acetaminophen (Tylenol 325mg Tab) 650 mg PO Q6 PRN PRN Reason: Pain, Mild (1-3) Aspirin (Aspirin Chewable) 81 mg PO DAILY [facility] Last Admin: 12/22/18 11:00 Dose: 81 mg Calcitriol (Rocaltrol) 0.5 mcg PO DAILY [facility] Last Admin: 12/22/18 11:00 Dose: 0.5 mcg Calcium Acetate (Phoslo) 667 mg PO BIDCC [facility] Last Admin: 12/22/18 17:47 Dose: 667 mg Dextrose (Dextrose 50% Inj) 0 ml IV STAT PRN; Protocol PRN Reason: Hypoglycemia Protocol Last Admin: 12/16/18 06:35 Dose: 50 ml Dextrose (Glutose 15) 0 gm PO ONCE PRN; Protocol PRN Reason: Hypoglycemia Protocol Diltiazem HCl (Cardizem Cd) 120 mg PO Q24H [facility] Last Admin: 12/21/18 22:47 Dose: 120 mg Docusate Sodium (Colace) 100 mg PO BID [facility] Last Admin: 12/22/18 17:48 Dose: 100 mg Epoetin Sanchez (Procrit) 8,000 unit SC MWF [facility] Gabapentin (Neurontin) 100 mg PO TID [facility] Last Admin: 12/22/18 17:47 Dose: 100 mg Glucagon (Glucagen Diagnostic Kit) 0 mg IM STAT PRN; Protocol PRN Reason: Hypoglycemia Protocol Heparin Sodium (Porcine) (Heparin) 5,000 units SC Q8 [facility] Last Admin: 12/22/18 06:48 Dose: 5,000 units Hydralazine HCl (Apresoline) 25 mg PO Q4 PRN PRN Reason: Other Last Admin: 12/18/18 09:51 Dose: 25 mg Dextrose (Dextrose 5% In Water 1000 Ml) 1,000 mls @ 0 mls/hr IV .Q0M PRN; Protocol PRN Reason: Hypoglycemia Protocol Piperacillin Sod/Tazobactam Sod (Zosyn 2.25 Gm Iv Premix) 2.25 gm in 50 mls @ 100 mls/hr IVPB Q12H [facility]; Protocol Last Admin: 12/22/18 17:30 Dose: 100 mls/hr Vancomycin HCl 1 gm/ Sodium (Chloride) 250 mls @ 166.7 mls/hr IVPB Q4D [facility]; Protocol Last Admin: 12/19/18 17:00 Dose: 166.7 mls/hr Insulin Detemir (Levemir) 22 unit SC HS [facility] Last Admin: 12/21/18 22:48 Dose: 22 units Insulin Detemir (Levemir) 22 unit SC ACB [facility] Insulin Human Regular (Novolin R) 5 unit SC AC [facility] Last Admin: 12/22/18 17:23 Dose: Not Given Lactobacillus Acidophilus (Lactobacillus) 1 cap PO BID [facility] Last Admin: 12/22/18 17:48 Dose: 1 cap Losartan Potassium (Cozaar) 25 mg PO QPM [facility] Last Admin: 12/22/18 17:54 Dose: Not Given Metoprolol Tartrate (Lopressor) 100 mg PO BID [facility] Last Admin: 12/21/18 10:21 Dose: 100 mg Minoxidil (Minoxidil) 2.5 mg PO QPM [facility] Last Admin: 12/22/18 17:55 Dose: Not Given Oxycodone/Acetaminophen (Percocet 5/325 Mg Tab) 1 tab PO Q4H PRN PRN Reason: Pain, moderate (4-7) Stop: 12/25/18 14:47 Oxycodone/Acetaminophen (Percocet 5/325 Mg Tab) 2 tab PO Q4H PRN PRN Reason: Pain, severe (8-10) Stop: 12/25/18 15:50 Rosuvastatin Calcium (Crestor) 10 mg PO [facility] Last Admin: 12/21/18 22:47 Dose: 10 mg Vitamin B Complex/Vit C/Folic Acid (Nephro-Barbara) 1 tab PO 0800 [facility] Last Admin: 12/22/18 08:30 Dose: Not Given - Labs Labs: 12/22/18 07:25 12/22/18 07:25 PT 11.0 SECONDS (9.7-12.2) 12/21/18 14:13 INR 1.0 12/21/18 14:13 APTT 34 SECONDS (21-34) 12/21/18 14:13 - Constitutional Appears: Well - Head Exam Head Exam: ATRAUMATIC, NORMAL INSPECTION, NORMOCEPHALIC - Eye Exam Eye Exam: EOMI, Normal appearance, PERRL Pupil Exam: NORMAL ACCOMODATION, PERRL - ENT Exam ENT Exam: Mucous Membranes Moist, Normal Exam - Neck Exam Neck Exam: Full ROM, Normal Inspection. absent: Lymphadenopathy - Respiratory Exam Respiratory Exam: Clear to Ausculation Bilateral, NORMAL BREATHING PATTERN - Cardiovascular Exam Cardiovascular Exam: REGULAR RHYTHM, +S1, +S2, Murmur - GI/Abdominal Exam GI & Abdominal Exam: Soft, Normal Bowel Sounds. absent: Tenderness - Extremities Exam Extremities Exam: Full ROM. absent: Joint Swelling, Pedal Edema Additional comments: gangrenous great toe - Back Exam Back Exam: NORMAL INSPECTION - Neurological Exam Neurological Exam: Alert, Awake, CN II-XII Intact, Oriented x3 - Psychiatric Exam Psychiatric exam: Normal Affect, Normal Mood - Skin Skin Exam: Dry, Intact, Normal Color, Warm Assessment and Plan (1) Preop cardiovascular exam Assessment & Plan: stable to proceed with amputation today keep pt on asa + plavix post op Status: Acute (2) PVD (peripheral vascular disease) Assessment & Plan: asa + plavix post op Status: Acute (3) CAD (coronary artery disease) Assessment & Plan: losartan,metoprolol Status: Acute (4) Diabetes mellitus Status: Acute (5) ESRD (end stage renal disease) Status: Acute (6) Gangrene Assessment & Plan: s/p revascularization cont dapt in am cont bb cont statins Status: Acute (7) Peritoneal dialysis catheter in place Status: Acute (8) Hypertension Status: Acute
[2018-12-22] MEDS: diltiaZEM 120 mg/24 Hours CD Cap PO SCH (23:41)
[2018-12-22] MEDS: Insulin Detemir 100 units/ml Vial (Levemir) SC SCH (23:42)
[2018-12-22] MEDS: Oxycodone/Acetaminophen 5/325 mg Tab PO PRN (23:42)
[2018-12-23] MEDS ORDERED: (Novolin R) Insulin Human Regular 100 units/ml vial SC ONE (01:49)
[2018-12-23] MEDS: Piperacill/Tazo 2.25gm in Dex 2.25 GM/50 ML BAG IVPB SCH ×2 (03:53→15:58)
[2018-12-23] MEDS: Oxycodone/Acetaminophen 5/325 mg Tab PO PRN (07:00)
[2018-12-23] MEDS ORDERED: Insulin Detemir 100 units/ml Vial (Levemir) SC SCH (07:30)
--- NOTE | 2018-12-23 07:56 | CP.PCM.PN ---
Subjective - Date & Time of Evaluation Date of Evaluation: 12/23/18 Time of Evaluation: 07:00 - Subjective Subjective: Progress note for Dr. Martínez. Patient seen and evaluated at bedside. POD #1 s/p right hallux amputation. Complains of pain to R foot surgical site. Patient required insulin overnight for elevated blood sugar. Denies chest pain, SOB, nausea, vomiting, lightheadedness, fever and chills. Objective - Vital Signs/Intake and Output Vital Signs (last 24 hours): Temp Pulse Resp BP Pulse Ox 98.0 F 100 H 20 155/85 H 100 12/23/18 06:30 12/23/18 06:30 12/23/18 06:30 12/23/18 06:30 12/23/18 06:30 Intake and Output: 12/23/18 12/23/18 06:59 18:59 Intake Total 170 Balance 170 - Medications Medications: Current Medications Acetaminophen (Tylenol 325mg Tab) 650 mg PO Q6 PRN PRN Reason: Pain, Mild (1-3) Aspirin (Aspirin Chewable) 81 mg PO DAILY [facility] Last Admin: 12/22/18 11:00 Dose: 81 mg Calcitriol (Rocaltrol) 0.5 mcg PO DAILY [facility] Last Admin: 12/22/18 11:00 Dose: 0.5 mcg Calcium Acetate (Phoslo) 667 mg PO BIDCC [facility] Last Admin: 12/22/18 17:47 Dose: 667 mg Dextrose (Dextrose 50% Inj) 0 ml IV STAT PRN; Protocol PRN Reason: Hypoglycemia Protocol Last Admin: 12/16/18 06:35 Dose: 50 ml Dextrose (Glutose 15) 0 gm PO ONCE PRN; Protocol PRN Reason: Hypoglycemia Protocol Diltiazem HCl (Cardizem Cd) 120 mg PO Q24H [facility] Last Admin: 12/22/18 23:41 Dose: 120 mg Docusate Sodium (Colace) 100 mg PO BID [facility] Last Admin: 12/22/18 17:48 Dose: 100 mg Epoetin Sanchez (Procrit) 8,000 unit SC MWF [facility] Gabapentin (Neurontin) 100 mg PO TID [facility] Last Admin: 12/22/18 17:47 Dose: 100 mg Glucagon (Glucagen Diagnostic Kit) 0 mg IM STAT PRN; Protocol PRN Reason: Hypoglycemia Protocol Heparin Sodium (Porcine) (Heparin) 5,000 units SC Q8 [facility] Last Admin: 12/23/18 06:55 Dose: 5,000 units Hydralazine HCl (Apresoline) 25 mg PO Q4 PRN PRN Reason: Other Last Admin: 12/18/18 09:51 Dose: 25 mg Dextrose (Dextrose 5% In Water 1000 Ml) 1,000 mls @ 0 mls/hr IV .Q0M PRN; Protocol PRN Reason: Hypoglycemia Protocol Piperacillin Sod/Tazobactam Sod (Zosyn 2.25 Gm Iv Premix) 2.25 gm in 50 mls @ 100 mls/hr IVPB Q12H [facility]; Protocol Last Admin: 12/23/18 03:53 Dose: 100 mls/hr Vancomycin HCl 1 gm/ Sodium (Chloride) 250 mls @ 166.7 mls/hr IVPB Q4D [facility]; Protocol Last Admin: 12/19/18 17:00 Dose: 166.7 mls/hr Insulin Detemir (Levemir) 22 unit SC HS [facility] Last Admin: 12/22/18 23:42 Dose: 22 units Insulin Detemir (Levemir) 22 unit SC ACB [facility] Insulin Human Regular (Novolin R) 5 unit SC AC [facility] Last Admin: 12/22/18 17:23 Dose: Not Given Lactobacillus Acidophilus (Lactobacillus) 1 cap PO BID [facility] Last Admin: 12/22/18 17:48 Dose: 1 cap Losartan Potassium (Cozaar) 25 mg PO QPM [facility] Last Admin: 12/22/18 17:54 Dose: Not Given Metoprolol Tartrate (Lopressor) 100 mg PO BID [facility] Last Admin: 12/21/18 10:21 Dose: 100 mg Minoxidil (Minoxidil) 2.5 mg PO QPM [facility] Last Admin: 12/22/18 17:55 Dose: Not Given Oxycodone/Acetaminophen (Percocet 5/325 Mg Tab) 1 tab PO Q4H PRN PRN Reason: Pain, moderate (4-7) Stop: 12/25/18 14:47 Oxycodone/Acetaminophen (Percocet 5/325 Mg Tab) 2 tab PO Q4H PRN PRN Reason: Pain, severe (8-10) Stop: 12/25/18 15:50 Last Admin: 12/23/18 07:00 Dose: 2 tab Rosuvastatin Calcium (Crestor) 10 mg PO HS [facility] Last Admin: 12/22/18 23:41 Dose: 10 mg Vitamin B Complex/Vit C/Folic Acid (Nephro-Barbara) 1 tab PO 0800 [facility] Last Admin: 12/22/18 08:30 Dose: Not Given - Labs Labs: 12/22/18 07:25 12/22/18 07:25 PT 11.0 SECONDS (9.7-12.2) 12/21/18 14:13 INR 1.0 12/21/18 14:13 APTT 34 SECONDS (21-34) 12/21/18 14:13 - Additional Findings Additional findings: - Constitutional Appears: Non-toxic, No Acute Distress - Head Exam Head Exam: ATRAUMATIC, NORMOCEPHALIC - Eye Exam Eye Exam: EOMI, Normal appearance - Neck Exam Neck Exam: Full ROM, Normal Inspection - Respiratory Exam Respiratory Exam: Clear to Ausculation Bilateral. absent: Rales, Rhonchi, Wheezes - Cardiovascular Exam Cardiovascular Exam: REGULAR RHYTHM, +S1, +S2, Murmur - GI/Abdominal Exam GI & Abdominal Exam: Soft. absent: Distended, Firm, Guarding, Rigid, Tenderness - Extremities Exam Extremities Exam: Full ROM. Additional comments: LUE AV fistula with palpable thrill, RUE midline. R foot dressing and robbi wrap c/d/i. Tenderness to R foot surgical site. - Neurological Exam Neurological Exam: Alert, Awake, Oriented x3 - Psychiatric Exam Psychiatric exam: Normal Affect, Normal Mood Assessment and Plan - Assessment and Plan (Free Text) Plan: This is a 63 year old male with PMhx of IDDM2, ESRD on peritoneal dialysis, HTN, PVD who presents to the ED for pain to the wounds to his right foot, ankle area and right first toe. Found to to have ESR elevated, right hallux osteomyelitis on MRI started on IV abx (PD dosed). Osteomyelitis of right hallux, acute - Afebrile, no leukocytosis - ESR elevated at 60 - Blood Cx no growth >3 days - Right Foot x-ray: no periosteal reaction to suggest osetomyelitis. No gross osseous destruction appreciated. - Right ankle x-ray: no periosteal reaction to suggest osetomyelitis. No gross osseous destruction appreciated. - Lower extremity MRI without contrast right forefoot: marked edema is seen throughout the distal phalanx great toe suggestive of possible osteomyelitis or prominent contusion. No fracture identified. - Lower extremity MRI without contrast right hind foot and midfoot: no MR evidence to suggest osteomyelitis at the midfoot and hindfoot bony anatomy with lateral foot cellulitis identified on a mild-moderate basis without abscess. - RUE midline - Zosyn 2.25 gm IVPB Q12H- started 12/15 (dosed for PD)-> continue through 12/30/18 - Vancomycin 1 gm IVPB every 4 days- started 12/15 (dosed for PD)-> continue through 12/30/18 - Tylenol 650 Q6H PRN - Podiatry consulted (Valery)- for R 1st toe Amputation performed 12/22/18 * Percocet 1 tab Q4, [id number] PRN pain - ID consulted (Loren)- patient to be d/c'ed on vanco and zosyn until 12/30/18 - Wound care Peripheral vascular disease, chronic - Arterial doppler study [facility]07[place]18: R popliteal artery 75-99% stenosis. R Posterior tibial artery is occluded. L posterior tibial and anterior tibial with 50-75% stenosis. Diffuse disease to peroneal artery. R MARIVEL: 1.12, L MARIVEL: 0.91 - CTA of bilateral lower extremities: Right lower extremity: AT has short segmen t areas of mild to severe stenosis of mid and distal segments. Peroneal artery has occlusion in the proximal segment and areas of moderate stenosis in distal segment. - Left lower extremity: AT has short segment areas of severe stenosis of mid and distal segments. Peroneal artery has multiple areas of moderate stenosis in the mid and distal segments. - Peripheral angiogram of RLE: 3-vessel runoff but diffuse calcification. Atherectomy done and cleared out tibial artery--> now flow to digital arteries. - ASA 81 mg PO daily - Crestor 20 mg PO QHS - Plavix 75mg PO QD - Cardizem 120 PO daily as per cardio - Cardiology consulted (Bobby) Hypertension, chronic - Monitor on telemetry - Vitals Q4H - Echocardiogram: LVEF approximately 70%. Mild concentric LVH. Grade I abnormal relaxation pattern. - Lasix 80 mg PO 1x/day at 10 AM - Losartan 100 mg PO 1x/day at 2 PM - Metoprolol decreased from 100 to 25 mg PO 2x/day at 10 AM and 6 PM - Norvasc was changed to Cardizem ER 120 mg PO Q24H at 10 PM Lethargy, acute, resolved- noted by RN after returning from MRI 12/15 - CT head: Age-related neuro degenerative changes are appreciated in the brain and appear age-appropriate without definite acute intracranial findings. However, density in the arterial and venous system of the brain is appreciated and further evaluation by CT angiography (if no contraindication), brain MRI, MR brain angiogram and MR venography for follow up. - MRI brain without contrast: Artifact but nonacute brain MRI. Vascular changes seen in the CT of head may reflect normal variation or less likely, residual iodinated contrast material within patient's vascular system. - Neuro checks ESRD on Peritoneal dialysis QID, chronic- patient does not want to start hemodialysis -Creatinine stable, but elevated. Phosphorous is downtrending -Pt to continue with peritoneal dialysis as pervious managed as outpatient -Nephro Barbara 1 tab PO daily -Calcitriol 0.5mct PO daily -Continue Phoslo 667 mg PO BIDCC with food -Continue to monitor and replete electrolytes as needed - Nephrology consulted (Vail) Type 2 diabetes mellitus with peripheral neuropathy, chronic - HgbA1c 8.4 - TG/CHL/LDL/HDL is 117/166/95/42 - Accuchecks q6 - Hypoglycemic protocol - Levemir adjusted to 29 units SC ACB, QHS on 12/23 due to elevated blood sugars - Aspart adjusted to 4 units SC AC on 12/23 - ASA 81 mg PO daily - Crestor 20 mg PO QHS - Gabapentin 100 mg PO TID Ppx: VTE: SCDs contraindicated due to PAD, Heparin 5000 units SC Q8H GI: no indication Diet: heart healthy, renal, low carb. Glucerna [place] Shakes TID. Dispo: Continue IV abx. Continue PD. Patient POD #1. Patient cleared from Podiatry standpoint- Follow up in Dr. Rasmussen's office in one week of discharge. Dr. Pimentel recommends 7 additional days of Vanco and Zosyn- to end on 12/30/18. Patient needs PICC line- order placed. TONIA/JÚNIOR arranged for nursing services with Aliya BUCK. Patient's insulin regimen changed- follow blood sugars. Case discussed with Dr. Martínez. Vidhya Cleary, PGY-1
--- NOTE | 2018-12-23 08:03 | OP ---
PROCEDURE DATE: 12/22/2018 SURGEON: Glen Rasmussen DPM ASSISTANTS: Beulah Colon, PGY-1 and Romeo Ramsey, PGY-2 ANESTHESIA: IV sedation with local. PREOPERATIVE DIAGNOSIS: Right foot hallux gangrene. POSTOPERATIVE DIAGNOSIS: Right foot hallux gangrene. NAME OF PROCEDURE: Right hallux amputation. INDICATION: The patient is a 63-year-old male with the above diagnosis. The patient has exhausted all conservative treatment at this time and now requires surgical intervention. The patient signed the consent after careful explanation of risks, benefits, complications and alternatives to the surgical procedure. No guarantees were given nor implied. NPO status was confirmed prior to taking the patient to the operating room. PREPARATION: The patient was brought back to the operating room and placed on the operating room table in the supine position. A time-out was performed for identification of the correct patient and procedure. After induction of IV sedation, the patient received a total of 17 mL of 1:1 mixture of 2% lidocaine plain and 0.25% Marcaine plain in a Cabrera block fashion to the right foot. The right foot was then prepped and draped in a normal sterile manner and the procedure began. No tourniquet was utilized during this procedure. DESCRIPTION OF PROCEDURE: Attention was drawn to the right hallux, where a circumferential racquet-type incision was made using a #15 blade at the level of the metatarsophalangeal joint. The incision was then extended down through the subcutaneous layers down to the level of the bone extending into the metatarsophalangeal joint. Using a bone clamp to stabilize the hallux, the distal and proximal phalanx were then disarticulated from the foot at the level of the metatarsophalangeal joint. Using a fresh #15 blade, all necrotic and nonviable tissues were excisionally debrided from the surgical site with additional soft tissue removed to allow for adequate skin closure without tension. The wound was then copiously flushed with sterile saline using a bulb syringe. The hallux was then sent off the field for pathology. At this time, the surgical site was then sutured to close with 3-0 Vicryl subcutaneous sutures and 3-0 nylon skin suture. The surgical site was then dressed with Xeroform, 4 x 4 gauze and Kerlix with a light Ananda. POSTOPERATIVE CONDITION: The patient tolerated the procedure and the anesthesia well and was escorted to the recovery room with all vital signs stable and neurovascular status intact to the right foot. The patient is to remain nonweightbearing to the right lower extremity as tolerated with surgical shoe and crutches. The patient will return to the floor, and Podiatry will continue to follow. Upon discharge, the patient will follow up with Dr. Rasmussen in office. MIKHAIL Mancia Glen Rasmussen DPM MEGAN
[2018-12-23 08:25] LABS: BASO # 0.1 K/uL (0.0-0.2); BASO % 0.9 % (0.0-2.0); EOS # 0.3 K/uL (0.0-0.7); EOS % 3.5 % (0.0-4.0); HEMOGLOBIN 10.1 g/dL (12.0-18.0); LYMPH # 0.4 K/uL (1.0-4.3); LYMPH % 5.1 % (20.0-40.0); MEAN CELL VOLUME 80.2 fL (80.0-94.0); MEAN CORPUSCULAR HEMOGLOBIN 25.5 pg (27.0-31.0); MEAN CORPUSCULAR HGB CONC 31.8 g/dL (33.0-37.0); MEAN PLATELET VOLUME 7.8 fL (7.2-11.7); MONO # 0.9 K/uL (0.0-0.8); NEUT # 6.4 K/uL (1.8-7.0); NEUT % 79.5 % (50.0-75.0); NRBC % 0.1 % (0.0-2.0); PLATELET COUNT 359 K/uL (130-400); RBC 3.95 Mil/uL (4.40-5.90); RED CELL DISTRIBUTION WIDTH 15.5 % (11.5-14.5); WHITE BLOOD COUNT 8.1 K/uL (4.8-10.8)
[2018-12-23] MEDS: Multivitamin Vitamin B Complex (Nephro-Vite) Tab PO SCH (08:36)
[2018-12-23] MEDS: (Novolin R) Insulin Human Regular 100 units/ml vial SC SCH ×3 (08:39→17:16)
[2018-12-23 08:58] LABS: ALB/GLOB RATIO 1.2 (1.0-2.1); ALBUMIN 3.7 g/dL (3.5-5.0); CALCIUM 9.9 mg/dl (8.6-10.4)
[2018-12-23] MEDS: Lactobacillus Acidophilus 500 MU Cap PO SCH ×2 (09:41→17:16)
[2018-12-23 10:23] LABS: BASOPHIL 1 % (0-2); EOSINOPHIL 6 % (0-4); LYMPHOCYTE 4 % (20-40); MONOCYTE 12 % (0-10); NEUTROPHIL 77 % (50-75); PLATELET ESTIMATE NORMAL (NORMAL); TOTAL CELLS COUNTED 100
[2018-12-23 10:24] LABS: ANISOCYTOSIS SLIGHT; HYPOCHROMIC SLIGHT
--- NOTE | 2018-12-23 11:15 | CP.PCM.PN ---
Subjective - Date & Time of Evaluation Date of Evaluation: 12/23/18 Time of Evaluation: 11:14 - Subjective Subjective: Nephrology Consultation Note: Assessment: Stable Rt foot found/ulcer with PVD Rt foot toe osteomyelitis Diabetic chronic Kidney Disease (E11.22). Hypoglyecmia and hyperglycemia Hypertensive Chronic Kidney Disease (I12.0) End stage renal disease (N18.6) dependence on dialysis (Z99.2) as PD Anemia (D64.9), Hyperphosphatemia (E83.39), Secondary Hyperparathyroidism (E21.1), HTN (I12.0) uncontrolled severe HTN with urgency Plan: Will plan for PD as ordered. Continue with Nephrovite 1 tab/day. PD d/w hotel staff member as well. PRBC as needed for anemia. will add JESSIE as last Hb <10 Continue with phos binders, last phos level: 4.7 Continue with calcitriol. BP control with meds as ordered. Patient on RAAS rachna as losartan 25 mg/d, metoprolol 100 mg bid. lowered minoxidil 2.5 mg/d. also on CCB Glycemic control, Dialysis consistent diet Further work up/management as per primary team Dose meds/antibiotics (if needed) for ESRD status. Avoid fleets enema/magnesium based laxatives. podiatry and interventional cardiology following. abx per ID. please inform renal about d/c antibiotics. Can administer abx intraperitoneally as outpt. pt had toe amputation 12/22/18 Thanks for allowing me to participate in care of your patient. Will follow patient with you. Please call if any Qs. had d/w team and family Dr Brad Lucero Office: [phone] Chief Complaint; Rt foot wound HPI: Pt is a 63 M with hx of ESRD on PD since 2014, chronic anemia, h yperphosphatemia, secondary hyperparathyroidism, Diabetes Mellitus, hypertension presented with complaints of rt foot wound Renal consult requested for ESRD management. PD: manual exchanges 1.5% alternating with 2.5% (2000 mL) with 4 hr dwell time, net UF 0-300 mL with each exchange. he is looking forward to switch to HD in near future ROS: tolerating pd well. net UF 7854-4931 ml. fluid is clear. no pain or issues reported during PD exchanges. Cardiovascular: No chest pain. Pulmonary: No shortness of breath Gastrointestinal: denies abdominal pain No nausea. No vomiting. Genitourinary: No pain while urinating. Denies blood in urine. makes urine 1-2 times per day and not as much as used to in past All other negative except as mentioned in HPI s/p angiogram 12/17/18 Physical Examination: seen during PD General Appearance: Comfortable, in no acute respiratory distress, co-operative . Vitals reviewed and noted as below Head; Atraumatic, normocephalic ENT: no ulcers no thrush. Tongue is midline. Oropharynx: no rash or ulcers. EYES: Pupils are equal, round and reactive to light accommodation. Eye muscles and extraocular movement intact. Sclera is anicteric. Neck; supple no lymphadenopathy, no thyromegaly or bruit Lungs: Normal respiratory rate/effort. Breath sounds bilateral reduced at bases Heart: Normal rate. s1s2 normal. No rub or gallop. Extremities: no edema. No varicose veins. Rt foot in dressing Neurological: Patient is alert, awake and oriented to person, place and time. No focal deficit. Strength bilateral appropriate and equal Skin: Warm and dry. Normal turgor. No rash. Palpitation: Normal elasticity for age Abdomen: Abdomen is soft. Bowel sounds +. There is no abdominal tenderness, no guarding/rigidity or organomegaly Psych: normal insight and normal affect/mood MSK: no joint tenderness or swelling. Digits and nails normal, no deformity. s/p Rt great toe amputation : kidney or bladder not palpable Access: PD catheter. left AV access matured. Labs/imaging reviewed. Past medical history, past surgical history, family history, social history, allergy reviewed and noted as below Family Hx: no hx of CKD. Non contributory Objective - Vital Signs/Intake and Output Vital Signs (last 24 hours): Temp Pulse Resp BP Pulse Ox 98.0 F 98 H 20 117/63 98 12/23/18 10:00 12/23/18 10:00 12/23/18 08:44 12/23/18 10:00 12/23/18 08:44 Intake and Output: 12/23/18 12/23/18 06:59 18:59 Intake Total 170 Balance 170 - Medications Medications: Current Medications Acetaminophen (Tylenol 325mg Tab) 650 mg PO Q6 PRN PRN Reason: Pain, Mild (1-3) Aspirin (Aspirin Chewable) 81 mg PO DAILY [facility] Last Admin: 12/23/18 09:42 Dose: 81 mg Calcitriol (Rocaltrol) 0.5 mcg PO DAILY [facility] Last Admin: 12/23/18 09:47 Dose: 0.5 mcg Calcium Acetate (Phoslo) 667 mg PO BIDCC [facility] Last Admin: 12/23/18 08:36 Dose: 667 mg Dextrose (Dextrose 50% Inj) 0 ml IV STAT PRN; Protocol PRN Reason: Hypoglycemia Protocol Last Admin: 12/16/18 06:35 Dose: 50 ml Dextrose (Glutose 15) 0 gm PO ONCE PRN; Protocol PRN Reason: Hypoglycemia Protocol Diltiazem HCl (Cardizem Cd) 120 mg PO Q24H [facility] Last Admin: 12/22/18 23:41 Dose: 120 mg Docusate Sodium (Colace) 100 mg PO BID [facility] Last Admin: 12/23/18 09:41 Dose: 100 mg Epoetin Sanchez (Procrit) 8,000 unit SC MWF [facility] Gabapentin (Neurontin) 100 mg PO TID [facility] Last Admin: 12/23/18 09:42 Dose: 100 mg Glucagon (Glucagen Diagnostic Kit) 0 mg IM STAT PRN; Protocol PRN Reason: Hypoglycemia Protocol Heparin Sodium (Porcine) (Heparin) 5,000 units SC Q8 [facility] Last Admin: 12/23/18 06:55 Dose: 5,000 units Hydralazine HCl (Apresoline) 25 mg PO Q4 PRN PRN Reason: Other Last Admin: 12/18/18 09:51 Dose: 25 mg Dextrose (Dextrose 5% In Water 1000 Ml) 1,000 mls @ 0 mls/hr IV .Q0M PRN; Protocol PRN Reason: Hypoglycemia Protocol Piperacillin Sod/Tazobactam Sod (Zosyn 2.25 Gm Iv Premix) 2.25 gm in 50 mls @ 100 mls/hr IVPB Q12H [facility]; Protocol Last Admin: 12/23/18 03:53 Dose: 100 mls/hr Vancomycin HCl 1 gm/ Sodium (Chloride) 250 mls @ 166.7 mls/hr IVPB Q4D [facility]; Protocol Last Admin: 12/19/18 17:00 Dose: 166.7 mls/hr Insulin Detemir (Levemir) 22 unit SC HS [facility] Last Admin: 12/22/18 23:42 Dose: 22 units Insulin Detemir (Levemir) 22 unit SC ACB [facility] Last Admin: 12/23/18 08:37 Dose: 22 units Insulin Human Regular (Novolin R) 5 unit SC AC [facility] Last Admin: 12/23/18 08:39 Dose: 5 unit Lactobacillus Acidophilus (Lactobacillus) 1 cap PO BID [facility] Last Admin: 12/23/18 09:41 Dose: 1 cap Losartan Potassium (Cozaar) 25 mg PO QPM [facility] Last Admin: 12/22/18 17:54 Dose: Not Given Metoprolol Tartrate (Lopressor) 100 mg PO BID [facility] Last Admin: 12/21/18 10:21 Dose: 100 mg Minoxidil (Minoxidil) 2.5 mg PO QPM [facility] Last Admin: 12/22/18 17:55 Dose: Not Given Oxycodone/Acetaminophen (Percocet 5/325 Mg Tab) 1 tab PO Q4H PRN PRN Reason: Pain, moderate (4-7) Stop: 12/25/18 14:47 Oxycodone/Acetaminophen (Percocet 5/325 Mg Tab) 2 tab PO Q4H PRN PRN Reason: Pain, severe (8-10) Stop: 12/25/18 15:50 Last Admin: 12/23/18 07:00 Dose: 2 tab Rosuvastatin Calcium (Crestor) 10 mg PO [facility] Last Admin: 12/22/18 23:41 Dose: 10 mg Vitamin B Complex/Vit C/Folic Acid (Nephro-Barbara) 1 tab PO 0800 [facility] Last Admin: 12/23/18 08:36 Dose: 1 tab - Labs Labs: 12/23/18 08:16 12/23/18 08:16 PT 11.0 SECONDS (9.7-12.2) 12/21/18 14:13 INR 1.0 12/21/18 14:13 APTT 34 SECONDS (21-34) 12/21/18 14:13
--- NOTE | 2018-12-23 14:19 | CP.PCM.PN ---
Subjective - Date & Time of Evaluation Date of Evaluation: 12/23/18 Time of Evaluation: 14:13 - Subjective Subjective: Podiatry Progress Note for Dr. Rasmussen 63M seen one day s/p right hallux amputation. Patient is AAO x 3 and NAD, resting comfortably in bed, accompanied by his . He states that he was in some pain earlier but the pain is well controlled with medication. He denies any acute overnight events or new pedal complaints. Denies any recent N/V/F/C/CP/SOB/D/posterior calf pain. Objective - Vital Signs/Intake and Output Vital Signs (last 24 hours): Temp Pulse Resp BP Pulse Ox 97.5 F L 105 H 20 184/85 H 98 12/23/18 11:25 12/23/18 11:25 12/23/18 08:44 12/23/18 11:25 12/23/18 08:44 Intake and Output: 12/23/18 12/23/18 06:59 18:59 Intake Total 170 Balance 170 - Medications Medications: Current Medications Acetaminophen (Tylenol 325mg Tab) 650 mg PO Q6 PRN PRN Reason: Pain, Mild (1-3) Aspirin (Aspirin Chewable) 81 mg PO DAILY [facility] Last Admin: 12/23/18 09:42 Dose: 81 mg Calcitriol (Rocaltrol) 0.5 mcg PO DAILY [facility] Last Admin: 12/23/18 09:47 Dose: 0.5 mcg Calcium Acetate (Phoslo) 667 mg PO BIDCC [facility] Last Admin: 12/23/18 08:36 Dose: 667 mg Dextrose (Dextrose 50% Inj) 0 ml IV STAT PRN; Protocol PRN Reason: Hypoglycemia Protocol Last Admin: 12/16/18 06:35 Dose: 50 ml Dextrose (Glutose 15) 0 gm PO ONCE PRN; Protocol PRN Reason: Hypoglycemia Protocol Diltiazem HCl (Cardizem Cd) 120 mg PO Q24H [facility] Last Admin: 12/22/18 23:41 Dose: 120 mg Docusate Sodium (Colace) 100 mg PO BID [facility] Last Admin: 12/23/18 09:41 Dose: 100 mg Epoetin Sanchez (Procrit) 8,000 unit SC MWF [facility] Gabapentin (Neurontin) 100 mg PO TID [facility] Last Admin: 12/23/18 13:11 Dose: 100 mg Glucagon (Glucagen Diagnostic Kit) 0 mg IM STAT PRN; Protocol PRN Reason: Hypoglycemia Protocol Heparin Sodium (Porcine) (Heparin) 5,000 units SC Q8 [facility] Last Admin: 12/23/18 13:10 Dose: 5,000 units Hydralazine HCl (Apresoline) 25 mg PO Q4 PRN PRN Reason: Other Last Admin: 12/18/18 09:51 Dose: 25 mg Dextrose (Dextrose 5% In Water 1000 Ml) 1,000 mls @ 0 mls/hr IV .Q0M PRN; Prot ocol PRN Reason: Hypoglycemia Protocol Piperacillin Sod/Tazobactam Sod (Zosyn 2.25 Gm Iv Premix) 2.25 gm in 50 mls @ 100 mls/hr IVPB Q12H [facility]; Protocol Last Admin: 12/23/18 03:53 Dose: 100 mls/hr Vancomycin HCl 1 gm/ Sodium (Chloride) 250 mls @ 166.7 mls/hr IVPB Q4D [facility]; Protocol Last Admin: 12/19/18 17:00 Dose: 166.7 mls/hr Insulin Detemir (Levemir) 22 unit SC HS [facility] Last Admin: 12/22/18 23:42 Dose: 22 units Insulin Detemir (Levemir) 22 unit SC ACB [facility] Last Admin: 12/23/18 08:37 Dose: 22 units Insulin Human Regular (Novolin R) 5 unit SC AC [facility] Last Admin: 12/23/18 12:30 Dose: 5 unit Lactobacillus Acidophilus (Lactobacillus) 1 cap PO BID [facility] Last Admin: 12/23/18 09:41 Dose: 1 cap Losartan Potassium (Cozaar) 25 mg PO QPM [facility] Last Admin: 12/22/18 17:54 Dose: Not Given Metoprolol Tartrate (Lopressor) 25 mg PO BID [facility] Minoxidil (Minoxidil) 2.5 mg PO QPM [facility] Last Admin: 12/22/18 17:55 Dose: Not Given Oxycodone/Acetaminophen (Percocet 5/325 Mg Tab) 1 tab PO Q4H PRN PRN Reason: Pain, moderate (4-7) Stop: 12/25/18 14:47 Oxycodone/Acetaminophen (Percocet 5/325 Mg Tab) 2 tab PO Q4H PRN PRN Reason: Pain, severe (8-10) Stop: 12/25/18 15:50 Last Admin: 12/23/18 07:00 Dose: 2 tab Rosuvastatin Calcium (Crestor) 10 mg PO HS [facility] Last Admin: 12/22/18 23:41 Dose: 10 mg Vitamin B Complex/Vit C/Folic Acid (Nephro-Barbara) 1 tab PO 0800 [facility] Last Admin: 12/23/18 08:36 Dose: 1 tab - Labs Labs: 12/23/18 08:16 12/23/18 08:16 PT 11.0 SECONDS (9.7-12.2) 12/21/18 14:13 INR 1.0 12/21/18 14:13 APTT 34 SECONDS (21-34) 12/21/18 14:13 - Constitutional Appears: Well, Non-toxic, No Acute Distress - Extremities Exam Additional comments: RLE focused exam: Vasc: DP/PT pulses non-palpable b/l. Skin temperature warm to warm from proximal to distal WNL. CFT > 3 seconds to all remaining digits b/l. Minimal edema consistent with postoperative status noted to amputation site Neuro: Epicritic and protective sensation grossly diminished b/l Derm: Amputation site noted to be well coapted with no evidence of dehiscence and with all sutures intact. No evidence of erythema, malodor, drainage, fluctuance or other clinical signs of infection or hematoma. Hypertrophic skin of anterior ankle is noted to be slowly improving at this time with no evidence of infection appreciated. MSK: Amputation of right hallux appreciated. Pain on palpation of hypertrophic skin at anterior ankle, improving. Minimal pain on palpation of amputation site, consistent with postoperative status. - Neurological Exam Neurological Exam: Alert, Awake, Oriented x3 - Psychiatric Exam Psychiatric exam: Normal Affect, Normal Mood Assessment and Plan - Assessment and Plan (Free Text) Assessment: 63M seen one day s/p right hallux amputation Plan: Patient seen and evaluated Plan discussed with Dr. Rasmussen Afebrile, absent leukocytosis Continue abx per ID Postoperative foot xray: Amputation 1st digit. Otherwise unremarkable Surgical site and anterior ankle dressed with xeroform, ABD, DSD, PAWEL No plan for further surgical intervention at this time Podiatry will continue to follow while patient in house
[2018-12-23] MEDS: diltiaZEM 120 mg/24 Hours CD Cap PO SCH (21:21)
[2018-12-23] MEDS: Insulin Detemir 100 units/ml Vial (Levemir) SC SCH ×2 (21:21→21:38)
[2018-12-24] MEDS: Piperacill/Tazo 2.25gm in Dex 2.25 GM/50 ML BAG IVPB SCH ×2 (04:42→19:06)
[2018-12-24 08:24] LABS: BASO # 0.1 K/uL (0.0-0.2); BASO % 0.8 % (0.0-2.0); EOS # 0.2 K/uL (0.0-0.7); EOS % 2.9 % (0.0-4.0); HEMOGLOBIN 9.4 g/dL (12.0-18.0); LYMPH # 0.5 K/uL (1.0-4.3); LYMPH % 7.1 % (20.0-40.0); MEAN CELL VOLUME 79.4 fL (80.0-94.0); MEAN CORPUSCULAR HEMOGLOBIN 26.1 pg (27.0-31.0); MEAN CORPUSCULAR HGB CONC 32.9 g/dL (33.0-37.0); MEAN PLATELET VOLUME 7.8 fL (7.2-11.7); MONO # 0.9 K/uL (0.0-0.8); MONO % 11.7 % (0.0-10.0); NEUT % 77.5 % (50.0-75.0); PLATELET COUNT 332 K/uL (130-400); RBC 3.59 Mil/uL (4.40-5.90); RED CELL DISTRIBUTION WIDTH 15.3 % (11.5-14.5); WHITE BLOOD COUNT 7.7 K/uL (4.8-10.8)
[2018-12-24 08:36] LABS: INR 1.1; PROTHROMBIN TIME 11.6 SECONDS (9.7-12.2)
[2018-12-24] MEDS: Multivitamin Vitamin B Complex (Nephro-Vite) Tab PO SCH (08:52)
[2018-12-24] MEDS: (Novolin R) Insulin Human Regular 100 units/ml vial SC SCH ×4 (08:52→18:21)
[2018-12-24 08:53] LABS: ALB/GLOB RATIO 1.1 (1.0-2.1); ALBUMIN 3.2 g/dL (3.5-5.0); CALCIUM 9.7 mg/dl (8.6-10.4)
[2018-12-24] MEDS: Insulin Detemir 100 units/ml Vial (Levemir) SC SCH ×2 (08:53→23:00)
--- NOTE | 2018-12-24 09:14 | CP.PCM.PN ---
<Vidhya Cleary P - Last Filed: 12/24/18 19:10> Subjective - Date & Time of Evaluation Date of Evaluation: 12/24/18 Time of Evaluation: 09:13 - Subjective Subjective: Progress note for Dr. Fraser. Patient seen and evaluated at bedside. States he feels okay, but does admit to R calf pain that began yesterday. Patient denies fever, chills, nausea, vomiting, abdominal pain, diarrhea, constipation, chest pain, shortness of breath, lightheadedness, dizziness. Objective - Vital Signs/Intake and Output Vital Signs (last 24 hours): Temp Pulse Resp BP Pulse Ox 98.2 F 104 H 20 114/56 L 96 12/24/18 08:42 12/24/18 08:42 12/24/18 08:42 12/24/18 08:42 12/24/18 08:42 Intake and Output: 12/24/18 12/24/18 06:59 18:59 Intake Total 570 Balance 570 - Medications Medications: Current Medications Acetaminophen (Tylenol 325mg Tab) 650 mg PO Q6 PRN PRN Reason: Pain, Mild (1-3) Aspirin (Aspirin Chewable) 81 mg PO DAILY [facility] Last Admin: 12/23/18 09:42 Dose: 81 mg Calcitriol (Rocaltrol) 0.5 mcg PO DAILY [facility] Last Admin: 12/23/18 09:47 Dose: 0.5 mcg [facility] Last Admin: 12/24/18 08:52 Dose: 667 mg Clopidogrel Bisulfate (Plavix) 75 mg PO DAILY [facility] Dextrose (Dextrose 50% Inj) 0 ml IV STAT PRN; Protocol PRN Reason: Hypoglycemia Protocol Last Admin: 12/16/18 06:35 Dose: 50 ml Dextrose (Glutose 15) 0 gm PO ONCE PRN; Protocol PRN Reason: Hypoglycemia Protocol Diltiazem HCl (Cardizem Cd) 120 mg PO Q24H [facility] Last Admin: 12/23/18 21:21 Dose: 120 mg Docusate Sodium (Colace) 100 mg PO BID [facility] Last Admin: 12/23/18 17:16 Dose: 100 mg Epoetin Sanchez (Procrit) 8,000 unit SC MWF [facility] Gabapentin (Neurontin) 100 mg PO TID [facility] Last Admin: 12/23/18 17:16 Dose: 100 mg Glucagon (Glucagen Diagnostic Kit) 0 mg IM STAT PRN; Protocol PRN Reason: Hypoglycemia Protocol Heparin Sodium (Porcine) (Heparin) 5,000 units SC Q8 [facility] Last Admin: 12/24/18 06:31 Dose: 5,000 units Hydralazine HCl (Apresoline) 25 mg PO Q4 PRN PRN Reason: Other Last Admin: 12/18/18 09:51 Dose: 25 mg Dextrose (Dextrose 5% In Water 1000 Ml) 1,000 mls @ 0 mls/hr IV .Q0M PRN; Protocol PRN Reason: Hypoglycemia Protocol Piperacillin Sod/Tazobactam Sod (Zosyn 2.25 Gm Iv Premix) 2.25 gm in 50 mls @ 100 mls/hr IVPB Q12H [facility]; Protocol Stop: 12/30/18 23:00 Last Admin: 12/24/18 04:42 Dose: 100 mls/hr Vancomycin HCl 1 gm/ Sodium (Chloride) 250 mls @ 166.7 mls/hr IVPB Q4D [facility]; Protocol Stop: 12/30/18 12:00 Last Admin: 12/23/18 17:17 Dose: 166.7 mls/hr Insulin Detemir (Levemir) 29 unit SC HS [facility] Last Admin: 12/23/18 21:38 Dose: Not Given Insulin Detemir (Levemir) 29 unit SC ACB [facility] Last Admin: 12/24/18 08:53 Dose: 29 units Insulin Human Regular (Novolin R) 4 unit SC AC [facility] Last Admin: 12/24/18 08:57 Dose: Not Given Lactobacillus Acidophilus (Lactobacillus) 1 cap PO BID [facility] Last Admin: 12/23/18 17:16 Dose: 1 cap Losartan Potassium (Cozaar) 25 mg PO QPM [facility] Last Admin: 12/23/18 17:16 Dose: 25 mg Metoprolol Tartrate (Lopressor) 25 mg PO BID [facility] Minoxidil (Minoxidil) 2.5 mg PO QPM [facility] Last Admin: 12/23/18 17:16 Dose: 2.5 mg Oxycodone/Acetaminophen (Percocet 5/325 Mg Tab) 1 tab PO Q4H PRN PRN Reason: Pain, moderate (4-7) Stop: 12/25/18 14:47 Oxycodone/Acetaminophen (Percocet 5/325 Mg Tab) 2 tab PO Q4H PRN PRN Reason: Pain, severe (8-10) Stop: 12/25/18 15:50 Last Admin: 12/23/18 07:00 Dose: 2 tab Rosuvastatin Calcium (Crestor) 10 mg PO HS [facility] Last Admin: 12/23/18 21:21 Dose: 10 mg Vitamin B Complex/Vit C/Folic Acid (Nephro-Barbara) 1 tab PO 0800 [facility] Last Admin: 12/24/18 08:52 Dose: 1 tab - Labs Labs: 12/24/18 04:00 12/24/18 08:17 PT 11.6 SECONDS (9.7-12.2) 12/24/18 08:28 INR 1.1 12/24/18 08:28 APTT 36 SECONDS (21-34) H 12/24/18 08:28 - Additional Findings Additional findings: - Constitutional Appears: Non-toxic, No Acute Distress - Head Exam Head Exam: ATRAUMATIC, NORMOCEPHALIC - Eye Exam Eye Exam: EOMI, Normal appearance - Neck Exam Neck Exam: Full ROM, Normal Inspection - Respiratory Exam Respiratory Exam: Clear to Ausculation Bilateral. absent: Rales, Rhonchi, Wheezes - Cardiovascular Exam Cardiovascular Exam: REGULAR RHYTHM, +S1, +S2, Murmur - GI/Abdominal Exam GI & Abdominal Exam: Soft. absent: Distended, Firm, Guarding, Rigid, Tenderness - Extremities Exam Extremities Exam: Full ROM. Additional comments: LUE AV fistula with palpable thrill, RUE midline. R foot dressing and robbi wrap c/d/i. Tenderness to R foot surgical site. pain to RLE including calf, no swelling, erythema, warmth or palpable cord. - Neurological Exam Neurological Exam: Alert, Awake, Oriented x3 - Psychiatric Exam Psychiatric exam: Normal Affect, Normal Mood Assessment and Plan - Assessment and Plan (Free Text) Plan: This is a 63 year old male with PMhx of IDDM2, ESRD on peritoneal dialysis, HTN, PVD who presents to the ED for pain to the wounds to his right foot, ankle area and right first toe. Found to to have ESR elevated, right hallux osteomyelitis on MRI started on IV abx (PD dosed). Osteomyelitis of right hallux, acute - Afebrile, no leukocytosis - ESR elevated at 60 - Blood Cx no growth >3 days - Right Foot x-ray: no periosteal reaction to suggest osetomyelitis. No gross osseous destruction appreciated. - Right ankle x-ray: no periosteal reaction to suggest osetomyelitis. No gross osseous destruction appreciated. - Lower extremity MRI without contrast right forefoot: marked edema is seen thr oughout the distal phalanx great toe suggestive of possible osteomyelitis or prominent contusion. No fracture identified. - Lower extremity MRI without contrast right hind foot and midfoot: no MR navdeep dence to suggest osteomyelitis at the midfoot and hindfoot bony anatomy with lateral foot cellulitis identified on a mild-moderate basis without abscess. - RUE midline - Zosyn 2.25 gm IVPB Q12H- started 12/15 (dosed for PD)-> continue through 12/30/18 - Vancomycin 1 gm IVPB every 4 days- started 12/15 (dosed for PD)-> continue through 12/30/18 - Tylenol 650 Q6H PRN - Podiatry consulted (Valery)- for R 1st toe Amputation performed 12/22/18 - ID consulted (Loren)- patient to be d/c'ed on vanco until 12/31/18 and zosyn until 12/30/18 - Wound care Peripheral arterial disease, chronic - Arterial doppler study [facility] [place] 12/07/18: R popliteal artery 75-99% stenosis. R Posterior tibial artery is occluded. L posterior tibial and anterior tibial with 50-75% stenosis. Diffuse disease to peroneal artery. R MARIVEL: 1.12, L MARIVEL: 0.91 - CTA of bilateral lower extremities: Right lower extremity: AT has short segment areas of mild to severe stenosis of mid and distal segments. Peroneal artery has occlusion in the proximal segment and areas of moderate stenosis in distal segment. - Left lower extremity: AT has short segment areas of severe stenosis of mid and distal segments. Peroneal artery has multiple areas of moderate stenosis in the mid and distal segments. - Peripheral angiogram of RLE: 3-vessel runoff but diffuse calcification. Atherectomy done and cleared out tibial artery--> now flow to digital arteries. - ASA 81 mg PO daily - Crestor 20 mg PO QHS - Plavix 75mg PO QD - Cardizem 120 PO daily as per cardio - Cardiology consulted (Bobby) Hypertension, chronic - Monitor on telemetry - Vitals Q4H - Echocardiogram: LVEF approximately 70%. Mild concentric LVH. Grade I abnormal relaxation pattern. - Lasix 80 mg PO 1x/day at 10 AM - Losartan 25mg PO 1x/day at 2 PM - Metoprolol decreased from 100 to 25 mg PO 2x/day at 10 AM and 6 PM - Norvasc was changed to Cardizem ER 120 mg PO Q24H at 10 PM Lethargy, acute, resolved- noted by RN after returning from MRI 12/15 - CT head: Age-related neuro degenerative changes are appreciated in the brain and appear age-appropriate without definite acute intracranial findings. However, density in the arterial and venous system of the brain is appreciated and further evaluation by CT angiography (if no contraindication), brain MRI, MR brain angiogram and MR venography for follow up. - MRI brain without contrast: Artifact but nonacute brain MRI. Vascular changes seen in the CT of head may reflect normal variation or less likely, residual iodinated contrast material within patient's vascular system. - Neuro checks ESRD on Peritoneal dialysis QID, chronic- patient does not want to start hemodialysis -Creatinine stable, but elevated. Phosphorous is downtrending -Pt to continue with peritoneal dialysis as pervious managed as outpatient -Nephro Barbara 1 tab PO daily -Calcitriol 0.5mct PO daily -Continue Phoslo 667 mg PO BIDCC with food -Continue to monitor and replete electrolytes as needed - Nephrology consulted (Vail) Type 2 diabetes mellitus with peripheral neuropathy, chronic - HgbA1c 8.4 - TG/CHL/LDL/HDL is 117/166/95/42 - Accuchecks q6 - Hypoglycemic protocol - Levemir adjusted to 29 units SC ACB, QHS on 12/23 due to elevated blood sugars - Aspart adjusted to 4 units SC AC on 12/23 - ASA 81 mg PO daily - Crestor 20 mg PO QHS - Gabapentin 100 mg PO TID Anemia of chronic disease -Procrit 8000u SC QMWF Ppx: VTE: SCDs contraindicated due to PAD, Heparin 5000 units SC Q8H GI: no indication Diet: heart healthy, renal, low carb. Glucerna [place] TID. Dispo: Continue IV abx. Continue PD. Patient POD #2. Patient cleared from Podiatry standpoint- Follow up in Dr. Rasmussen's office in one week of discharge. Dr. Pimentel recommends Vanco through 12/31/18 and Zosyn through 12/30/18. CM/SW arranged for nursing services with [facility] and infusions through [facility]. <Hipolito Fraser - Last Filed: 12/26/18 17:30> Objective - Vital Signs/Intake and Output Vital Signs (last 24 hours): Temp Pulse Resp BP Pulse Ox 98.9 F 93 H 18 103/64 97 12/26/18 15:43 12/26/18 15:43 12/26/18 15:43 12/26/18 17:18 12/26/18 15:43 Intake and Output: 12/26/18 12/26/18 06:59 18:59 Intake Total 170 300 Balance 170 300 - Medications Medications: Current Medications Acetaminophen (Tylenol 325mg Tab) 650 mg PO Q6 PRN PRN Reason: Pain, Mild (1-3) Aspirin (Aspirin Chewable) 81 mg PO DAILY [facility] Last Admin: 12/26/18 09:40 Dose: 81 mg Calcitriol (Rocaltrol) 0.5 mcg PO DAILY [facility] Last Admin: 12/26/18 09:40 Dose: 0.5 mcg Calcium Acetate (Phoslo) 667 mg PO BIDCC [facility] Last Admin: 12/26/18 17:17 Dose: 667 mg Clopidogrel Bisulfate (Plavix) 75 mg PO DAILY [facility] Last Admin: 12/26/18 09:41 Dose: 75 mg Dextrose (Dextrose 50% Inj) 0 ml IV STAT PRN; Protocol PRN Reason: Hypoglycemia Protocol Last Admin: 12/16/18 06:35 Dose: 50 ml Dextrose (Glutose 15) 0 gm PO ONCE PRN; Protocol PRN Reason: Hypoglycemia Protocol Diltiazem HCl (Cardizem Cd) 120 mg PO Q24H [facility] Last Admin: 12/25/18 21:53 Dose: 120 mg Docusate Sodium (Colace) 100 mg PO BID [facility] Last Admin: 12/26/18 17:17 Dose: 100 mg Epoetin Sanchez (Procrit) 8,000 unit SC MWF [facility] Last Admin: 12/24/18 11:53 Dose: 8,000 unit Gabapentin (Neurontin) 100 mg PO TID [facility] Last Admin: 12/26/18 17:18 Dose: 100 mg Glucagon (Glucagen Diagnostic Kit) 0 mg IM STAT PRN; Protocol PRN Reason: Hypoglycemia Protocol Hydralazine HCl (Apresoline) 25 mg PO Q4 PRN PRN Reason: Other Last Admin: 12/18/18 09:51 Dose: 25 mg Piperacillin Sod/Tazobactam Sod (Zosyn 2.25 Gm Iv Premix) 2.25 gm in 50 mls @ 100 mls/hr IVPB Q12H [facility]; Protocol Stop: 12/30/18 23:00 Last Admin: 12/26/18 17:12 Dose: 100 mls/hr Vancomycin HCl 1 gm/ Sodium (Chloride) 250 mls @ 166.7 mls/hr IVPB Q4D [facility]; Protocol Stop: 12/31/18 23:00 Last Admin: 12/23/18 17:17 Dose: 166.7 mls/hr Insulin Detemir (Levemir) 29 unit SC HS [facility] Last Admin: 12/25/18 21:52 Dose: 29 units Insulin Detemir (Levemir) 29 unit SC ACB [facility] Last Admin: 12/26/18 08:08 Dose: 29 units Insulin Human Regular (Novolin R) 4 unit SC AC [facility] Last Admin: 12/26/18 17:17 Dose: 4 unit Lactobacillus Acidophilus (Lactobacillus) 1 cap PO BID [facility] Last Admin: 12/26/18 17:17 Dose: 1 cap Losartan Potassium (Cozaar) 25 mg PO QPM [facility] Last Admin: 12/26/18 17:19 Dose: Not Given Metoprolol Tartrate (Lopressor) 25 mg PO BID [facility] Last Admin: 12/26/18 17:18 Dose: Not Given Minoxidil (Minoxidil) 2.5 mg PO QPM [facility] Last Admin: 12/26/18 17:18 Dose: Not Given Rosuvastatin Calcium (Crestor) 10 mg PO HS [facility] Last Admin: 12/25/18 21:52 Dose: 10 mg Vitamin B Complex/Vit C/Folic Acid (Nephro-Barbara) 1 tab PO 0800 [facility] Last Admin: 12/26/18 08:08 Dose: 1 tab - Labs Labs: 12/26/18 08:48 12/26/18 08:48 PT 11.6 SECONDS (9.7-12.2) 12/24/18 08:28 INR 1.1 12/24/18 08:28 APTT 36 SECONDS (21-34) H 12/24/18 08:28 Attending/Attestation - Attestation I have personally seen and examined this patient.: Yes I have fully participated in the care of the patient.: Yes I have reviewed all pertinent clinical information, including history, physical exam and plan: Yes Notes (Text): 12/26/18 17:30 This is a late entry Care of this patient was gone over in detail with resident Dr. Cleary. Hipolito Fraser D.O.
[2018-12-24 09:40] LABS: BANDS 1 % (0-2); EOSINOPHIL 3 % (0-4); LYMPHOCYTE 7 % (20-40); MONOCYTE 11 % (0-10); NEUTROPHIL 78 % (50-75); TOTAL CELLS COUNTED 100
[2018-12-24 09:41] LABS: ANISOCYTOSIS SLIGHT; HYPOCHROMIC SLIGHT; LARGE PLATELETS PRESENT; PLATELET ESTIMATE NORMAL (NORMAL); POIKILOCYTOSIS SLIGHT
[2018-12-24] MEDS: Lactobacillus Acidophilus 500 MU Cap PO SCH ×2 (11:28→18:20)
[2018-12-24] MEDS: EPOETIN ALFA 4,000 UNIT/ML ML Dialysis SC SCH (11:53)
--- NOTE | 2018-12-24 12:27 | CP.PCM.PN ---
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 Hypoglyecmia and hyperglycemia Hypertensive Chronic Kidney Disease (I12.0) End stage renal disease (N18.6) dependence on dialysis (Z99.2) as PD Anemia (D64.9), Hyperphosphatemia (E83.39), Secondary Hyperparathyroidism (E21.1), HTN (I12.0) uncontrolled severe HTN with urgency Plan: Will plan for PD as ordered. Continue with Nephrovite 1 tab/day. PD d/w nurse staff as well. PRBC as needed for anemia. will add JESSIE as last Hb <10 Continue with phos binders, last phos level: 4.7 Continue with calcitriol. BP control with meds as ordered. Patient on RAAS rachna as losartan 25 mg/d, metoprolol 25 mg bid. lowered minoxidil 2.5 mg/d. also on CCB Glycemic control, Dialysis consistent diet Further work up/management as per primary team Dose meds/antibiotics (if needed) for ESRD status. Avoid fleets enema/magnesium based laxatives. abx per ID. pt had toe amputation 12/22/18. pt for PICC line and IV abx as outpt. Thanks for allowing me to participate in care of your patient. Will follow patient with you. Please call if any Qs. had d/w team and family Dr Brad Lucero Office: [phone] Chief Complaint; Rt foot wound HPI: Pt is a 63 M with hx of ESRD on PD since 2014, chronic anemia, hype rphosphatemia, secondary hyperparathyroidism, Diabetes Mellitus, hypertension presented with complaints of rt foot wound Renal consult requested for ESRD management. PD: manual exchanges 1.5% alternating with 2.5% (2000 mL) with 4 hr dwell time, net UF 0-300 mL with each exchange. he is looking forward to switch to HD in near future ROS: tolerating pd well. net UF 1481-7522 ml. fluid is clear. no pain or issues reported during PD exchanges. Cardiovascular: No chest pain. Pulmonary: No shortness of breath Gastrointestinal: denies abdominal pain No nausea. No vomiting. Genitourinary: No pain while urinating. Denies blood in urine. makes urine 1-2 times per day and not as much as used to in past All other negative except as mentioned in HPI s/p angiogram 12/17/18 Physical Examination: seen during PD General Appearance: Comfortable, in no acute respiratory distress, co-operative . Vitals reviewed and noted as below Head; Atraumatic, normocephalic ENT: no ulcers no thrush. Tongue is midline. Oropharynx: no rash or ulcers. EYES: Pupils are equal, round and reactive to light accommodation. Eye muscles and extraocular movement intact. Sclera is anicteric. Neck; supple no lymphadenopathy, no thyromegaly or bruit Lungs: Normal respiratory rate/effort. Breath sounds bilateral reduced at bases Heart: Normal rate. s1s2 normal. No rub or gallop. Extremities: no edema. No varicose veins. Rt foot in dressing Neurological: Patient is alert, awake and oriented to person, place and time. No focal deficit. Strength bilateral appropriate and equal Skin: Warm and dry. Normal turgor. No rash. Palpitation: Normal elasticity for age Abdomen: Abdomen is soft. Bowel sounds +. There is no abdominal tenderness, no guarding/rigidity or organomegaly Psych: normal insight and normal affect/mood MSK: no joint tenderness or swelling. Digits and nails normal, no deformity. s/p Rt great toe amputation : kidney or bladder not palpable Access: PD catheter. left AV access matured. Labs/imaging reviewed. Past medical history, past surgical history, family history, social history, allergy reviewed and noted as below Family Hx: no hx of CKD. Non contributory Objective - Vital Signs/Intake and Output Vital Signs (last 24 hours): Temp Pulse Resp BP Pulse Ox 98.2 F 104 H 20 144/76 96 12/24/18 08:42 12/24/18 08:42 12/24/18 08:42 12/24/18 11:35 12/24/18 08:42 Intake and Output: 12/24/18 12/24/18 06:59 18:59 Intake Total 570 Balance 570 - Medications Medications: Current Medications Acetaminophen (Tylenol 325mg Tab) 650 mg PO Q6 PRN PRN Reason: Pain, Mild (1-3) Aspirin (Aspirin Chewable) 81 mg PO DAILY [facility] Last Admin: 12/24/18 11:30 Dose: 81 mg Calcitriol (Rocaltrol) 0.5 mcg PO DAILY [facility] Last Admin: 12/24/18 11:29 Dose: 0.5 mcg Calcium Acetate (Phoslo) [facility] Last Admin: 12/24/18 08:52 Dose: 667 mg Clopidogrel Bisulfate (Plavix) 75 mg PO DAILY [facility] Last Admin: 12/24/18 11:31 Dose: 75 mg Dextrose (Dextrose 50% Inj) 0 ml IV STAT PRN; Protocol PRN Reason: Hypoglycemia Protocol Last Admin: 12/16/18 06:35 Dose: 50 ml Dextrose (Glutose 15) 0 gm PO ONCE PRN; Protocol PRN Reason: Hypoglycemia Protocol Diltiazem HCl (Cardizem Cd) 120 mg PO Q24H [facility] Last Admin: 12/23/18 21:21 Dose: 120 mg Docusate Sodium (Colace) 100 mg PO BID [facility] Last Admin: 12/24/18 11:31 Dose: 100 mg Epoetin Sanchez (Procrit) 8,000 unit SC MWF [facility] Last Admin: 12/24/18 11:53 Dose: 8,000 unit Gabapentin (Neurontin) 100 mg PO TID [facility] Last Admin: 12/24/18 11:29 Dose: 100 mg Glucagon (Glucagen Diagnostic Kit) 0 mg IM STAT PRN; Protocol PRN Reason: Hypoglycemia Protocol Heparin Sodium (Porcine) (Heparin) 5,000 units SC Q8 [facility] Last Admin: 12/24/18 06:31 Dose: 5,000 units Hydralazine HCl (Apresoline) 25 mg PO Q4 PRN PRN Reason: Other Last Admin: 12/18/18 09:51 Dose: 25 mg Dextrose (Dextrose 5% In Water 1000 Ml) 1,000 mls @ 0 mls/hr IV .Q0M PRN; Protocol PRN Reason: Hypoglycemia Protocol Piperacillin Sod/Tazobactam Sod (Zosyn 2.25 Gm Iv Premix) 2.25 gm in 50 mls @ 100 mls/hr IVPB Q12H [facility]; Protocol Stop: 12/30/18 23:00 Last Admin: 12/24/18 04:42 Dose: 100 mls/hr Vancomycin HCl 1 gm/ Sodium (Chloride) 250 mls @ 166.7 mls/hr IVPB Q4D [facility]; Protocol Stop: 12/30/18 12:00 Last Admin: 12/23/18 17:17 Dose: 166.7 mls/hr Insulin Detemir (Levemir) 29 unit SC HS [facility] Last Admin: 12/23/18 21:38 Dose: Not Given Insulin Detemir (Levemir) 29 unit SC ACB [facility] Last Admin: 12/24/18 08:53 Dose: 29 units Insulin Human Regular (Novolin R) 4 unit SC AC [facility] Last Admin: 12/24/18 08:57 Dose: Not Given Lactobacillus Acidophilus (Lactobacillus) 1 cap PO BID [facility] Last Admin: 12/24/18 11:28 Dose: 1 cap Losartan Potassium (Cozaar) 25 mg PO QPM [facility] Last Admin: 12/23/18 17:16 Dose: 25 mg Metoprolol Tartrate (Lopressor) 25 mg PO BID [facility] Last Admin: 12/24/18 11:35 Dose: Not Given Minoxidil (Minoxidil) 2.5 mg PO QPM [facility] Last Admin: 12/23/18 17:16 Dose: 2.5 mg Oxycodone/Acetaminophen (Percocet 5/325 Mg Tab) 1 tab PO Q4H PRN PRN Reason: Pain, moderate (4-7) Stop: 12/25/18 14:47 Oxycodone/Acetaminophen (Percocet 5/325 Mg Tab) 2 tab PO Q4H PRN PRN Reason: Pain, severe (8-10) Stop: 12/25/18 15:50 Last Admin: 12/23/18 07:00 Dose: 2 tab Rosuvastatin Calcium (Crestor) 10 mg PO [facility] Last Admin: 12/23/18 21:21 Dose: 10 mg Vitamin B Complex/Vit C/Folic Acid (Nephro-Barbara) 1 tab PO 0800 [facility] Last Admin: 12/24/18 08:52 Dose: 1 tab - Labs Labs: 12/24/18 04:00 12/24/18 08:17 PT 11.6 SECONDS (9.7-12.2) 12/24/18 08:28 INR 1.1 12/24/18 08:28 APTT 36 SECONDS (21-34) H 12/24/18 08:28
--- NOTE | 2018-12-24 15:38 | CP.PCM.PN ---
Subjective - Date & Time of Evaluation Date of Evaluation: 12/24/18 Time of Evaluation: 15:33 - Subjective Subjective: Podiatry Progress Note for Dr. Rasmussen 63M seen two days s/p right hallux amputation. Patient is AAO x 3 and NAD, resting comfortably in bed. He states that he has very minimal pain at the amputation site at this time. He denies any acute overnight events or new pedal complaints. Denies any recent N/V/F/C/CP/SOB/D/posterior calf pain. Objective - Vital Signs/Intake and Output Vital Signs (last 24 hours): Temp Pulse Resp BP Pulse Ox 98.5 F 106 H 20 125/62 96 12/24/18 15:02 12/24/18 15:02 12/24/18 15:02 12/24/18 15:02 12/24/18 08:42 Intake and Output: 12/24/18 12/24/18 06:59 18:59 Intake Total 570 Balance 570 - Medications Medications: Current Medications Acetaminophen (Tylenol 325mg Tab) 650 mg PO Q6 PRN PRN Reason: Pain, Mild (1-3) Aspirin (Aspirin Chewable) 81 mg PO DAILY [facility] Last Admin: 12/24/18 11:30 Dose: 81 mg Calcitriol (Rocaltrol) 0.5 mcg PO DAILY [facility] Last Admin: 12/24/18 11:29 Dose: 0.5 mcg Calcium Acetate (Phoslo) 667 mg PO BIDCC [facility] Last Admin: 12/24/18 08:52 Dose: 667 mg Clopidogrel Bisulfate (Plavix) 75 mg PO DAILY [facility] Last Admin: 12/24/18 11:31 Dose: 75 mg Dextrose (Dextrose 50% Inj) 0 ml IV STAT PRN; Protocol PRN Reason: Hypoglycemia Protocol Last Admin: 12/16/18 06:35 Dose: 50 ml Dextrose (Glutose 15) 0 gm PO ONCE PRN; Protocol PRN Reason: Hypoglycemia Protocol Diltiazem HCl (Cardizem Cd) 120 mg PO Q24H [facility] Last Admin: 12/23/18 21:21 Dose: 120 mg Docusate Sodium (Colace) 100 mg PO BID [facility] Last Admin: 12/24/18 11:31 Dose: 100 mg Epoetin Sanchez (Procrit) 8,000 unit SC MWF [facility] Last Admin: 12/24/18 11:53 Dose: 8,000 unit Gabapentin (Neurontin) 100 mg PO TID [facility] Last Admin: 12/24/18 13:32 Dose: 100 mg Glucagon (Glucagen Diagnostic Kit) 0 mg IM STAT PRN; Protocol PRN Reason: Hypoglycemia Protocol Heparin Sodium (Porcine) (Heparin) 5,000 units SC Q8 [facility] Last Admin: 12/24/18 13:31 Dose: 5,000 units Hydralazine HCl (Apresoline) 25 mg PO Q4 PRN PRN Reason: Other Last Admin: 12/18/18 09:51 Dose: 25 mg Dextrose (Dextrose 5% In Water 1000 Ml) 1,000 mls @ 0 mls/hr IV .Q0M PRN; Protocol PRN Reason: Hypoglycemia Protocol Piperacillin Sod/Tazobactam Sod (Zosyn 2.25 Gm Iv Premix) 2.25 gm in 50 mls @ 100 mls/hr IVPB Q12H [facility]; Protocol Stop: 12/30/18 23:00 Last Admin: 12/24/18 04:42 Dose: 100 mls/hr Vancomycin HCl 1 gm/ Sodium (Chloride) 250 mls @ 166.7 mls/hr IVPB Q4D [facility]; Pro tocol Stop: 12/30/18 12:00 Last Admin: 12/23/18 17:17 Dose: 166.7 mls/hr Insulin Detemir (Levemir) 29 unit SC HS [facility] Last Admin: 12/23/18 21:38 Dose: Not Given Insulin Detemir (Levemir) 29 unit SC ACB [facility] Last Admin: 12/24/18 08:53 Dose: 29 units Insulin Human Regular (Novolin R) 4 unit SC AC [facility] Last Admin: 12/24/18 13:31 Dose: Not Given Lactobacillus Acidophilus (Lactobacillus) 1 cap PO BID [facility] Last Admin: 12/24/18 11:28 Dose: 1 cap Losartan Potassium (Cozaar) 25 mg PO QPM [facility] Last Admin: 12/23/18 17:16 Dose: 25 mg Metoprolol Tartrate (Lopressor) 25 mg PO BID [facility] Last Admin: 12/24/18 11:35 Dose: Not Given Minoxidil (Minoxidil) 2.5 mg PO QPM [facility] Last Admin: 12/23/18 17:16 Dose: 2.5 mg Oxycodone/Acetaminophen (Percocet 5/325 Mg Tab) 1 tab PO Q4H PRN PRN Reason: Pain, moderate (4-7) Stop: 12/25/18 14:47 Oxycodone/Acetaminophen (Percocet 5/325 Mg Tab) 2 tab PO Q4H PRN PRN Reason: Pain, severe (8-10) Stop: 12/25/18 15:50 Last Admin: 12/23/18 07:00 Dose: 2 tab Rosuvastatin Calcium (Crestor) 10 mg PO HS [facility] Last Admin: 12/23/18 21:21 Dose: 10 mg Vitamin B Complex/Vit C/Folic Acid (Nephro-Barbara) 1 tab PO 0800 [facility] Last Admin: 12/24/18 08:52 Dose: 1 tab - Labs Labs: 12/24/18 04:00 12/24/18 08:17 PT 11.6 SECONDS (9.7-12.2) 12/24/18 08:28 INR 1.1 12/24/18 08:28 APTT 36 SECONDS (21-34) H 12/24/18 08:28 - Constitutional Appears: Well, Non-toxic, No Acute Distress - Extremities Exam Additional comments: RLE focused exam: Vasc: DP/PT pulses non-palpable b/l. Skin temperature warm to warm from proximal to distal WNL. CFT > 3 seconds to all remaining digits b/l. No edema noted to postoperative site at this time Neuro: Epicritic and protective sensation grossly diminished b/l Derm: Amputation site noted to be well coapted with no evidence of dehiscence and with all sutures intact. No evidence of erythema, malodor, drainage, fluctuance or other clinical signs of infection or hematoma. Hypertrophic skin of anterior ankle is noted to be slowly improving at this time with no evidence of infection appreciated. MSK: Amputation of right hallux appreciated. Pain on palpation of hypertrophic skin at anterior ankle, improving. Minimal pain on palpation of amputation site, consistent with postoperative status. - Neurological Exam Neurological Exam: Alert, Awake, Oriented x3 - Psychiatric Exam Psychiatric exam: Normal Affect, Normal Mood Assessment and Plan - Assessment and Plan (Free Text) Assessment: 63M seen two days s/p right hallux amputation Plan: Patient seen and evaluated with Dr. Rasmussen Afebrile, absent leukocytosis Continue abx per ID Postoperative foot xray: Amputation 1st digit. Otherwise unremarkable Surgical site and anterior ankle dressed with xeroform, ABD, DSD, PAWEL Please provide patient with [facility] VNS dressing changes as described above three times per week No plan for further surgical intervention at this time Patient stable from podiatric standpoint Upon discharge patient should follow up with Dr. Rasmussen in his office for continued care
--- NOTE | 2018-12-24 18:48 | CP.PCM.PN ---
Subjective - Date & Time of Evaluation Date of Evaluation: 12/24/18 Time of Evaluation: 09:00 - Subjective Subjective: TOLERATING iv RX Objective - Vital Signs/Intake and Output Vital Signs (last 24 hours): Temp Pulse Resp BP Pulse Ox 98.5 F 106 H 20 117/56 L 96 12/24/18 15:02 12/24/18 15:02 12/24/18 15:02 12/24/18 18:27 12/24/18 08:42 Intake and Output: 12/24/18 12/24/18 06:59 18:59 Intake Total 570 Balance 570 - Medications Medications: Current Medications Acetaminophen (Tylenol 325mg Tab) 650 mg PO Q6 PRN PRN Reason: Pain, Mild (1-3) Aspirin (Aspirin Chewable) 81 mg PO DAILY [facility] Last Admin: 12/24/18 11:30 Dose: 81 mg Calcitriol (Rocaltrol) 0.5 mcg PO DAILY [facility] Last Admin: 12/24/18 11:29 Dose: 0.5 mcg Calcium Acetate (Phoslo) 667 mg PO BIDCC [facility] Last Admin: 12/24/18 08:52 Dose: 667 mg Clopidogrel Bisulfate (Plavix) 75 mg PO DAILY [facility] Last Admin: 12/24/18 11:31 Dose: 75 mg Dextrose (Dextrose 50% Inj) 0 ml IV STAT PRN; Protocol PRN Reason: Hypoglycemia Protocol Last Admin: 12/16/18 06:35 Dose: 50 ml Dextrose (Glutose 15) 0 gm PO ONCE PRN; Protocol PRN Reason: Hypoglycemia Protocol Diltiazem HCl (Cardizem Cd) 120 mg PO Q24H [facility] Last Admin: 12/23/18 21:21 Dose: 120 mg Docusate Sodium (Colace) 100 mg PO BID [facility] Last Admin: 12/24/18 18:20 Dose: 100 mg Epoetin Sanchez (Procrit) 8,000 unit SC MWF [facility] Last Admin: 12/24/18 11:53 Dose: 8,000 unit Gabapentin (Neurontin) 100 mg PO TID [facility] Last Admin: 12/24/18 18:21 Dose: 100 mg Glucagon (Glucagen Diagnostic Kit) 0 mg IM STAT PRN; Protocol PRN Reason: Hypoglycemia Protocol Heparin Sodium (Porcine) (Heparin) 5,000 units SC Q8 [facility] Last Admin: 12/24/18 13:31 Dose: 5,000 units Hydralazine HCl (Apresoline) 25 mg PO Q4 PRN PRN Reason: Other Last Admin: 12/18/18 09:51 Dose: 25 mg Dextrose (Dextrose 5% In Water 1000 Ml) 1,000 mls @ 0 mls/hr IV .Q0M PRN; Protocol PRN Reason: Hypoglycemia Protocol Piperacillin Sod/Tazobactam Sod (Zosyn 2.25 Gm Iv Premix) 2.25 gm in 50 mls @ 100 mls/hr IVPB Q12H [facility]; Protocol Stop: 12/30/18 23:00 Last Admin: 12/24/18 04:42 Dose: 100 mls/hr Vancomycin HCl 1 gm/ Sodium (Chloride) 250 mls @ 166.7 mls/hr IVPB Q4D [facility]; Protocol Stop: 12/30/18 12:00 Last Admin: 12/23/18 17:17 Dose: 166.7 mls/hr Insulin Detemir (Levemir) 29 unit SC HS [facility] Last Admin: 12/23/18 21:38 Dose: Not Given Insulin Detemir (Levemir) 29 unit SC ACB [facility] Last Admin: 12/24/18 08:53 Dose: 29 units Insulin Human Regular (Novolin R) 4 unit SC AC [facility] Last Admin: 12/24/18 18:21 Dose: 4 unit Lactobacillus Acidophilus (Lactobacillus) 1 cap PO BID [facility] Last Admin: 12/24/18 18:20 Dose: 1 cap Losartan Potassium (Cozaar) 25 mg PO QPM [facility] Last Admin: 12/24/18 18:18 Dose: 25 mg Metoprolol Tartrate (Lopressor) 25 mg PO BID [facility] Last Admin: 12/24/18 18:27 Dose: Not Given Minoxidil (Minoxidil) 2.5 mg PO QPM [facility] Last Admin: 12/24/18 18:20 Dose: 2.5 mg Oxycodone/Acetaminophen (Percocet 5/325 Mg Tab) 1 tab PO Q4H PRN PRN Reason: Pain, moderate (4-7) Stop: 12/25/18 14:47 Oxycodone/Acetaminophen (Percocet 5/325 Mg Tab) 2 tab PO Q4H PRN PRN Reason: Pain, severe (8-10) Stop: 12/25/18 15:50 Last Admin: 12/23/18 07:00 Dose: 2 tab Rosuvastatin Calcium (Crestor) 10 mg PO HS [facility] Last Admin: 12/23/18 21:21 Dose: 10 mg Vitamin B Complex/Vit C/Folic Acid (Nephro-Barbara) 1 tab PO 0800 [facility] Last Admin: 12/24/18 08:52 Dose: 1 tab - Labs Labs: 12/24/18 04:00 12/24/18 08:17 PT 11.6 SECONDS (9.7-12.2) 12/24/18 08:28 INR 1.1 12/24/18 08:28 APTT 36 SECONDS (21-34) H 12/24/18 08:28 - Constitutional Appears: Well - Head Exam Head Exam: ATRAUMATIC, NORMAL INSPECTION, NORMOCEPHALIC - Eye Exam Eye Exam: EOMI, Normal appearance, PERRL Pupil Exam: NORMAL ACCOMODATION, PERRL - ENT Exam ENT Exam: Mucous Membranes Moist, Normal Exam - Neck Exam Neck Exam: Full ROM, Normal Inspection. absent: Lymphadenopathy - Respiratory Exam Respiratory Exam: Clear to Ausculation Bilateral, NORMAL BREATHING PATTERN - Cardiovascular Exam Cardiovascular Exam: REGULAR RHYTHM, +S1, +S2. absent: Murmur - GI/Abdominal Exam GI & Abdominal Exam: Soft, Normal Bowel Sounds. absent: Tenderness - Rectal Exam Rectal Exam: Deferred - Extremities Exam Extremities Exam: Full ROM, Normal Capillary Refill, Normal Inspection. absent: Joint Swelling, Pedal Edema - Back Exam Back Exam: NORMAL INSPECTION - Neurological Exam Neurological Exam: Alert, Awake, CN II-XII Intact, Normal Gait, Oriented x3 - Psychiatric Exam Psychiatric exam: Normal Affect, Normal Mood - Skin Skin Exam: Dry, Intact, Normal Color, Warm Assessment and Plan (1) Peritoneal dialysis catheter in place Status: Acute (2) CAD (coronary artery disease) Status: Acute (3) Diabetes mellitus Status: Acute (4) ESRD (end stage renal disease) Status: Acute (5) Gangrene Status: Acute (6) Hypertension Status: Acute - Assessment and Plan (Free Text) Assessment: CONT RX ORDERRED FOR MIN 7 DAYS POST OP
[2018-12-24] MEDS: diltiaZEM 120 mg/24 Hours CD Cap PO SCH (22:48)
[2018-12-25] MEDS: Piperacill/Tazo 2.25gm in Dex 2.25 GM/50 ML BAG IVPB SCH ×2 (05:03→17:13)
--- NOTE | 2018-12-25 07:48 | CP.PCM.DIS ---
Provider - Provider Date of Admission: 12/17/18 10:03 Attending physician: Sophy Martínez DO Consults: 12/13/18 19:45 Physician Consult Routine Comment: ALREADY CALLED Consulting Provider: Yeyo Rasmussen Consulting Physician: Yeyo Rasmussen Reason for Consult: DFU 12/14/18 01:08 Nephrology Consult Routine Comment: Consulting Provider: Deep [place] Consulting Physician: Deep [place] Reason for Consult: peritoneal dialysis patient, possibly start on hemodialysis 12/14/18 07:44 Podiatry Consult Routine Comment: Consulting Provider: Glen Rasmussen Consulting Physician: Glen Rasmussen Reason for Consult: RLE wounds 12/14/18 11:23 Physician Consult Routine Comment: Consulting Provider: Tyson Rosales Consulting Physician: Tyson Rosales Reason for Consult: Vascular: DM foot ulcer, potential podiatry procedure in future 12/15/18 16:14 Infectious Disease Consult Routine Comment: Consulting Provider: Mal Pimentel Consulting Physician: Mal Pimentel Reason for Consult: osteomyelitis 12/20/18 09:05 Case Management Referral Routine Comment: Physician Instructions: Reason For Exam: misael eval; iv abx on d/c Reason for Referral: Discharge Planning Hospital Course - Lab Results Lab Results: Micro Results 12/13/18 21:12 Blood Blood Culture - Final NO GROWTH AFTER 5 DAYS 12/13/18 21:12 Blood Gram Stain - Final TEST NOT PERFORMED 12/13/18 18:50 Blood Blood Culture - Final NO GROWTH AFTER 5 DAYS 12/13/18 18:50 Blood Gram Stain - Final TEST NOT PERFORMED Most Recent Lab Values WBC 7.7 K/uL (4.8-10.8) 12/24/18 04:00 RBC 3.59 Mil/uL (4.40-5.90) L 12/24/18 04:00 Hgb 9.4 g/dL (12.0-18.0) L 12/24/18 04:00 Hct 28.5 % (35.0-51.0) L 12/24/18 04:00 MCV 79.4 fL (80.0-94.0) L 12/24/18 04:00 MCH 26.1 pg (27.0-31.0) L 12/24/18 04:00 MCHC 32.9 g/dL (33.0-37.0) L 12/24/18 04:00 RDW 15.3 % (11.5-14.5) H 12/24/18 04:00 Plt Count 332 K/uL (130-400) 12/24/18 04:00 MPV 7.8 fL (7.2-11.7) 12/24/18 04:00 Neut % (Auto) 77.5 % (50.0-75.0) H 12/24/18 04:00 Lymph % (Auto) 7.1 % (20.0-40.0) L 12/24/18 04:00 Crawford % (Auto) 11.7 % (0.0-10.0) H 12/24/18 04:00 Eos % (Auto) 2.9 % (0.0-4.0) 12/24/18 04:00 Baso % (Auto) 0.8 % (0.0-2.0) 12/24/18 04:00 Neut # (Auto) 6.0 K/uL (1.8-7.0) 12/24/18 04:00 Lymph # (Auto) 0.5 K/uL (1.0-4.3) L 12/24/18 04:00 Crawford # (Auto) 0.9 K/uL (0.0-0.8) H 12/24/18 04:00 Eos # (Auto) 0.2 K/uL (0.0-0.7) 12/24/18 04:00 Baso # (Auto) 0.1 K/uL (0.0-0.2) 12/24/18 04:00 Neutrophils % (Manual) 78 % (50-75) H 12/24/18 04:00 Band Neutrophils % 1 % (0-2) 12/24/18 04:00 Lymphocytes % (Manual) 7 % (20-40) L 12/24/18 04:00 Monocytes % (Manual) 11 % (0-10) H 12/24/18 04:00 Eosinophils % (Manual) 3 % (0-4) 12/24/18 04:00 Basophils % (Manual) 1 % (0-2) 12/23/18 08:16 Toxic Granulation Present 12/18/18 11:25 Platelet Estimate Normal (NORMAL) 12/24/18 04:00 Large Platelets Present 12/24/18 04:00 Giant Platelets Present 12/18/18 11:25 Polychromasia Slight 12/19/18 08:43 Hypochromasia (manual) Slight 12/24/18 04:00 Poikilocytosis (manual Slight 12/24/18 04:00 Anisocytosis (manual) Slight 12/24/18 04:00 Microcytosis (manual) Slight 12/19/18 08:43 Target Cells Slight 12/13/18 19:59 ESR 85 mm/hr (0-15) H 12/21/18 08:11 PT 11.6 SECONDS (9.7-12.2) 12/24/18 08:28 INR 1.1 12/24/18 08:28 APTT 36 SECONDS (21-34) H 12/24/18 08:28 Sodium 131 mmol/L (132-148) L 12/24/18 08:17 Potassium 4.3 mmol/L (3.6-5.2) 12/24/18 08:17 Chloride 93 mmol/L (98-107) L 12/24/18 08:17 Carbon Dioxide 28 mmol/L (22-30) 12/24/18 08:17 Anion Gap 14 (10-20) 12/24/18 08:17 BUN 48 mg/dL (9-20) H 12/24/18 08:17 Creatinine 10.5 mg/dL (0.8-1.5) H* 12/24/18 08:17 Est GFR ( Amer) 6 12/24/18 08:17 Est GFR (Non-Af Amer) 5 12/24/18 08:17 POC Glucose (mg/dL) 192 mg/dL (65-110) H 12/25/18 06:46 Random Glucose 255 mg/dL (75-110) H D 12/24/18 08:17 Hemoglobin A1c 8.4 % (4.2-6.5) H 12/14/18 13:36 Lactic Acid 1.8 mmol/L (0.7-2.1) 12/20/18 07:13 Calcium 9.7 mg/dl (8.6-10.4) 12/24/18 08:17 Phosphorus 5.1 mg/dL (2.5-4.5) H 12/22/18 07:25 Magnesium 2.2 mg/dL (1.6-2.3) 12/22/18 07:25 Total Bilirubin 0.4 mg/dL (0.2-1.3) 12/24/18 08:17 AST 36 U/L (17-59) 12/24/18 08:17 ALT 8 U/L (21-72) L D 12/24/18 08:17 Alkaline Phosphatase 90 U/L (38-126) 12/24/18 08:17 C-Reactive Protein 31.10 mg/L (0.0-9.9) H 12/21/18 08:11 Total Protein 6.0 g/dL (6.3-8.3) L 12/24/18 08:17 Albumin 3.2 g/dL (3.5-5.0) L 12/24/18 08:17 Globulin 2.9 gm/dL (2.2-3.9) 12/24/18 08:17 Albumin/Globulin Ratio 1.1 (1.0-2.1) 12/24/18 08:17 Triglycerides 117 mg/dL (0-149) 12/14/18 08:32 Cholesterol 166 mg/dL (0-199) 12/14/18 08:32 LDL Cholesterol Direct 95 mg/dL (0-129) 12/14/18 08:32 HDL Cholesterol 42 mg/dL (30-70) 12/14/18 08:32 - Hospital Course Hospital Course: Patient is stable for discharge as per Dr. Neville Fraser. Patient is to follow up with Dr. Rasmussen, shoes salesperson within one week of discharge. Patient is to follow up with his primary care doctor, Dr. Cantu within one week of discharge. He must also make an appointment with his order entry representative, Dr. V[place]. Patient is discharged with scripts for the following medications: Levemir 29 units SC take at 8am Levemir 29 units SC take at 8PM Aspirin 81mg daily take at 8AM Crestor 10mg daily take at 8PM Plavix 75mg daily take at 8AM Cardizem ER 120mg take at 10PM Cozar 25mg daily take at 6PM Metoprolol Tartrate 25mg take twice per day 10 AM and 6PM Minoxidil 2.5mg PO daily take at 6PM Calcitriol 0.5mcg take at 8AM Phoslo 667mg Twice a day with meals at 8AM and 8PM Gabapentin 100mg three times per day 8AM, 2PM, and 8PM Lactobacillus 1 capsule twice a day at 8AM and 8PM until January 30 Nephrovite 1tab daily take at 8AM Procrit 8000 units subcutaneously on Thursday, Thursday, and Thursday to be administered by visiting nurse. Patient is given script for venous duplex scan of the legs. He is to have scan done outpatient and follow up results with his PMD. Discharge Exam - Head Exam Head Exam: ATRAUMATIC, NORMAL INSPECTION, NORMOCEPHALIC Discharge Plan - Follow Up Plan Condition: STABLE Disposition: HOME/ ROUTINE Additional Instructions: Patient is stable for discharge as per Dr. Neville Fraser. Patient is to follow up with Dr. Rasmussen, shoes salesperson within one week of discharge. Patient is to follow up with his primary care doctor, Dr. Cantu within one week of discharge. He must also make an appointment with his order entry representative, Dr. V[place]. Patient is discharged with scripts for the following medications: Levemir 29 units SC take at 8am Levemir 29 units SC take at 8PM Aspirin 81mg daily take at 8AM Crestor 10mg daily take at 8PM Plavix 75mg daily take at 8AM Cardizem ER 120mg take at 10PM Cozar 25mg daily take at 6PM Metoprolol Tartrate 25mg take twice per day 10 AM and 6PM Minoxidil 2.5mg PO daily take at 6PM Calcitriol 0.5mcg take at 8AM Phoslo 667mg Twice a day with meals at 8AM and 8PM Gabapentin 100mg three times per day 8AM, 2PM, and 8PM Lactobacillus 1 capsule twice a day at 8AM and 8PM until January 30 Nephrovite 1 tab daily take at 8AM Procrit 8000 units subcutaneously on Thursday, Thursday, and Thursday to be administered by visiting nurse. Patient is given script for venous duplex scan of the legs. He is to have scan done outpatient and follow up results with his PMD.
[2018-12-25 07:55] LABS: BASO # 0.1 K/uL (0.0-0.2); BASO % 0.6 % (0.0-2.0); EOS # 0.2 K/uL (0.0-0.7); EOS % 2.7 % (0.0-4.0); HEMOGLOBIN 9.4 g/dL (12.0-18.0); LYMPH # 0.5 K/uL (1.0-4.3); LYMPH % 5.8 % (20.0-40.0); MEAN CORPUSCULAR HEMOGLOBIN 26.2 pg (27.0-31.0); MEAN CORPUSCULAR HGB CONC 32.8 g/dL (33.0-37.0); MEAN PLATELET VOLUME 7.8 fL (7.2-11.7); MONO # 1.1 K/uL (0.0-0.8); MONO % 11.8 % (0.0-10.0); NEUT % 79.1 % (50.0-75.0); NRBC % 0.2 % (0.0-2.0); PLATELET COUNT 370 K/uL (130-400); RBC 3.58 Mil/uL (4.40-5.90); RED CELL DISTRIBUTION WIDTH 15.4 % (11.5-14.5); WHITE BLOOD COUNT 8.9 K/uL (4.8-10.8)
[2018-12-25 08:22] LABS: ALB/GLOB RATIO 1.2 (1.0-2.1); ALBUMIN 3.4 g/dL (3.5-5.0); ALT/SGPT < 6 U/L (21-72); AST/SGOT 31 U/L (17-59); BLOOD UREA NITROGEN 50 mg/dL (9-20); CALCIUM 9.9 mg/dl (8.6-10.4); GFR NON-AFRICAN AMERICAN 5
[2018-12-25] MEDS: Insulin Detemir 100 units/ml Vial (Levemir) SC SCH ×2 (08:23→21:52)
[2018-12-25] MEDS: (Novolin R) Insulin Human Regular 100 units/ml vial SC SCH ×3 (08:24→18:23)
[2018-12-25] MEDS: Multivitamin Vitamin B Complex (Nephro-Vite) Tab PO SCH (08:24)
[2018-12-25 09:38] LABS: BANDS 1 % (0-2); EOSINOPHIL 7 % (0-4); NEUTROPHIL 75 % (50-75); TOTAL CELLS COUNTED 100
[2018-12-25 09:39] LABS: LYMPHOCYTE 7 % (20-40); MONOCYTE 10 % (0-10); PLATELET ESTIMATE NORMAL (NORMAL)
[2018-12-25 09:40] LABS: ANISOCYTOSIS SLIGHT; HYPOCHROMIC SLIGHT
[2018-12-25] MEDS: Lactobacillus Acidophilus 500 MU Cap PO SCH ×2 (09:47→18:26)
--- NOTE | 2018-12-25 14:03 | CP.PCM.PN ---
Subjective - Date & Time of Evaluation Date of Evaluation: 12/25/18 Time of Evaluation: 12:00 - Subjective Subjective: Nephrology Consultation Note: Assessment: Stable Rt foot found/ulcer with PVD Rt foot toe osteomyelitis Diabetic chronic Kidney Disease (E11.22). Hypoglyecmia and hyperglycemia Hypertensive Chronic Kidney Disease (I12.0) End stage renal disease (N18.6) dependence on dialysis (Z99.2) as PD Anemia (D64.9), Hyperphosphatemia (E83.39), Secondary Hyperparathyroidism (E21.1), HTN (I12.0) uncontrolled severe HTN with urgency Plan: seen on pd Continue with Nephrovite 1 tab/day. PD d/w staff electronic warfare officer as well. pt being discharged will f/u outpt Physical Examination: seen during PD General Appearance: Comfortable, in no acute respiratory distress, co-operative . Vitals reviewed and noted as below Head; Atraumatic, normocephalic ENT: no ulcers no thrush. Tongue is midline. Oropharynx: no rash or ulcers. EYES: Pupils are equal, round and reactive to light accommodation. Eye muscles and extraocular movement intact. Sclera is anicteric. Neck; supple no lymphadenopathy, no thyromegaly or bruit Lungs: Normal respiratory rate/effort. Breath sounds bilateral reduced at bases Heart: Normal rate. s1s2 normal. No rub or gallop. Extremities: no edema. No varicose veins. Rt foot in dressing Neurological: Patient is alert, awake and oriented to person, place and time. No focal deficit. Strength bilateral appropriate and equal Skin: Warm and dry. Normal turgor. No rash. Palpitation: Normal elasticity for age Abdomen: Abdomen is soft. Bowel sounds +. There is no abdominal tenderness, no guarding/rigidity or organomegaly Psych: normal insight and normal affect/mood MSK: no joint tenderness or swelling. Digits and nails normal, no deformity. s/p Rt great toe amputation : kidney or bladder not palpable Access: PD catheter. left AV access matured. Labs/imaging reviewed. Past medical history, past surgical history, family history, social history, allergy reviewed and noted as below Family Hx: no hx of CKD. Non contributory Objective - Vital Signs/Intake and Output Vital Signs (last 24 hours): Temp Pulse Resp BP Pulse Ox 98 F 98 H 20 157/58 H 98 12/25/18 11:44 12/25/18 11:44 12/25/18 11:44 12/25/18 11:44 12/25/18 11:44 - Medications Medications: Current Medications Acetaminophen (Tylenol 325mg Tab) 650 mg PO Q6 PRN PRN Reason: Pain, Mild (1-3) Aspirin (Aspirin Chewable) 81 mg PO DAILY [facility] Last Admin: 12/25/18 09:47 Dose: 81 mg Calcitriol (Rocaltrol) 0.5 mcg PO DAILY [facility] Last Admin: 12/25/18 09:47 Dose: 0.5 mcg Calcium Acetate (Phoslo) 667 mg PO BIDCC [facility] Last Admin: 12/25/18 08:24 Dose: 667 mg Clopidogrel Bisulfate (Plavix) 75 mg PO DAILY [facility] Last Admin: 12/25/18 09:46 Dose: 75 mg Dextrose (Dextrose 50% Inj) 0 ml IV STAT PRN; Protocol PRN Reason: Hypoglycemia Protocol Last Admin: 12/16/18 06:35 Dose: 50 ml Dextrose (Glutose 15) 0 gm PO ONCE PRN; Protocol PRN Reason: Hypoglycemia Protocol Diltiazem HCl (Cardizem Cd) 120 mg PO Q24H [facility] Last Admin: 12/24/18 22:48 Dose: 120 mg Docusate Sodium (Colace) 100 mg PO BID [facility] Last Admin: 12/25/18 09:47 Dose: 100 mg Epoetin Sanchez (Procrit) 8,000 unit SC MWF [facility] Last Admin: 12/24/18 11:53 Dose: 8,000 unit Gabapentin (Neurontin) 100 mg PO TID [facility] Last Admin: 12/25/18 09:46 Dose: 100 mg Glucagon (Glucagen Diagnostic Kit) 0 mg IM STAT PRN; Protocol PRN Reason: Hypoglycemia Protocol Heparin Sodium (Porcine) (Heparin) 5,000 units SC Q8 [facility] Last Admin: 12/25/18 05:03 Dose: 5,000 units Hydralazine HCl (Apresoline) 25 mg PO Q4 PRN PRN Reason: Other Last Admin: 12/18/18 09:51 Dose: 25 mg Dextrose (Dextrose 5% In Water 1000 Ml) 1,000 mls @ 0 mls/hr IV .Q0M PRN; Protocol PRN Reason: Hypoglycemia Protocol Piperacillin Sod/Tazobactam Sod (Zosyn 2.25 Gm Iv Premix) 2.25 gm in 50 mls @ 100 mls/hr IVPB Q12H [facility]; Protocol Stop: 12/30/18 23:00 Last Admin: 12/25/18 05:03 Dose: 100 mls/hr Vancomycin HCl 1 gm/ Sodium (Chloride) 250 mls @ 166.7 mls/hr IVPB Q4D [facility]; Protocol Stop: 12/30/18 12:00 Last Admin: 12/23/18 17:17 Dose: 166.7 mls/hr Insulin Detemir (Levemir) 29 unit SC HS [facility] Last Admin: 12/24/18 23:00 Dose: 29 units Insulin Detemir (Levemir) 29 unit SC ACB [facility] Last Admin: 12/25/18 08:23 Dose: 29 units Insulin Human Regular (Novolin R) 4 unit SC AC [facility] Last Admin: 12/25/18 13:03 Dose: Not Given Lactobacillus Acidophilus (Lactobacillus) 1 cap PO BID [facility] Last Admin: 12/25/18 09:47 Dose: 1 cap Losartan Potassium (Cozaar) 25 mg PO QPM [facility] Last Admin: 12/24/18 18:18 Dose: 25 mg Metoprolol Tartrate (Lopressor) 25 mg PO BID [facility] Last Admin: 12/25/18 12:37 Dose: Not Given Minoxidil (Minoxidil) 2.5 mg PO QPM [facility] Last Admin: 12/24/18 18:20 Dose: 2.5 mg Oxycodone/Acetaminophen (Percocet 5/325 Mg Tab) 1 tab PO Q4H PRN PRN Reason: Pain, moderate (4-7) Stop: 12/25/18 14:47 Oxycodone/Acetaminophen (Percocet 5/325 Mg Tab) 2 tab PO Q4H PRN PRN Reason: Pain, severe (8-10) Stop: 12/25/18 15:50 Last Admin: 12/23/18 07:00 Dose: 2 tab Rosuvastatin Calcium (Crestor) 10 mg PO [facility] Last Admin: 12/24/18 22:48 Dose: 10 mg Vitamin B Complex/Vit C/Folic Acid (Nephro-Barbara) 1 tab PO 0800 [facility] Last Admin: 12/25/18 08:24 Dose: 1 tab - Labs Labs: 12/25/18 07:44 12/25/18 07:44 PT 11.6 SECONDS (9.7-12.2) 12/24/18 08:28 INR 1.1 12/24/18 08:28 APTT 36 SECONDS (21-34) H 12/24/18 08:28
--- NOTE | 2018-12-25 14:47 | CP.PCM.PN ---
Subjective - Date & Time of Evaluation Date of Evaluation: 12/25/18 Time of Evaluation: 07:00 - Subjective Subjective: Progress note for Dr. Neville Fraser Patient seen and examined at bedside. Patient is eager for discharge. Reports continued R foot pain at the surgical site. R calf pain is improved. Venous duplex was done with negative preliminary reading. Patient denies fever, chills, nausea, vomiting, chest pain and SOB. Objective - Vital Signs/Intake and Output Vital Signs (last 24 hours): Temp Pulse Resp BP Pulse Ox 98 F 98 H 20 157/58 H 98 12/25/18 11:44 12/25/18 11:44 12/25/18 11:44 12/25/18 11:44 12/25/18 11:44 - Medications Medications: Current Medications Acetaminophen (Tylenol 325mg Tab) 650 mg PO Q6 PRN PRN Reason: Pain, Mild (1-3) Aspirin (Aspirin Chewable) 81 mg PO DAILY [facility] Last Admin: 12/25/18 09:47 Dose: 81 mg Calcitriol (Rocaltrol) 0.5 mcg PO DAILY [facility] Last Admin: 12/25/18 09:47 Dose: 0.5 mcg Calcium Acetate (Phoslo) 667 mg PO BIDCC [facility] Last Admin: 12/25/18 08:24 Dose: 667 mg Clopidogrel Bisulfate (Plavix) 75 mg PO DAILY [facility] Last Admin: 12/25/18 09:46 Dose: 75 mg Dextrose (Dextrose 50% Inj) 0 ml IV STAT PRN; Protocol PRN Reason: Hypoglycemia Protocol Last Admin: 12/16/18 06:35 Dose: 50 ml Dextrose (Glutose 15) 0 gm PO ONCE PRN; Protocol PRN Reason: Hypoglycemia Protocol Diltiazem HCl (Cardizem Cd) 120 mg PO Q24H [facility] Last Admin: 12/24/18 22:48 Dose: 120 mg Docusate Sodium (Colace) 100 mg PO BID [facility] Last Admin: 12/25/18 09:47 Dose: 100 mg Epoetin Sanchez (Procrit) 8,000 unit SC MWF [facility] Last Admin: 12/24/18 11:53 Dose: 8,000 unit Gabapentin (Neurontin) 100 mg PO TID [facility] Last Admin: 12/25/18 09:46 Dose: 100 mg Glucagon (Glucagen Diagnostic Kit) 0 mg IM STAT PRN; Protocol PRN Reason: Hypoglycemia Protocol Heparin Sodium (Porcine) (Heparin) 5,000 units SC Q8 [facility] Last Admin: 12/25/18 05:03 Dose: 5,000 units Hydralazine HCl (Apresoline) 25 mg PO Q4 PRN PRN Reason: Other Last Admin: 12/18/18 09:51 Dose: 25 mg Dextrose (Dextrose 5% In Water 1000 Ml) 1,000 mls @ 0 mls/hr IV .Q0M PRN; Protocol PRN Reason: Hypoglycemia Protocol Piperacillin Sod/Tazobactam Sod (Zosyn 2.25 Gm Iv Premix) 2.25 gm in 50 mls @ 100 mls/hr IVPB Q12H [facility]; Protocol Stop: 12/30/18 23:00 Last Admin: 12/25/18 05:03 Dose: 100 mls/hr Vancomycin HCl 1 gm/ Sodium (Chloride) 250 mls @ 166.7 mls/hr IVPB Q4D [facility]; Protocol Stop: 12/30/18 12:00 Last Admin: 12/23/18 17:17 Dose: 166.7 mls/hr Insulin Detemir (Levemir) 29 unit SC HS [facility] Last Admin: 12/24/18 23:00 Dose: 29 units Insulin Detemir (Levemir) 29 unit SC ACB [facility] Last Admin: 12/25/18 08:23 Dose: 29 units Insulin Human Regular (Novolin R) 4 unit SC AC [facility] Last Admin: 12/25/18 13:03 Dose: Not Given Lactobacillus Acidophilus (Lactobacillus) 1 cap PO BID [facility] Last Admin: 12/25/18 09:47 Dose: 1 cap Losartan Potassium (Cozaar) 25 mg PO QPM [facility] Last Admin: 12/24/18 18:18 Dose: 25 mg Metoprolol Tartrate (Lopressor) 25 mg PO BID [facility] Last Admin: 12/25/18 12:37 Dose: Not Given Minoxidil (Minoxidil) 2.5 mg PO QPM [facility] Last Admin: 12/24/18 18:20 Dose: 2.5 mg Oxycodone/Acetaminophen (Percocet 5/325 Mg Tab) 1 tab PO Q4H PRN PRN Reason: Pain, moderate (4-7) Stop: 12/25/18 14:47 Oxycodone/Acetaminophen (Percocet 5/325 Mg Tab) 2 tab PO Q4H PRN PRN Reason: Pain, severe (8-10) Stop: 12/25/18 15:50 Last Admin: 12/23/18 07:00 Dose: 2 tab Rosuvastatin Calcium (Crestor) 10 mg PO HS [facility] Last Admin: 12/24/18 22:48 Dose: 10 mg Vitamin B Complex/Vit C/Folic Acid (Nephro-Barbara) 1 tab PO 0800 [facility] Last Admin: 12/25/18 08:24 Dose: 1 tab - Labs Labs: 12/25/18 07:44 12/25/18 07:44 PT 11.6 SECONDS (9.7-12.2) 12/24/18 08:28 INR 1.1 12/24/18 08:28 APTT 36 SECONDS (21-34) H 12/24/18 08:28 - Additional Findings Additional findings: - Constitutional Appears: Non-toxic, No Acute Distress - Head Exam Head Exam: ATRAUMATIC, NORMOCEPHALIC - Eye Exam Eye Exam: EOMI, Normal appearance - Neck Exam Neck Exam: Full ROM, Normal Inspection - Respiratory Exam Respiratory Exam: Clear to Ausculation Bilateral. absent: Rales, Rhonchi, Wheezes - Cardiovascular Exam Cardiovascular Exam: REGULAR RHYTHM, +S1, +S2, Murmur - GI/Abdominal Exam GI & Abdominal Exam: Soft. absent: Distended, Firm, Guarding, Rigid, Tenderness - Extremities Exam Extremities Exam: Full ROM. Additional comments: LUE AV fistula with palpable thrill, RUE midline. R foot dressing and robbi wrap c/d/i. Tenderness to R foot surgical site. pain to RLE including calf, no swelling, erythema, warmth or palpable cord. - Neurological Exam Neurological Exam: Alert, Awake, Oriented x3 - Psychiatric Exam Psychiatric exam: Normal Affect, Normal Mood Assessment and Plan - Assessment and Plan (Free Text) Plan: This is a 63 year old male with PMhx of IDDM2, ESRD on peritoneal dialysis, HTN, PVD who presents to the ED for pain to the wounds to his right foot, ankle area and right first toe. Found to to have ESR elevated, right hallux osteomyelitis on MRI started on IV abx (PD dosed). Osteomyelitis of right hallux, acute - Afebrile, no leukocytosis - ESR elevated at 60 - Blood Cx no growth >3 days - Right Foot x-ray: no periosteal reaction to suggest osetomyelitis. No gross osseous destruction appreciated. - Right ankle x-ray: no periosteal reaction to suggest osetomyelitis. No gross osseous destruction appreciated. - Lower extremity MRI without contrast right forefoot: marked edema is seen throughout the distal phalanx great toe suggestive of possible osteomyelitis or prominent contusion. No fracture identified. - Lower extremity MRI without contrast right hind foot and midfoot: no MR evidence to suggest osteomyelitis at the midfoot and hindfoot bony anatomy with lateral foot cellulitis identified on a mild-moderate basis without abscess. - RUE midline - Zosyn 2.25 gm IVPB Q12H- started 12/15 (dosed for PD)-> continue through 12/30/18 - Vancomycin 1 gm IVPB every 4 days- started 12/15 (dosed for PD)-> continue through 12/30/18 - Tylenol 650 Q6H PRN - Podiatry consulted (Valery)- for R 1st toe Amputation performed 12/22/18 - ID consulted (Loren)- patient to be d/c'ed on vanco until 12/31/18 and zosyn until 12/30/18 - Wound care Peripheral arterial disease, chronic - [place] [facility] [place]: R popliteal artery 75-99% stenosis. R Posterior tibial artery is occluded. L posterior tibial and anterior tibial with 50-75% stenosis. Diffuse disease to peroneal artery. R MARIVEL: 1.12, L MARIVEL: 0.91 - CTA of bilateral lower extremities: Right lower extremity: AT has short segment areas of mild to severe stenosis of mid and distal segments. Peroneal artery has occlusion in the proximal segment and areas of moderate stenosis in distal segment. - Left lower extremity: AT has short segment areas of severe stenosis of mid and distal segments. Peroneal artery has multiple areas of moderate stenosis in the mid and distal segments. - Peripheral angiogram of RLE: 3-vessel runoff but diffuse calcification. Atherectomy done and cleared out tibial artery--> now flow to digital arteries. - Venous duplex 12/25/18: prelim read negative - ASA 81 mg PO daily - Crestor 20 mg PO QHS - Plavix 75mg PO QD - Cardizem 120 PO daily as per cardio - Cardiology consulted (Bobby) Hypertension, chronic - Monitor on telemetry - Vitals Q4H - Echocardiogram: LVEF approximately 70%. Mild concentric LVH. Grade I abnormal relaxation pattern. - Lasix 80 mg PO 1x/day at 10 AM - Losartan 25mg PO 1x/day at 2 PM - Metoprolol decreased from 100 to 25 mg PO 2x/day at 10 AM and 6 PM - Norvasc was changed to Cardizem ER 120 mg PO Q24H at 10 PM Lethargy, acute, resolved- noted by RN after returning from MRI 12/15 - CT head: Age-related neuro degenerative changes are appreciated in the brain and appear age-appropriate without definite acute intracranial findings. However, density in the arterial and venous system of the brain is appreciated and further evaluation by CT angiography (if no contraindication), brain MRI, MR brain angiogram and MR venography for follow up. - MRI brain without contrast: Artifact but nonacute brain MRI. Vascular changes seen in the CT of head may reflect normal variation or less likely, residual iodinated contrast material within patient's vascular system. - Neuro checks ESRD on Peritoneal dialysis QID, chronic- patient does not want to start hemodialysis -Creatinine stable, but elevated. Phosphorous is downtrending -Pt to continue with peritoneal dialysis as pervious managed as outpatient -Nephro Barbara 1 tab PO daily -Calcitriol 0.5mct PO daily -Continue Phoslo 667 mg PO BIDCC with food -Continue to monitor and replete electrolytes as needed - Nephrology consulted (Vail) Type 2 diabetes mellitus with peripheral neuropathy, chronic - HgbA1c 8.4 - TG/CHL/LDL/HDL is 117/166/95/42 - Accuchecks q6 - Hypoglycemic protocol - Levemir adjusted to 29 units SC ACB, QHS on 12/23 due to elevated blood sugars - Aspart adjusted to 4 units SC AC on 12/23 - ASA 81 mg PO daily - Crestor 20 mg PO QHS - Gabapentin 100 mg PO TID Anemia of chronic disease -Procrit 8000u SC QMWF Ppx: VTE: SCDs contraindicated due to PAD, Heparin 5000 units SC Q8H GI: no indication Diet: heart healthy, renal, low carb. Glucerna Carson Shakes TID. Dispo: Continue IV abx. Continue PD. Patient POD #3. Patient cleared from Podiatry standpoint- Follow up in Dr. Rasmussen's office in one week of discharge. Dr. Pimentel recommends Vanco through 12/31/18 and Zosyn through 12/30/18. CM/SW arranged for nursing services with [facility] and infusions through [facility]. Discharge was scheduled for today, however after PT session with surgical boot and walker, PT did not clear him for discharge. PT recommends either d/c with wheelchair or additional PT sessions as inpatient to strengthen gait with walker.
[2018-12-25] MEDS: diltiaZEM 120 mg/24 Hours CD Cap PO SCH (21:53)
[2018-12-26] MEDS: Piperacill/Tazo 2.25gm in Dex 2.25 GM/50 ML BAG IVPB SCH ×2 (04:24→17:12)
[2018-12-26] MEDS: (Novolin R) Insulin Human Regular 100 units/ml vial SC SCH ×3 (08:08→17:17)
[2018-12-26] MEDS: Multivitamin Vitamin B Complex (Nephro-Vite) Tab PO SCH (08:08)
[2018-12-26] MEDS: Insulin Detemir 100 units/ml Vial (Levemir) SC SCH ×2 (08:08→22:07)
--- NOTE | 2018-12-26 08:39 | CP.PCM.PN ---
<Vidhya Cleary P - Last Filed: 12/26/18 18:59> Subjective - Date & Time of Evaluation Date of Evaluation: 12/26/18 Time of Evaluation: 08:39 - Subjective Subjective: Progress note for Dr. Neville Fraser. Patient seen and evaluated at bedside. Patient states he feels well and R foot pain is much more manageable today. Denies fever, chills, nausea, vomiting, lightheadedness, dizziness, chest pain and shortness of breath. Objective - Vital Signs/Intake and Output Vital Signs (last 24 hours): Temp Pulse Resp BP Pulse Ox 98.3 F 104 H 20 123/74 100 12/26/18 07:15 12/26/18 07:15 12/26/18 07:15 12/26/18 07:15 12/26/18 07:15 Intake and Output: 12/26/18 12/26/18 06:59 18:59 Intake Total 170 Balance 170 - Medications Medications: Current Medications Acetaminophen (Tylenol 325mg Tab) 650 mg PO Q6 PRN PRN Reason: Pain, Mild (1-3) Aspirin (Aspirin Chewable) 81 mg PO DAILY [facility] Last Admin: 12/25/18 09:47 Dose: 81 mg Calcitriol (Rocaltrol) 0.5 mcg PO DAILY [facility] Last Admin: 12/25/18 09:47 Dose: 0.5 mcg Calcium Acetate (Phoslo) 667 mg PO BIDCC [facility] Last Admin: 12/26/18 08:08 Dose: 667 mg Clopidogrel Bisulfate (Plavix) 75 mg PO DAILY [facility] Last Admin: 12/25/18 09:46 Dose: 75 mg Dextrose (Dextrose 50% Inj) 0 ml IV STAT PRN; Protocol PRN Reason: Hypoglycemia Protocol Last Admin: 12/16/18 06:35 Dose: 50 ml Dextrose (Glutose 15) 0 gm PO ONCE PRN; Protocol PRN Reason: Hypoglycemia Protocol Diltiazem HCl (Cardizem Cd) 120 mg PO Q24H [facility] Last Admin: 12/25/18 21:53 Dose: 120 mg Docusate Sodium (Colace) 100 mg PO BID [facility] Last Admin: 12/25/18 18:26 Dose: 100 mg Epoetin Sanchez (Procrit) 8,000 unit SC MWF [facility] Last Admin: 12/24/18 11:53 Dose: 8,000 unit Gabapentin (Neurontin) 100 mg PO TID [facility] Last Admin: 12/25/18 18:26 Dose: 100 mg Glucagon (Glucagen Diagnostic Kit) 0 mg IM STAT PRN; Protocol PRN Reason: Hypoglycemia Protocol Hydralazine HCl (Apresoline) 25 mg PO Q4 PRN PRN Reason: Other Last Admin: 12/18/18 09:51 Dose: 25 mg Piperacillin Sod/Tazobactam Sod (Zosyn 2.25 Gm Iv Premix) 2.25 gm in 50 mls @ 100 mls/hr IVPB Q12H PEE; Protocol Stop: 12/30/18 23:00 Last Admin: 12/26/18 04:24 Dose: 100 mls/hr Vancomycin HCl 1 gm/ Sodium (Chloride) 250 mls @ 166.7 mls/hr IVPB Q4D [facility]; Protocol Stop: 12/31/18 23:00 Last Admin: 12/23/18 17:17 Dose: 166.7 mls/hr Insulin Detemir (Levemir) 29 unit SC HS [facility] Last Admin: 12/25/18 21:52 Dose: 29 units Insulin Detemir (Levemir) 29 unit SC ACB [facility] Last Admin: 12/26/18 08:08 Dose: 29 units Insulin Human Regular (Novolin R) 4 unit SC AC [facility] Last Admin: 12/26/18 08:08 Dose: 4 unit Lactobacillus Acidophilus (Lactobacillus) 1 cap PO BID [facility] Last Admin: 12/25/18 18:26 Dose: 1 cap Losartan Potassium (Cozaar) 25 mg PO QPM [facility] Last Admin: 12/25/18 18:23 Dose: Not Given Metoprolol Tartrate (Lopressor) 25 mg PO BID [facility] Last Admin: 12/25/18 18:00 Dose: Not Given Minoxidil (Minoxidil) 2.5 mg PO QPM [facility] Last Admin: 12/25/18 18:23 Dose: Not Given Rosuvastatin Calcium (Crestor) 10 mg PO [facility] Last Admin: 12/25/18 21:52 Dose: 10 mg Vitamin B Complex/Vit C/Folic Acid (Nephro-Barbara) 1 tab PO 0800 [facility] Last Admin: 12/26/18 08:08 Dose: 1 tab - Labs Labs: 12/25/18 07:44 04/13/19 07:44 PT 11.6 SECONDS (9.7-12.2) 12/24/18 08:28 INR 1.1 12/24/18 08:28 APTT 36 SECONDS (21-34) H 12/24/18 08:28 - Additional Findings Additional findings: - Constitutional Appears: Non-toxic, No Acute Distress - Head Exam Head Exam: ATRAUMATIC, NORMOCEPHALIC - Eye Exam Eye Exam: EOMI, Normal appearance - Neck Exam Neck Exam: Full ROM, Normal Inspection - Respiratory Exam Respiratory Exam: Clear to Ausculation Bilateral. absent: Rales, Rhonchi, Wheezes - Cardiovascular Exam Cardiovascular Exam: REGULAR RHYTHM, +S1, +S2, Murmur - GI/Abdominal Exam GI & Abdominal Exam: Soft. absent: Distended, Firm, Guarding, Rigid, Tenderness - Extremities Exam Extremities Exam: Full ROM. Additional comments: LUE AV fistula with thrill and buit, RUE midline. R foot dressing and robbi wrap c/d/i. No tenderness to R foot surgical site. No calf tenderness, no swelling, erythema, warmth or palpable cord. - Neurological Exam Neurological Exam: Alert, Awake, Oriented x3 - Psychiatric Exam Psychiatric exam: Normal Affect, Normal Mood Assessment and Plan - Assessment and Plan (Free Text) Plan: This is a 63 year old male with PMhx of IDDM2, ESRD on peritoneal dialysis, HTN, PVD who presents to the ED for pain to the wounds to his right foot, ankle area and right first toe. Found to to have ESR elevated, right hallux osteomyelitis on MRI started on IV abx (PD dosed). Osteomyelitis of right hallux, acute - Afebrile, no leukocytosis - ESR elevated at 60 - Blood Cx no growth >3 days - Right Foot x-ray: no periosteal reaction to suggest osetomyelitis. No gross osseous destruction appreciated. - Right ankle x-ray: no periosteal reaction to suggest osetomyelitis. No gross osseous destruction appreciated. - Lower extremity MRI without contrast right forefoot: marked edema is seen throughout the distal phalanx great toe suggestive of possible osteomyelitis or prominent contusion. No fracture identified. - Lower extremity MRI without contrast right hind foot and midfoot: no MR evidence to suggest osteomyelitis at the midfoot and hindfoot bony anatomy with lateral foot cellulitis identified on a mild-moderate basis without abscess. - RUE midline - Zosyn 2.25 gm IVPB Q12H- started 12/15 (dosed for PD)-> continue through 12/30/18 - Vancomycin 1 gm IVPB every 4 days- started 12/15 (dosed for PD)-> continue through 12/30/18 - Tylenol 650 Q6H PRN - Podiatry consulted (Valery)- for R 1st toe Amputation performed 12/22/18 - ID consulted (Loren)- patient to be d/c'ed on vanco until 12/31/18 and zosyn until 12/30/18 - Wound care Peripheral arterial disease, chronic - Arterial doppler study [facility] 12/07/18: R popliteal artery 75-99% stenosis. R Posterior tibial artery is occluded. L posterior tibial and anterior tibial with 50-75% stenosis. Diffuse disease to peroneal artery. R MARIVEL: 1.12, L MARIVEL: 0.91 - CTA of bilateral lower extremities: Right lower extremity: AT has short segm ent areas of mild to severe stenosis of mid and distal segments. Peroneal artery has occlusion in the proximal segment and areas of moderate stenosis in distal segment. - Left lower extremity: AT has short segment areas of severe stenosis of mid and distal segments. Peroneal artery has multiple areas of moderate stenosis in the mid and distal segments. - Peripheral angiogram of RLE: 3-vessel runoff but diffuse calcification. Atherectomy done and cleared out tibial artery--> now flow to digital arteries. - Venous duplex 12/25/18: prelim read negative - ASA 81 mg PO daily - Crestor 20 mg PO QHS - Plavix 75mg PO QD - Cardizem 120 PO daily as per cardio - Cardiology consulted (Bobby) Hypertension, chronic - Monitor on telemetry - Vitals Q4H - Echocardiogram: LVEF approximately 70%. Mild concentric LVH. Grade I abnormal relaxation pattern. - Lasix 80 mg PO 1x/day at 10 AM - Losartan 25mg PO 1x/day at 2 PM - Metoprolol decreased from 100 to 25 mg PO 2x/day at 10 AM and 6 PM - Norvasc was changed to Cardizem ER 120 mg PO Q24H at 10 PM Lethargy, acute, resolved- noted by RN after returning from MRI 12/15 - CT head: Age-related neuro degenerative changes are appreciated in the brain and appear age-appropriate without definite acute intracranial findings. However, density in the arterial and venous system of the brain is appreciated and further evaluation by CT angiography (if no contraindication), brain MRI, MR brain angiogram and MR venography for follow up. - MRI brain without contrast: Artifact but nonacute brain MRI. Vascular changes seen in the CT of head may reflect normal variation or less likely, residual iodinated contrast material within patient's vascular system. - Neuro checks ESRD on Peritoneal dialysis QID, chronic- patient does not want to start hemodialysis -Creatinine stable, but elevated. Phosphorous is downtrending -Pt to continue with peritoneal dialysis as pervious managed as outpatient -Nephro Barbara 1 tab PO daily -Calcitriol 0.5mct PO daily -Continue Phoslo 667 mg PO BIDCC with food -Continue to monitor and replete electrolytes as needed - Nephrology consulted (Vail) Type 2 diabetes mellitus with peripheral neuropathy, chronic - HgbA1c 8.4 - TG/CHL/LDL/HDL is 117/166/95/42 - Accuchecks q6 - Hypoglycemic protocol - Levemir adjusted to 29 units SC ACB, QHS on 12/23 due to elevated blood sugars - Aspart adjusted to 4 units SC AC on 12/23 - ASA 81 mg PO daily - Crestor 20 mg PO QHS - Gabapentin 100 mg PO TID Anemia of chronic disease -Procrit 8000u SC QMWF Ppx: VTE: SCDs contraindicated due to PAD, Heparin 5000 units SC Q8H GI: no indication Diet: heart healthy, renal, low carb. Glucerna [place] Shakes TID. Dispo: Continue present management. Patient cleared from Podiatry standpoint- Follow up in Dr. Rasmussen's office in one week of discharge. Dr. Pimentel recommends Vanco through 12/31/18 and Zosyn through 12/30/18. CM/SW arranged for nursing services with [facility] and infusions through [facility]. Patient needs to work with PT to improve gait with surgical boot and walker. As per my conversation with podiatry, patient may bear weight on R heel. He will need a wedge added to surgical shoe. Case discussed with Dr. Evelio Cleary, PGY-1 <Hipolito Fraser - Last Filed: 12/26/18 19:10> Objective - Vital Signs/Intake and Output Vital Signs (last 24 hours): Temp Pulse Resp BP Pulse Ox 98.9 F 93 H 18 103/64 97 12/26/18 15:43 12/26/18 15:43 12/26/18 15:43 12/26/18 17:18 12/26/18 15:43 Intake and Output: 12/26/18 12/27/18 18:59 06:59 Intake Total 300 Balance 300 - Medications Medications: Current Medications Acetaminophen (Tylenol 325mg Tab) 650 mg PO Q6 PRN PRN Reason: Pain, Mild (1-3) Aspirin (Aspirin Chewable) 81 mg PO DAILY [facility] Last Admin: 12/26/18 09:40 Dose: 81 mg Calcitriol (Rocaltrol) 0.5 mcg PO DAILY [facility] Last Admin: 12/26/18 09:40 Dose: 0.5 mcg Calcium Acetate (Phoslo) 667 mg PO BIDCC [facility] Last Admin: 12/26/18 17:17 Dose: 667 mg Clopidogrel Bisulfate (Plavix) 75 mg PO DAILY [facility] Last Admin: 12/26/18 09:41 Dose: 75 mg Dextrose (Dextrose 50% Inj) 0 ml IV STAT PRN; Protocol PRN Reason: Hypoglycemia Protocol Last Admin: 12/16/18 06:35 Dose: 50 ml Dextrose (Glutose 15) 0 gm PO ONCE PRN; Protocol PRN Reason: Hypoglycemia Protocol Diltiazem HCl (Cardizem Cd) 120 mg PO Q24H [facility] Last Admin: 12/25/18 21:53 Dose: 120 mg Docusate Sodium (Colace) 100 mg PO BID [facility] Last Admin: 12/26/18 17:17 Dose: 100 mg Epoetin Sanchez (Procrit) 8,000 unit SC MWF [facility] Last Admin: 12/24/18 11:53 Dose: 8,000 unit Gabapentin (Neurontin) 100 mg PO TID [facility] Last Admin: 12/26/18 17:18 Dose: 100 mg Glucagon (Glucagen Diagnostic Kit) 0 mg IM STAT PRN; Protocol PRN Reason: Hypoglycemia Protocol Hydralazine HCl (Apresoline) 25 mg PO Q4 PRN PRN Reason: Other Last Admin: 12/18/18 09:51 Dose: 25 mg Piperacillin Sod/Tazobactam Sod (Zosyn 2.25 Gm Iv Premix) 2.25 gm in 50 mls @ 100 mls/hr IVPB Q12H PEE; Protocol Stop: 12/30/18 23:00 Last Admin: 12/26/18 17:12 Dose: 100 mls/hr Vancomycin HCl 1 gm/ Sodium (Chloride) 250 mls @ 166.7 mls/hr IVPB Q4D PEE; Protocol Stop: 12/31/18 23:00 Last Admin: 12/23/18 17:17 Dose: 166.7 mls/hr Insulin Detemir (Levemir) 29 unit SC HS [facility] Last Admin: 12/25/18 21:52 Dose: 29 units Insulin Detemir (Levemir) 29 unit SC ACB [facility] Last Admin: 12/26/18 08:08 Dose: 29 units Insulin Human Regular (Novolin R) 4 unit SC AC [facility] Last Admin: 12/26/18 17:17 Dose: 4 unit Lactobacillus Acidophilus (Lactobacillus) 1 cap PO BID [facility] Last Admin: 12/26/18 17:17 Dose: 1 cap Losartan Potassium (Cozaar) 25 mg PO QPM [facility] Last Admin: 12/26/18 17:19 Dose: Not Given Metoprolol Tartrate (Lopressor) 25 mg PO BID [facility] Last Admin: 12/26/18 17:18 Dose: Not Given Minoxidil (Minoxidil) 2.5 mg PO QPM [facility] Last Admin: 12/26/18 17:18 Dose: Not Given Rosuvastatin Calcium (Crestor) 10 mg PO [facility] Last Admin: 12/25/18 21:52 Dose: 10 mg Vitamin B Complex/Vit C/Folic Acid (Nephro-Barbara) 1 tab PO 0800 [facility] Last Admin: 12/26/18 08:08 Dose: 1 tab - Labs Labs: 12/26/18 08:48 12/26/18 08:48 PT 11.6 SECONDS (9.7-12.2) 12/24/18 08:28 INR 1.1 12/24/18 08:28 APTT 36 SECONDS (21-34) H 12/24/18 08:28 Attending/Attestation - Attestation I have personally seen and examined this patient.: Yes I have fully participated in the care of the patient.: Yes I have reviewed all pertinent clinical information, including history, physical exam and plan: Yes Notes (Text): 12/26/18 19:04 Patient was seen and examined shortly after Dr. Cleary. Care of this patient was gone over in detail with Dr. Cleary. Called [facility] [phone] on 12/26/18 and explained that patient was not discharged. Medicine Team please make sure to have Sensitizer Destini Prakash contact [facility] once patient is ready for discharge so that they can arrange to come to his house to educate him on antibiotic infusion. [facility] will also have to be notified. Please make sure that PT has created a wedge to place at the right forefoot so that patient does not bear weight on this area and is forced to bear weight on the right heal while using rolling walker. Patient will need to be cleared by PT to use rolling walker before discharge. Please Disposition above for discharge instructions. All prescriptions have been placed inside patient's physical chart. Hipolito Fraser D.O.
[2018-12-26 08:58] LABS: BASO # 0.1 K/uL (0.0-0.2); BASO % 0.9 % (0.0-2.0); EOS # 0.2 K/uL (0.0-0.7); EOS % 2.8 % (0.0-4.0); HEMOGLOBIN 9.6 g/dL (12.0-18.0); LYMPH # 0.5 K/uL (1.0-4.3); LYMPH % 5.9 % (20.0-40.0); MEAN CELL VOLUME 80.3 fL (80.0-94.0); MEAN CORPUSCULAR HEMOGLOBIN 26.5 pg (27.0-31.0); MEAN PLATELET VOLUME 7.3 fL (7.2-11.7); MONO % 11.9 % (0.0-10.0); NEUT # 6.6 K/uL (1.8-7.0); NEUT % 78.5 % (50.0-75.0); NRBC % 0.1 % (0.0-2.0); PLATELET COUNT 373 K/uL (130-400); RBC 3.61 Mil/uL (4.40-5.90); WHITE BLOOD COUNT 8.4 K/uL (4.8-10.8)
[2018-12-26 09:12] LABS: ALB/GLOB RATIO 1.1 (1.0-2.1); ALBUMIN 3.3 g/dL (3.5-5.0)
[2018-12-26] MEDS: Lactobacillus Acidophilus 500 MU Cap PO SCH ×2 (09:40→17:17)
[2018-12-26 10:12] LABS: LYMPHOCYTE 7 % (20-40); MONOCYTE 11 % (0-10); NEUTROPHIL 82 % (50-75); TOTAL CELLS COUNTED 100
[2018-12-26 10:13] LABS: ANISOCYTOSIS SLIGHT; HYPOCHROMIC SLIGHT; LARGE PLATELETS PRESENT; PLATELET ESTIMATE NORMAL (NORMAL); POLYCHROMIC SLIGHT
[2018-12-26 10:14] LABS: OVALOCYTES SLIGHT; POIKILOCYTOSIS SLIGHT
--- NOTE | 2018-12-26 15:25 | CP.PCM.PN ---
Subjective - Date & Time of Evaluation Date of Evaluation: 12/26/18 Time of Evaluation: 15:24 - Subjective Subjective: Podiatry Progress Note for Dr. Rasmussen 63M seen four days s/p right hallux amputation. Patient is AAO x 3 and NAD, resting comfortably in bed. He states that he has very minimal pain at the amputation site at this time. He denies any acute overnight events or new pedal complaints. Denies any recent N/V/F/C/CP/SOB/D/posterior calf pain. Objective - Vital Signs/Intake and Output Vital Signs (last 24 hours): Temp Pulse Resp BP Pulse Ox 98.9 F 93 H 18 92/50 L 100 12/26/18 15:07 12/26/18 15:07 12/26/18 15:07 12/26/18 15:07 12/26/18 14:51 Intake and Output: 12/26/18 12/26/18 06:59 18:59 Intake Total 170 Balance 170 - Medications Medications: Current Medications Acetaminophen (Tylenol 325mg Tab) 650 mg PO Q6 PRN PRN Reason: Pain, Mild (1-3) Aspirin (Aspirin Chewable) 81 mg PO DAILY [facility] Last Admin: 12/26/18 09:40 Dose: 81 mg Calcitriol (Rocaltrol) 0.5 mcg PO DAILY [facility] Last Admin: 12/26/18 09:40 Dose: 0.5 mcg Calcium Acetate (Phoslo) 667 mg PO BIDCC [facility] Last Admin: 12/26/18 08:08 Dose: 667 mg Clopidogrel Bisulfate (Plavix) 75 mg PO DAILY [facility] Last Admin: 12/26/18 09:41 Dose: 75 mg Dextrose (Dextrose 50% Inj) 0 ml IV STAT PRN; Protocol PRN Reason: Hypoglycemia Protocol Last Admin: 12/16/18 06:35 Dose: 50 ml Dextrose (Glutose 15) 0 gm PO ONCE PRN; Protocol PRN Reason: Hypoglycemia Protocol Diltiazem HCl (Cardizem Cd) 120 mg PO Q24H [facility] Last Admin: 12/25/18 21:53 Dose: 120 mg Docusate Sodium (Colace) 100 mg PO BID [facility] Last Admin: 12/26/18 09:40 Dose: 100 mg Epoetin Sanchez (Procrit) 8,000 unit SC MWF [facility] Last Admin: 12/24/18 11:53 Dose: 8,000 unit Gabapentin (Neurontin) 100 mg PO TID [facility] Last Admin: 12/26/18 14:58 Dose: 100 mg Glucagon (Glucagen Diagnostic Kit) 0 mg IM STAT PRN; Protocol PRN Reason: Hypoglycemia Protocol Hydralazine HCl (Apresoline) 25 mg PO Q4 PRN PRN Reason: Other Last Admin: 12/18/18 09:51 Dose: 25 mg Piperacillin Sod/Tazobactam Sod (Zosyn 2.25 Gm Iv Premix) 2.25 gm in 50 mls @ 100 mls/hr IVPB Q12H PEE; Protocol Stop: 12/30/18 23:00 Last Admin: 12/26/18 04:24 Dose: 100 mls/hr Vancomycin HCl 1 gm/ Sodium (Chloride) 250 mls @ 166.7 mls/hr IVPB Q4D PEE; Protocol Stop: 12/31/18 23:00 Last Admin: 12/23/18 17:17 Dose: 166.7 mls/hr Insulin Detemir (Levemir) 29 unit SC HS [facility] Last Admin: 12/25/18 21:52 Dose: 29 units Insulin Detemir (Levemir) 29 unit SC ACB [facility] Last Admin: 12/26/18 08:08 Dose: 29 units Insulin Human Regular (Novolin R) 4 unit SC AC [facility] Last Admin: 12/26/18 12:38 Dose: Not Given Lactobacillus Acidophilus (Lactobacillus) 1 cap PO BID [facility] Last Admin: 12/26/18 09:40 Dose: 1 cap Losartan Potassium (Cozaar) 25 mg PO QPM [facility] Last Admin: 12/25/18 18:23 Dose: Not Given Metoprolol Tartrate (Lopressor) 25 mg PO BID [facility] Last Admin: 12/26/18 09:40 Dose: 25 mg Minoxidil (Minoxidil) 2.5 mg PO QPM [facility] Last Admin: 12/25/18 18:23 Dose: Not Given Rosuvastatin Calcium (Crestor) 10 mg PO HS [facility] Last Admin: 12/25/18 21:52 Dose: 10 mg Vitamin B Complex/Vit C/Folic Acid (Nephro-Barbara) 1 tab PO 0800 [facility] Last Admin: 12/26/18 08:08 Dose: 1 tab - Labs Labs: 12/26/18 08:48 12/26/18 08:48 PT 11.6 SECONDS (9.7-12.2) 12/24/18 08:28 INR 1.1 12/24/18 08:28 APTT 36 SECONDS (21-34) H 12/24/18 08:28 - Extremities Exam Additional comments: RLE focused exam: Vasc: DP/PT pulses non-palpable b/l. Skin temperature warm to warm from proximal to distal WNL. CFT > 3 seconds to all remaining digits b/l. No edema noted to postoperative site at this time Neuro: Epicritic and protective sensation grossly diminished b/l Derm: Amputation site noted to be well coapted with no evidence of dehiscence and with all sutures intact. No evidence of erythema, malodor, drainage, fluctua nce or other clinical signs of infection or hematoma. Hypertrophic skin of anterior ankle is noted to be slowly improving at this time with no evidence of infection appreciated. MSK: Amputation of right hallux appreciated. Pain on palpation of hypertrophic skin at anterior ankle, improving. Minimal pain on palpation of amputation site, consistent with postoperative status. - Neurological Exam Neurological Exam: Alert Assessment and Plan - Assessment and Plan (Free Text) Assessment: 63M seen four days s/p right hallux amputation Patient seen and evaluated with Dr. Rasmussen Afebrile, absent leukocytosis Continue abx per ID Postoperative foot xray: Amputation 1st digit. Otherwise unremarkable Surgical site and anterior ankle dressed with xeroform, ABD, DSD, PAWEL Please provide patient with [facility] dressing changes as described above three times per week No plan for further surgical intervention at this time Patient stable from podiatric standpoint Upon discharge patient should follow up with Dr. Rasmussen in his office for continued care
--- NOTE | 2018-12-26 15:58 | CP.PCM.PN ---
Subjective - Date & Time of Evaluation Date of Evaluation: 12/26/18 Time of Evaluation: 09:00 - Subjective Subjective: 63M seen four days s/p right hallux amputation. appears comfortable'denies fever or chills foot warm no drainage / wound is healing Objective - Vital Signs/Intake and Output Vital Signs (last 24 hours): Temp Pulse Resp BP Pulse Ox 98.9 F 93 H 18 92/50 L 100 12/26/18 15:07 12/26/18 15:07 12/26/18 15:07 12/26/18 15:07 12/26/18 14:51 Intake and Output: 12/26/18 12/26/18 06:59 18:59 Intake Total 170 Balance 170 - Medications Medications: Current Medications Acetaminophen (Tylenol 325mg Tab) 650 mg PO Q6 PRN PRN Reason: Pain, Mild (1-3) Aspirin (Aspirin Chewable) 81 mg PO DAILY [facility] Last Admin: 12/26/18 09:40 Dose: 81 mg Calcitriol (Rocaltrol) 0.5 mcg PO DAILY [facility] Last Admin: 12/26/18 09:40 Dose: 0.5 mcg Calcium Acetate (Phoslo) 667 mg PO BIDCC [facility] Last Admin: 12/26/18 08:08 Dose: 667 mg Clopidogrel Bisulfate (Plavix) 75 mg PO DAILY [facility] Last Admin: 12/26/18 09:41 Dose: 75 mg Dextrose (Dextrose 50% Inj) 0 ml IV STAT PRN; Protocol PRN Reason: Hypoglycemia Protocol Last Admin: 12/16/18 06:35 Dose: 50 ml Dextrose (Glutose 15) 0 gm PO ONCE PRN; Protocol PRN Reason: Hypoglycemia Protocol Diltiazem HCl (Cardizem Cd) 120 mg PO Q24H [facility] Last Admin: 12/25/18 21:53 Dose: 120 mg Docusate Sodium (Colace) 100 mg PO BID [facility] Last Admin: 12/26/18 09:40 Dose: 100 mg Epoetin Sanchez (Procrit) 8,000 unit SC MWF [facility] Last Admin: 12/24/18 11:53 Dose: 8,000 unit Gabapentin (Neurontin) 100 mg PO TID [facility] Last Admin: 12/26/18 14:58 Dose: 100 mg Glucagon (Glucagen Diagnostic Kit) 0 mg IM STAT PRN; Protocol PRN Reason: Hypoglycemia Protocol Hydralazine HCl (Apresoline) 25 mg PO Q4 PRN PRN Reason: Other Last Admin: 12/18/18 09:51 Dose: 25 mg Piperacillin Sod/Tazobactam Sod (Zosyn 2.25 Gm Iv Premix) 2.25 gm in 50 mls @ 100 mls/hr IVPB Q12H [facility]; Protocol Stop: 12/30/18 23:00 Last Admin: 12/26/18 04:24 Dose: 100 mls/hr Vancomycin HCl 1 gm/ Sodium (Chloride) 250 mls @ 166.7 mls/hr IVPB Q4D [facility]; Protocol Stop: 12/31/18 23:00 Last Admin: 12/23/18 17:17 Dose: 166.7 mls/hr Insulin Detemir (Levemir) 29 unit SC HS [facility] Last Admin: 12/25/18 21:52 Dose: 29 units Insulin Detemir (Levemir) 29 unit SC ACB [facility] Last Admin: 12/26/18 08:08 Dose: 29 units Insulin Human Regular (Novolin R) 4 unit SC AC [facility] Last Admin: 12/26/18 12:38 Dose: Not Given Lactobacillus Acidophilus (Lactobacillus) 1 cap PO BID [facility] Last Admin: 12/26/18 09:40 Dose: 1 cap Losartan Potassium (Cozaar) 25 mg PO QPM [facility] Last Admin: 12/25/18 18:23 Dose: Not Given Metoprolol Tartrate (Lopressor) 25 mg PO BID [facility] Last Admin: 12/26/18 09:40 Dose: 25 mg Minoxidil (Minoxidil) 2.5 mg PO QPM [facility] Last Admin: 12/25/18 18:23 Dose: Not Given Rosuvastatin Calcium (Crestor) 10 mg PO HS [facility] Last Admin: 12/25/18 21:52 Dose: 10 mg Vitamin B Complex/Vit C/Folic Acid (Nephro-Barbara) 1 tab PO 0800 [facility] Last Admin: 12/26/18 08:08 Dose: 1 tab - Labs Labs: 12/26/18 08:48 12/26/18 08:48 PT 11.6 SECONDS (9.7-12.2) 12/24/18 08:28 INR 1.1 12/24/18 08:28 APTT 36 SECONDS (21-34) H 12/24/18 08:28 - Constitutional Appears: Non-toxic, Chronically Ill - Head Exam Head Exam: NORMOCEPHALIC - Eye Exam Eye Exam: absent: Scleral icterus Pupil Exam: NORMAL ACCOMODATION - ENT Exam ENT Exam: Mucous Membranes Dry - Neck Exam Neck Exam: absent: Lymphadenopathy - Respiratory Exam Respiratory Exam: Decreased Breath Sounds, Clear to Ausculation Bilateral - Cardiovascular Exam Cardiovascular Exam: REGULAR RHYTHM, +S1, +S2 - GI/Abdominal Exam GI & Abdominal Exam: Distended, Soft. absent: Tenderness - Rectal Exam Rectal Exam: Deferred - Exam Exam: NORMAL INSPECTION - Extremities Exam Extremities Exam: Pedal Edema. absent: Normal Capillary Refill, Normal Insp ection, Tenderness - Back Exam Back Exam: absent: CVA tenderness (L), CVA tenderness (R) - Neurological Exam Neurological Exam: Alert, Awake, CN II-XII Intact, Oriented x3 - Psychiatric Exam Psychiatric exam: Depressed - Skin Skin Exam: Dry Assessment and Plan (1) Peritoneal dialysis catheter in place Status: Acute (2) CAD (coronary artery disease) Status: Acute (3) Diabetes mellitus Status: Acute (4) ESRD (end stage renal disease) Status: Acute (5) Gangrene Status: Acute (6) Hypertension Status: Acute - Assessment and Plan (Free Text) Assessment: s/p amputation right great toe no new positive cultures to complete 7 days rx post op
[2018-12-26 20:24] VITALS: RESP 20
[2018-12-26] MEDS: diltiaZEM 120 mg/24 Hours CD Cap PO SCH (22:07)
[2018-12-27] MEDS: Piperacill/Tazo 2.25gm in Dex 2.25 GM/50 ML BAG IVPB SCH (05:18)
[2018-12-27] MEDS: Insulin Detemir 100 units/ml Vial (Levemir) SC SCH (08:14)
[2018-12-27] MEDS: Multivitamin Vitamin B Complex (Nephro-Vite) Tab PO SCH (08:15)
[2018-12-27] MEDS: (Novolin R) Insulin Human Regular 100 units/ml vial SC SCH ×2 (08:15→12:18)
[2018-12-27] MEDS: EPOETIN ALFA 4,000 UNIT/ML ML Dialysis SC SCH (08:43)
[2018-12-27 08:44] VITALS: O2SAT 98
[2018-12-27] MEDS: Lactobacillus Acidophilus 500 MU Cap PO SCH (09:46)
--- NOTE | 2018-12-27 11:10 | CP.PCM.PN ---
Subjective - Date & Time of Evaluation Date of Evaluation: 12/27/18 Time of Evaluation: 07:00 - Subjective Subjective: Progress note for Dr. Martínez. Patient seen and evaluated at bedside. Patient states he is ready to go home now. Denies fever, chills, nausea, vomiting, lightheadedness, dizziness, chest pain and shortness of breath. Objective - Vital Signs/Intake and Output Vital Signs (last 24 hours): Temp Pulse Resp BP Pulse Ox 98.5 F 104 H 20 163/90 H 98 12/27/18 08:46 12/27/18 08:46 12/27/18 08:46 12/27/18 11:03 12/27/18 08:46 Intake and Output: 12/27/18 12/27/18 06:59 18:59 Intake Total 370 Balance 370 - Medications Medications: Current Medications Acetaminophen (Tylenol 325mg Tab) 650 mg PO Q6 PRN PRN Reason: Pain, Mild (1-3) Aspirin (Aspirin Chewable) 81 mg PO DAILY [facility] Last Admin: 12/27/18 09:46 Dose: 81 mg Calcitriol (Rocaltrol) 0.5 mcg PO DAILY [facility] Last Admin: 12/27/18 09:46 Dose: 0.5 mcg Clopidogrel Bisulfate (Plavix) 75 mg PO DAILY [facility] Last Admin: 12/27/18 09:46 Dose: 75 mg Dextrose (Dextrose 50% Inj) 0 ml IV STAT PRN; Protocol PRN Reason: Hypoglycemia Protocol Last Admin: 12/16/18 06:35 Dose: 50 ml Dextrose (Glutose 15) 0 gm PO ONCE PRN; Protocol PRN Reason: Hypoglycemia Protocol Diltiazem HCl (Cardizem Cd) 120 mg PO Q24H [facility] Last Admin: 12/26/18 22:07 Dose: 120 mg Docusate Sodium (Colace) 100 mg PO BID [facility] Last Admin: 12/27/18 09:46 Dose: 100 mg Epoetin Sanchez (Procrit) 8,000 unit SC MWF [facility] Last Admin: 12/27/18 08:43 Dose: 8,000 unit Gabapentin (Neurontin) 100 mg PO TID [facility] Last Admin: 12/27/18 09:46 Dose: 100 mg Glucagon (Glucagen Diagnostic Kit) 0 mg IM STAT PRN; Protocol PRN Reason: Hypoglycemia Protocol Heparin Sodium (Porcine) (Heparin) 5,000 units SC Q8 [facility] Last Admin: 12/27/18 05:18 Dose: 5,000 units Hydralazine HCl (Apresoline) 25 mg PO Q4 PRN PRN Reason: Other Last Admin: 12/18/18 09:51 Dose: 25 mg Piperacillin Sod/Tazobactam Sod (Zosyn 2.25 Gm Iv Premix) 2.25 gm in 50 mls @ 100 mls/hr IVPB Q12H [facility]; Protocol Stop: 12/30/18 23:00 Last Admin: 12/27/18 05:18 Dose: 100 mls/hr Vancomycin HCl 1 gm/ Sodium (Chloride) 250 mls @ 166.7 mls/hr IVPB Q4D [facility]; Protocol Stop: 12/31/18 23:00 Last Admin: 12/23/18 17:17 Dose: 166.7 mls/hr Insulin Detemir (Levemir) 29 unit SC HS [facility] Last Admin: 12/26/18 22:07 Dose: 29 units Insulin Detemir (Levemir) 29 unit SC ACB [facility] Last Admin: 12/27/18 08:14 Dose: 29 units Insulin Human Regular (Novolin R) 4 unit SC AC [facility] Last Admin: 12/27/18 08:15 Dose: 4 unit Lactobacillus Acidophilus (Lactobacillus) 1 cap PO BID [facility] Last Admin: 12/27/18 09:46 Dose: 1 cap Losartan Potassium (Cozaar) 25 mg PO QPM [facility] Last Admin: 12/26/18 17:19 Dose: Not Given Metoprolol Tartrate (Lopressor) 25 mg PO BID [facility] Last Admin: 12/27/18 11:01 Dose: 25 mg Rosuvastatin Calcium (Crestor) 10 mg PO HS [facility] Last Admin: 12/26/18 22:07 Dose: 10 mg Sevelamer Carbonate (Renvela) 800 mg PO TIDCC [facility] Vitamin B Complex/Vit C/Folic Acid (Nephro-Barbara) 1 tab PO 0800 [facility] Last Admin: 12/27/18 08:15 Dose: 1 tab - Labs Labs: 12/26/18 08:48 12/26/18 08:48 PT 11.6 SECONDS (9.7-12.2) 12/24/18 08:28 INR 1.1 12/24/18 08:28 APTT 36 SECONDS (21-34) H 12/24/18 08:28 - Additional Findings Additional findings: - Constitutional Appears: Non-toxic, No Acute Distress - Head Exam Head Exam: ATRAUMATIC, NORMOCEPHALIC - Eye Exam Eye Exam: EOMI, Normal appearance - Neck Exam Neck Exam: Full ROM, Normal Inspection - Respiratory Exam Respiratory Exam: Clear to Ausculation Bilateral. absent: Rales, Rhonchi, Wheezes - Cardiovascular Exam Cardiovascular Exam: REGULAR RHYTHM, +S1, +S2, Murmur - GI/Abdominal Exam GI & Abdominal Exam: Soft. absent: Distended, Firm, Guarding, Rigid, Tenderness - Extremities Exam Extremities Exam: Full ROM. Additional comments: LUE AV fistula with thrill and buit, RUE midline. R foot dressing and robbi wrap c/d/i. No tenderness to R foot surgical site. No calf tenderness. - Neurological Exam Neurological Exam: Alert, Awake, Oriented x3 - Psychiatric Exam Psychiatric exam: Normal Affect, Normal Mood Assessment and Plan - Assessment and Plan (Free Text) Plan: This is a 63 year old male with PMhx of IDDM2, ESRD on peritoneal dialysis, HTN, PVD who presents to the ED for pain to the wounds to his right foot, ankle area and right first toe. Found to to have ESR elevated, right hallux osteomyelitis on MRI started on IV abx (PD dosed). Osteomyelitis of right hallux, acute - Afebrile, no leukocytosis - ESR elevated at 60 - Blood Cx no growth >3 days - Right Foot x-ray: no periosteal reaction to suggest osetomyelitis. No gross osseous destruction appreciated. - Right ankle x-ray: no periosteal reaction to suggest osetomyelitis. No gross osseous destruction appreciated. - Lower extremity MRI without contrast right forefoot: marked edema is seen throughout the distal phalanx great toe suggestive of possible osteomyelitis or prominent contusion. No fracture identified. - Lower extremity MRI without contrast right hind foot and midfoot: no MR evidence to suggest osteomyelitis at the midfoot and hindfoot bony anatomy with lateral foot cellulitis identified on a mild-moderate basis without abscess. - RUE midline - Zosyn 2.25 gm IVPB Q12H- started 4 (dosed for PD)-> continue through 12/30/18 - Vancomycin 1 gm IVPB every 4 days- started 4/3 (dosed for PD)-> continue through 12/30/18 - Tylenol 650 Q6H PRN - Podiatry consulted (Valery)- for R 1st toe Amputation performed 12/22/18 - ID consulted (Loren)- patient to be d/c'ed on vanco until 12/31/18 and zosyn until 12/30/18 - Wound care Peripheral arterial disease, chronic - Arterial doppler study [facility] [place] 12/07/18: R popliteal artery 75-99% stenosis. R Posterior tibial artery is occluded. L posterior tibial and anterior tibial with 50-75% stenosis. Diffuse disease to peroneal artery. R MARIVEL: 1.12, L MARIVEL: 0.91 - CTA of bilateral lower extremities: Right lower extremity: AT has short segment areas of mild to severe stenosis of mid and distal segments. Peroneal artery has occlusion in the proximal segment and areas of moderate stenosis in distal segment. - Left lower extremity: AT has short segment areas of severe stenosis of mid and distal segments. Peroneal artery has multiple areas of moderate stenosis in the mid and distal segments. - Peripheral angiogram of RLE: 3-vessel runoff but diffuse calcification. Atherectomy done and cleared out tibial artery--> now flow to digital arteries. - Venous duplex 12/25/18: prelim read negative - ASA 81 mg PO daily - Crestor 20 mg PO QHS - Plavix 75mg PO QD - Cardizem 120 PO daily as per cardio - Cardiology consulted (Bobby) Hypertension, chronic - Monitor on telemetry - Vitals Q4H - Echocardiogram: LVEF approximately 70%. Mild concentric LVH. Grade I abnormal relaxation pattern. - Lasix 80 mg PO 1x/day at 10 AM - Losartan 25mg PO 1x/day at 2 PM - Metoprolol decreased from 100 to 25 mg PO 2x/day at 10 AM and 6 PM - Norvasc was changed to Cardizem ER 120 mg PO Q24H at 10 PM Lethargy, acute, resolved- noted by RN after returning from MRI 12/15 - CT head: Age-related neuro degenerative changes are appreciated in the brain and appear age-appropriate without definite acute intracranial findings. However, density in the arterial and venous system of the brain is appreciated and further evaluation by CT angiography (if no contraindication), brain MRI, MR brain angiogram and MR venography for follow up. - MRI brain without contrast: Artifact but nonacute brain MRI. Vascular changes seen in the CT of head may reflect normal variation or less likely, residual iodinated contrast material within patient's vascular system. - Neuro checks ESRD on Peritoneal dialysis QID, chronic- patient does not want to start hemodialysis -Creatinine stable, but elevated. Phosphorous is downtrending -Pt to continue with peritoneal dialysis as pervious managed as outpatient -Nephro Barbara 1 tab PO daily -Calcitriol 0.5mct PO daily -Continue Phoslo 667 mg PO BIDCC with food -Continue to monitor and replete electrolytes as needed - Nephrology consulted (Vail) Type 2 diabetes mellitus with peripheral neuropathy, chronic - HgbA1c 8.4 - TG/CHL/LDL/HDL is 117/166/95/42 - Accuchecks q6 - Hypoglycemic protocol - Levemir adjusted to 29 units SC ACB, QHS on 12/23 due to elevated blood sugars - Aspart adjusted to 4 units SC AC on 12/23 - ASA 81 mg PO daily - Crestor 20 mg PO QHS - Gabapentin 100 mg PO TID Anemia of chronic disease -Procrit 8000u SC QMWF Ppx: VTE: SCDs contraindicated due to PAD, Heparin 5000 units SC Q8H GI: no indication Diet: heart healthy, renal, low carb. Glucerna [place] TID. Dispo: Continue present management. Patient cleared from Podiatry standpoint- Follow up in Dr. Rasmussen's office in one week of discharge. Dr. Pimentel recommends Vanco through 12/31/18 and Zosyn through 12/30/18. Patient needs to work with PT to improve gait with surgical boot and walker. As per my conversation with podiatry, patient may bear weight on R heel. He will need a wedge added to surgical shoe. f/u PT clearance.
[2018-12-27 11:38] LABS: BASO # 0.1 K/uL (0.0-0.2); BASO % 0.8 % (0.0-2.0); EOS # 0.3 K/uL (0.0-0.7); EOS % 3.7 % (0.0-4.0); HEMOGLOBIN 9.3 g/dL (12.0-18.0); LYMPH # 0.6 K/uL (1.0-4.3); LYMPH % 7.5 % (20.0-40.0); MEAN CELL VOLUME 80.1 fL (80.0-94.0); MEAN CORPUSCULAR HEMOGLOBIN 26.3 pg (27.0-31.0); MEAN CORPUSCULAR HGB CONC 32.8 g/dL (33.0-37.0); MEAN PLATELET VOLUME 7.5 fL (7.2-11.7); MONO # 1.1 K/uL (0.0-0.8); MONO % 14.9 % (0.0-10.0); NEUT # 5.4 K/uL (1.8-7.0); NEUT % 73.1 % (50.0-75.0); NRBC % 0.1 % (0.0-2.0); PLATELET COUNT 418 K/uL (130-400); RBC 3.53 Mil/uL (4.40-5.90); RED CELL DISTRIBUTION WIDTH 15.2 % (11.5-14.5); WHITE BLOOD COUNT 7.4 K/uL (4.8-10.8)
[2018-12-27 11:52] LABS: ALB/GLOB RATIO 1.1 (1.0-2.1); ALBUMIN 3.3 g/dL (3.5-5.0)
--- NOTE | 2018-12-27 12:02 | VASCLAB ---
Date of service: 12/25/2018 PROCEDURE: Lower Extremity Venous Duplex Exam. HISTORY: calf pain PRIORS: None. TECHNIQUE: Bilateral common femoral, femoral, popliteal and posterior tibial, peroneal and great saphenous veins were evaluated. Flow was assessed with color Doppler, compressibility, assessment of phasic flow and augmentation response. Report prepared by CYNTHIA Middleotn FINDINGS: RIGHT: 1. Common Femoral Vein: 1.1. Compressibility - Fully compressible: Thrombus - None : Flow - Phasic: Augmentation -Normal: Reflux - None. 2. Femoral Vein: 2.1. Compressibility - Fully compressible: Thrombus - None : Flow - Phasic: Augmentation -Normal: Reflux - None. 3. Popliteal Vein: 3.1. Compressibility - Fully compressible: Thrombus - None : Flow - Phasic: Augmentation -Normal: Reflux - None. 4. Posterior Tibial Vein: 4.1. Compressibility - Fully compressible: Thrombus - None: Flow - Phasic: Augmentation -Normal: Reflux - None. 5. Peroneal Vein: 5.1. Compressibility - Fully compressible: Thrombus - None: Flow - Phasic: Augmentation -Normal: Reflux - None. 6. Great Saphenous Vein: 6.1. Compressibility - Fully compressible: Thrombus - None: Flow - Phasic: Augmentation - Normal: Reflux - None. LEFT: 1. Common Femoral Vein: 1.1. Compressibility - Fully compressible: Thrombus - None: Flow - Phasic: Augmentation -Normal: Reflux - None. 2. Femoral Vein: 2.1. Compressibility - Fully compressible: Thrombus - None: Flow - Phasic: Augmentation -Normal: Reflux - None. 3. Popliteal Vein: 3.1. Compressibility - Fully compressible: Thrombus - None : Flow - Phasic: Augmentation -Normal: Reflux - None. 4. Posterior Tibial Vein: 4.1. Compressibility - Fully compressible: Thrombus - None: Flow - Phasic: Augmentation -Normal: Reflux - None. 5. Peroneal Vein: 5.1. Compressibility - Fully compressible: Thrombus - None: Flow - Phasic: Augmentation -Normal: Reflux - None. 6. Great Saphenous Vein: 6.1. Compressibility - Fully compressible: Thrombus - None: Flow - Phasic: Augmentation - Normal: Reflux - None. OTHER FINDINGS: Right: None significant. Left: None significant. IMPRESSION: Right: No evidence of deep or superficial vein thrombosis of the right lower extremity. Normal valve function noted of the right side. Left: No evidence of deep or superficial vein thrombosis of the left lower extremity. Normal valve function noted of the left side.
[2018-12-27 12:56] LABS: LYMPHOCYTE 6 % (20-40); MONOCYTE 12 % (0-10); NEUTROPHIL 82 % (50-75); PLATELET ESTIMATE SLIGHTLY INCREASED (NORMAL); TOTAL CELLS COUNTED 100
[2018-12-27 12:57] LABS: ANISOCYTOSIS SLIGHT; LARGE PLATELETS PRESENT
--- NOTE | 2018-12-27 13:56 | CP.PCM.PN ---
Subjective - Date & Time of Evaluation Date of Evaluation: 12/27/18 Time of Evaluation: 11:00 - Subjective Subjective: Nephrology Consultation Note: Assessment: Stable Rt foot found/ulcer with PVD Rt foot toe osteomyelitis Diabetic chronic Kidney Disease (E11.22). Hypoglyecmia and hyperglycemia Hypertensive Chronic Kidney Disease (I12.0) End stage renal disease (N18.6) dependence on dialysis (Z99.2) as PD Anemia (D64.9), Hyperphosphatemia (E83.39), Secondary Hyperparathyroidism (E21.1), HTN (I12.0) uncontrolled severe HTN with urgency Plan: Will plan for PD as ordered. Continue with Nephrovite 1 tab/day. PD d/w field staff as well. PRBC as needed for anemia. will add JESSIE as last Hb <10 Continue with phos binders, last phos level: 4.7. since serum Ca on higher side, switch phoslo to renvela Continue with calcitriol. BP control with meds as ordered. Patient on RAAS rachna as losartan 25 mg/d, metoprolol 25 mg bid. also on CCB. pt BP low side over weekend, didn't require BP meds. will d/c minoxidil Glycemic control, Dialysis consistent diet Further work up/management as per primary team Dose meds/antibiotics (if needed) for ESRD status. Avoid fleets enema/magnesium based laxatives. abx per ID. pt had toe amputation 12/22/18. pt for PICC line and IV abx as outpt. Thanks for allowing me to participate in care of your patient. Will follow patient with you. Please call if any Qs. had d/w team and family Dr Brad Lucero Office: [phone] Chief Complaint; Rt foot wound HPI: Pt is a 63 M with hx of ESRD on PD since 2014, chronic anemia, h yperphosphatemia, secondary hyperparathyroidism, Diabetes Mellitus, hypertension presented with complaints of rt foot wound Renal consult requested for ESRD management. PD: manual exchanges 1.5% alternating with 2.5% (2000 mL) with 4 hr dwell time, net UF 0-300 mL with each exchange. he is looking forward to switch to HD in near future ROS: tolerating pd well. net UF 4764-2226 ml. fluid is clear. no pain or issues reported during PD exchanges. Cardiovascular: No chest pain. Pulmonary: No shortness of breath Gastrointestinal: denies abdominal pain No nausea. No vomiting. Genitourinary: No pain while urinating. Denies blood in urine. makes urine 1-2 times per day and not as much as used to in past All other negative except as mentioned in HPI s/p angiogram 12/17/18 Physical Examination: seen during PD General Appearance: Comfortable, in no acute respiratory distress, co-operative . Vitals reviewed and noted as below Head; Atraumatic, normocephalic ENT: no ulcers no thrush. Tongue is midline. Oropharynx: no rash or ulcers. EYES: Pupils are equal, round and reactive to light accommodation. Eye muscles and extraocular movement intact. Sclera is anicteric. Neck; supple no lymphadenopathy, no thyromegaly or bruit Lungs: Normal respiratory rate/effort. Breath sounds bilateral reduced at bases Heart: Normal rate. s1s2 normal. No rub or gallop. Extremities: no edema. No varicose veins. Rt foot in dressing Neurological: Patient is alert, awake and oriented to person, place and time. No focal deficit. Strength bilateral appropriate and equal Skin: Warm and dry. Normal turgor. No rash. Palpitation: Normal elasticity for age Abdomen: Abdomen is soft. Bowel sounds +. There is no abdominal tenderness, no guarding/rigidity or organomegaly Psych: normal insight and normal affect/mood MSK: no joint tenderness or swelling. Digits and nails normal, no deformity. s/p Rt great toe amputation : kidney or bladder not palpable Access: PD catheter. left AV access matured. Labs/imaging reviewed. Past medical history, past surgical history, family history, social history, allergy reviewed and noted as below Family Hx: no hx of CKD. Non contributory Objective - Vital Signs/Intake and Output Vital Signs (last 24 hours): Temp Pulse Resp BP Pulse Ox 98.6 F 102 H 20 163/90 H 98 12/27/18 10:40 12/27/18 10:40 12/27/18 10:40 12/27/18 11:03 12/27/18 08:46 Intake and Output: 12/27/18 12/27/18 06:59 18:59 Intake Total 370 Balance 370 - Medications Medications: Current Medications Acetaminophen (Tylenol 325mg Tab) 650 mg PO Q6 PRN PRN Reason: Pain, Mild (1-3) Aspirin (Aspirin Chewable) 81 mg PO DAILY [facility] Last Admin: 12/27/18 09:46 Dose: 81 mg Calcitriol (Rocaltrol) 0.5 mcg PO DAILY [facility] Last Admin: 12/27/18 09:46 Dose: 0.5 mcg Clopidogrel Bisulfate (Plavix) 75 mg PO DAILY [facility] Last Admin: 12/27/18 09:46 Dose: 75 mg Dextrose (Dextrose 50% Inj) 0 ml IV STAT PRN; Protocol PRN Reason: Hypoglycemia Protocol Last Admin: 12/16/18 06:35 Dose: 50 ml Dextrose (Glutose 15) 0 gm PO ONCE PRN; Protocol PRN Reason: Hypoglycemia Protocol Diltiazem HCl (Cardizem Cd) 120 mg PO Q24H [facility] Last Admin: 12/26/18 22:07 Dose: 120 mg Docusate Sodium (Colace) 100 mg PO BID [facility] Last Admin: 12/27/18 09:46 Dose: 100 mg Epoetin Sanchez (Procrit) 8,000 unit SC MWF [facility] Last Admin: 12/27/18 08:43 Dose: 8,000 unit Gabapentin (Neurontin) 100 mg PO TID [facility] Last Admin: 12/27/18 13:12 Dose: 100 mg Glucagon (Glucagen Diagnostic Kit) 0 mg IM STAT PRN; Protocol PRN Reason: Hypoglycemia Protocol Heparin Sodium (Porcine) (Heparin) 5,000 units SC Q8 [facility] Last Admin: 12/27/18 13:12 Dose: Not Given Hydralazine HCl (Apresoline) 25 mg PO Q4 PRN PRN Reason: Other Last Admin: 12/18/18 09:51 Dose: 25 mg Piperacillin Sod/Tazobactam Sod (Zosyn 2.25 Gm Iv Premix) 2.25 gm in 50 mls @ 100 mls/hr IVPB Q12H [facility]; Protocol Stop: 12/30/18 23:00 Last Admin: 12/27/18 05:18 Dose: 100 mls/hr Vancomycin HCl 1 gm/ Sodium (Chloride) 250 mls @ 166.7 mls/hr IVPB Q4D [facility]; Protocol Stop: 12/31/18 23:00 Last Admin: 12/23/18 17:17 Dose: 166.7 mls/hr Insulin Detemir (Levemir) 29 unit SC HS [facility] Last Admin: 12/26/18 22:07 Dose: 29 units Insulin Detemir (Levemir) 29 unit SC ACB [facility] Last Admin: 12/27/18 08:14 Dose: 29 units Insulin Human Regular (Novolin R) 4 unit SC AC [facility] Last Admin: 12/27/18 12:18 Dose: 4 unit Lactobacillus Acidophilus (Lactobacillus) 1 cap PO BID [facility] Last Admin: 12/27/18 09:46 Dose: 1 cap Losartan Potassium (Cozaar) 25 mg PO QPM [facility] Last Admin: 12/26/18 17:19 Dose: Not Given Metoprolol Tartrate (Lopressor) 25 mg PO BID [facility] Last Admin: 12/27/18 11:01 Dose: 25 mg Rosuvastatin Calcium (Crestor) 10 mg PO HS [facility] Last Admin: 12/26/18 22:07 Dose: 10 mg Sevelamer Carbonate (Renvela) 800 mg PO TIDCC [facility] Last Admin: 12/27/18 12:18 Dose: 800 mg Vitamin B Complex/Vit C/Folic Acid (Nephro-Barbara) 1 tab PO 0800 [facility] Last Admin: 12/27/18 08:15 Dose: 1 tab - Labs Labs: 12/27/18 11:25 12/27/18 11:25 PT 11.6 SECONDS (9.7-12.2) 12/24/18 08:28 INR 1.1 12/24/18 08:28 APTT 36 SECONDS (21-34) H 12/24/18 08:28
--- NOTE | 2018-12-27 15:16 | CP.PCM.DIS ---
<Sophy Martínez V - Last Filed: 12/27/18 18:12> Provider - Provider Date of Admission: 12/17/18 10:03 Attending physician: Sophy Martínez DO Consults: 12/13/18 19:45 Physician Consult Routine Comment: ALREADY CALLED Consulting Provider: Yeyo Rasmussen Consulting Physician: Yeyo Rasmussen Reason for Consult: DFU 12/14/18 01:08 Nephrology Consult Routine Comment: Consulting Provider: Deep Vail Consulting Physician: Deep Vail Reason for Consult: peritoneal dialysis patient, possibly start on hemodialysis 12/14/18 07:44 Podiatry Consult Routine Comment: Consulting Provider: Glen Rasmussen Consulting Physician: Glen Rasmussen Reason for Consult: RLE wounds 12/14/18 11:23 Physician Consult Routine Comment: Consulting Provider: Tyson Rosales Consulting Physician: Tyson Rosales Reason for Consult: Vascular: DM foot ulcer, potential podiatry procedure in future 12/15/18 16:14 Infectious Disease Consult Routine Comment: Consulting Provider: Mal Pimentel Consulting Physician: Mal Pimentel Reason for Consult: osteomyelitis 12/20/18 09:05 Case Management Referral Routine Comment: Physician Instructions: Reason For Exam: [facility] eval; iv abx on d/c Reason for Referral: Discharge Planning 12/27/18 08:56 Case Management Referral Routine Comment: recommendation from podiatry/Dr. Rasmussen Physician Instructions: Reason For Exam: [facility] vns for wound dressing 3x a week Reason for Referral: [facility] Hospital Course - Lab Results Lab Results: Micro Results 12/13/18 21:12 Blood Blood Culture - Final NO GROWTH AFTER 5 DAYS 12/13/18 21:12 Blood Gram Stain - Final TEST NOT PERFORMED 12/13/18 18:50 Blood Blood Culture - Final NO GROWTH AFTER 5 DAYS 12/13/18 18:50 Blood Gram Stain - Final TEST NOT PERFORMED Most Recent Lab Values WBC 7.4 K/uL (4.8-10.8) 12/27/18 11:25 RBC 3.53 Mil/uL (4.40-5.90) L 12/27/18 11:25 Hgb 9.3 g/dL (12.0-18.0) L 12/27/18 11:25 Hct 28.3 % (35.0-51.0) L 12/27/18 11:25 MCV 80.1 fL (80.0-94.0) 12/27/18 11:25 MCH 26.3 pg (27.0-31.0) L 12/27/18 11:25 MCHC 32.8 g/dL (33.0-37.0) L 12/27/18 11:25 RDW 15.2 % (11.5-14.5) H 12/27/18 11:25 Plt Count 418 K/uL (130-400) H 12/27/18 11:25 MPV 7.5 fL (7.2-11.7) 12/27/18 11:25 Neut % (Auto) 73.1 % (50.0-75.0) 12/27/18 11:25 Lymph % (Auto) 7.5 % (20.0-40.0) L 12/27/18 11:25 Sharkey % (Auto) 14.9 % (0.0-10.0) H 12/27/18 11:25 Eos % (Auto) 3.7 % (0.0-4.0) 12/27/18 11:25 Baso % (Auto) 0.8 % (0.0-2.0) 12/27/18 11:25 Neut # (Auto) 5.4 K/uL (1.8-7.0) 12/27/18 11:25 Lymph # (Auto) 0.6 K/uL (1.0-4.3) L 12/27/18 11:25 Sharkey # (Auto) 1.1 K/uL (0.0-0.8) H 12/27/18 11:25 Eos # (Auto) 0.3 K/uL (0.0-0.7) 12/27/18 11:25 Baso # (Auto) 0.1 K/uL (0.0-0.2) 12/27/18 11:25 Neutrophils % (Manual) 82 % (50-75) H 12/27/18 11:25 Band Neutrophils % 1 % (0-2) 12/25/18 07:44 Lymphocytes % (Manual) 6 % (20-40) L 12/27/18 11:25 Monocytes % (Manual) 12 % (0-10) H 12/27/18 11:25 Eosinophils % (Manual) 7 % (0-4) H 12/25/18 07:44 Basophils % (Manual) 1 % (0-2) 12/23/18 08:16 Toxic Granulation Present 12/18/18 11:25 Platelet Estimate Slightly increased (NORMAL) H 12/27/18 11:25 Large Platelets Present 12/27/18 11:25 Giant Platelets Present 12/18/18 11:25 Polychromasia Slight 12/26/18 08:48 Hypochromasia (manual) Slight 12/26/18 08:48 Poikilocytosis (manual Slight 12/26/18 08:48 Anisocytosis (manual) Slight 12/27/18 11:25 Microcytosis (manual) Slight 12/19/18 08:43 Target Cells Slight 12/13/18 19:59 Ovalocytes Slight 12/26/18 08:48 ESR 85 mm/hr (0-15) H 12/21/18 08:11 PT 11.6 SECONDS (9.7-12.2) 12/24/18 08:28 INR 1.1 12/24/18 08:28 APTT 36 SECONDS (21-34) H 12/24/18 08:28 Sodium 129 mmol/L (132-148) L 12/27/18 11:25 Potassium 4.0 mmol/L (3.6-5.2) 12/27/18 11:25 Chloride 88 mmol/L (98-107) L 12/27/18 11:25 Carbon Dioxide 28 mmol/L (22-30) 12/27/18 11:25 Anion Gap 17 (10-20) 12/27/18 11:25 BUN 51 mg/dL (9-20) H 12/27/18 11:25 Creatinine 10.4 mg/dL (0.8-1.5) H* 12/27/18 11:25 Est GFR ( Amer) 6 12/27/18 11:25 Est GFR (Non-Af Amer) 5 12/27/18 11:25 POC Glucose (mg/dL) 220 mg/dL (65-110) H 12/27/18 16:38 Random Glucose 401 mg/dL (75-110) H* D 12/27/18 11:25 Hemoglobin A1c 8.4 % (4.2-6.5) H 12/14/18 13:36 Lactic Acid 1.8 mmol/L (0.7-2.1) 12/20/18 07:13 Calcium 10.0 mg/dl (8.6-10.4) 12/27/18 11:25 Phosphorus 5.1 mg/dL (2.5-4.5) H 12/22/18 07:25 Magnesium 2.2 mg/dL (1.6-2.3) 12/22/18 07:25 Total Bilirubin 0.3 mg/dL (0.2-1.3) 12/27/18 11:25 AST 31 U/L (17-59) 12/27/18 11:25 ALT 7 U/L (21-72) L 12/27/18 11:25 Alkaline Phosphatase 96 U/L (38-126) 12/27/18 11:25 C-Reactive Protein 31.10 mg/L (0.0-9.9) H 12/21/18 08:11 Total Protein 6.3 g/dL (6.3-8.3) 12/27/18 11:25 Albumin 3.3 g/dL (3.5-5.0) L 12/27/18 11:25 Globulin 3.0 gm/dL (2.2-3.9) 12/27/18 11:25 Albumin/Globulin Ratio 1.1 (1.0-2.1) 12/27/18 11:25 Triglycerides 117 mg/dL (0-149) 12/14/18 08:32 Cholesterol 166 mg/dL (0-199) 12/14/18 08:32 LDL Cholesterol Direct 95 mg/dL (0-129) 12/14/18 08:32 HDL Cholesterol 42 mg/dL (30-70) 12/14/18 08:32 Discharge Plan - Discharge Medications Prescriptions: Aspirin [Ecotrin] 81 mg PO DAILY #30 tablet. Calcitriol [Rocaltrol] 0.5 mcg PO DAILY #30 sgl Calcium Acetate [Phoslo] 667 mg PO BIDCC #60 tab Clopidogrel [Plavix] 75 mg PO DAILY #30 tab [id number] CD [Cardizem CD] 120 mg PO Q24H #30 cap Gabapentin [Neurontin] 100 mg PO TID #90 cap Lactobacillus Acidophilus [Lactobacillus] 1 cap PO BID #60 cap Losartan [Cozaar] 25 mg PO QPM #30 tab Metoprolol Tartrate [Lopressor] 25 mg PO BID #60 tab Rosuvastatin Calcium [Crestor] 10 mg PO HS #30 tab Vitamin B Complex/Vit C/Folic [Nephro-Barbara] 1 tab PO 0800 #30 tab - Follow Up Plan Condition: STABLE Disposition: HOME/ ROUTINE Instructions: Amputation of the Foot or Toe, Diabetes Exchange Diet, Peritoneal Dialysis Diet, Peritoneal Dialysis (DC), Gangrene (DC), Chronic Kidney Disease (DC), Necrotizing Fasciitis (DC), Necrotizing Fasciitis (GEN) Additional Instructions: Patient is stable for discharge as per Dr. Neville Fraser. Patient is to follow up with Dr. Rasmussen, design manager within one week of discharge. Please call [phone] on Thursday to make an appointment with Dr. Rasmussen. Patient must use his walker when walking and bear weight mostly on L leg, as the added weight on the R foot may make the sutures unravel. Patient is to follow up with his primary care doctor, Dr. Cantu within one week of discharge. He is to follow up official results for venous duplex with his primary doctor. Patient is to follow up with Dr. Rosales for further management of peripheral artery disease in the left leg. Please call the number on Dr. Rosales's business card. Patient must also make an appointment with his manager union, Dr. [place], . Case management has organized [facility] Visiting Nurses for dressing changes and physical therapy. [facility] number is [phone]. [facility] will contact you in 48 hours. Case management has also arranged for home infusions with [facility]. Their number is [phone]. They will meet you at your house between 4:30-5pm today for antibiotic session. You will be taught how to do your infusions at home. Patient is discharged with scripts for the following medications: Levemir 29 units SC take at 8am Levemir 29 units SC take at 8PM Aspirin 81mg daily take at 8AM Crestor 10mg daily take at 8PM Plavix 75mg daily take at 8AM Cardizem ER 120mg take at 10PM Cozaar 25mg daily take at 6PM Metoprolol Tartrate 25mg take twice per day 10 AM and 6PM Minoxidil 2.5mg PO daily take at 6PM Calcitriol 0.5mcg take at 8AM Phoslo 667mg Twice a day with meals at 8AM and 8PM Gabapentin 100mg three times per day 8AM, 2PM, and 8PM Lactobacillus 1 capsule twice a day at 8AM and 8PM until January 30 Nephrovite 1tab daily take at 8AM Procrit 8000 units subcutaneously on Thursday, Thursday, and Thursday to be admini stered by visiting nurse. Box of 100 syringes Box of 100 insulin needles Percocet 1 tab every 8 hours for severe pain only. Be well and take care. Referrals: Deep V[place] MD [Staff Provider] - Glen Rasmussen DPM [Staff Provider] - Attending/Attestation - Attestation I have personally seen and examined this patient.: Yes I have fully participated in the care of the patient.: Yes I have reviewed all pertinent clinical information, including history, physical exam and plan: Yes Notes (Text): Patient seen, examined and case discussed with medical manager. Patient is very eager to go home and amenable to working with physical therapy. We spoke with physical therapist Maryjane during our rounds today. We indicated to her that podiatry has allowed allow to bear weight on the heel and for specific wedge. Patient to complete IV abx to cover for osteomyelitis until 12/30/18 for zosyn and vancomycin 12/31/18. Patient has midline and will need midline removed following completion og the antibiotics. Patient is setup for home transfusion to complete IV abx. I spoke with nephrology in regards to anti-hypertensive regiment; recommends to continue the beta rachna at lower dose, cozaar, cardizem, lasix and hold the minoxdil. Patient is on peritoneal dialysis but he wishes to eventually converted to hemodialysis in the future. Patient to follow-up with cardiology as outpatient in regards to perpheral arterial disease. Follow up in Dr. Rasmussen's office in one week of discharge. Dr. Pimentel recommends Vanco through 12/31/18 and Zosyn through 12/30/18. CM/SW arranged for nursing services with [facility] and infusions through [facility]. Patient needs to work with PT to improve gait with surgical boot and walker. This is a brief summary of patient's hospitalization. Please refer to EMR for full detail of record. Discharge Diagnoses: 1) Osteomyelitis of right hallus, acute Assessment/Plan * Infectious Disease (Dr. Pimentel) footwear production machine operator help appreciated * Podiatry (Dr. Rasmussen) footwear production machine operator help appreciated * Patient has a midline-->patient to complete Iv abx via home infusion until 12/31/18. * Wound care nursing services to visit 3x a week * noted imaging: * Right Foot x-ray: no periosteal reaction to suggest osetomyelitis. No gross osseous destruction appreciated. * Right ankle x-ray: no periosteal reaction to suggest osetomyelitis. No gross osseous destruction appreciated. * Lower extremity MRI without contrast right forefoot: marked edema is seen throughout the distal phalanx great toe suggestive of possible osteomyelitis or prominent contusion. No fracture identified. * Lower extremity MRI without contrast right hind foot and midfoot: no MR evidence to suggest osteomyelitis at the midfoot and hindfoot bony anatomy with lateral foot cellulitis identified on a mild-moderate basis without abscess. * Blood culture (12/13/18): no growth after 5 days X2 2) Peripheral Arterial Disease Assessment/plan * Arterial doppler study [facility] 12/07/18: R popliteal artery 75-99% stenosis. R Posterior tibial artery is occluded. L posterior tibial and anterior tibial with 50-75% stenosis. Diffuse disease to peroneal artery. R MARIVEL: 1.12, L MARIVEL: 0.91 * CTA of bilateral lower extremities: Right lower extremity: AT has short segment areas of mild to severe stenosis of mid and distal segments. Peroneal artery has occlusion in the proximal segment and areas of moderate stenosis in distal segment. * Left lower extremity: AT has short segment areas of severe stenosis of mid and distal segments. Peroneal artery has multiple areas of moderate stenosis in the mid and distal segments. * Peripheral angiogram of RLE: 3-vessel runoff but diffuse calcification. Atherectomy done and cleared out tibial artery--> now flow to digital arteries. * Venous duplex 12/25/18: negative Medications upon discharge: * ASA 81 mg PO daily * Crestor 20 mg PO QHS * Plavix 75mg PO QD * Cardizem 120 PO daily * Cardiology consulted (Bobby) seen and evaluated patient to follow-up outpatient. 3. Hypertension, chronic * Nephrology (Dr. Lucero) on consult * Patient is on peritoneal dialysis in the hospital. Patient want to be eventually converted to hemodialysis in the future. nephrology is aware. * Medications modified during hospitalization and spoke with manager union upon discharge: Medications upon discharge: * Lopressor 25mg PO BID * Cardizem ER 120 mg PO daily * Losartan 25mg PO daily * Cardizme 120mg PO daily 4. Lethargy resolved. had completed CT and MRI during hospitalization. Patient is awake, alert oriented X3. NAD 5. ESRD on Peritoneal Dialysis Assessment/Plan * Nephro Barbara 1 tab PO daily * Calcitriol 0.5mct PO daily * d.cPhoslo 667 mg PO BIDCC with food * Continue to monitor and replete electrolytes as needed * patient to resume dialysis peritoneal 6. Type 2 diabetes mellitus with peripheral neuropathy, chronic Assessment/Plan * HgbA1c 8.4 * TG/CHL/LDL/HDL is 117/166/95/42 * Hypoglycemic protocol * Levemir adjusted to 29 units SC ACB, QHS; will need to follow-up with PMD for diabetic management * Regular 4 units sub AC * ASA 81 mg PO daily * Crestor 20 mg PO QHS * Gabapentin 100 mg PO TID 7.Anemia of chronic disease * Procrit 8000u SC QMWF 8. Ppx: * VTE: SCDs contraindicated due to PAD, Heparin 5000 units SC Q8H * GI: no indication * Diet: heart healthy, renal, low carb. Glucerna Mcnary Shakes TID. * Patient seen and evaluated cleared by PT for discharge today.Rolling walker o rdered to be delivered to the house. <Vidhya Cleary P - Last Filed: 12/27/18 22:34> Provider - Provider Date of Admission: 12/17/18 10:03 Attending physician: Sophy Martínez DO Consults: 12/13/18 19:45 Physician Consult Routine Comment: ALREADY CALLED Consulting Provider: Yeyo Rasmussen Consulting Physician: Yeyo Rasmussen Reason for Consult: DFU 12/14/18 01:08 Nephrology Consult Routine Comment: Consulting Provider: Deep [place] Consulting Physician: Deep [place] Reason for Consult: peritoneal dialysis patient, possibly start on hemodialysis 12/14/18 07:44 Podiatry Consult Routine Comment: Consulting Provider: Glen Rasmussen Consulting Physician: Glen Rasmussen Reason for Consult: RLE wounds 12/14/18 11:23 Physician Consult Routine Comment: Consulting Provider: Tyson Rosales Consulting Physician: Tyson Rosales Reason for Consult: Vascular: DM foot ulcer, potential podiatry procedure in future 12/15/18 16:14 Infectious Disease Consult Routine Comment: Consulting Provider: Mal Pimentel Consulting Physician: Mal Pimentel Reason for Consult: osteomyelitis 12/20/18 09:05 Case Management Referral Routine Comment: Physician Instructions: Reason For Exam: [facility] eval; iv abx on d/c Reason for Referral: Discharge Planning 12/27/18 08:56 Case Management Referral Routine Comment: recommendation from podiatry/Dr. Rasmussen Physician Instructions: [facility] Exam[facility] Reason for Referral: [facility] Eval Time Spent in preparation of Discharge (in minutes): 35 Diagnosis - Discharge Diagnosis (1) Gangrene Status: Acute (2) PAD (peripheral artery disease) Status: Acute Hospital Course - Lab Results Lab Results: Micro Results 12/13/18 21:12 Blood Blood Culture - Final NO GROWTH AFTER 5 DAYS 12/13/18 21:12 Blood Gram Stain - Final TEST NOT PERFORMED 12/13/18 18:50 Blood Blood Culture - Final NO GROWTH AFTER 5 DAYS 12/13/18 18:50 Blood Gram Stain - Final TEST NOT PERFORMED Most Recent Lab Values WBC 7.4 K/uL (4.8-10.8) 12/27/18 11:25 RBC 3.53 Mil/uL (4.40-5.90) L 12/27/18 11:25 Hgb 9.3 g/dL (12.0-18.0) L 12/27/18 11:25 Hct 28.3 % (35.0-51.0) L 12/27/18 11:25 MCV 80.1 fL (80.0-94.0) 12/27/18 11:25 MCH 26.3 pg (27.0-31.0) L 12/27/18 11:25 MCHC 32.8 g/dL (33.0-37.0) L 12/27/18 11:25 RDW 15.2 % (11.5-14.5) H 12/27/18 11:25 Plt Count 418 K/uL (130-400) H 12/27/18 11:25 MPV 7.5 fL (7.2-11.7) 12/27/18 11:25 Neut % (Auto) 73.1 % (50.0-75.0) 12/27/18 11:25 Lymph % (Auto) 7.5 % (20.0-40.0) L 12/27/18 11:25 Sharkey % (Auto) 14.9 % (0.0-10.0) H 12/27/18 11:25 Eos % (Auto) 3.7 % (0.0-4.0) 12/27/18 11:25 Baso % (Auto) 0.8 % (0.0-2.0) 12/27/18 11:25 Neut # (Auto) 5.4 K/uL (1.8-7.0) 12/27/18 11:25 Lymph # (Auto) 0.6 K/uL (1.0-4.3) L 12/27/18 11:25 Sharkey # (Auto) 1.1 K/uL (0.0-0.8) H 12/27/18 11:25 Eos # (Auto) 0.3 K/uL (0.0-0.7) 12/27/18 11:25 Baso # (Auto) 0.1 K/uL (0.0-0.2) 12/27/18 11:25 Neutrophils % (Manual) 82 % (50-75) H 12/27/18 11:25 Band Neutrophils % 1 % (0-2) 12/25/18 07:44 Lymphocytes % (Manual) 6 % (20-40) L 12/27/18 11:25 Monocytes % (Manual) 12 % (0-10) H 12/27/18 11:25 Eosinophils % (Manual) 7 % (0-4) H 12/25/18 07:44 Basophils % (Manual) 1 % (0-2) 12/23/18 08:16 Toxic Granulation Present 12/18/18 11:25 Platelet Estimate Slightly increased (NORMAL) H 12/27/18 11:25 Large Platelets Present 12/27/18 11:25 Giant Platelets Present 12/18/18 11:25 Polychromasia Slight 12/26/18 08:48 Hypochromasia (manual) Slight 12/26/18 08:48 Poikilocytosis (manual Slight 12/26/18 08:48 Anisocytosis (manual) Slight 12/27/18 11:25 Microcytosis (manual) Slight 12/19/18 08:43 Target Cells Slight 12/13/18 19:59 Ovalocytes Slight 12/26/18 08:48 ESR 85 mm/hr (0-15) H 12/21/18 08:11 PT 11.6 SECONDS (9.7-12.2) 12/24/18 08:28 INR 1.1 12/24/18 08:28 APTT 36 SECONDS (21-34) H 12/24/18 08:28 Sodium 129 mmol/L (132-148) L 12/27/18 11:25 Potassium 4.0 mmol/L (3.6-5.2) 12/27/18 11:25 Chloride 88 mmol/L (98-107) L 12/27/18 11:25 Carbon Dioxide 28 mmol/L (22-30) 12/27/18 11:25 Anion Gap 17 (10-20) 12/27/18 11:25 BUN 51 mg/dL (9-20) H 12/27/18 11:25 Creatinine 10.4 mg/dL (0.8-1.5) H* 12/27/18 11:25 Est GFR ( Amer) 6 12/27/18 11:25 Est GFR (Non-Af Amer) 5 12/27/18 11:25 POC Glucose (mg/dL) 290 mg/dL (65-110) H 12/27/18 06:54 Random Glucose 401 mg/dL (75-110) H* D 12/27/18 11:25 Hemoglobin A1c 8.4 % (4.2-6.5) H 12/14/18 13:36 Lactic Acid 1.8 mmol/L (0.7-2.1) 12/20/18 07:13 Calcium 10.0 mg/dl (8.6-10.4) 12/27/18 11:25 Phosphorus 5.1 mg/dL (2.5-4.5) H 12/22/18 07:25 Magnesium 2.2 mg/dL (1.6-2.3) 12/22/18 07:25 Total Bilirubin 0.3 mg/dL (0.2-1.3) 12/27/18 11:25 AST 31 U/L (17-59) 12/27/18 11:25 ALT 7 U/L (21-72) L 12/27/18 11:25 Alkaline Phosphatase 96 U/L (38-126) 12/27/18 11:25 C-Reactive Protein 31.10 mg/L (0.0-9.9) H 12/21/18 08:11 Total Protein 6.3 g/dL (6.3-8.3) 12/27/18 11:25 Albumin 3.3 g/dL (3.5-5.0) L 12/27/18 11:25 Globulin 3.0 gm/dL (2.2-3.9) 12/27/18 11:25 Albumin/Globulin Ratio 1.1 (1.0-2.1) 12/27/18 11:25 Triglycerides 117 mg/dL (0-149) 12/14/18 08:32 Cholesterol 166 mg/dL (0-199) 12/14/18 08:32 LDL Cholesterol Direct 95 mg/dL (0-129) 12/14/18 08:32 HDL Cholesterol 42 mg/dL (30-70) 12/14/18 08:32 - Hospital Course Hospital Course: On admission: 63 year old male PMHx DM, ESRD on peritoneal dialysis and HTN presents to ED for wounds to R foot. Patient states he noticed a small wound to his R ankle area and discoloration of his R first toe 3 weeks ago, which have been progressively worsening. Patient reports burning pain to wounds since yesterday. Patient denies fever, chills, drainage, trauma nausea, vomiting, inability to bear weight. Patient undergoes peritoneal dialysis 4x per day, states he left the house with the dialysis solution in his abdomen and has not been able to remove it since he did not bring his supplies with him. Hospitalization: Osteomyelitis of right hallux, acute - Afebrile, no leukocytosis - ESR elevated at 60 - Blood Cx no growth >3 days - Right Foot x-ray: no periosteal reaction to suggest osetomyelitis. No gross osseous destruction appreciated. - Right ankle x-ray: no periosteal reaction to suggest osetomyelitis. No gross osseous destruction appreciated. - Lower extremity MRI without contrast right forefoot: marked edema is seen throughout the distal phalanx great toe suggestive of possible osteomyelitis or prominent contusion. No fracture identified. - Lower extremity MRI without contrast right hind foot and midfoot: no MR evidence to suggest osteomyelitis at the midfoot and hindfoot bony anatomy with lateral foot cellulitis identified on a mild-moderate basis without abscess. - RUE midline - Zosyn 2.25 gm IVPB Q12H- started 12/15 (dosed for PD)-> continue through 12/30/18 - Vancomycin 1 gm IVPB every 4 days- started 12/15 (dosed for PD)-> continue through 12/31/18 - Tylenol 650 Q6H PRN - Podiatry consulted (Valery)- for R 1st toe Amputation performed 12/22/18 - ID consulted (Loren)- patient to be d/c'ed on vanco until 12/31/18 and zosyn until 12/30/18 - Wound care Peripheral arterial disease, chronic - Arterial doppler study [facility] 12/07/18: R popliteal artery 75-99% stenosis. R Posterior tibial artery is occluded. L posterior tibial and anterior tibial with 50-75% stenosis. Diffuse disease to peroneal artery. R MARIVEL: 1.12, L MARIVEL: 0.91 - CTA of bilateral lower extremities: Right lower extremity: AT has short segment areas of mild to severe stenosis of mid and distal segments. Peroneal artery has occlusion in the proximal segment and areas of moderate stenosis in distal segment. - Left lower extremity: AT has short segment areas of severe stenosis of mid and distal segments. Peroneal artery has multiple areas of moderate stenosis in the mid and distal segments. - Peripheral angiogram of RLE: 3-vessel runoff but diffuse calcification. Atherectomy done and cleared out tibial artery--> now flow to digital arteries. - Venous duplex 12/25/18: prelim read negative - ASA 81 mg PO daily - Crestor 20 mg PO QHS - Plavix 75mg PO QD - Cardizem 120 PO daily as per cardio - Cardiology consulted (Bobby) Hypertension, chronic - Monitor on telemetry - Vitals Q4H - Echocardiogram: LVEF approximately 70%. Mild concentric LVH. Grade I abnormal relaxation pattern. - Lasix 80 mg PO 1x/day at 10 AM - Losartan 25mg PO 1x/day at 2 PM - Metoprolol decreased from 100 to 25 mg PO 2x/day at 10 AM and 6 PM - Norvasc was changed to Cardizem ER 120 mg PO Q24H at 10 PM Lethargy, acute, resolved- noted by RN after returning from MRI 12/15 - CT head: Age-related neuro degenerative changes are appreciated in the brain and appear age-appropriate without definite acute intracranial findings. However, density in the arterial and venous system of the brain is appreciated and further evaluation by CT angiography (if no contraindication), brain MRI, MR brain angiogram and MR venography for follow up. - MRI brain without contrast: Artifact but nonacute brain MRI. Vascular changes seen in the CT of head may reflect normal variation or less likely, residual iodinated contrast material within patient's vascular system. - Neuro checks ESRD on Peritoneal dialysis QID, chronic- patient does not want to start hemodialysis -Creatinine stable, but elevated. Phosphorous is downtrending -Pt to continue with peritoneal dialysis as pervious managed as outpatient -Nephro Barbara 1 tab PO daily -Calcitriol 0.5mct PO daily -Continue Phoslo 667 mg PO BIDCC with food -Continue to monitor and replete electrolytes as needed - Nephrology consulted (V[place]) Type 2 diabetes mellitus with peripheral neuropathy, chronic - HgbA1c 8.4 - TG/CHL/LDL/HDL is 117/166/95/42 - Accuchecks q6 - Hypoglycemic protocol - Levemir adjusted to 29 units SC ACB, QHS on 12/23 due to elevated blood sugars - Aspart adjusted to 4 units SC AC on 12/23 - ASA 81 mg PO daily - Crestor 20 mg PO QHS - Gabapentin 100 mg PO TID Anemia of chronic disease -Procrit 8000u SC QMWF Ppx: VTE: SCDs contraindicated due to PAD, Heparin 5000 units SC Q8H GI: no indication Diet: heart healthy, renal, low carb. Glucerna Mcnary Shakes TID. Discharge instructions: Patient is to follow up with Dr. Rasmussen, design manager within one week of discharge. Please call [phone] on to make an appointment with Dr. Rasmussen. Patient must use his walker when walking and can bear weight on his R heel. Patient is to follow up with his primary care doctor, Dr. Cantu within one week of discharge. Patient is to follow up with Dr. Rosales for further management of peripheral artery disease in the left leg. Please call the number on Dr. Rosales's business card, which he has given you. Patient must also make an appointment with his manager union, Dr. Vail, . Case management has organized [facility] for dressing changes and physical therapy. [facility] Care number is [phone]. [facility] has also arranged for home infusions with [facility]. Their number is [phone]. They will meet you at your house first thing in the morning. You will be taught how to do your infusions at home. Patient is discharged with scripts for the following medications: Levemir 29 units SC take at 8am Levemir 29 units SC take at 8PM Aspirin 81mg daily take at 8AM Crestor 10mg daily take at 8PM Plavix 75mg daily take at 8AM Cardizem ER 120mg take at 10PM Cozaar 25mg daily take at 6PM Metoprolol Tartrate 25mg take twice per day 10 AM and 6PM Calcitriol 0.5mcg take at 8AM Phoslo 667mg Twice a day with meals at 8AM and 8PM Gabapentin 100mg three times per day 8AM, 2PM, and 8PM Lactobacillus 1 capsule twice a day at 8AM and 8PM until January 30 Nephrovite 1tab daily take at 8AM Box of 100 syringes Box of 100 insulin needles Return to the Emergency Room for new or worsening symptoms. Discharge Exam - Additional Findings Additional findings: - Constitutional Appears: Non-toxic, No Acute Distress - Head Exam Head Exam: ATRAUMATIC, NORMOCEPHALIC - Eye Exam Eye Exam: EOMI, Normal appearance - Neck Exam Neck Exam: Full ROM, Normal Inspection - Respiratory Exam Respiratory Exam: Clear to Ausculation Bilateral. absent: Rales, Rhonchi, Wheezes - Cardiovascular Exam Cardiovascular Exam: REGULAR RHYTHM, +S1, +S2, Murmur - GI/Abdominal Exam GI & Abdominal Exam: Soft. absent: Distended, Firm, Guarding, Rigid, Tenderness - Extremities Exam Extremities Exam: Full ROM. Additional comments: LUE AV fistula with thrill and buit, RUE midline. R foot dressing and robbi wrap c/d/i. No tenderness to R foot surgical site. No calf tenderness. - Neurological Exam Neurological Exam: Alert, Awake, Oriented x3 - Psychiatric Exam Psychiatric exam: Normal Affect, Normal Mood
[2018-12-27 17:06] VITALS: BP 143/85; PULSE 90; TEMP 98.1
== END 2018-12-27 18:25 | disposition home health service (06) | DRG 270 ==
LOC: C.ER 17:48 → C.3T 22:29 → INTOOBSV 22:29 → C.3T 12-14 01:17 → C.6T 12-15 17:51 → OBSVTOIN 12-17 10:03
PROVIDERS: ADMIT Hospitalist; ATTEND Hospitalist
PROC: 04CP3ZZ Extirpation of Matter from Right Anterior Tibial Artery, Percutaneous Approach (ICD-10-PCS; principal; 2018-12-17)
PROC: 047P3ZZ Dilation of Right Anterior Tibial Artery, Percutaneous Approach (ICD-10-PCS; 2018-12-17)
PROC: B40D1ZZ Plain Radiography of Aorta and Bilateral Lower Extremity Arteries using Low Osmolar Contrast (ICD-10-PCS; 2018-12-17)
PROC: 3E1M39Z Irrigation of Peritoneal Cavity using Dialysate, Percutaneous Approach (ICD-10-PCS; 2018-12-17)
PROC: 0Y6P0Z0 Detachment at Right 1st Toe, Complete, Open Approach (ICD-10-PCS; 2018-12-22)
DX: E11.52 Type 2 diabetes mellitus with diabetic peripheral angiopathy with gangrene (principal); N18.6 End stage renal disease; M86.171 Other acute osteomyelitis, right ankle and foot; I70.261 Atherosclerosis of native arteries of extremities with gangrene, right leg; I70.92 Chronic total occlusion of artery of the extremities; L97.514 Non-pressure chronic ulcer of other part of right foot with necrosis of bone; L97.319 Non-pressure chronic ulcer of right ankle with unspecified severity; I12.0 Hypertensive chronic kidney disease with stage 5 chronic kidney disease or end stage renal disease; N25.81 Secondary hyperparathyroidism of renal origin; E11.621 Type 2 diabetes mellitus with foot ulcer; E11.65 Type 2 diabetes mellitus with hyperglycemia; D63.1 Anemia in chronic kidney disease; E11.69 Type 2 diabetes mellitus with other specified complication; E11.22 Type 2 diabetes mellitus with diabetic chronic kidney disease; E11.42 Type 2 diabetes mellitus with diabetic polyneuropathy; E11.649 Type 2 diabetes mellitus with hypoglycemia without coma; E83.39 Other disorders of phosphorus metabolism; I25.10 Atherosclerotic heart disease of native coronary artery without angina pectoris; E78.5 Hyperlipidemia, unspecified; E78.00 Pure hypercholesterolemia, unspecified; Z99.2 Dependence on renal dialysis; Z79.4 Long term (current) use of insulin; Z79.82 Long term (current) use of aspirin; Z79.899 Other long term (current) drug therapy; Z87.891 Personal history of nicotine dependence; Z80.1 Family history of malignant neoplasm of trachea, bronchus and lung; Z83.3 Family history of diabetes mellitus